=== PATIENT | male | born 1960 | race Caucasian/White ===

== ENCOUNTER 2016-04-20 11:54 | Inpatient (IN) | payer OTHER ==
[~2016-04-20] VITALS: Ht 185.4 cm; Wt 93.4 kg
[~2016-04-20 11:54] MED LIST: ALDACTONE50 MG PO; CARDIZEM60 MG PO; CEFTIN500 MG PO; CHRONULAC30 ML PO; CORDARONE200 MG PO; CYCLOBENZAPRINE10 MG PO; HUMULIN N100 U/ML SC; HYDROCODONE-APA1 TAB PO; LASIX40 MG PO; LEVAQUIN500 MG PO; LISINOPRIL10 MG PO; METOPROLOL TART50 MG PO; MIDODRINE HCL10 MG PO; PREDNISONE10 MG PO; PREDNISONE20 MG PO; PROVENTIL/2.5 MG/3 M INH; ROBITUSSIN AC (10 M1 PO; SINGULAIR10 MG PO; SYMBICORT 16010.2 GM INH; SYNTHROID50 MCG PO; TOPROL XL25 MG PO; XARELTO20 MG PO; XOPENEX 1.1.25 MG/3 UPD
[2016-04-20 12:28] LABS: HEMATOCRIT 45.5 % (42.0-54.0); HEMOGLOBIN 15.2 g/dL (13.5-17.5); MCH 31.3 pg (26.0-34.0); MCHC 33.4 g/dL (31.0-37.0); MCV 93.6 fL (80.0-100.0); MEAN PLATELET VOLUME 11.1 fL (7.4-10.4); PLATELET COUNT 276 10x3/uL (130-400); RBC 4.86 10x6/uL (4.20-6.10); RDW 13.6 % (11.5-14.5); WBC 20.3 10x3/uL (4.8-10.8)
[2016-04-20 12:43] LABS: ALBUMIN 3.4 g/dL (3.4-5.0); ALKALINE PHOSPHATASE 67 U/L (46-116); ALT (SGPT) 76 U/L (10-68); BILIRUBIN - TOTAL 0.43 mg/dL (0.2-1.3); CALC OSMOLALITY 282 mosm/kg (275-300); CALCIUM 9.4 mg/dL (8.5-10.1); CARBON DIOXIDE 30.4 mmol/L (21.0-32.0); CHLORIDE - SERUM 102 mmol/L (98-107); GLUCOSE 88 mg/dL (74-106); POTASSIUM - SERUM 4.6 mmol/L (3.5-5.1); PROTEIN - SERUM 6.8 g/dL (6.4-8.2); SODIUM 139 mmol/L (136-145); UREA NITROGEN 30 mg/dL (7-18); eGFR NON AFRICAN AMERICAN 82 mL/min (90-120)
[2016-04-20 12:52] LABS: CKMB 5.7 U/L (0.0-3.6); TROPONIN-I < 0.017 ng/mL (0.000-0.060)
[2016-04-20 13:13] LABS: EOSINOPHILS 1 % (0-7); LYMPHOCYTES 18 % (15-50); MONOCYTES 11 % (2-11); NEUTROPHILS 67 % (40-80); PLATELET ESTIMATE NORMAL
--- NOTE | 2016-04-20 16:50 | NUR ---
RECEIVED TO ROOM 2238 VIA WC FROM ED. A/O X3. LUNGS HAVE WHEEZES AND CRACKLES THROUGHOUT LUNG DUNCAN. REPORTS PRODUCTIVE COUGH WITH GRAYISH SPUTUM. SKIN IS INTACT WITHOUT REDNESS.
[2016-04-20 16:55] VITALS: BP 154/105; BMI 27.2
--- NOTE | 2016-04-20 18:11 | NUR ---
ATE ALL OF SUPPER PLUS MORE. DR. GONGORA HERE. NEW ORDERS RECEIVED. REQUESTED AND GIVEN ONE HYDROCODONE PO FOR C/O BACK PAIN LEVEL 10. WILL MONITOR.
[2016-04-20 21:18] VITALS: BP 141/87
--- NOTE | 2016-04-20 22:31 | NUR ---
PRN NORCO ADMINISTERED PER ORDER FOR PAIN 7/ IN HIS BACK. PAIN IS CHRONIC. IV REMAINS PATENT. ASSESSMENT PERFORMED PER FLOWSHEET. TELEMETRY ON PER ORDER. PROVIDED PT WITH MILK, TEENA CRACKERS AND PEANUT BUTTER. DENIES FURTHER NEEDS. SRX2 AND BED IN LOWEST POSITION AND LOCKED. CALL LIGHT IN REACH, WILL CONTINUE WITH PLAN OF CARE.
--- NOTE | 2016-04-21 08:04 | NUR ---
AWAKE AND ALERT. ORIENTED X3. NO C/O AT THIS TIME EXCEPT FOR BEING HUNGRY. LUNGS WITH INSPIRATORY AND EXPIRATORY WHEEZES THROUGHOUT LUNG DUNCAN. NON PRODUCTIVE COUGH NOTED. SKIN IS INTACT WITHOUT REDNESS. IV TO RIGHT HAND PATENT WITHOUT REDNESS AT INSERTION SITE. DENIES NEEDS.
[2016-04-21 08:15] VITALS: BP 137/72
--- NOTE | 2016-04-21 09:40 | NUR ---
UP TO SHOWER WITH SET UP ASSISTANCE ONLY. REQUESTED AND GIVEN ONE HYDROCODONE PO FOR C/O BACK PAIN LEVEL 9 AFTER ACTIVITY. WILL MONITOR.
--- NOTE | 2016-04-21 10:30 | NUR ---
RESTING QUIETLY WITH EYES CLOSED. NO NEEDS NOTED.
[2016-04-21 11:46] VITALS: BP 120/66
--- NOTE | 2016-04-21 13:00 | NUR ---
Patient Name: CHRISTIAN MURILLO Admission Status: ER Accout number: [id number] Admission Date: 04-20-2016 : 1960 Admission Diagnosis: Attending: MARIA LUZ Current LOS: 1 Anticipated DC Date: 04-23-2016 Planned Disposition: Home or Self Care Primary Insurance: [facility] Discharge Planning Comments: CM MET WITH PATIENT REGARDING D/C NEEDS AND PLANS. PATIENT STATED HE LIVES WITH ROOMMATES AND THEY EACH HAVE A ROOM. PATIENTS STATED HE WILL DRIVE HIMSELF HOME. PATIENT IS INDEPENDENT WITH HIS CARE AND HAS NO DME AT HOME. PATIENT STATED HE HAS A RAMP TO ENTER HOME AND NO STAIRS INSIDE. PATIENTS PCP IS DR. GONGORA AND USES [facility]. PATIENT HAS NEVER HAD HOME HEALTH BEFORE. CM WILL CONTINUE TO FOLLOW PATIENT WITH D/C NEEDS AND PLANS. PCP DR. GONGORA [facility] [phone] CHAPARRO (FRIEND) [phone] Roving Sizer: Shannan Calixto Is the patient Alert and Oriented? Yes 0 * How many steps to enter\exit or inside your home? RAMP 0 * PCP 0 * Pharmacy [facility] 0 * Preadmission Environment Home with Family 0 * ADLs Independent 0 * Equipment None 0 * List name and contact numbers for known caregivers / representatives who currently or will assist patient after discharge: CHAPARRO WARREN (FRIEND) [phone] 0 * Community resources currently utilized None 0 * Additional services required to return to the preadmission environment? Yes 0 * Can the patient safely return to the preadmission environment? Yes 0 * Has this patient been hospitalized within the prior 30 days at any hospital? No 0 Grand Total: 0
--- NOTE | 2016-04-21 15:15 | NUR ---
REQUESTED AND GIVEN ONE HYDROCODONE PO FOR C/O BACK PAIN LEVEL 8. WILL MONITOR.
[2016-04-21 16:10] VITALS: BP 128/63
--- NOTE | 2016-04-21 18:20 | NUR ---
ATE ALL OF SUPPER. NO C/O AT THIS TIME. DENIES NEEDS. NO CHANGES NOTED.
[2016-04-21 19:00] VITALS: BP 123/75
[2016-04-22] VITALS: BP 114/76
--- NOTE | 2016-04-22 01:12 | NUR ---
UP IN CHAIR AT BEDSIDE. NO DISTRESS NOTED. NO COMPLAINTS VOICED. CL IN REACH
--- NOTE | 2016-04-22 03:58 | NUR ---
PRN NORCO GIVEN FOR C/O BACK PAIN 12/26, MICHAEL WELL, CL IN REACH
[2016-04-22 04:00] VITALS: BP 104/65
--- NOTE | 2016-04-22 06:46 | NUR ---
NO CAHNGE IN ASSESSMENT
[2016-04-22 06:52] LABS: BASOPHILS 0.1 % (0.0-2.0); EOSINOPHILS 0 % (0-7); HEMATOCRIT 42.3 % (42.0-54.0); HEMOGLOBIN 13.8 g/dL (13.5-17.5); IMMATURE GRANULOCYTES 1.3 % (0-5); LYMPHOCYTES 4.7 % (15-50); MCH 31.4 pg (26.0-34.0); MCHC 32.6 g/dL (31.0-37.0); MCV 96.4 fL (80.0-100.0); MEAN PLATELET VOLUME 12.1 fL (7.4-10.4); MONOCYTES 4.6 % (2-11); NEUTROPHILS 89.3 % (40-80); PLATELET COUNT 250 10x3/uL (130-400); RBC 4.39 10x6/uL (4.20-6.10); RDW 14.1 % (11.5-14.5); WBC 24.5 10x3/uL (4.8-10.8)
[2016-04-22 07:06] LABS: CALC OSMOLALITY 286 mosm/kg (275-300); CALCIUM 8.1 mg/dL (8.5-10.1); CARBON DIOXIDE 25.3 mmol/L (21.0-32.0); CHLORIDE - SERUM 108 mmol/L (98-107); CREATININE - SERUM 0.8 mg/dL (0.6-1.3); MAGNESIUM - SERUM 1.9 mg/dL (1.8-2.4); PHOSPHOROUS 2.3 mg/dL (2.5-4.9); POTASSIUM - SERUM 4.5 mmol/L (3.5-5.1); SODIUM 138 mmol/L (136-145); UREA NITROGEN 34 mg/dL (7-18); eGFR NON AFRICAN AMERICAN > 90 mL/min (90-120)
[2016-04-22 07:07] LABS: GLUCOSE 161 mg/dL (74-106)
--- NOTE | 2016-04-22 07:25 | NUR ---
PATIENT RESTING IN HIS BED, HOB UP 30 DEGREES. HE IS RECEIVING AN UPDRAFT TREATMENT. HE HOPES TO GO HOME TODAY. LAUREN NEEDS AT THIS TIME.
[2016-04-22 08:04] VITALS: BP 133/68
--- NOTE | 2016-04-22 08:47 | NUR ---
PATIENT IS SITTING UP ON HIS BEDISDE EATING HIS BREAKFAST. MEDICATIONS GIVEN PER ORDERS. NORCO FOR BACK PAIN. IVF INFUSING TO HIS R HAND PER ORDERS. NO EVIDENCE OF INFILTRATION OR INFECTION. DENIED OTHER NEEDS AT THIS TIME.
--- NOTE | 2016-04-22 10:01 | NUR ---
PATIENT HAS BEED UP IN TO THE SHOWER. HE STATES THAT HE DOES FEEL BETTER. BACK PAIN REMAINS A 6. HE FEELS THIS IS BECAUSE HE IS CONFINED TO HIS BED. ENCOURAGED HIM TO AMBULATE AROUND THE UNIT TO LOOSEN UP. HE DECLINES AT THIS TIME. DENIED OTHER NEEDS WELL. CALL LIGHT IS WITHIN REACH.
[2016-04-22 11:39] VITALS: BP 118/62
--- NOTE | 2016-04-22 14:25 | NUR ---
pt asked to be off oxygen for a while-pulse ox on 2lnc 97%-pulse ox on room air x 20 min off oxygen 96-97%. will continue to monitor
[2016-04-22 14:50] VITALS: Ht 185.4 cm; Wt 93.4 kg
[2016-04-22 15:36] VITALS: BP 126/89
--- NOTE | 2016-04-22 15:38 | NUR ---
PATIENT SITTING UP IN HIS BEDSIDE CHAIR RECEIVING AN UPDRAFT TREATMENT. HE IS ON ROOM AIR. PULSE OX IS 98%
[2016-04-22 19:00] VITALS: BP 134/74
[2016-04-23] VITALS: BP 160/74
--- NOTE | 2016-04-23 00:36 | NUR ---
RESITED IV TO RIGHT HAND ON FIRST STICK WITH 22 GAUGE. PATIENT AMBULATED TO BATHROOM AND BACK TO BED. NOW WATCHING TV WITH NO DISTRESS NOTED. CALL LIGHT WITHIN REACH.
[2016-04-23 04:00] VITALS: BP 139/89
[2016-04-23 06:50] LABS: BASOPHILS 0.2 % (0.0-2.0); EOSINOPHILS 0 % (0-7); HEMATOCRIT 44.7 % (42.0-54.0); HEMOGLOBIN 14.4 g/dL (13.5-17.5); IMMATURE GRANULOCYTES 1.5 % (0-5); LYMPHOCYTES 3.3 % (15-50); MCH 31.8 pg (26.0-34.0); MCHC 32.2 g/dL (31.0-37.0); MCV 98.7 fL (80.0-100.0); MEAN PLATELET VOLUME 12.3 fL (7.4-10.4); MONOCYTES 6.6 % (2-11); NEUTROPHILS 88.4 % (40-80); PLATELET COUNT 209 10x3/uL (130-400); RBC 4.53 10x6/uL (4.20-6.10); RDW 14.9 % (11.5-14.5); WBC 21.6 10x3/uL (4.8-10.8)
--- NOTE | 2016-04-23 06:54 | HP ---
PATIENT: CHRISTIAN MURILLO MEDICAL RECORD: [id number] ACCOUNT: [id number] LOCATION:D.MS [id number] : 60 ADMISSION DATE: 04/20/16 HISTORY AND PHYSICAL EXAMINATION REASON FOR ADMISSION: Shortness of breath. HISTORY OF PRESENT ILLNESS: The patient is a 55-year-old male with history of COPD and asthma. He unfortunately still continues to smoke, but he is trying to quit he states. He had trouble with cough and congestion for about a week and a half. Evelyn Cowan, our nurse practitioner had been treating him with oral prednisone and antibiotics, but he did not improve. He called in, so he just needed to come in because he was more short of breath. He said he had small colored sputum production 3-4 days ago and night sweats, but no documented fever. He also has chronic low back pain and history of AFib flutter. PAST MEDICAL HISTORY: Atrial fib, pneumonia, atrial flutter, hospitalized in April 2015 with DC cardioversion, hepatitis C, chronic low back pain, hypertension, echo 2015 showed EF of 35% with trace MR and tricuspid regurgitation, and hepatitis C. PAST SURGICAL HISTORY: Negative. SOCIAL HISTORY: He says he quit smoking several times last December of 2014, but he is back to smoking again. He works in [employer]. He is . FAMILY HISTORY: Father at 50 with colon cancer, asthma, alcoholism and hypertension. Mother at 50 with chronic obstruction pulmonary disease, hypertension, osteoarthritis, migraine headaches. ALLERGIES: None known. HOME MEDICATIONS: Prednisone 20 mg a day, Xarelto 20 mg p.o. with dinner, lisinopril 10 mg a day, Singulair 10 mg at h.s., Lopressor 50 mg p.o. b.i.d., diltiazem HCL 120 b.i.d., Cordarone 200 mg p.o. b.i.d., Advair 100/50 two puffs b.i.d., guaifenesin 5 cc p.o. q.4 hours p.r.n., DuoNeb q.4 hours, Anson 10/325 one t.i.d. p.r.n. back pain. REVIEW OF SYSTEMS: GENERAL: He has been fatigued with some air hunger. No fever. HEENT: No recent visual change, sinus congestion or sore throat. RESPIRATORY: Increasing cough, wheezing and shortness of breath, small colored sputum 2-3 days ago. No hemoptysis. He continues to smoke. CARDIAC: No exertional chest pain or recent palpitations or edema. GASTROINTESTINAL: No nausea, vomiting, change in stools or blood per rectum. GENITOURINARY: No dysuria. He has nocturia once nightly. ENDOCRINE: Denies polyuria, polydipsia, heat or cold intolerance. NEUROLOGIC: No history of stroke, TIA or vascular headaches. INTEGUMENT: No rash or itching. PSYCHIATRIC: Denies depressed mood or anxiety. PHYSICAL EXAMINATION: GENERAL: Alert 55-year-old male with mild respiratory distress. VITAL SIGNS: Temperature 98.6 orally, pulse 112 and regular, respirations are HISTORY AND PHYSICAL [id number] CHRISTIAN MURILLO 25, blood pressure 157/109 with a sat 94% on 3 liters. HEENT: Normocephalic. Eyes are clear. Oropharynx unremarkable. NECK: No bruits, masses or JVD. CHEST: She has expiratory wheezes in the upper lobes bilaterally. HEART: Tachycardic without murmur. ABDOMEN: Soft, nontender. GENITOURINARY: Deferred. EXTREMITIES: No CCE. MUSCULOSKELETAL: He has chronic lumbago with bending from the waist or side bending. NEUROLOGICAL: Oriented times 3. Cranial nerves intact. SLR is negative bilaterally. SKIN: No icterus appreciated. IMAGING: Chest x-ray shows hyperinflation without acute cardiac disease. LABORATORY DATA: His white count is 20,000, H&H of 15 and 45 respectively, platelet count 276,000. Chemistry normal except for BUN of 30, creatinine of 1.0. ALT and AST are 76 and 49 respectively. CPK-MB is 5.7. Troponin is less than 0.017. ASSESSMENT: 1. Exacerbation of chronic obstructive pulmonary disease. 2. Nicotine addiction. 3. History of atrial fibrillation flutter, currently revealing a sinus tachycardia. 4. History of hepatitis C. 5. Hypertension. PLAN: The patient admitted to medical floor, given updrafts q.4 hours, IV Solu-Medrol. We will start IV Rocephin. Pulmonary consult if indicated. TRANSINT:[id number] Voice Confirmation ID: [id number] DOCUMENT ID: [id number] LUIS GONGORA MD at 0654 CC: [id number] DICTATION DATE: 04/20/161755 HYDROGEN POWER PLANT MANAGER: 04/20/162029 ADM IN [facility] [address] [place] [address]
--- NOTE | 2016-04-23 08:06 | NUR ---
PATIENT AWAKE, ALERT, ORIENTED X3, HE C/O BACK PAIN THAT HE SAYS IS CHRONIC AND HE REQUESTS NORCO WHEN HE CAN GET IT.
[2016-04-23 08:10] VITALS: BP 146/83
--- NOTE | 2016-04-23 09:23 | NUR ---
PATIENT C/O BACK PAIN THAT IS CONSTANT AND CHRONIC, RATES IT 11/25. NORCO PO GIVEN NOW.
--- NOTE | 2016-04-23 09:50 | NUR ---
CHECKED ON PATIENTS PAIN LEVEL, HE SAYS IT IS A LITTLE BETTER, BUT IT'S ABOUT 7/10.
--- NOTE | 2016-04-23 11:00 | NUR ---
PATIENT IS TRYING TO REST, BUT HE IS NOT ABLE WE ALL KEEP GOING IN AND PROVIDING MEDS OR CARE.
[2016-04-23 11:41] VITALS: BP 136/83
--- NOTE | 2016-04-23 13:27 | NUR ---
PATIENT C/O PAIN, RATES PAIN 8-9/10 IN HIS BACK IT IS CHRONIC.
--- NOTE | 2016-04-23 16:00 | NUR ---
PATIENT IS CALM AND DENIES NEEDS.
[2016-04-23 16:03] VITALS: BP 129/75
--- NOTE | 2016-04-23 17:57 | NUR ---
GOLDEN Guevara REQUESTS PAIN MED. RATES PAIN 8-12/26. NORCO PROVIDED, SEE MAR
[2016-04-23 19:00] VITALS: BP 144/82
--- NOTE | 2016-04-24 03:52 | NUR ---
PATIENT IN BED EATING A SNACK. AAOX4. RR EVEN AND UNLABORED. 0 S/S OF DISTRESS. O2 OFF AT THIS TIME. IV TO RIGHT HAND PATENT AND INFUSING NS @ 50. TELEMETRY ON. SRX2. BED LOW. CALL LIGHT WITHIN REACH.
[2016-04-24 04:00] VITALS: BP 134/86
[2016-04-24 07:49] VITALS: BP 152/92
--- NOTE | 2016-04-24 07:53 | NUR ---
AWAKE AND ALERT. UD IN PROGRESS. LUNGS ARE DIMINISHED THROUGHOUT WITH EXPIRATORY WHEEZES NOTED. OCCASSIONAL DRY COUGH NOTED. SKIN IS INTACT WITHOUT REDNESS. IV TO RIGHT HAND PATENT WITHOUT REDNESS AT INSERTION SITE. DENIES NEEDS.
--- NOTE | 2016-04-24 07:58 | NUR ---
REQUESTED AND GIVEN ONE HYDROCODONE FOR C/O BACK PAIN LEVEL 8. WILL MONITOR.
--- NOTE | 2016-04-24 10:30 | NUR ---
IV TO RIGHT HAND CONTINUES TO BEEP. D/C WITH CATHETER INTACT. RESITED TO LEFT HAND AFTER 4 ATTEMPTS WITH 22G. PATIENT TOLERATED WITHOUT C/O.
--- NOTE | 2016-04-24 12:13 | NUR ---
REQUESTED AND GIVEN ONE HYDROCODONE PO FOR C/O BACK PAIN LEVEL 8. WILL MONITOR.
[2016-04-24 12:22] VITALS: BP 126/81
[2016-04-24 16:00] VITALS: BP 133/82
--- NOTE | 2016-04-24 16:10 | NUR ---
REQUESTED AND GIVEN ONE HYDROCODONE PO FOR C/O BACK PAIN LEVEL 9. WILL MONITOR.
--- NOTE | 2016-04-24 18:30 | NUR ---
ATE ALL OF SUPPER. NO CHANGES NOTED. DENIES NEEDS.
--- NOTE | 2016-04-24 19:20 | NUR ---
PATIENT SITTING IN SEMI-FOWLERS POSITION. BROUGHT PATIENT ICE PER HIS REQUEST.
[2016-04-24 20:43] VITALS: BP 153/88
--- NOTE | 2016-04-25 07:59 | NUR ---
AWAKE AND ALERT. ORIENTED X3. C/O BACK PAIN THIS AM. WILL MONITOR. LUNGS ARE CLEAR BILATERALLY BUT DIMINISHED. NON PRODUCTIVE COUGH NOTED. SKIN IS INTACT WITHOUT REDNESS. IV TO LEFT HAND PATENT WITHOUT REDNESS AT INSERTION SITE. REPORTS BM ALREADY THIS AM. DENIES NEEDS.
[2016-04-25 08:04] VITALS: BP 150/90
--- NOTE | 2016-04-25 10:45 | NUR ---
REQUESTED AND GIVEN ONE HYDROCODONE PO FOR C/O BACK PAIN. UP TO SHOWER PER SELF. DENIES NEEDS.
[2016-04-25 11:56] VITALS: BP 139/81
[2016-04-25 15:59] VITALS: BP 140/78
--- NOTE | 2016-04-25 19:12 | NUR ---
ATE ALL OF SUPPER. NO C/O AT THIS TIME. NOT CHANGES NOTED.
--- NOTE | 2016-04-26 02:30 | NUR ---
PT IN BED REQUESTING ICE WATER. IV TO LEFT FOREARM PATENT AND SALINE LOC. LUNS SOUNDS CLEAR TO AUSCULTATION. SIDE RAILS ARE UP X 2. BED IS LOW. CALL LIGHT IS IN REACH.
[2016-04-26 04:00] VITALS: BP 148/90
[2016-04-26 05:04] LABS: BASOPHILS 0.1 % (0.0-2.0); EOSINOPHILS 0 % (0-7); HEMATOCRIT 43.9 % (42.0-54.0); HEMOGLOBIN 14.5 g/dL (13.5-17.5); IMMATURE GRANULOCYTES 1.2 % (0-5); LYMPHOCYTES 5.6 % (15-50); MCH 31.2 pg (26.0-34.0); MCV 94.4 fL (80.0-100.0); MEAN PLATELET VOLUME 12.1 fL (7.4-10.4); MONOCYTES 3.8 % (2-11); NEUTROPHILS 89.3 % (40-80); PLATELET COUNT 223 10x3/uL (130-400); RBC 4.65 10x6/uL (4.20-6.10); RDW 14.3 % (11.5-14.5)
[2016-04-26 05:20] LABS: CALC OSMOLALITY 296 mosm/kg (275-300); CALCIUM 8.4 mg/dL (8.5-10.1); CARBON DIOXIDE 29.6 mmol/L (21.0-32.0); CHLORIDE - SERUM 108 mmol/L (98-107); CREATININE - SERUM 0.9 mg/dL (0.6-1.3); GLUCOSE 184 mg/dL (74-106); MAGNESIUM - SERUM 2.2 mg/dL (1.8-2.4); PHOSPHOROUS 3.1 mg/dL (2.5-4.9); POTASSIUM - SERUM 3.9 mmol/L (3.5-5.1); SODIUM 143 mmol/L (136-145); UREA NITROGEN 33 mg/dL (7-18); eGFR NON AFRICAN AMERICAN > 90 mL/min (90-120)
[2016-04-26 08:07] VITALS: BP 157/97
[2016-04-26 12:09] VITALS: BP 166/95
--- NOTE | 2016-04-26 14:56 | NUR ---
NUTRITION MONITORING & EVAL CHART REVIEWED. PT CONTINUES TO HAVE GOOD PO INTAKE REG DIET. REMAINS AT LOW NUTRITIONAL RISK. RD FOLLOWING
[2016-04-26 16:37] VITALS: BP 155/89
--- NOTE | 2016-04-26 18:44 | NUR ---
REMAINS WITHOUT NEEDS,WITHOUT CHANGE.CONT PLAN OF CARE
[2016-04-26 19:00] VITALS: BP 148/86
[2016-04-27] VITALS: BP 136/81
--- NOTE | 2016-04-27 02:10 | NUR ---
PT IN BED WITH NO NEEDS. LUNG SOUNDS CLEAR. LEFT FOREARM IV PATENT AND SALINE LOC. SIDE RAILS ARE UP X 2. BED IS LOW. CALL LIGHT IS IN REACH.
[2016-04-27 04:00] VITALS: BP 142/88
[2016-04-27 08:28] VITALS: BP 146/89
[2016-04-27 11:49] VITALS: BP 145/79
[2016-04-27] MEDS ORDERED: SINGULAIR10 MG PO (15:38)
[2016-04-27] MEDS ORDERED: IPRAT-ALBUT 0.5-3 ML UPD (15:38)
[2016-04-27] MEDS ORDERED: DALIRESP500 MCG PO (15:38)
[2016-04-27] MEDS ORDERED: PREDNISONE10 MG PO (15:42)
[2016-04-27 15:45] VITALS: BP 139/82
--- NOTE | 2016-04-27 16:30 | NUR ---
DISCHARGE INSTRUCTIONS COMPLETED WITH PATIENT. D/C IV WITH CATH INTACT. TOOK PATIENT OUT VIA WHEELCHAIR.
== END 2016-04-27 16:43 | disposition home or self-care (01) | DRG 191 ==
LOC: OBSVTIME → D.ER 11:54 → D.MS 11:55 → OBSVTIME 15:30 → D.MS 15:30 → D.ER 15:30 → D.MS 04-21 18:30
PROVIDERS: Emergency Medicine; Internal Medicine Pulmonary Disease; ADMIT Family Medicine
DX: J44.1 Chronic obstructive pulmonary disease with (acute) exacerbation (principal); J45.901 Unspecified asthma with (acute) exacerbation; F17.203 Nicotine dependence unspecified, with withdrawal; I50.22 Chronic systolic (congestive) heart failure; I48.92 Unspecified atrial flutter; E87.0 Hyperosmolality and hypernatremia; B18.2 Chronic viral hepatitis C; G89.29 Other chronic pain; M54.5 Low back pain; I11.0 Hypertensive heart disease with heart failure; I48.91 Unspecified atrial fibrillation; Z79.01 Long term (current) use of anticoagulants

== ENCOUNTER 2016-04-30 11:29 | Inpatient (IN) | payer OTHER ==
[~2016-04-30] VITALS: Ht 185.4 cm; Wt 91.1 kg
[~2016-04-30 11:29] MED LIST changes: +DALIRESP500 MCG PO; +IPRAT-ALBUT 0.5-3 ML UPD
[2016-04-30 12:43] LABS: BASOPHILS 0.2 % (0.0-2.0); EOSINOPHILS 1.6 % (0-7); HEMATOCRIT 50.7 % (42.0-54.0); HEMOGLOBIN 17.2 g/dL (13.5-17.5); IMMATURE GRANULOCYTES 3.7 % (0-5); LYMPHOCYTES 9.3 % (15-50); MCH 31.8 pg (26.0-34.0); MCHC 33.9 g/dL (31.0-37.0); MCV 93.7 fL (80.0-100.0); MEAN PLATELET VOLUME 11.4 fL (7.4-10.4); MONOCYTES 11.5 % (2-11); NEUTROPHILS 73.7 % (40-80); PLATELET COUNT 250 10x3/uL (130-400); RBC 5.41 10x6/uL (4.20-6.10); RDW 14.2 % (11.5-14.5)
[2016-04-30 12:48] LABS: APTT 24.4 SECONDS (22.8-39.4); INR 0.94 (0.85-1.17); PROTIME 12.5 SECONDS (11.6-15.0)
[2016-04-30 12:50] LABS: D-DIMER-QUANTITATIVE 0.88 ug/mLFEU (0.20-0.54)
[2016-04-30 13:12] LABS: ALKALINE PHOSPHATASE 73 U/L (46-116); ALT (SGPT) 189 U/L (10-68); BILIRUBIN - TOTAL 0.91 mg/dL (0.2-1.3); CALCIUM 8.9 mg/dL (8.5-10.1); CARBON DIOXIDE 28.4 mmol/L (21.0-32.0); CHLORIDE - SERUM 102 mmol/L (98-107); CREATINE KINASE 102 UL (21-232); CREATININE - SERUM 0.9 mg/dL (0.6-1.3); POTASSIUM - SERUM 4.5 mmol/L (3.5-5.1); PRO BNP 151 pg/mL (0-125); PROTEIN - SERUM 6.4 g/dL (6.4-8.2); SODIUM 140 mmol/L (136-145); UREA NITROGEN 25 mg/dL (7-18); eGFR NON AFRICAN AMERICAN > 90 mL/min (90-120)
[2016-04-30 13:13] LABS: CALC OSMOLALITY 281 mosm/kg (275-300); GLUCOSE 86 mg/dL (74-106); TROPONIN-I < 0.017 ng/mL (0.000-0.060)
[2016-04-30 13:24] LABS: APPEARANCE CLEAR (CLEAR); BILIRUBIN NEGATIVE (NEGATIVE); COLOR YELLOW (YELLOW); GLUCOSE NEGATIVE (NEGATIVE); KETONE NEGATIVE (NEGATIVE); LEUKOCYTE ESTERASE NEGATIVE (NEGATIVE); NITRITE NEGATIVE (NEGATIVE); PROTEIN NEGATIVE (NEGATIVE); SPECIFIC GRAVITY 1.015 (1.005-1.020)
[2016-04-30 13:29] LABS: UDS - AMPHET NEGATIVE QUAL (NEGATIVE); UDS - BARB NEGATIVE QUAL (NEGATIVE); UDS - BENZO NEGATIVE QUAL (NEGATIVE); UDS - COCAINE NEGATIVE QUAL (NEGATIVE); UDS - METH NEGATIVE QUAL (NEGATIVE); UDS - OPIATE POSITIVE QUAL (NEGATIVE); UDS - PCP NEGATIVE QUAL (NEGATIVE); UDS - THC NEGATIVE QUAL (NEGATIVE)
[2016-04-30 18:41] VITALS: BP 147/98; BMI 27.9
--- NOTE | 2016-04-30 18:53 | NUR ---
PT IS ALERT. ASSESSMENT DONE PER FLOWSHEET. NO OTHER NEEDS WILL CONTINUE TO MONTIOR.
--- NOTE | 2016-04-30 19:46 | NUR ---
INITIAL ROUNDS COMPLETEDA T 1930 HRS. PT SOB WITH ACTIVITY. PT REQUESTING PAIN MEDS. DR ORTEGA ON FLOOR AND NOTIFIED. WILL CONTINUE TO MONITOR.
[2016-04-30 20:35] VITALS: BP 161/107
--- NOTE | 2016-04-30 23:07 | NUR ---
PMM EDS GIVEN. OCCLUDED IV TO L HAND D\C'D WITH CATHETER INTACT. PT CURRETNLY RESTING WITH EYES CLOSED. RESP EVEN AND REGULAR. SR UP X2,CALL LIGHT WITHIN REACH.
--- NOTE | 2016-05-01 00:37 | NUR ---
NORCO 10/325 PO GIVEN FOR C/O CHRONIC BACK PAIN. WILL CONTINUE TO MONITOR.
[2016-05-01 00:45] VITALS: BP 183/97
--- NOTE | 2016-05-01 03:01 | NUR ---
PT RESTING WITH EYES CLOSED. RESP EVEN AND REGULAR. SR UP X2, CALL LIGHT WITHIN REACH.
[2016-05-01 04:20] VITALS: BP 145/93
--- NOTE | 2016-05-01 04:35 | NUR ---
VSS. PT DENIES NEED FOR NORCO AT THIS TIME. WILL CONTINUE TO MONITOR.
--- NOTE | 2016-05-01 06:35 | NUR ---
NORCO 10/325 PO GIVEN FOR C/O CHRONIC BACK PAIN. WILL CONTINUE TO MONITOR.
--- NOTE | 2016-05-01 07:45 | NUR ---
0650-AM ROUNDING DONE. DENIES NEEDS AT PRESENT TIME. WAS GIVEN NORCO EARILER FOR CHRONIC BACK PAIN. SALINE LOCK SEEN TO LEFT AC. ON 3L PER NC. BILATERAL IN/EX WHEEZES HEARD THROUGHOUT LUNG DUNCAN. PATIENT STATES THAT HE HAS STOPPED SMOKING X 2 WEEKS AGO. WILL CONTINUE TO MONITOR.
[2016-05-01 07:47] VITALS: BP 150/91
[2016-05-01 08:44] LABS: BASOPHILS 0 % (0.0-2.0); EOSINOPHILS 0 % (0-7); HEMATOCRIT 45.2 % (42.0-54.0); HEMOGLOBIN 15.3 g/dL (13.5-17.5); IMMATURE GRANULOCYTES 1.2 % (0-5); LYMPHOCYTES 2.6 % (15-50); MCH 31.7 pg (26.0-34.0); MCHC 33.8 g/dL (31.0-37.0); MCV 93.6 fL (80.0-100.0); MEAN PLATELET VOLUME 11.6 fL (7.4-10.4); MONOCYTES 2.9 % (2-11); NEUTROPHILS 93.3 % (40-80); PLATELET COUNT 206 10x3/uL (130-400); RBC 4.83 10x6/uL (4.20-6.10); RDW 13.9 % (11.5-14.5); WBC 20.9 10x3/uL (4.8-10.8)
[2016-05-01 10:08] LABS: ALBUMIN 2.6 g/dL (3.4-5.0); ALKALINE PHOSPHATASE 72 U/L (46-116); ALT (SGPT) 147 U/L (10-68); CALCIUM 8.1 mg/dL (8.5-10.1); CARBON DIOXIDE 24.1 mmol/L (21.0-32.0); CHLORIDE - SERUM 99 mmol/L (98-107); CREATININE - SERUM 0.8 mg/dL (0.6-1.3); POTASSIUM - SERUM 4.3 mmol/L (3.5-5.1); PROTEIN - SERUM 5.5 g/dL (6.4-8.2); SODIUM 133 mmol/L (136-145); UREA NITROGEN 23 mg/dL (7-18); eGFR NON AFRICAN AMERICAN > 90 mL/min (90-120)
[2016-05-01 10:16] LABS: CALC OSMOLALITY 275 mosm/kg (275-300); GLUCOSE 213 mg/dL (74-106)
--- NOTE | 2016-05-01 10:23 | NUR ---
ON EP, LAB VALUES ARE NORMAL.
--- NOTE | 2016-05-01 10:51 | HP ---
PATIENT: CHRISTIAN MURILLO MEDICAL RECORD: [id number] ACCOUNT: [id number] LOCATION:D. D.2107 : 60 ADMISSION DATE: 04/30/16 HISTORY AND PHYSICAL EXAMINATION DATE OF ADMISSION: 04/30/2016 CHIEF COMPLAINT: Increasing shortness of breath and audible wheezing. HISTORY OF PRESENT ILLNESS: This 55-year-old white male who has a known history of COPD. He was hospitalized from 04/20/2016 to 04/27/2016, gotten out on Tuesday. He states he had a good day Tuesday and , started off okay, but had acute onset of increased shortness of breath and wheezing afternoon and continued into today. He was brought to the ER, respiratory rate was 36, heart rate was 144, blood pressure a little elevated at 158/89, O2 sat was 99%. He is admitted for COPD exacerbation. He is also complaining of pain in his knees and right foot and ankle as well. PAST MEDICAL HISTORY AND PAST SURGICAL HISTORY: He has COPD. He has atrial fibrillation, lumbar disc disease, hypertension, and history of hepatitis C. PAST SURGICAL HISTORY: No surgeries. CURRENT MEDICATIONS: Includes albuterol via nebulizer every 4-6 hours as needed, amiodarone 200 mg twice a day, hydrocodone 7.5/325 one 3 times a day as needed for pain, lisinopril 10 mg a day, metoprolol 50 mg twice a day, Singulair 10 mg at bedtime, Symbicort 160/4.5 two puffs twice a day. SOCIAL HISTORY: He is . Lives with several people. He works at [employer]. HABITS: He was a long time smoker and he quit and started back, quit and started back. He said he is done now. Denies any alcohol or drugs. FAMILY HISTORY: Father at 50. He had hypertension, asthma, alcoholism, and colon cancer. Mother at age 50. She had hypertension, COPD and asthma as well as osteoarthritis. REVIEW OF SYSTEMS: GENERAL: No major weight changes. HEENT: No sinus or allergy problems. RESPIRATORY: See above history. CARDIAC: History of atrial fibrillation, has seen Dr. Sands in the past. GASTROINTESTINAL: Denies diarrhea or constipation. GENITOURINARY: No significant problems there. MUSCULOSKELETAL: Has chronic back pain and right now, complaining of pain in his knees and right foot and ankle. NEUROLOGIC: No history of migraines or seizures. PSYCHIATRIC: Denies depression or melancholia. PHYSICAL EXAMINATION: VITAL SIGNS: He is afebrile, heart rate is 92, respirations 22, blood pressure 147/98, and O2 sat 95%. He has audible wheezing. Complaining of pain. HEENT: Grossly within normal limits. NECK: Supple. No bruit. HISTORY AND PHYSICAL [id number] CHIDICHRISTIAN VERA HEART: Regular rate and rhythm. LUNGS: Diffuse wheeze. ABDOMEN: Soft. EXTREMITIES: No edema. He has generalized tenderness to both knees and his right foot and ankle. LABORATORY DATA: Urinalysis is okay. Urine drug screen positive for opiates. CBC with a white count of 21,000 (recently hospitalized on steroids) with a hemoglobin of 17.2, hematocrit of 50. INR of 0.94. D-dimer mildly elevated at 0.88. Basic metabolic panel is unremarkable. AST elevated at 65, ALT 189. ProBNP 151. DIAGNOSTIC DATA: Chest x-ray showed no cardiopulmonary disease. CT of the chest due to elevated D-dimer showed no PE. There was a loculated area in the right upper lobe that was probably pneumothorax versus an atypical bleb. ASSESSMENT: 1. Chronic obstructive pulmonary disease exacerbation. 2. Hypertension. 3. Back pain. PLAN: Dr. Escalera has been consulted. He has seen the patient. He has had blood cultures done. He is on IV steroids, IV antibiotics. Start him on Lovenox and Pepcid. We will check a uric acid level in the morning. Other tests and procedures as warranted. TRANSINT:[id number] Voice Confirmation ID: [id number] DOCUMENT ID: [id number] MERLIN ORTEGA MD at 1051 CC: [id number] DICTATION DATE: 04/30/161947 CHIEF RADIOLOGY: 04/30/162105 ADM IN [facility] [address] [place] [address]
[2016-05-01 11:25] VITALS: Ht 185.4 cm; Wt 91.1 kg
[2016-05-01 11:50] VITALS: BP 161/100
--- NOTE | 2016-05-01 13:54 | NUR ---
UP FOR SHOWER, REFUSES LINEN CHANGE WHEN ASKED.
[2016-05-01 15:54] VITALS: BP 130/73
--- NOTE | 2016-05-01 18:27 | NUR ---
LEVAQUIN STILL INFUSING TO LEFT FOREARM. PATIENT IS COUGHING MORE THAN THIS AM, REPORTS THAT "IT'S BREAKING UP". WILL CONTINUE TO MONITOR.
[2016-05-01 20:10] VITALS: BP 152/80
[2016-05-02 00:35] VITALS: BP 157/98
[2016-05-02 04:28] VITALS: BP 158/96
[2016-05-02 06:22] LABS: BASOPHILS 0.2 % (0.0-2.0); EOSINOPHILS 0 % (0-7); HEMATOCRIT 45.3 % (42.0-54.0); HEMOGLOBIN 14.9 g/dL (13.5-17.5); IMMATURE GRANULOCYTES 0.8 % (0-5); LYMPHOCYTES 1.7 % (15-50); MCH 31.8 pg (26.0-34.0); MCHC 32.9 g/dL (31.0-37.0); MCV 96.8 fL (80.0-100.0); MEAN PLATELET VOLUME 12.2 fL (7.4-10.4); MONOCYTES 3.1 % (2-11); NEUTROPHILS 94.2 % (40-80); PLATELET COUNT 215 10x3/uL (130-400); RBC 4.68 10x6/uL (4.20-6.10); RDW 14.5 % (11.5-14.5); WBC 27.1 10x3/uL (4.8-10.8)
[2016-05-02 06:41] LABS: ALBUMIN 2.5 g/dL (3.4-5.0); ALKALINE PHOSPHATASE 92 U/L (46-116); ALT (SGPT) 117 U/L (10-68); BILIRUBIN - TOTAL 0.37 mg/dL (0.2-1.3); CALC OSMOLALITY 283 mosm/kg (275-300); CALCIUM 8.9 mg/dL (8.5-10.1); CARBON DIOXIDE 25.1 mmol/L (21.0-32.0); CHLORIDE - SERUM 103 mmol/L (98-107); CREATININE - SERUM 0.9 mg/dL (0.6-1.3); GLUCOSE 209 mg/dL (74-106); PROTEIN - SERUM 5.4 g/dL (6.4-8.2); SODIUM 137 mmol/L (136-145); UREA NITROGEN 24 mg/dL (7-18); eGFR NON AFRICAN AMERICAN > 90 mL/min (90-120)
[2016-05-02 06:42] LABS: POTASSIUM - SERUM 5.4 mmol/L (3.5-5.1)
--- NOTE | 2016-05-02 07:36 | NUR ---
AM ROUNDING- PT LAYING IN BED ON LEFT SIDE. C/O 01/25 BACK PAIN. STATED HE HAS BEEN ASKING FOR PAIN MEDICINE ALL NIGHT AND HAS NOT RECEIVED IT. APOLOGIZED TO PT AND GAVE PT PRN NORCO ORDERED FOR PAIN. ON EP. K+ WAS 5.4 THIS AM. AWAITING DOCTOR TO MAKE ROUNDS TO NOTIFY HIM. IV SEEN TO LEFT FOREARM SALINE LOCKED AND PATENT. ON 02 AT 3L VIA NC. PT IS ALERT AND ORIENTED, UP AD MAUDE. WILL CONTINUE TO MONITOR.
[2016-05-02 08:00] VITALS: BP 172/106
--- NOTE | 2016-05-02 08:07 | NUR ---
CALLED DR. BENJAMIN ORDERED BY DR. CEBALLOS TO GET A CONSULT FOR PT. AWAITING CALLBACK.
--- NOTE | 2016-05-02 11:43 | NUR ---
UPON WALKING INTO PTS ROOM PT STATED IV (LEFT FOREARM) WAS SWOLLEN. IV SITE APPEARED SWOLLEN WITH NO REDNESS SEEN. WILL ATTEMPT TO RE-SITE PT AND RESTART IV ANTIBIOTICS.
--- NOTE | 2016-05-02 12:21 | NUR ---
RESITED PT X 3 STICKS. GAY TELLO RESITED PT TO RIGHT WRIST WITH 20G CATHETER. TOLERATED WELL. OLD IV TO LEFT FOREARM REMOVED WITH CATH TIP INTACT.
--- NOTE | 2016-05-02 12:40 | NUR ---
DR. BENJAMIN IS ON UNIT. INFORMED HIM THAT PER DR. 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 DR. BENJAMIN STATED " I KNOW I HAVE A CONSULT". WILL CONTINUE TO MONITOR.
[2016-05-02 14:32] VITALS: BP 128/82
--- NOTE | 2016-05-02 17:29 | NUR ---
DR. ORTEGA ON UNIT. INFORMED HIM OF PTS POTASSIUM BEING ELEVATED. STATED HE SAW THAT AND WILL RECHECK TOMORROW.
--- NOTE | 2016-05-02 19:26 | NUR ---
PT LAYING IN BED ON BACK WATCHING TV. DENIES ANY NEED AT CURRENT TIME. WILL CONTINUE TO MONITOR.
--- NOTE | 2016-05-02 19:30 | NUR ---
ASSESSMENT COMPLETE, DENIES NEEDS AT THIS TIME. HOB UP SR UP X2, C/L REACH. NOT WEARING O2 AT THIS TIME. RESP UNLAB RT. RT WRIST SL INTACT WITH NO R/S NOTED AT SITE. LEFT FA BRUISING AND SWELLING NOTED FROM PREVIOUS IV. UP ON PILLOW FOR C & C. UP AD MAUDE W/O DIFF, CONTINUE TO MONITOR.
[2016-05-02 20:00] VITALS: BP 138/72
--- NOTE | 2016-05-02 20:29 | NUR ---
NORCO 10MG PO GIVEN FOR C/O BACK PAIN. C/L IN REACH. PM MEDS GIVEN W/O DIFF. CONTINUE TO MONITOR.
--- NOTE | 2016-05-02 21:30 | NUR ---
VOICES NO C/O PAIN OR DISCOMFORT AT THIS TIME. LYING ON RT SIDE, RESP UNLAB. C/L IN REACH.
--- NOTE | 2016-05-02 23:33 | NUR ---
EYES CLOSED, RESP UNLAB WITH NO S/S OF ACUTE DISTRESS NOTED. C/L IN REACH.
[2016-05-03 00:33] VITALS: BP 145/79
[2016-05-03 05:14] LABS: BASOPHILS 0 % (0.0-2.0); EOSINOPHILS 0 % (0-7); HEMATOCRIT 42.5 % (42.0-54.0); HEMOGLOBIN 14.5 g/dL (13.5-17.5); IMMATURE GRANULOCYTES 0.9 % (0-5); MCHC 34.1 g/dL (31.0-37.0); MCV 93.8 fL (80.0-100.0); MEAN PLATELET VOLUME 11.2 fL (7.4-10.4); MONOCYTES 5.4 % (2-11); NEUTROPHILS 91.7 % (40-80); PLATELET COUNT 216 10x3/uL (130-400); RBC 4.53 10x6/uL (4.20-6.10); RDW 14.2 % (11.5-14.5); WBC 26.1 10x3/uL (4.8-10.8)
[2016-05-03 05:19] VITALS: BP 152/82
[2016-05-03 05:32] LABS: ALBUMIN 2.4 g/dL (3.4-5.0); ALKALINE PHOSPHATASE 78 U/L (46-116); ALT (SGPT) 93 U/L (10-68); BILIRUBIN - TOTAL 0.44 mg/dL (0.2-1.3); CALCIUM 8.6 mg/dL (8.5-10.1); CARBON DIOXIDE 25.2 mmol/L (21.0-32.0); CHLORIDE - SERUM 104 mmol/L (98-107); CREATININE - SERUM 0.8 mg/dL (0.6-1.3); POTASSIUM - SERUM 4.7 mmol/L (3.5-5.1); PROTEIN - SERUM 5.4 g/dL (6.4-8.2); SODIUM 137 mmol/L (136-145); UREA NITROGEN 25 mg/dL (7-18); eGFR NON AFRICAN AMERICAN > 90 mL/min (90-120)
[2016-05-03 05:36] LABS: CALC OSMOLALITY 280 mosm/kg (275-300); GLUCOSE 155 mg/dL (74-106)
--- NOTE | 2016-05-03 14:11 | NUR ---
PATIENT AMB IN ROOM. HAS BEEN MEDICATED WITH NORCO FOR BACKPAIN Q4. TOOK HOT SHOWER THAT HAS RELIEVED PAIN ALSO. WILL CONTINUE TO MONITOR.
--- NOTE | 2016-05-03 17:30 | NUR ---
IN BED LING SUPINE WITH HOB UP SR UP X2, C/L IN REACH. VOICES NO C.O PAIN OR DISCOMFORT AT THIS TIME. CONTINUE TO MONITOR.
--- NOTE | 2016-05-03 20:49 | NUR ---
PM MEDICATION GIVEN PER ORDERS, MICHAEL WELL. C/L IN REACH. CONTINUE TO MONITOR.
[2016-05-03 21:43] VITALS: BP 143/76
--- NOTE | 2016-05-04 00:25 | NUR ---
AWAKE ALERT, BEING MEDICATED PER ORDERS. MICHAEL WELL. C/L IN REACH. CONTINUE TO MONITOR.
[2016-05-04 01:28] VITALS: BP 156/86
[2016-05-04 05:21] LABS: BASOPHILS 0.1 % (0.0-2.0); EOSINOPHILS 0 % (0-7); HEMATOCRIT 44.6 % (42.0-54.0); HEMOGLOBIN 14.9 g/dL (13.5-17.5); IMMATURE GRANULOCYTES 1.1 % (0-5); MCH 31.2 pg (26.0-34.0); MCHC 33.4 g/dL (31.0-37.0); MCV 93.5 fL (80.0-100.0); MEAN PLATELET VOLUME 11.6 fL (7.4-10.4); MONOCYTES 6.5 % (2-11); NEUTROPHILS 89.3 % (40-80); PLATELET COUNT 210 10x3/uL (130-400); RBC 4.77 10x6/uL (4.20-6.10); RDW 14.4 % (11.5-14.5)
[2016-05-04 05:33] LABS: WBC 18.9 10x3/uL (4.8-10.8)
[2016-05-04 05:45] VITALS: BP 105/72
[2016-05-04 05:52] LABS: ALBUMIN 2.4 g/dL (3.4-5.0); ALKALINE PHOSPHATASE 90 U/L (46-116); ALT (SGPT) 106 U/L (10-68); BILIRUBIN - TOTAL 0.47 mg/dL (0.2-1.3); CALC OSMOLALITY 281 mosm/kg (275-300); CALCIUM 8.5 mg/dL (8.5-10.1); CHLORIDE - SERUM 104 mmol/L (98-107); CREATININE - SERUM 0.9 mg/dL (0.6-1.3); GLUCOSE 171 mg/dL (74-106); POTASSIUM - SERUM 4.4 mmol/L (3.5-5.1); PROTEIN - SERUM 5.5 g/dL (6.4-8.2); SODIUM 137 mmol/L (136-145); UREA NITROGEN 24 mg/dL (7-18); eGFR NON AFRICAN AMERICAN > 90 mL/min (90-120)
--- NOTE | 2016-05-04 07:00 | NUR ---
RECEIVED REPORT. ASSUMED CARE OF PATIENT. AMBULATING IN ROOM. NO DISTRESS. CALL LIGHT WITHIN REACH.
[2016-05-04 07:52] VITALS: BP 135/88
--- NOTE | 2016-05-04 08:39 | NUR ---
CALLED VASCULAR ACCESS NURSE TO INFORM HER OF THE CONSULT PLACED BY . PIV ARE ONLY LASTING 24 HOURS AT BEST AND PATIENT IS HARD STICK. FITO THIS NURSE FOR CALLING SHE WAS NOT AWARE OF THE CONSULT.
--- NOTE | 2016-05-04 10:50 | NUR ---
Nutrition follow-up: Diet: Regular PO Intake 75-100% of meals Labs reviewed +BM Wt: 212# PO intake is good at this time. Will continue to provide food choices and honor food preferences. RDN following.
--- NOTE | 2016-05-04 10:51 | NUR ---
AWAITING CXR TO VERIFY PICC PLACEMENT.
--- NOTE | 2016-05-04 11:52 | NUR ---
SITTING IN BED WITH EYES OPEN. NO ACUTE DISTRESS. VANC LATE BEING ADMINISTERED BUT PICC IS AVAILABLE FOR USE AT THIS TIME.
[2016-05-04 12:08] VITALS: BP 158/75
--- NOTE | 2016-05-04 13:56 | NUR ---
MEDICATED FOR PAIN AT THIS TIME. NO DISTRESS.
[2016-05-04 15:51] VITALS: BP 136/86
--- NOTE | 2016-05-04 17:57 | NUR ---
MEDICATED FOR PAIN AT THIS TIME. NO DISTRESS.
[2016-05-04 21:06] VITALS: BP 159/89
[2016-05-05 00:43] VITALS: BP 129/64
--- NOTE | 2016-05-05 01:54 | NUR ---
PT C/O BACK PAIN, RATES @ 6/10 PAIN SCALE. NORCO 1 PO GIVEN. WILL MONITOR.
[2016-05-05 05:26] VITALS: BP 163/87
[2016-05-05 06:54] LABS: BASOPHILS 0.1 % (0.0-2.0); EOSINOPHILS 0 % (0-7); HEMATOCRIT 42.5 % (42.0-54.0); IMMATURE GRANULOCYTES 1.4 % (0-5); LYMPHOCYTES 3.5 % (15-50); MCH 31.1 pg (26.0-34.0); MCHC 32.9 g/dL (31.0-37.0); MCV 94.4 fL (80.0-100.0); MEAN PLATELET VOLUME 11.4 fL (7.4-10.4); PLATELET COUNT 189 10x3/uL (130-400); RDW 14.5 % (11.5-14.5); WBC 18.3 10x3/uL (4.8-10.8)
[2016-05-05 06:55] LABS: APTT 24.5 SECONDS (22.8-39.4)
[2016-05-05 06:56] LABS: INR 1.15 (0.85-1.17); PROTIME 14.6 SECONDS (11.6-15.0)
[2016-05-05 07:18] LABS: ALBUMIN 2.3 g/dL (3.4-5.0); ALKALINE PHOSPHATASE 82 U/L (46-116); ALT (SGPT) 122 U/L (10-68); CALC OSMOLALITY 281 mosm/kg (275-300); CARBON DIOXIDE 29.7 mmol/L (21.0-32.0); CHLORIDE - SERUM 104 mmol/L (98-107); CREATININE - SERUM 0.8 mg/dL (0.6-1.3); GLUCOSE 126 mg/dL (74-106); MAGNESIUM - SERUM 2.2 mg/dL (1.8-2.4); POTASSIUM - SERUM 4.6 mmol/L (3.5-5.1); SODIUM 138 mmol/L (136-145); UREA NITROGEN 25 mg/dL (7-18); eGFR NON AFRICAN AMERICAN > 90 mL/min (90-120)
[2016-05-05 08:00] VITALS: BP 122/78
--- NOTE | 2016-05-05 11:33 | NUR ---
PT IS ALERT. ASSESSMENT DONE PER FLOWSHEET NO OTHER NEEDS AT THIS TIME. WILL CONTINUE TO MONTIOR.
[2016-05-05 12:00] VITALS: BP 135/84
[2016-05-05 15:55] VITALS: BP 131/82
--- NOTE | 2016-05-05 17:07 | NUR ---
Patient Name: CHRISTIAN MURILLO Admission Status: ER Accout number: [id number] Admission Date: 04-30-2016 : 1960 Admission Diagnosis:CHRONIC OBSTRUCTIVE PULMONARY DISEASE W (ACUTE) EXACERB Attending: ULICES Current LOS: 5 Anticipated DC Date: Planned Disposition: Home Primary Insurance: [facility] Discharge Planning Comments: * Is the patient Alert and Oriented? Yes 0 * How many steps to enter\exit or inside your home? RAMP 0 * PCP DR. GONGORA 0 * Pharmacy [facility] 0 * Preadmission Environment Home with Family 0 * ADLs Independent 0 * Equipment Nebulizer 0 * Other Equipment NO MEDICAL EQUIPMENT PROVIDER PREFERENCE 0 * List name and contact numbers for known caregivers / representatives who currently or will assist patient after discharge: MARIA ANTONIA MATA, FRIEND, 0 * Community resources currently utilized None 0 * Please name any agencies selected above. NONE 0 * Additional services required to return to the preadmission environment? No 0 * Can the patient safely return to the preadmission environment? Yes 0 * Has this patient been hospitalized within the prior 30 days at any hospital? YES 0 CM MET WITH PT IN ROOM TO DISCUSS DISCHARGE PLANNING AND NEEDS. PT REPORTS LIVING AT HOME INDEPENDENTLY WITH ADULT FRIENDS. PT HAS NEBULIZER AND NO MEDICAL EQUIPMENT PROVIDER. PT HAS NO OUTSIDE SERVICES ASSISTING IN THE HOME. CM DISCUSSED AVAILABILITY OF HOME HEALTH, REHAB SERVICES AND MEDICAL EQUIPMENT. PT DENIES DISCHARGE NEEDS, REPORTS A FRIEND WILL PICK HIM UP FOR DISCHARGE HOME. Shell Reprint Operator: Leander Garcia
[2016-05-05 20:02] VITALS: BP 136/89
[2016-05-06] VITALS: BP 104/62
--- NOTE | 2016-05-06 01:14 | NUR ---
NORCO 1 TAB GIVEN FOR C/O PAIN, RATES PAIN AT AN 8 ON PAIN SCALE.
[2016-05-06 04:19] VITALS: BP 155/96
--- NOTE | 2016-05-06 04:19 | NUR ---
MOTHER SUPERIOR AT BEDSIDE TO OBTAIN VITALS, CALL LIGHT IN REACH. WILL CONTINUE WITH PLAN OF CARE.
[2016-05-06 05:08] LABS: BASOPHILS 0.1 % (0.0-2.0); EOSINOPHILS 0 % (0-7); HEMATOCRIT 43.1 % (42.0-54.0); HEMOGLOBIN 14.1 g/dL (13.5-17.5); IMMATURE GRANULOCYTES 1.4 % (0-5); LYMPHOCYTES 5.3 % (15-50); MCH 31.1 pg (26.0-34.0); MCHC 32.7 g/dL (31.0-37.0); MCV 94.9 fL (80.0-100.0); MEAN PLATELET VOLUME 11.1 fL (7.4-10.4); MONOCYTES 3.3 % (2-11); NEUTROPHILS 89.9 % (40-80); PLATELET COUNT 178 10x3/uL (130-400); RBC 4.54 10x6/uL (4.20-6.10); RDW 14.6 % (11.5-14.5); WBC 17.9 10x3/uL (4.8-10.8)
[2016-05-06 05:27] LABS: CALC OSMOLALITY 290 mosm/kg (275-300); CALCIUM 8.5 mg/dL (8.5-10.1); CARBON DIOXIDE 31.6 mmol/L (21.0-32.0); CHLORIDE - SERUM 106 mmol/L (98-107); GLUCOSE 152 mg/dL (74-106); POTASSIUM - SERUM 5.1 mmol/L (3.5-5.1); SODIUM 141 mmol/L (136-145); UREA NITROGEN 31 mg/dL (7-18); eGFR NON AFRICAN AMERICAN 82 mL/min (90-120)
--- NOTE | 2016-05-06 07:15 | NUR ---
RECIEVED REPORT ON PATIENT, PATIENT IS ALERT AND ORIENTED AT THIS TIME. SITTING ON SIDE OF BED. PATIENT HAS A L ARM PICC LINE THAT IS SL AT THIS TIME. PATIENT DENIES ANY NEEDS OR COMPLAINTS AT THIS TIME. WILL CONT TO MONITOR PATIENT. BED LOW AND LOCKED. CALL LIGHT IN REACH, CPOC
[2016-05-06 07:59] VITALS: BP 120/78
--- NOTE | 2016-05-06 09:15 | NUR ---
MORNING MEDICATIONS GIVEN PER MAR. NO COMPLICATIONS. ASSESSMENT DONE. DENIES ANY NEEDS AT THIS TIME. WILL CONT TO MONITOR. CPOC
--- NOTE | 2016-05-06 10:00 | NUR ---
PATIENT PICC LINE DRESSING CHANGED PER HOSPITAL POLICY. CPOC
[2016-05-06 12:00] VITALS: BP 134/80
--- NOTE | 2016-05-06 12:00 | NUR ---
patient sitting up on side on bed eating lunch, denies any needs at this time. cpoc
--- NOTE | 2016-05-06 14:15 | NUR ---
NORCO GIVEN FOR PAIN 8/10 IN BACK. PATIENT RESTING IN BED, DENIES ANY OTHER NEEDS. CPOC
[2016-05-06 15:25] LABS: AFB SPECIMEN PROCESSING Concentration (())
[2016-05-06 16:00] VITALS: BP 138/81
--- NOTE | 2016-05-06 17:00 | NUR ---
PATIENT SITTING ON SIDE OF BED EATING DINNER. DENIES ANY NEEDS. CPOC
--- NOTE | 2016-05-06 18:41 | NUR ---
PATIENT GIVEN NORCO FOR PAIN 8/10 IN BACK. DENIES ANY OTHER NEEDS OR CONCERNS. CPOC
[2016-05-06 20:56] VITALS: BP 154/87
[2016-05-07 00:36] VITALS: BP 162/86
[2016-05-07 04:57] VITALS: BP 166/98
--- NOTE | 2016-05-07 07:15 | NUR ---
RECIEVED REPORT ON PATIENT, PATIENT IS ALERT AND ORIENTED AT THIS TIME. PATIENT HAS A L UPPER ARM PICC LINE THAT IS SL AT THIS TIME. PATIENT STATES HE IS FEELING MUCH BETTER TODAY THAN HE HAS IN A FEW DAYS. PATIENT DENIES ANY NEEDS AT THIS TIME. WILL CONT TO MONITOR PATIENT. BED LOW AND LOCKED. CPOC
[2016-05-07 08:00] VITALS: BP 130/85
--- NOTE | 2016-05-07 08:15 | NUR ---
MORNING MEDICATION GIVEN, ASSESSMENT DONE. NORCO GIVEN FOR CHRONIC BACK PAIN 11/25. PATIENT DENIES ANY OTHER NEEDS AT THIS TIME. CPOC
[2016-05-07 11:18] LABS: FUNGUS STAIN Final report (())
[2016-05-07 11:54] VITALS: BP 144/84
--- NOTE | 2016-05-07 12:00 | NUR ---
PATIENT SITTING ON SIDE OF BED EATING LUNCH. DENIES ANY NEEDS AT THIS TIME. CPOC
--- NOTE | 2016-05-07 14:14 | NUR ---
Nutrition Follow Up: Chart reviewed. Diet: Regular Po intake: 94% (8 meal avg) Wt gain of 7# since admit +BM 05/06/16 Labs noted - BUN, Glucose elevated Meds: Solumedrol, Phenergan Pt with excellent po intake. Glucose continues elevated. Rec changing diet to Diabetic to aid in Glucose control. RD following.
[2016-05-07 15:49] VITALS: BP 130/78
--- NOTE | 2016-05-07 17:15 | NUR ---
patient given norco for pain 8/10 in back, patient has chronic back pain. will cont to monitor
--- NOTE | 2016-05-07 18:27 | NUR ---
PATIENT RESTING, DENIES ANY NEEDS AT THIS TIME. JUST WANTS TO SLEEP. BED OW AND LOCKED. CPOC
--- NOTE | 2016-05-07 19:38 | NUR ---
BEDSIDE ROUNDS COMPLETED PT LAYING IN BED NO DISTRESS OBSERVED EYES CLOSED AND PT APPERS TO BE SLEEPING CALL LIGHT IN REACH SRX2 BED LOW AND LOCKED WILL MONITOR
--- NOTE | 2016-05-07 21:24 | NUR ---
PT ASSESSMENT COMPLETED PT AMBULATED FROM RESTROOM TO BED WITH NO ASSISTANCE NEEDED, GAIT STEADY AND RESPERATIONS EVEN AND UNLABORED HS MEDS ADMIN ORDERED AND PT TOLERATED WELL PAIN MEDS ADMIN AT THIS TIME FOR PT BACK PAIN THAT PT STATES " CHRONIC pAIN" NO DISTRESS OBSERVED AT THIS TIME WILL MONITOR
[2016-05-07 22:37] VITALS: BP 135/81
[2016-05-08 01:38] VITALS: BP 147/88
--- NOTE | 2016-05-08 02:33 | NUR ---
PT LAYING IN BED NO DISTRESS OBSERVED PT C/O PAIN TO BACK ANDSTATING " I HAVE CHRONIC BACK PAIN AND I CANT GET COMFERTABLE" PAIN MEDS ADMIN ORDERED AND WILL MONITOR
--- NOTE | 2016-05-08 03:29 | NUR ---
PT LAYING IN BED RECIVED BREATHING TREATMENT AND TOLERATED WELL NO DISTRESS OBSERVED WILL MONITOR
[2016-05-08 05:55] VITALS: BP 112/72
[2016-05-08 07:49] VITALS: BP 136/86
--- NOTE | 2016-05-08 08:03 | NUR ---
PT RESTING IN BED WITH EYES OPEN CALL LIGHT IN REACH WILL MONITER PT HAS COMPLAINTS OF PAIN TO BACK 10/25 WILL ADMINISTER PAIN MEDS AT TIME THEY ARE DUE
--- NOTE | 2016-05-08 09:18 | NUR ---
RESTS IN BED COMPLAINING OF PAIN. NURSE NOTIFIED. WILL CONT. PLAN OF CARE.
[2016-05-08 11:47] VITALS: BP 119/71
--- NOTE | 2016-05-08 12:15 | NUR ---
PT RESTING IN BED WITH EYES OPEN CALL LIGHT IN REACH NO PROBLEMS WILL MONITER
[2016-05-08 15:54] VITALS: BP 150/80
--- NOTE | 2016-05-08 20:25 | NUR ---
RESTING IN BED. ALERT ORIENTED CONVERSANT. DENIES NEEDS. NO ACUTE DISTRESS NOTED.
[2016-05-08 20:37] VITALS: BP 154/87
[2016-05-09 00:17] VITALS: BP 183/108
[2016-05-09 04:29] VITALS: BP 147/94
[2016-05-09 06:01] LABS: BASOPHILS 0.1 % (0.0-2.0); EOSINOPHILS 0.1 % (0-7); HEMATOCRIT 42.7 % (42.0-54.0); HEMOGLOBIN 14.3 g/dL (13.5-17.5); IMMATURE GRANULOCYTES 4.4 % (0-5); LYMPHOCYTES 6.4 % (15-50); MCH 31.5 pg (26.0-34.0); MCHC 33.5 g/dL (31.0-37.0); MCV 94.1 fL (80.0-100.0); MEAN PLATELET VOLUME 10.6 fL (7.4-10.4); MONOCYTES 5.8 % (2-11); NEUTROPHILS 83.2 % (40-80); RBC 4.54 10x6/uL (4.20-6.10); RDW 14.2 % (11.5-14.5); WBC 18.2 10x3/uL (4.8-10.8)
[2016-05-09 06:09] LABS: PLATELET COUNT 103 10x3/uL (130-400)
[2016-05-09 06:54] LABS: CALC OSMOLALITY 276 mosm/kg (275-300); CALCIUM 8.1 mg/dL (8.5-10.1); CARBON DIOXIDE 29.2 mmol/L (21.0-32.0); CHLORIDE - SERUM 101 mmol/L (98-107); CREATININE - SERUM 0.7 mg/dL (0.6-1.3); GLUCOSE 145 mg/dL (74-106); POTASSIUM - SERUM 4.8 mmol/L (3.5-5.1); SODIUM 135 mmol/L (136-145); UREA NITROGEN 24 mg/dL (7-18); VANCOMYCIN - PEAK 19.8 ug/mL (18.0-26.0); eGFR NON AFRICAN AMERICAN > 90 mL/min (90-120)
--- NOTE | 2016-05-09 07:26 | NUR ---
RECEIVED PT REPORT. WILL CONTINUE TO MONITOR. WILL CONTINUE PLAN OF CARE. NO OTHER NEEDS.
[2016-05-09 07:45] VITALS: BP 125/71
[2016-05-09] MEDS ORDERED: BENZONATATE200 MG PO (11:26)
[2016-05-09] MEDS ORDERED: AZELASTINE137 MCG/0. NASAL (11:26)
[2016-05-09] MEDS ORDERED: FLUTICASONE PRO16 GM NASAL (11:28)
[2016-05-09] MEDS ORDERED: STERAPRED DS 1210 MG PO (11:29)
[2016-05-09 11:57] VITALS: BP 128/87
--- NOTE | 2016-05-09 11:58 | NUR ---
PT IS ALERT. ASSESSMENT DONE PER FLOWSHEET. NO CO PAIN AT THIS ITME. WILL CONTINUE TO MONITOR.
--- NOTE | 2016-05-09 14:34 | NUR ---
PT DC TEACHING COMPLETE. NO OTHER NEEDS AT THIS TIME. WILL CONTINUE TO MONITOR.
--- NOTE | 2016-05-12 09:13 | CN ---
PATIENT NAME:CHRISTIAN GIBBONS MEDICAL RECORD: [id number] : 60 LOCATION:D.M2 D.2107 ADMIT DATE: 04/30/16 ACCOUNT: [id number] CONSULTING PHYSICIAN: ISAI CEBALLOS MD REFERRING PHYSICIAN: MERLIN ORTEGA MD DATE OF CONSULTATION: 04/30/2016 Pulmonary Consultation CONSULT REQUESTING PHYSICIAN: Dr. Merlin Ortega. REASON FOR CONSULTATION: Acute exacerbation of chronic obstructive pulmonary disease and asthma. HISTORY OF PRESENT ILLNESS: Mr. Gibbons is a 55-year-old gentleman who was just discharged home 3 days ago. He was doing well, but since afternoon, he felt congested and shortness of breath. He will hear himself wheezing. He came into the ER this morning with severe shortness of breath. He denies any chest pain. He is coughing with very little sputum production. He hears himself wheezing. REVIEW OF SYSTEMS: CONSTITUTIONAL: He is with generalized body aches and pains. No fever. HEENT: Sinus congestion. RESPIRATORY: As in history of present illness. CARDIOVASCULAR: Negative. GASTROINTESTINAL: Negative. GENITOURINARY: Negative. Other review of the systems is negative. PAST MEDICAL HISTORY: 1. COPD. 2. Asthma. 3. Congestive heart failure, systolic dysfunction with EF of 35%. 4. Smoking and nicotine dependence. 5. Hypertension. 6. Chronic backache. 7. He has hepatitis C. PAST SURGICAL HISTORY: Nonsignificant. ALLERGIES: There are no known drug allergies. PRESENT MEDICATIONS: [place] was reviewed. PERSONAL AND SOCIAL HISTORY: The patient is an active current day smoker. He is a nondrinker. FAMILY HISTORY: His parent has cancer. PHYSICAL EXAMINATION: GENERAL: Now, the patient is lying in bed. He is dyspneic. VITAL SIGNS: He is on nasal cannula oxygen. HEENT: Conjunctivae are pink. Sclerae nonicteric. NECK: Supple. No JVD. CONSULT REPORT [id number] CHRISTIAN GIBBONS CHEST: There is prolonged expiration with wheezing. HEART: Rhythm regular, normal sound, no murmur. ABDOMEN: Soft, bowel sounds present. No hepatosplenomegaly. RECTAL: Deferred. EXTREMITIES: No cyanosis, no clubbing, no pedal edema. SKIN: Warm, normal turgor. CENTRAL NERVOUS SYSTEM: The patient is awake and alert. There is no obvious cranial nerve abnormality. The gait was not tested. IMAGING: CTA of the chest: There is no pulmonary embolism. There are bullous emphysematous changes in the right upper lobe. There are no infiltrates. LABORATORY DATA: CBC: The WBC is 21,000, hemoglobin 17.2, hematocrit 50.7, and the platelet count is 250. Chemistry: Sodium 140, potassium 4.7, BUN is 25, creatinine is 0.9, bicarbonate is 28.4, AST is 65, ALT is 189. ProBNP is 151. The troponin is 0.01. Albumin is 3. ABG: The pH is 7.58, pCO2 is 26.3, the pO2 is 122, and bicarbonate is 25. The urine toxicology screen is positive for opiates. The D-dimer is 0.88. IMPRESSION: 1. Acute exacerbation of asthma, chronic obstructive pulmonary disease or left syndrome. 2. Tracheobronchitis. 3. 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 4. Leukocytosis. 5. Elevated liver enzymes secondary to hepatitis C. 6. Respiratory alkalosis. 7. History of congestive heart failure with the EF of 35%. The BNP is 151. 8. Tobacco dependence syndrome. RECOMMENDATION: Albuterol and ipratropium nebulizer every 4 hours, Brovana, and budesonide nebulizer b.i.d., Singulair 10 mg daily, Daliresp 500 mcg daily, methylprednisolone IV. We will consider consultation with Dr. Hill for bullectomy of the right upper lobe when the patient is stable. Dr. Ortega, once again thank you for involving me in the care of Mr. Arnold. The critical care time is 40 minutes. TRANSINT:[id number] Voice Confirmation ID: [id number] DOCUMENT ID: [id number] ISAI CEBALLOS MD at 0913 CC: MERLIN ORTEGA MD [id number] DICTATION DATE: 04/30/161834 POLICE ACADEMY PROGRAM COORDINATOR: 04/30/162131 DIS IN 05/09/16 [facility] [address] [place] [address]
[2016-06-07 08:09] LABS: FUNGUS MYCOLOGY CULTURE Final report (())
[2016-06-23 10:20] LABS: ACID FAST CULTURE Negative (()); ACID FAST SMEAR Negative (())
== END 2016-05-09 14:34 | disposition home or self-care (01) | DRG 191 ==
LOC: D.ER 11:29 → D.M2 15:58
PROVIDERS: Emergency Medicine; Internal Medicine Pulmonary Disease; ADMIT Family Medicine
PROC: 02HV33Z Insertion of Infusion Device into Superior Vena Cava, Percutaneous Approach (ICD-10-PCS; principal; 2016-05-04)
PROC: B548ZZA Ultrasonography of Superior Vena Cava, Guidance (ICD-10-PCS; 2016-05-04)
PROC: 3E1F88Z Irrigation of Respiratory Tract using Irrigating Substance, Via Natural or Artificial Opening Endoscopic (ICD-10-PCS; 2016-05-05)
DX: J44.1 Chronic obstructive pulmonary disease with (acute) exacerbation (principal); I50.22 Chronic systolic (congestive) heart failure; T17.590A Other foreign object in bronchus causing asphyxiation, initial encounter; J20.9 Acute bronchitis, unspecified; J44.0 Chronic obstructive pulmonary disease with (acute) lower respiratory infection; J45.909 Unspecified asthma, uncomplicated; I48.91 Unspecified atrial fibrillation; F17.200 Nicotine dependence, unspecified, uncomplicated; I11.0 Hypertensive heart disease with heart failure; K73.8 Other chronic hepatitis, not elsewhere classified; J43.9 Emphysema, unspecified

== ENCOUNTER 2016-05-11 07:33 | Emergency (ER) | payer OTHER ==
[2016-05-01 11:25] VITALS: BMI 27.7
[~2016-05-11 07:33] MED LIST changes: +AZELASTINE137 MCG/0. NASAL; +BENZONATATE200 MG PO; +FLUTICASONE PRO16 GM NASAL; +STERAPRED DS 1210 MG PO
[2016-05-11 08:16] LABS: BASOPHILS 0.3 % (0.0-2.0); EOSINOPHILS 0.7 % (0-7); HEMATOCRIT 49.5 % (42.0-54.0); HEMOGLOBIN 17.2 g/dL (13.5-17.5); IMMATURE GRANULOCYTES 5.8 % (0-5); LYMPHOCYTES 14.1 % (15-50); MCH 32.1 pg (26.0-34.0); MCHC 34.7 g/dL (31.0-37.0); MCV 92.4 fL (80.0-100.0); MEAN PLATELET VOLUME 10.2 fL (7.4-10.4); MONOCYTES 8.1 % (2-11); RBC 5.36 10x6/uL (4.20-6.10); RDW 14.3 % (11.5-14.5); WBC 19.4 10x3/uL (4.8-10.8)
[2016-05-11 08:19] LABS: PLATELET COUNT 144 10x3/uL (130-400)
[2016-05-11 08:31] LABS: ALBUMIN 2.7 g/dL (3.4-5.0); ANION GAP 15.3 mmol/L (8-16); BILIRUBIN - TOTAL 1.11 mg/dL (0.2-1.3); CALCIUM 8.8 mg/dL (8.5-10.1); CARBON DIOXIDE 25.1 mmol/L (21.0-32.0); CREATININE - SERUM 1.1 mg/dL (0.6-1.3); POTASSIUM - SERUM 4.4 mmol/L (3.5-5.1); PROTEIN - SERUM 6.2 g/dL (6.4-8.2)
== END 2016-05-11 09:51 | disposition home or self-care (01) ==
LOC: D.ER 07:33
PROVIDERS: Emergency Medicine
DX: F19.939 Other psychoactive substance use, unspecified with withdrawal, unspecified (principal); E86.0 Dehydration; J44.9 Chronic obstructive pulmonary disease, unspecified; I10 Essential (primary) hypertension

== ENCOUNTER 2016-07-17 08:33 | Inpatient (IN) | payer OTHER ==
[~2016-07-17] VITALS: Ht 185.4 cm; Wt 112.9 kg
[2016-07-17 09:19] LABS: BASOPHILS 0.3 % (0.0-2.0); EOSINOPHILS 1.9 % (0-7); HEMATOCRIT 48.9 % (42.0-54.0); HEMOGLOBIN 16.2 g/dL (13.5-17.5); MCH 32.5 pg (26.0-34.0); MCHC 33.1 g/dL (31.0-37.0); MEAN PLATELET VOLUME 11.4 fL (7.4-10.4); MONOCYTES 12.2 % (2-11); NEUTROPHILS 69.6 % (40-80); RBC 4.99 10x6/uL (4.20-6.10); RDW 14.8 % (11.5-14.5); WBC 11.4 10x3/uL (4.8-10.8)
[2016-07-17 09:20] LABS: PLATELET COUNT 232 10x3/uL (130-400)
[2016-07-17 09:47] LABS: ALBUMIN 2.3 g/dL (3.4-5.0); ALKALINE PHOSPHATASE 60 U/L (46-116); ALT (SGPT) 156 U/L (10-68); CALC OSMOLALITY 268 mosm/kg (275-300); CALCIUM 8.2 mg/dL (8.5-10.1); CARBON DIOXIDE 23.7 mmol/L (21.0-32.0); CHLORIDE - SERUM 101 mmol/L (98-107); CREATININE - SERUM 0.7 mg/dL (0.6-1.3); GLUCOSE 115 mg/dL (74-106); POTASSIUM - SERUM 4.6 mmol/L (3.5-5.1); PROTEIN - SERUM 5.6 g/dL (6.4-8.2); SODIUM 133 mmol/L (136-145); UREA NITROGEN 18 mg/dL (7-18); eGFR NON AFRICAN AMERICAN > 90 mL/min (90-120)
[2016-07-17 10:07] LABS: AMYLASE - SERUM 64 U/L (25-115); C-REACTIVE PROTEIN 3.1 mg/dL (0.0-0.9); LIPASE 252 U/L (73-393); PRO BNP 45 pg/mL (0-125); THYROID STIMULATING HORMONE 3.29 uIU/mL (0.36-3.74)
[2016-07-17 10:08] LABS: CKMB 25.6 U/L (0.0-3.6); CREATINE KINASE 4791 UL (21-232)
[2016-07-17 10:20] LABS: ERYTHROCYTE SEDIMENTATION RATE 3 mm/hr (0-20)
[2016-07-17 10:22] LABS: APPEARANCE CLEAR (CLEAR); COLOR AMBER (YELLOW)
[2016-07-17 10:23] LABS: BILIRUBIN NEGATIVE (NEGATIVE); GLUCOSE NEGATIVE (NEGATIVE); KETONE NEGATIVE (NEGATIVE); LEUKOCYTE ESTERASE NEGATIVE (NEGATIVE); NITRITE NEGATIVE (NEGATIVE); PH 5.5 (5.0-6.0); PROTEIN NEGATIVE (NEGATIVE); UROBILINOGEN NORMAL (NORMAL)
[2016-07-17 10:47] LABS: UDS - AMPHET NEGATIVE QUAL (NEGATIVE); UDS - BARB NEGATIVE QUAL (NEGATIVE); UDS - BENZO NEGATIVE QUAL (NEGATIVE); UDS - COCAINE NEGATIVE QUAL (NEGATIVE); UDS - METH NEGATIVE QUAL (NEGATIVE); UDS - OPIATE POSITIVE QUAL (NEGATIVE); UDS - PCP NEGATIVE QUAL (NEGATIVE); UDS - THC NEGATIVE QUAL (NEGATIVE)
--- NOTE | 2016-07-17 13:50 | NUR ---
TRANSFER FROM ER BY STRETCHER. OREINTED TO ROOM. CALL LIGHT IN REACH. WILL CONT. PLAN OF CARE.
[2016-07-17 14:07] VITALS: BP 153/90; BMI 33.0
--- NOTE | 2016-07-17 14:35 | NUR ---
Patient Name: CHRISTIAN MURILLO Admission Status: ER Accout number: [id number] Admission Date: 07-17-2016 : 1960 Admission Diagnosis: Rhabdomyalisis Attending: MARIA LUZ Current LOS: 1 Anticipated DC Date: 07-20-2016 Planned Disposition: Home Primary Insurance: [facility] Discharge Planning Comments: Cm met with patient to complete initial discharge planning assessment. Patient gave consent to complete assessment. Patient reports he lives at home with roommates. 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 Patient plans to return home at discharge. He denied needs at this time for discharge. CM will continue to follow and assist with dc plan/needs. Encoding Clerk: Pricilla Pickering RN, [facility] [phone] Is the patient Alert and Oriented? Yes * How many steps to enter\exit or inside your home? none * PCP Dr. Rosas * Pharmacy [place] * Preadmission Environment Home Alone * ADLs Independent * Equipment None * List name and contact numbers for known caregivers / representatives who currently or will assist patient after discharge: Roxanne cedillo [phone] * Community resources currently utilized None * Additional services required to return to the preadmission environment? No * Can the patient safely return to the preadmission environment? Yes * Has this patient been hospitalized within the prior 30 days at any hospital? No
[2016-07-17 16:07] VITALS: BP 161/91
[2016-07-17 21:16] VITALS: BP 169/96
[2016-07-18 00:30] VITALS: BP 152/90
[2016-07-18 04:30] VITALS: BP 166/85
[2016-07-18 06:40] LABS: BASOPHILS 0 % (0.0-2.0); EOSINOPHILS 0 % (0-7); HEMATOCRIT 42.1 % (42.0-54.0); HEMOGLOBIN 13.5 g/dL (13.5-17.5); IMMATURE GRANULOCYTES 0.6 % (0-5); LYMPHOCYTES 4.3 % (15-50); MCH 31.7 pg (26.0-34.0); MCHC 32.1 g/dL (31.0-37.0); MCV 98.8 fL (80.0-100.0); MEAN PLATELET VOLUME 11.7 fL (7.4-10.4); MONOCYTES 4.1 % (2-11); RBC 4.26 10x6/uL (4.20-6.10); RDW 14.5 % (11.5-14.5)
[2016-07-18 06:53] LABS: PLATELET COUNT 177 10x3/uL (130-400); WBC 7.9 10x3/uL (4.8-10.8)
[2016-07-18 07:04] LABS: ALBUMIN 1.9 g/dL (3.4-5.0); ALKALINE PHOSPHATASE 49 U/L (46-116); ALT (SGPT) 112 U/L (10-68); BILIRUBIN - TOTAL 0.33 mg/dL (0.2-1.3); CALC OSMOLALITY 275 mosm/kg (275-300); CALCIUM 7.8 mg/dL (8.5-10.1); CARBON DIOXIDE 22.9 mmol/L (21.0-32.0); CHLORIDE - SERUM 103 mmol/L (98-107); CREATINE KINASE 2722 UL (21-232); CREATININE - SERUM 0.7 mg/dL (0.6-1.3); GLUCOSE 206 mg/dL (74-106); POTASSIUM - SERUM 4.4 mmol/L (3.5-5.1); SODIUM 133 mmol/L (136-145); TROPONIN-I 0.033 ng/mL (0.000-0.060); UREA NITROGEN 23 mg/dL (7-18); eGFR NON AFRICAN AMERICAN > 90 mL/min (90-120)
[2016-07-18 07:54] VITALS: BP 168/84
--- NOTE | 2016-07-18 08:58 | NUR ---
TELEMETRY SR. IV PATENT. CALL LIGHT IN REACH. WILL CONT. PLAN OF CARE.
[2016-07-18 12:22] VITALS: BP 158/73
--- NOTE | 2016-07-18 15:21 | NUR ---
DR. AIKEN AT BS. WILL CONT. PLAN OF CARE.
[2016-07-18 15:45] VITALS: BP 158/92
--- NOTE | 2016-07-18 19:15 | NUR ---
INITIAL ROUNDS MADE. PT SITTING UP IN BED WATCHING TV. DENIES NEEDS OR C/O AT THIS TIME. CALL LIGHT IN REACH. WILL CONT TO MONITOR.
[2016-07-18 20:00] VITALS: BP 135/58
--- NOTE | 2016-07-19 03:52 | NUR ---
FULL TIME AT BEDSIDE FOR VS. NEEDS ADDRESSED. CALL LIGHT IN REACH. WILL CONT TO MONITOR.
[2016-07-19 04:00] VITALS: BP 142/86
[2016-07-19 05:48] LABS: BASOPHILS 0 % (0.0-2.0); EOSINOPHILS 0 % (0-7); HEMATOCRIT 40.3 % (42.0-54.0); HEMOGLOBIN 12.9 g/dL (13.5-17.5); IMMATURE GRANULOCYTES 0.6 % (0-5); MCH 31.9 pg (26.0-34.0); MCV 99.5 fL (80.0-100.0); MEAN PLATELET VOLUME 11.5 fL (7.4-10.4); MONOCYTES 7.2 % (2-11); NEUTROPHILS 89.2 % (40-80); PLATELET COUNT 191 10x3/uL (130-400); RBC 4.05 10x6/uL (4.20-6.10); RDW 14.6 % (11.5-14.5); WBC 14.4 10x3/uL (4.8-10.8)
[2016-07-19 06:18] LABS: ALBUMIN 2.1 g/dL (3.4-5.0); ALKALINE PHOSPHATASE 57 U/L (46-116); ALT (SGPT) 110 U/L (10-68); BILIRUBIN - TOTAL 0.23 mg/dL (0.2-1.3); CALC OSMOLALITY 294 mosm/kg (275-300); CALCIUM 8.1 mg/dL (8.5-10.1); CARBON DIOXIDE 27.8 mmol/L (21.0-32.0); CHLORIDE - SERUM 103 mmol/L (98-107); CREATININE - SERUM 0.6 mg/dL (0.6-1.3); POTASSIUM - SERUM 4.6 mmol/L (3.5-5.1); PROTEIN - SERUM 5.1 g/dL (6.4-8.2); SODIUM 145 mmol/L (136-145); UREA NITROGEN 23 mg/dL (7-18); eGFR NON AFRICAN AMERICAN > 90 mL/min (90-120)
[2016-07-19 06:20] LABS: GLUCOSE 141 mg/dL (74-106)
--- NOTE | 2016-07-19 07:30 | NUR ---
RECEIVED PT AAOX 4 RESP SL SOB O2 ON AT 2LPM NC PT DENIES ANY NEEDS AT THIS TIME
[2016-07-19 08:50] VITALS: BP 153/95
--- NOTE | 2016-07-19 10:09 | NUR ---
TAKING SHOWER AT THIS TIME TOLERASTING WQELL
[2016-07-19 12:33] VITALS: BP 199/98
[2016-07-19 13:19] VITALS: Ht 185.4 cm; Wt 112.9 kg
[2016-07-19 16:15] VITALS: BP 159/90
--- NOTE | 2016-07-19 19:15 | NUR ---
INITIAL ROUNDS MADE. PT SITTING UP IN BED WATCHING TV. NO NEEDS OR C/O VOICED AT THIS TIME. CALL LIGHT IN REACH. WILL CONT TO MONITOR.
[2016-07-19 20:00] VITALS: BP 161/82
--- NOTE | 2016-07-19 23:24 | NUR ---
VP CONSTRUCTION AT BEDSIDE FOR VS. NEEDS ADDRESSED AT THIS TIME. CALL LIGHT IN REACH. WILL CONT TO MONITOR.
[2016-07-20] VITALS: BP 142/85
[2016-07-20 04:00] VITALS: BP 139/78
[2016-07-20 05:38] LABS: BASOPHILS 0 % (0.0-2.0); EOSINOPHILS 0 % (0-7); HEMATOCRIT 38.8 % (42.0-54.0); HEMOGLOBIN 12.3 g/dL (13.5-17.5); IMMATURE GRANULOCYTES 0.7 % (0-5); LYMPHOCYTES 4.8 % (15-50); MCH 31.9 pg (26.0-34.0); MCHC 31.7 g/dL (31.0-37.0); MCV 100.5 fL (80.0-100.0); MEAN PLATELET VOLUME 11.5 fL (7.4-10.4); MONOCYTES 4.7 % (2-11); NEUTROPHILS 89.8 % (40-80); PLATELET COUNT 194 10x3/uL (130-400); RBC 3.86 10x6/uL (4.20-6.10); RDW 14.7 % (11.5-14.5); WBC 14.6 10x3/uL (4.8-10.8)
[2016-07-20 06:32] LABS: CALC OSMOLALITY 285 mosm/kg (275-300); CARBON DIOXIDE 28.3 mmol/L (21.0-32.0); CHLORIDE - SERUM 108 mmol/L (98-107); CREATININE - SERUM 0.7 mg/dL (0.6-1.3); GLUCOSE 137 mg/dL (74-106); SODIUM 141 mmol/L (136-145); UREA NITROGEN 22 mg/dL (7-18); eGFR NON AFRICAN AMERICAN > 90 mL/min (90-120)
[2016-07-20 06:40] LABS: CREATINE KINASE 1140 UL (21-232); POTASSIUM - SERUM 3.8 mmol/L (3.5-5.1)
[2016-07-20 06:41] LABS: CKMB 10.4 U/L (0.0-3.6)
--- NOTE | 2016-07-20 07:35 | NUR ---
RECEIVED REPORT FROM AUTOMATIC BANDSAW TENDER RN. PATIENT LYING QUIETLY IN BED. MONITOR SHOWS SR @ 73. WILL CONTINUE TO MONITOR.
[2016-07-20 07:54] VITALS: BP 148/83
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
--- NOTE | 2016-07-20 10:00 | NUR ---
PATIENT NPO FOR CT SCAN. HE REFUSED HIS LASIX. WILL CONTINUE TO MONITOR.
[2016-07-20 10:19] LABS: ANA REFLEX - DIRECT Negative (Negative)
[2016-07-20 11:46] VITALS: BP 134/89
[2016-07-20 15:43] VITALS: BP 161/94
--- NOTE | 2016-07-20 19:15 | NUR ---
INITIAL ROUNDS MADE. PT SITTING UP IN BED WATCHING TV. NO NEEDS OR C/O VOICED AT THIS TIME. CALL LIGHT IN REACH. WILL CONT TO MONITOR. SEE FLOWSHEET FOR ASSESSMENT.
[2016-07-20 21:58] VITALS: BP 157/92
[2016-07-21] VITALS (7 sets, daily range): BP systolic 136–173; BP diastolic 82–104
--- NOTE | 2016-07-21 04:00 | NUR ---
SUPERVISOR WHIPPED TOPPING AT BEDSIDE FOR VS. NEEDS ADDRESSED AT THIS TIME. CALL LIGHT IN REACH. WILL CONT TO MONITOR.
--- NOTE | 2016-07-21 10:03 | NUR ---
PRE-OPS GIVEN. TO OR BY BED.
[2016-07-21 10:19] LABS: JO-1 ANTIBODY <0.2 AI (0.0-0.9)
--- NOTE | 2016-07-21 10:55 | NUR ---
PATHOLOGY IS NOTIFIED OF FRESH SPECIMAN READY FOR CHOPPER OPERATOR, COPY OF H&P IS SENT WITH THE PT
--- NOTE | 2016-07-21 11:16 | NUR ---
ANESTHESIA ADVISED THE PATIENT COULD BE A SHORT STAY IN [place]
--- NOTE | 2016-07-21 11:16 | NUR ---
PRE OP BP 180/100
--- NOTE | 2016-07-21 11:30 | NUR ---
BACK FROM OR. VS STABLE. DIET RESUMED.
[2016-07-21 13:15] LABS: EHRLICHIA CHAFF IGG Negative (Neg:<1:64); EHRLICHIA CHAFF IGM Negative (Neg:<1:20); HGE IGG TITER Negative (Neg:<1:64); HGE IGM TITER Negative (Neg:<1:20)
--- NOTE | 2016-07-21 13:54 | NUR ---
CVL DRSG CHANGED. SUTURES CAME OUT UPON REMOVING OLD DRSG, CXR ORDERED TO ASSURE PLACEMENT.
--- NOTE | 2016-07-21 14:11 | NUR ---
Nutrition follow-up: Diet: Regular PO intake 100% of meals Labs reviewed Wt: 249# +BM RDN following.
--- NOTE | 2016-07-21 15:35 | OP ---
PATIENT NAME: CHRISTIAN MURILLO MEDICAL RECORD: [id number] :60 LOCATION:D. D.2114 ADMISSION DATE:07/17/16 SURGEON: MARIA ANTONIA LAM MD DATE OF OPERATION: 07/21/2016 SURGEON: Maria Antonia Lam MD. PREOPERATIVE DIAGNOSIS: Dermatomyositis. POSTOPERATIVE DIAGNOSIS: Dermatomyositis. PROCEDURE PERFORMED: Right lower extremity vastus lateralis muscle biopsy. SPECIMENS: Vastus lateralis muscle biopsy, 2 cm in length, 2 cm in width. ANESTHESIA: Total intravenous anesthesia. COMPLICATIONS: None. ESTIMATED BLOOD LOSS: 10 cc. OPERATIVE COURSE: After consent was obtained, the patient was taken to the operating room and placed in supine position on the operating table. Total intravenous anesthesia was given. A timeout was taken to confirm the correct patient and procedure. Right lower extremity was prepped and draped in typical sterile fashion. A 10 cc of local anesthetic was injected. A linear incision was made with a 15-blade scalpel. Dissection was continued with electrocautery until the muscle fascia was identified. Self-retaining retractors were placed. An additional 10 cc of local anesthetic was injected below the muscular fascia and into the muscle. Next, the muscular fascia was opened with electrocautery. A portion of muscle was dissected and exposed. Approximately 4 cm in length of the muscle was dissected bluntly. A 3-0 Vicryl suture was used to tie off the muscle distally. A second Vicryl suture was used to tie off the muscle proximally. The muscle was then transected with Metzenbaum scissors and a 2 cm x 2 cm specimen was then sent for pathology. The wound was then closed, the muscular fascia was closed with 3-0 Vicryl suture, subcutaneous tissue was closed with 3-0 Vicryl suture. The skin was closed with 4-0 Monocryl, Mastisol and Steri-Strips. At the end of the case, all needle and instrument counts were correct. No complications occurred. The patient was extubated and transferred to the PACU in stable condition. TRANSINT:[id number] Voice Confirmation ID: [id number] DOCUMENT ID: [id number] MARIA ANTONIA LAM MD at 1536 CC: [id number] DICTATION DATE: 07/21/16 1107 JOURNEYMAN SHEET METAL WORKER: 07/21/16 1205 ADM IN [facility] [address] [id number]
--- NOTE | 2016-07-21 15:35 | NUR ---
CVL IN PLACE PER RAD.
--- NOTE | 2016-07-21 19:55 | NUR ---
RESUMED CARE OF PT, LYING IN BED WITH EYES CLOSED RESPIRATIONS EVEN AND UNLABORED ON ROOM AIR. 75 SR ON TELEMETRY. RIGHT DOUBLE LUMEN SALINE LOCKED. NO NEEDS NOTED AT THIS TIME. WILL CONTINUE TO MONITOR. CALL LIGHT IN REACH. SEE NURSE ASSESSMENT.
[2016-07-22] VITALS: BP 154/97
--- NOTE | 2016-07-22 00:05 | NUR ---
MERCERIZER AT BEDSIDE TO OBTAIN VITALS, CALL LIGHT IN REACH. WILL CONTINUE WITH PLAN OF CARE.
[2016-07-22 04:00] VITALS: BP 140/80
[2016-07-22 06:07] LABS: BASOPHILS 0.1 % (0.0-2.0); EOSINOPHILS 0 % (0-7); HEMATOCRIT 41.3 % (42.0-54.0); HEMOGLOBIN 13.2 g/dL (13.5-17.5); IMMATURE GRANULOCYTES 0.6 % (0-5); MCH 31.8 pg (26.0-34.0); MCV 99.5 fL (80.0-100.0); MEAN PLATELET VOLUME 12.1 fL (7.4-10.4); MONOCYTES 1.9 % (2-11); NEUTROPHILS 90.4 % (40-80); RBC 4.15 10x6/uL (4.20-6.10); RDW 14.4 % (11.5-14.5)
[2016-07-22 06:36] LABS: PLATELET COUNT 236 10x3/uL (130-400)
[2016-07-22 06:48] LABS: ALBUMIN 2.3 g/dL (3.4-5.0); ALKALINE PHOSPHATASE 69 U/L (46-116); ALT (SGPT) 145 U/L (10-68); BILIRUBIN - TOTAL 0.34 mg/dL (0.2-1.3); CALC OSMOLALITY 285 mosm/kg (275-300); CALCIUM 7.9 mg/dL (8.5-10.1); CARBON DIOXIDE 31.6 mmol/L (21.0-32.0); CHLORIDE - SERUM 104 mmol/L (98-107); CREATINE KINASE 1040 UL (21-232); CREATININE - SERUM 0.7 mg/dL (0.6-1.3); GLUCOSE 161 mg/dL (74-106); POTASSIUM - SERUM 3.9 mmol/L (3.5-5.1); PROTEIN - SERUM 5.3 g/dL (6.4-8.2); SODIUM 139 mmol/L (136-145); UREA NITROGEN 26 mg/dL (7-18); eGFR NON AFRICAN AMERICAN > 90 mL/min (90-120)
[2016-07-22 06:49] LABS: CKMB 11.9 U/L (0.0-3.6)
[2016-07-22] MEDS ORDERED: NYSTATIN ORAL SU5 ML PO (07:32)
[2016-07-22] MEDS ORDERED: HYDROCODONE-APA1 TAB PO (07:33)
[2016-07-22] MEDS ORDERED: PREDNISONE20 MG PO (07:34)
[2016-07-22 08:41] VITALS: BP 158/110
--- NOTE | 2016-07-22 09:14 | NUR ---
CVL AND TELEMETRY DCD FOR DC. WILL CONT. PLAN OF CARE.
--- NOTE | 2016-07-22 13:32 | NUR ---
IV AND TELEMETRY DCD. DC PLANS GIVEN. UNDRSTANDING VOICED. ESCORTED TO CAR BY W/C.
[2016-07-22 16:15] LABS: LYME WB - IGG P18 AB Absent (()); LYME WB - IGG P23 AB Present (()); LYME WB - IGG P28 AB Absent (()); LYME WB - IGG P30 AB Absent (()); LYME WB - IGG P39 AB Absent (()); LYME WB - IGG P41 AB Absent (()); LYME WB - IGG P45 AB Absent (()); LYME WB - IGG P58 AB Absent (()); LYME WB - IGG P66 AB Present (()); LYME WB - IGG P93 AB Absent (()); LYME WB - IGG WB INTERP Negative (()); LYME WB - IGM P23 AB Present (()); LYME WB - IGM P39 AB Absent (()); LYME WB - IGM P41 AB Present (()); LYME WB - IGM WB INTERP Positive (())
[2016-07-22 17:11] LABS: RMSF IGM 0.82 index (0.00-0.89)
[2016-07-27 12:16] LABS: F. TULARENSIS - IGG Negative (()); F. TULARENSIS - IGM Negative (())
== END 2016-07-22 13:32 | disposition home or self-care (01) | DRG 502 ==
LOC: D.ER 08:33 → D.M2 12:55
PROVIDERS: Family Medicine; Internal Medicine Rheumatology; Surgery; ADMIT Family Medicine
PROC: 0KBS0ZX Excision of Right Lower Leg Muscle, Open Approach, Diagnostic (ICD-10-PCS; principal; 2016-07-21 10:00)
DX: M33.90 Dermatopolymyositis, unspecified, organ involvement unspecified (principal); J44.9 Chronic obstructive pulmonary disease, unspecified; B19.20 Unspecified viral hepatitis C without hepatic coma; I48.0 Paroxysmal atrial fibrillation; I11.0 Hypertensive heart disease with heart failure; I50.9 Heart failure, unspecified; K12.1 Other forms of stomatitis; K12.30 Oral mucositis (ulcerative), unspecified; Z72.0 Tobacco use

== ENCOUNTER 2016-07-25 11:57 | Emergency (ER) | payer OTHER ==
[~2016-07-25 11:57] MED LIST changes: +NYSTATIN ORAL SU5 ML PO
[2016-07-25 12:54] LABS: BASOPHILS 0.3 % (0.0-2.0); EOSINOPHILS 0.6 % (0-7); HEMOGLOBIN 13.1 g/dL (13.5-17.5); IMMATURE GRANULOCYTES 4.1 % (0-5); LYMPHOCYTES 11.8 % (15-50); MCH 32.1 pg (26.0-34.0); MCV 100.5 fL (80.0-100.0); MEAN PLATELET VOLUME 11.1 fL (7.4-10.4); MONOCYTES 8.3 % (2-11); NEUTROPHILS 74.9 % (40-80); PLATELET COUNT 276 10x3/uL (130-400); RBC 4.08 10x6/uL (4.20-6.10); WBC 12.7 10x3/uL (4.8-10.8)
[2016-07-25 13:26] LABS: ALBUMIN 2.5 g/dL (3.4-5.0); ALKALINE PHOSPHATASE 71 U/L (46-116); ALT (SGPT) 144 U/L (10-68); BILIRUBIN - TOTAL 0.65 mg/dL (0.2-1.3); CALC OSMOLALITY 281 mosm/kg (275-300); CALCIUM 8.1 mg/dL (8.5-10.1); CARBON DIOXIDE 29.9 mmol/L (21.0-32.0); CHLORIDE - SERUM 106 mmol/L (98-107); CREATININE - SERUM 0.7 mg/dL (0.6-1.3); POTASSIUM - SERUM 4.8 mmol/L (3.5-5.1); PROTEIN - SERUM 5.2 g/dL (6.4-8.2); SODIUM 140 mmol/L (136-145); UREA NITROGEN 20 mg/dL (7-18); eGFR NON AFRICAN AMERICAN > 90 mL/min (90-120)
[2016-07-25 13:29] LABS: GLUCOSE 95 mg/dL (74-106)
== END 2016-07-25 14:40 | disposition home or self-care (01) ==
LOC: D.ER 11:57
PROVIDERS: Emergency Medicine
DX: A69.20 Lyme disease, unspecified (principal); R60.9 Edema, unspecified; M35.3 Polymyalgia rheumatica; J44.9 Chronic obstructive pulmonary disease, unspecified; I10 Essential (primary) hypertension; F17.200 Nicotine dependence, unspecified, uncomplicated

== ENCOUNTER 2016-07-29 12:03 | Inpatient (IN) | payer OTHER ==
[~2016-07-29] VITALS: Ht 185.4 cm; Wt 96.1 kg
--- NOTE | 2016-07-29 12:26 | NUR ---
RECEIVED PT FROM HOSPITAL STAFF MEMBER VIA WHEELCHAIR. PT IS IN 10/10 PAIN FROM ALL OVER PTS BODY. PT HAS SEVERAL RED SPOTS ON GENERALIZED BODY. PT HAS DISCOLORATION SEEN TO BILATERAL LOWER EXTREMITIES THAT ARE DARK AND RED IN COLOR. PT IS ON ROOM AIR. NO IV (DIRECT ADMIT FROM DR. TORRES OFFICE). GUEST AT BEDSIDE. WILL CONTINUE TO MONITOR AND DO ADMISSION PROCESS.
[2016-07-29 12:33] VITALS: BP 153/105; BMI 29.2
--- NOTE | 2016-07-29 13:00 | NUR ---
PTS SKIN ASSESSMENT: GENERALIZED SWELLING SEEN WITH MULTIPLE BRUISES/DISCOLORATION ALL OVER BODY. SCABS SEEN TO BIALTERAL ARMS THAT PER PT WEEP AT TIMES. SCABS SEEN TO BACK OF NECK. LARGE BRUISING/DISCOLORATION SPOTS SEEN TO RIGHT LOWER EXTREMITY. ONLY SPOTS OF NON-DISCOLORATION ARE TO MID BACK AREA AND LEFT LOWER EXTREMITY. FACE IS FLUSHED WITH REDNESS SEEN.
--- NOTE | 2016-07-29 13:06 | NUR ---
CALLED FITO CARRINGTON, VASCULAR ACCESS NURSE TO SEE ABOUT GETTING PT IV ACCESS. PT STATES LAST TIME HE WAS HERE AT [facility] THEY HAD TO PUT "SOME KIND OF PORT" IN HIM BECAUSE THEY COULD NOT GET IV ACCESS. FITO CARRINGTON STATES SHE WILL BE ON UNIT SOON. WILL CONTINUE TO MONITOR.
--- NOTE | 2016-07-29 13:17 | NUR ---
FITO CARRINGTON, VASCULAR ACCESS NURSE SITED PT WITH 20G IV TO RIGHT AC X 1 STICK. TOLERATED WELL. SECURED WITH TEGADERM.
--- NOTE | 2016-07-29 14:04 | NUR ---
IV ACCESS-22 GAUGE INSERTED IN RIGHT FOREARM. FITO CARRINGTON RN
--- NOTE | 2016-07-29 18:11 | NUR ---
PT LAYING IN BED ON BACK WITH EYES OPEN RESTING WATCHING TV. DENIES ANY NEED AT CURRENT TIME. WILL CONTINUE TO MONITOR.
--- NOTE | 2016-07-29 19:30 | NUR ---
ASSESSMENT COMPLETE, AWAKE, ALERT, WANTING SOMETHING FOR PAIN, WILL CHECK CHART FOR MEDICATION. RT AC IV SITE WITH NO R/S NOTED AT SITE, UP AD MAUDE W/O DIFF. O2 @ 2L NC IN PLACE. SKIN IS DISCOLORED WITH FEET AND LEGS SWOLLEN AND RED, BILAT HANDS SWOLLEN , RED COLORED RASH NOTED TO BODY BRUISING NOTED TO LOWER BACK. HOB UP SR UP X2, C/L IN REACH. CONTINUE TO MONITOR.
[2016-07-29 20:00] VITALS: BP 153/87
[2016-07-29 20:25] LABS: CREATINE KINASE 513 UL (21-232)
[2016-07-29 20:31] LABS: CKMB 10.3 U/L (0.0-3.6)
[2016-07-30] VITALS: BP 165/87
--- NOTE | 2016-07-30 01:10 | NUR ---
IN BED WITH EYES OPEN RESP UNLAB WITH NO S/SOF ACUTE DISTRESS NOTED. C/L IN REACH.
[2016-07-30 04:00] VITALS: BP 168/94
[2016-07-30 05:22] LABS: BASOPHILS 0.1 % (0.0-2.0); EOSINOPHILS 0 % (0-7); HEMOGLOBIN 12.4 g/dL (13.5-17.5); IMMATURE GRANULOCYTES 1.3 % (0-5); MCHC 32.6 g/dL (31.0-37.0); MCV 101.1 fL (80.0-100.0); MEAN PLATELET VOLUME 10.5 fL (7.4-10.4); MONOCYTES 2.2 % (2-11); NEUTROPHILS 94.4 % (40-80); PLATELET COUNT 253 10x3/uL (130-400); RBC 3.76 10x6/uL (4.20-6.10); WBC 18.7 10x3/uL (4.8-10.8)
[2016-07-30 05:38] LABS: ERYTHROCYTE SEDIMENTATION RATE 6 mm/hr (0-20)
[2016-07-30 05:55] LABS: ALBUMIN 2.5 g/dL (3.4-5.0); ALKALINE PHOSPHATASE 81 U/L (46-116); ALT (SGPT) 144 U/L (10-68); BILIRUBIN - TOTAL 0.71 mg/dL (0.2-1.3); C-REACTIVE PROTEIN 1.3 mg/dL (0.0-0.9); CALC OSMOLALITY 277 mosm/kg (275-300); CALCIUM 8.5 mg/dL (8.5-10.1); CARBON DIOXIDE 25.8 mmol/L (21.0-32.0); CHLORIDE - SERUM 101 mmol/L (98-107); CKMB 9.2 U/L (0.0-3.6); CREATINE KINASE 393 UL (21-232); CREATININE - SERUM 0.8 mg/dL (0.6-1.3); GLUCOSE 172 mg/dL (74-106); POTASSIUM - SERUM 4.5 mmol/L (3.5-5.1); PRO BNP 279 pg/mL (0-125); PROTEIN - SERUM 5.5 g/dL (6.4-8.2); SODIUM 135 mmol/L (136-145); UREA NITROGEN 25 mg/dL (7-18); eGFR NON AFRICAN AMERICAN > 90 mL/min (90-120)
--- NOTE | 2016-07-30 07:26 | NUR ---
PT CO PAIN EVERYWHERE. NOT TIME FOR PAIN MEDS UNTIL 0800 THIS AM, WILL GIVE WHEN TIME DENIES OTHER NEEDS WILL CONT TO MONITOR
[2016-07-30 08:58] VITALS: BP 164/93
--- NOTE | 2016-07-30 12:16 | NUR ---
PT PIV INFILTRATED DC WITH CATH TIP INTACT. ATTEMPTED TO RESITE PT 22G X1 STICK NO SUCCESS. CALLED FITO VASCULAR ACCESS NURSE TO COME RESITE
[2016-07-30 12:18] VITALS: Ht 185.4 cm; Wt 96.1 kg
[2016-07-30 13:16] VITALS: BP 182/89
--- NOTE | 2016-07-30 13:32 | NUR ---
FITO VASCULAR NURSE TRIED TO SITE PT BUT NO SUCCESS. CALLED DR GOETZ AND ASKED FOR AN ORDER FOR MIDLINE PLACEMENT. HE AGREES. ORDER PLACED
[2016-07-30 17:21] VITALS: BP 164/84
--- NOTE | 2016-07-30 17:30 | NUR ---
PATIENT LYING SEMI FOWLWERS IN BED. NO DISTRESS NOTED. STATED PAIN WAS 10/10. HE KNEW THAT HIS NEXT ROUND OF PAIN MEDS DID NOT COME UNTIL 2200. DENIED FURTHER NEEDS AT THIS TIME. INTRUCTED TO CALL IF NEEDED ANYTHING. VERBALIZED UNDERSTANDING. BED LOW, LOCKED, CALL LIGHT IN REACH.
--- NOTE | 2016-07-30 18:44 | CN ---
PATIENT NAME:CHRISTIAN GIBBONS MEDICAL RECORD: [id number] : 60 LOCATION:D.M2 D.2132 ADMIT DATE: 07/29/16 ACCOUNT: [id number] CONSULTING PHYSICIAN: JOSE ANGEL CARTER MD REFERRING PHYSICIAN: CHIN GOETZ MD DATE OF CONSULTATION: 07/29/2016 Rheumatology Consultation HISTORY OF PRESENT ILLNESS: Christian Gibbons is a 56-year-old gentleman whom I have been asked to reevaluate by Dr. 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 The patient was hospitalized here earlier this month with prominent dusky red thickened rash of 5 weeks duration of the face, upper and lower eyelids, back of the neck, trapezius areas, upper anterior chest with small patches in the abdominal wall with relative sparing of the arms and hands. He had a little bit involvement on the thighs. He had significant proximal weakness particularly of the upper extremities. CPK of 4791. Elevated AST and ALT compatible with muscle source of these test. He underwent muscle biopsy of the right anterior thigh and the result is pending. 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 During his hospitalization rheumatoid factor negative, HALEY negative, other serologies are pending. He was placed on IV Solu-Medrol. He had significant improvement in strength, slight improvement in his rash. He was discharged home approximately a week ago on 60 mg of prednisone. After hospital discharge, he was found to have weekly positive RMSF IgG and equivocal Lyme Western blot IgM. He was placed on doxycycline without any further improvement. On high dose of steroids, despite this continued to have a rash. His weakness may have been somewhat worse and he has developed a 17-pound weight gain with increasing edema in the hands, forearms and lower legs. He has also developed some bruising or ecchymosis of the sacral area, possibly from pressure from lying down and some in the lower legs. He has not had any mucosal bleeding. 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 Past history of atrial fibrillation, he is on chronic anticoagulation. He is also noted to have hepatitis C since , but has not undergone definitive treatment. He has longstanding COPD. He denies fever, chills, sweats, cough, and chest pain. Lab tests today are pending. CURRENT MEDICATIONS: Potassium 10 mEq daily, metoprolol 50 mg b.i.d., Lasix 20 mg IV b.i.d., Advair 2 puffs b.i.d., Xarelto 20 mg daily, doxycycline 100 mg IV every 12 hours, amiodarone 200 mg b.i.d., nystatin 5 mL every 6 hours, Solu-Medrol 125 mg every q.6 hours, Dilaudid p.r.n., DuoNeb p.r.n., hydrocodone CONSULT REPORT [id number] CHRISTIAN GIBBONS 325 every 6 hours p.r.n. PAST MEDICAL HISTORY: He has no known drug allergies. As outlined above, he had hepatitis C since the . He has congestive heart failure, ejection fraction 35%, history of atrial fibrillation. Current medications as outlined above including chronic Xarelto, therapy for hypertension and COPD. SOCIAL HISTORY: He smokes less than 1 pack per day. 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 FAMILY HISTORY: Negative for dermatomyositis lupus, rheumatoid arthritis or other connective tissue disease. REVIEW OF SYSTEMS: He denies headache, diplopia, tinnitus, dysphagia, reflux, cough, wheeze, orthopnea, PND, abdominal pain, nausea, vomiting, melana. PHYSICAL EXAMINATION: VITAL SIGNS: Blood pressure 153/105, pulse 109 and regular, respirations 20, temperature 98. HEENT: Head: Normal male hair pattern. Eyes: Conjunctivae are clear. Mouth is moist. NECK: Free of adenopathy or masses. Thyroid is not enlarged. LUNGS: Clear. CARDIOVASCULAR: S1, S2 are normal. Carotids 2+. ABDOMEN: Soft, nontender, without mass. MUSCULOSKELETAL: There is no inflammation in any joint in upper and lower extremities. NEUROLOGIC: Muscle strength is about 4.5/5 in deltoids, biceps, triceps, so is in quadriceps. SKIN: Still has dusky red rash of his face, upper anterior chest, posterior neck and trapezius areas. However, there has been some decrease in intensity of the rash in the upper and lower eyelids. He has ecchymoses/bruising over the sacrum and lower legs. IMPRESSION: 1. Dermatomyositis. A. Proximal upper and lower extremity weakness. B. Dusky erythematous rash with involvement of the eyelids, face, upper chest, upper back. C. Elevated CPK. D. Elevated aldolase. E. Muscle biopsy pending. 2. Chronic obstructive pulmonary disease. 3. Hepatitis C. 4. Organic heart disease, congestive heart failure, ejection fraction 35%, history of atrial fibrillation, treated with chronic Xarelto, beta-alicia and amiodarone. RECOMMENDATIONS: 1. Due to retention, weight gain and low ejection fraction, advise decreasing steroids to equivalent of prednisone 40 mg daily. 2. Recheck CPK, aldolase. 3. Wait results of muscle biopsy. CONSULT REPORT [id number] CHRISTIAN IGBBONS 4. Diuretics. Continue diuretics for fluid overload. 5. Await results of admission lab. ADDENDUM: During his recent hospitalization, CT of the chest did not show any masses. CT of the abdomen was negative for any suspicious mass with exception of ill-defined fullness in the right inguinal area, but subsequent ultrasound was negative. At some point, it would be davis to proceed with EGD and colonoscopy to exclude occult malignancy. TRANSINT:[id number] Voice Confirmation ID: [id number] DOCUMENT ID: [id number] JOSE ANGEL CARTER MD at 1844 CC: [id number] DICTATION DATE: 07/29/161933 BOW MAKER MACHINE TENDER: 07/29/165 ADM IN [facility] [address] [place] [address]
[2016-07-30 20:00] VITALS: BP 158/81
--- NOTE | 2016-07-30 22:10 | NUR ---
ADMINISTERED MEDS PRESCRIBED. PATIENT STILL AT 10/10. KNOWS THAT HE CAN HAVE HIS NORCO AT MIDNIGHT. DENIED FURTHER NEEDS AT THIS TIME. INRUCTED TO CALL IF NEEDED ANYTHING. BED LOW, LOCKED, CALL LIGHT IN REACH.
--- NOTE | 2016-07-30 23:09 | NUR ---
PT RESTING QUIETLY WITHOUT C/O OR DISTRESS NOTED. FEW NEEDS VOICED. CALL LIGHT WITHIN REACH. WILL CONT TO MONITOR.
[2016-07-31] VITALS: BP 136/72
--- NOTE | 2016-07-31 00:35 | NUR ---
PATIENT IS LYING IN BED RESTING WATCHING TV. NO DISTRESS NOTED. DENIED FURTHER NEEDS AT THIS TIME. INTRUCTED TO CALL IF NEEDED ANYTHING BED LOW, LOCKED, CALL LIGHT IN REACH.
--- NOTE | 2016-07-31 02:17 | NUR ---
PATIENT RESTING IN BED. ADMINISTERED PAIN MED PRESCRIBED. STATED PAIN WAS 9/10, WILL REASSESS IN 30 MIN. DENIES FURTHER NEEDS AT THIS TIME. INTRUCTED TO CALL IF NEEDED ANYTHING. BED LOW, LOCKED, CALL LIGHT IN REACH.
[2016-07-31 04:00] VITALS: BP 140/74
--- NOTE | 2016-07-31 05:20 | NUR ---
PATIENT IS RESTING IN BED IS WANTING HIS PAIN MEDICATION AT 6 THIS MORNING. TOLD HIM I WOULD BRING IT IN THERE TO HIM. DENIED FURTHER NEEDS AT THIS TIME. NO DISTRESS NOTED. INSTUCTED TO CALL IF NEEDED ANYTHING. VERBALIZED UNDERSTANDING. BED LOW, LOCKED, CALL LIGHT IN REACH.
[2016-07-31 06:11] LABS: HEMATOCRIT 38.3 % (42.0-54.0); HEMOGLOBIN 12.3 g/dL (13.5-17.5); MCH 32.5 pg (26.0-34.0); MCHC 32.1 g/dL (31.0-37.0); MCV 101.3 fL (80.0-100.0); MEAN PLATELET VOLUME 11.1 fL (7.4-10.4); PLATELET COUNT 279 10x3/uL (130-400); RBC 3.78 10x6/uL (4.20-6.10); RDW 14.9 % (11.5-14.5); WBC 24.4 10x3/uL (4.8-10.8)
--- NOTE | 2016-07-31 06:45 | NUR ---
RECEIVED PT REPORT. NO CO PAIN AT THIS TIME. WILL CONTINUE PLAN OF CARE. NO OTHER NEEDS.
[2016-07-31 06:51] LABS: ALBUMIN 2.6 g/dL (3.4-5.0); ALKALINE PHOSPHATASE 118 U/L (46-116); ALT (SGPT) 118 U/L (10-68); BILIRUBIN - TOTAL 0.44 mg/dL (0.2-1.3); CALC OSMOLALITY 281 mosm/kg (275-300); CALCIUM 8.3 mg/dL (8.5-10.1); CARBON DIOXIDE 25.9 mmol/L (21.0-32.0); CHLORIDE - SERUM 101 mmol/L (98-107); CREATINE KINASE 302 UL (21-232); CREATININE - SERUM 0.9 mg/dL (0.6-1.3); GLUCOSE 194 mg/dL (74-106); POTASSIUM - SERUM 4.1 mmol/L (3.5-5.1); PRO BNP 747 pg/mL (0-125); PROTEIN - SERUM 5.7 g/dL (6.4-8.2); SODIUM 135 mmol/L (136-145); UREA NITROGEN 32 mg/dL (7-18); eGFR NON AFRICAN AMERICAN > 90 mL/min (90-120)
[2016-07-31 06:52] LABS: CKMB 10.1 U/L (0.0-3.6)
[2016-07-31 06:58] LABS: EOSINOPHILS 1 % (0-7); LYMPHOCYTES 11 % (15-50); MONOCYTES 6 % (2-11); NEUTROPHILS 80 % (40-80); PLATELET ESTIMATE NORMAL; PLATELET MORPHOLOGY GIANT PLTS PRESENT; ROULEAUX 1+
[2016-07-31 08:00] VITALS: BP 137/83
--- NOTE | 2016-07-31 08:00 | NUR ---
PT IS ALERT. ASSESSMENT DONE PER FLOWSHEET. NO OTHER NEEDS AT THIS TIME. WILL CONTINUE TO MONTIOR.
--- NOTE | 2016-07-31 09:21 | NUR ---
PT IS ALERT. NEW MIDLINE DRESSING CHANGE AND NEW DRESSING APPLIED TO PT'S LEFT ARM, TOLERATED WELL
[2016-07-31 12:36] VITALS: BP 162/96
[2016-07-31 15:59] VITALS: BP 157/87
[2016-07-31 20:27] VITALS: BP 154/92
--- NOTE | 2016-07-31 22:08 | NUR ---
INITIAL ROUNDS COMPLETED AT 1920 HRS. RT X IN PROGRESS. ASSESSMETN COMPLETED AT 2000 HRS. VSS. SR PER CM HR 88. MIDLINE IV TO LAC. L ARM WRAPPED IN CLING. LUNGS DIMINISHED INBASES BILAT. 1+ EDEMA TO R FOOT AND TRACE EDEMA NOTED TO L FOOT. SUTURE NOTED TO L POSTERIOR BACK. PURPLE AREAS NOTED TO NECK, BILAT ARMS AND LEGS, AND LOWER BACK. DILAUDID 2MG SIVP GIVEN FOR C/O SEVERE GENERALIZED PAIN AT 2004 HRS. PM MEDS GIVEN. PT CURRENTLY REUESTING DUNCAN. WILL CONTINUE TO MONITOR. SR UP X2,CALL LIGHT WITHIN REACH.
--- NOTE | 2016-08-01 00:02 | NUR ---
DILAUDID 2MG SIVP GIVEN FOR C/O SEERE GENERALIZED PAIN. WILL CONTINUE TO MONITOR.
[2016-08-01 00:04] VITALS: BP 149/86
--- NOTE | 2016-08-01 01:51 | NUR ---
PT AWAKE; REQUESTING PAIN MEDS. DILAUDID 2MG SIVP TO BE GIVEN. WILL CONTINUE TO MONITOR.
[2016-08-01 04:39] VITALS: BP 136/69
--- NOTE | 2016-08-01 04:41 | NUR ---
PT RESTING WITH EYES CLOSED. RESP EVEN AND REGULAR. SR UP X2, CALL LIGHT WITHIN REACH.
--- NOTE | 2016-08-01 06:47 | NUR ---
VSS THROUGHOUT NIGHT. SR PER CM. PT STATES DILAUDID IVP ONLY CONTROLS PAIN FOR A LITTLE BIT. NEEDS MET; WILL CONTINUE TO MONITOR.
--- NOTE | 2016-08-01 07:43 | NUR ---
PATIENT AWAKE LYING IN BED IN C/O OF JOINT PAIN. LEFT AC MIDLINE. SALINE LOCKED. ALERT/ORIENT X4. TELEMETRY RUNNING SR.
[2016-08-01 07:53] LABS: BASOPHILS 0 % (0.0-2.0); EOSINOPHILS 0 % (0-7); HEMATOCRIT 35.3 % (42.0-54.0); HEMOGLOBIN 11.4 g/dL (13.5-17.5); IMMATURE GRANULOCYTES 1.1 % (0-5); LYMPHOCYTES 3.7 % (15-50); MCH 32.9 pg (26.0-34.0); MCHC 32.3 g/dL (31.0-37.0); MEAN PLATELET VOLUME 11.1 fL (7.4-10.4); MONOCYTES 3.5 % (2-11); NEUTROPHILS 91.7 % (40-80); PLATELET COUNT 246 10x3/uL (130-400); RBC 3.46 10x6/uL (4.20-6.10); WBC 21.8 10x3/uL (4.8-10.8)
[2016-08-01 08:00] VITALS: BP 124/85
--- NOTE | 2016-08-01 08:05 | NUR ---
PRN DILAUDID GIVEN FOR GENERAL PAIN/DISC.
[2016-08-01 08:29] LABS: ALBUMIN 2.5 g/dL (3.4-5.0); ALKALINE PHOSPHATASE 88 U/L (46-116); ALT (SGPT) 95 U/L (10-68); BILIRUBIN - TOTAL 0.43 mg/dL (0.2-1.3); CALC OSMOLALITY 283 mosm/kg (275-300); CALCIUM 8.1 mg/dL (8.5-10.1); CARBON DIOXIDE 26.3 mmol/L (21.0-32.0); CHLORIDE - SERUM 104 mmol/L (98-107); CREATINE KINASE 198 UL (21-232); CREATININE - SERUM 0.7 mg/dL (0.6-1.3); GLUCOSE 172 mg/dL (74-106); POTASSIUM - SERUM 4.3 mmol/L (3.5-5.1); PRO BNP 1100 pg/mL (0-125); PROTEIN - SERUM 5.3 g/dL (6.4-8.2); SODIUM 137 mmol/L (136-145); UREA NITROGEN 28 mg/dL (7-18); eGFR NON AFRICAN AMERICAN > 90 mL/min (90-120)
--- NOTE | 2016-08-01 09:11 | NUR ---
PRN DILAUID DID NOT HOLD PATIENT. PRN NORCO GIVEN
--- NOTE | 2016-08-01 10:00 | NUR ---
DR GOETZ INTO SEE PATIENT. NEW ORDERS RECEIVED.
[2016-08-01 11:25] VITALS: BP 146/83
--- NOTE | 2016-08-01 12:32 | NUR ---
UP SOB EATING LUNCH. CALL LIGHT IN REACH. WILL CONT. PLAN OF CARE.
--- NOTE | 2016-08-01 14:54 | NUR ---
PATIENT HELPED WITH SHOWER FROM NURSE ASST. PATIENTS DAUGHTERS IN ROOM VISITING WITH PATIENT.
--- NOTE | 2016-08-01 15:16 | NUR ---
MIDLINE IV SITE FELL OUT. KELTON BASSCONCRETE CRAFTSMAN IN ROOM TO TRAY TO GET A PERIPHERAL LINE STARTED.
--- NOTE | 2016-08-01 15:42 | NUR ---
22 NIDA INSERTED INTO RIGHT HAND/THUMB
[2016-08-01 15:50] VITALS: BP 136/82
--- NOTE | 2016-08-01 17:14 | NUR ---
PATIENT SITTING UP ON THE SIDE OF THE BED TO EAT SUPPER. VOICES NO NEEDS
--- NOTE | 2016-08-01 19:30 | NUR ---
PT SITTING UP ON SIDE OF BED. A/O. C/O GENERALIZED PAIN 10/10. PRN PAIN MED GIVEN. PT DENIES OTHER NEEDS AT THIS TIME. NO DISTRESS NOTED. CALL LIGHT WITH IN REACH. WILL CONT. TO [id number].
[2016-08-01 20:48] VITALS: BP 169/80
--- NOTE | 2016-08-01 22:09 | NUR ---
PT IN STREET CLOTHES AMB BACK FROM VENDING MACHING WITH A BAG OF CHIPS. STOPS AT NURSES DESK AND ASKED THIS NURSE FOR HIS DILAUDID. STATES " I GET IT EVERY 2 HOURS, AND I'M READY TO TURN IN FOR THE NIGHT." PT A/O. AMBULATING WITH STEADY GAIT. WILL CONT. TO MONITOR.
[2016-08-02 00:30] VITALS: BP 162/96
--- NOTE | 2016-08-02 02:48 | NUR ---
PT LAYING IN BED. HOB ELEVATED. PT REQUEST NORCO FOR GENERALIZED PAIN 01/25. PT A/O. RESP EVEN AND UNLABORED. PT STATES HE PAIN IS ALWAYS A 10 AND IT IS A CHRONIC PROBLEM. PT DENIES OTHER NEEDS AT THIS TIME. CALL LIGHT WITH IN REACH. WILL CONT. TO MONITOR.
--- NOTE | 2016-08-02 03:14 | NUR ---
INDUSTRIAL ENGINEERING INTERN AT BEDSIDE FOR VS, NEEDS ADDRESSED. CALL LIGHT IN REACH. WILL CONT TO MONITOR.
[2016-08-02 04:30] VITALS: BP 159/77
--- NOTE | 2016-08-02 05:26 | NUR ---
PT SITTING UP ON SIDE OF BED A/O. WANTS TO KNOW IF IT IS TIME FOR HIS NORCO YET. NURSE ORIENTED PT ON TIME. NO DISTRESS NOTED. CALL LIGHT WITH IN REACH. INSTRUCTED PT TO USE URINAL TO URINATE SO STAFF CAN MEASURE OUTPUT.
--- NOTE | 2016-08-02 05:54 | NUR ---
PT SLEEPING. EYES CLOSED, RESP EVEN AND UNLABORED. HOB ELEVATED. APPEARS COMFORTABLE. CALL LIGHT WITH IN REACH. WILL CONT. TO MONITOR.
[2016-08-02 06:32] LABS: BASOPHILS 0.1 % (0.0-2.0); EOSINOPHILS 0 % (0-7); HEMOGLOBIN 12.2 g/dL (13.5-17.5); IMMATURE GRANULOCYTES 1.6 % (0-5); LYMPHOCYTES 11.3 % (15-50); MCH 32.5 pg (26.0-34.0); MCHC 32.1 g/dL (31.0-37.0); MCV 101.3 fL (80.0-100.0); MEAN PLATELET VOLUME 10.9 fL (7.4-10.4); MONOCYTES 3.1 % (2-11); NEUTROPHILS 83.9 % (40-80); PLATELET COUNT 236 10x3/uL (130-400); RBC 3.75 10x6/uL (4.20-6.10); WBC 18.8 10x3/uL (4.8-10.8)
[2016-08-02 06:54] LABS: ALBUMIN 2.8 g/dL (3.4-5.0); ALKALINE PHOSPHATASE 92 U/L (46-116); ALT (SGPT) 106 U/L (10-68); BILIRUBIN - TOTAL 0.51 mg/dL (0.2-1.3); CALC OSMOLALITY 284 mosm/kg (275-300); CALCIUM 8.3 mg/dL (8.5-10.1); CARBON DIOXIDE 27.3 mmol/L (21.0-32.0); CHLORIDE - SERUM 103 mmol/L (98-107); GLUCOSE 147 mg/dL (74-106); POTASSIUM - SERUM 4.1 mmol/L (3.5-5.1); PRO BNP 1203 pg/mL (0-125); PROTEIN - SERUM 5.8 g/dL (6.4-8.2); SODIUM 138 mmol/L (136-145); UREA NITROGEN 29 mg/dL (7-18)
[2016-08-02 06:55] LABS: CREATININE - SERUM 0.9 mg/dL (0.6-1.3); eGFR NON AFRICAN AMERICAN > 90 mL/min (90-120)
--- NOTE | 2016-08-02 07:37 | NUR ---
AM ROUNDS - PT IN BED C/O PAIN "ALL OVER BODY", 01/25. MONITOR IS SHOWING SR, HR 87. PT IS ON ROOM AIR. 22G TO RIGHT HAND THAT IS SL. PT IS A&O. WILL CONTINUE TO MONITOR.
[2016-08-02 08:00] VITALS: BP 180/106
[2016-08-02 12:00] VITALS: BP 181/100
--- NOTE | 2016-08-02 12:24 | NUR ---
BLOOD PRESSURE IS 181/100. NO PRN'S SEEN. CALL PLACED TO DR GOETZ R/T TO THIS. NEW ORDERS RECEIVED.
--- NOTE | 2016-08-02 12:40 | CN ---
PATIENT NAME:CHRISTIAN MURILLO MEDICAL RECORD: [id number] : 60 LOCATION:D. D.2132 ADMIT DATE: 07/29/16 ACCOUNT: [id number] CONSULTING PHYSICIAN: WICHO NAJERA MD REFERRING PHYSICIAN: CHIN GOETZ MD DATE OF CONSULTATION: 07/31/2016 HISTORY OF PRESENT ILLNESS: Christian Murillo is a 56-year-old gentleman with known history of cardiovascular disease, he had history of atrial arrhythmias, atrial fibrillation status cardioversion, has been on amiodarone. He has a history of hepatitis C, being evaluated for treatment, was admitted with a markedly progressive weakness. He does have a history of dermatomyositis, and CK initially at 5000, AST and ALT ____. Was seen in concern for his medical management, atrial fibrillation given his hepatitis C. PAST MEDICAL HISTORY: Includes: 1. History of hypertension. 2. Atrial fibrillation. 3. Hepatitis C. 4. Dermatomyositis. 5. Cardiomyopathy, ejection fraction 35%. MEDICATIONS: Include: 1. Nystatin swish and swallow q.i.d. 2. Xarelto 20 q. day. 3. Amiodarone 200 b.i.d. 4. Metoprolol 50 b.i.d. 5. Prednisone 60 mg q. day. ALLERGIES: None known. SOCIAL HISTORY: Lives here in [place]. He is able to take care of his ADLs. Nonsmoker. REVIEW OF SYSTEMS: The patient reports easy bruising but reports no swollen glands. The patient reports no fever, no night sweats, no significant weight gain, no significant weight loss. No significant exercise tolerance. The patient reports no dry eyes, no irritation, no vision change. Patient reports no difficulty hearing and no ear pain. Patient reports no frequent nose bleeds or nose and sinus problems. Patient reports on arm pain on exertion. No shortness of breath while lying down. No history of heart murmur. Patient reports no cough, no wheezing or coughing up blood. Patient reports no abdominal pain, no vomiting. Normal appetite. No diarrhea and not vomiting blood. No nausea and no constipation. Patient reports no incontinence. No difficulty urinating. No hematuria. No increased frequency. Patient reports no muscle aches. No weakness, no arthralgias, no back pain. No swelling of the extremities. Patient reports no abnormal mole, no jaundice, no rashes. Reports no loss of consciousness. No weakness and no numbness. No seizures, dizziness, or headaches. The patient reports no depression, no sleep disturbance, feeling safe in a relationship and no alcohol abuse. Patient reports on fatigue. Reports no runny nose or sinus pressure. No itching, no hives, and no frequent sneezing. PHYSICAL EXAMINATION: GENERAL: This is a well-developed man, in no acute distress. CONSULT REPORT [id number] CHRISTIAN MURILLO VITAL SIGNS: 157/87, pulse 84 and regular. HEENT: Normocephalic, atraumatic. NECK: No JVD or bruit. HEART: Currently regular, II/ systolic ejection murmur. LUNGS: Good air excursion. ABDOMEN: Soft, nontender. EXTREMITIES: Pulse 2+with no edema. IMPRESSION: Atrial fibrillation, cardiomyopathy without Aldactone to his underlying diuretic therapy. TRANSINT:[id number] Voice Confirmation ID: [id number] DOCUMENT ID: [id number] WICHO NAJERA MD at 1240 CC: [id number] DICTATION DATE: 07/31/16 162 CIVIL ENGINEERING DRAFTER: 07/31/161948 ADM IN [facility] [address] [place] [address]
--- NOTE | 2016-08-02 19:20 | NUR ---
RECEIVED REPORT, PT SITTING UP ON SIDE OF BED, STATES WANTS HIM TO WALK, I AGREEED BUT ASK HIM TO STAY ON MED 2, CALL LIGHT IN REACH, WILL CONTINUE TO MONITOR
--- NOTE | 2016-08-02 20:34 | NUR ---
GAVE 2MG-DIDAUDID
[2016-08-02 22:46] VITALS: BP 123/84
--- NOTE | 2016-08-02 22:51 | NUR ---
GAVE [id number]
--- NOTE | 2016-08-03 00:27 | NUR ---
CO FOUNDER AND CHAIRMAN AT BEDSIDE FOR VS. NEEDS ADDRESSED AT THIS TIME. CALL LIGHT IN REACH. WILL CONT TO MONITOR.
--- NOTE | 2016-08-03 00:34 | NUR ---
GAVE 2MG-DILAUDID
[2016-08-03 02:33] VITALS: BP 130/75
--- NOTE | 2016-08-03 02:55 | NUR ---
GAVE 2MG-DILAUDID
--- NOTE | 2016-08-03 05:11 | NUR ---
GAVE [id number]
[2016-08-03 06:08] LABS: BASOPHILS 0.2 % (0.0-2.0); EOSINOPHILS 0.4 % (0-7); HEMATOCRIT 37.2 % (42.0-54.0); IMMATURE GRANULOCYTES 5.3 % (0-5); LYMPHOCYTES 7.6 % (15-50); MCH 32.9 pg (26.0-34.0); MCHC 32.3 g/dL (31.0-37.0); MCV 101.9 fL (80.0-100.0); MONOCYTES 10.6 % (2-11); NEUTROPHILS 75.9 % (40-80); PLATELET COUNT 205 10x3/uL (130-400); RBC 3.65 10x6/uL (4.20-6.10); RDW 15.2 % (11.5-14.5)
[2016-08-03 06:37] VITALS: BP 134/87
[2016-08-03 07:02] LABS: ALBUMIN 2.5 g/dL (3.4-5.0); ALKALINE PHOSPHATASE 88 U/L (46-116); CALC OSMOLALITY 278 mosm/kg (275-300); CALCIUM 8.6 mg/dL (8.5-10.1); CARBON DIOXIDE 30.6 mmol/L (21.0-32.0); CHLORIDE - SERUM 102 mmol/L (98-107); CREATININE - SERUM 0.7 mg/dL (0.6-1.3); GLUCOSE 120 mg/dL (74-106); POTASSIUM - SERUM 4.2 mmol/L (3.5-5.1); PRO BNP 686 pg/mL (0-125); PROTEIN - SERUM 5.1 g/dL (6.4-8.2); SODIUM 137 mmol/L (136-145); UREA NITROGEN 23 mg/dL (7-18); eGFR NON AFRICAN AMERICAN > 90 mL/min (90-120)
[2016-08-03 07:03] LABS: ALT (SGPT) 142 U/L (10-68)
[2016-08-03 08:02] VITALS: BP 124/81
[2016-08-03 12:04] VITALS: BP 115/62
--- NOTE | 2016-08-03 14:00 | NUR ---
ALERT AND ORIENTED X4. AMBULATING IN SALES. GAIT STEADY. PAIN MANAGEMENT CONTINUED ORDERED. SINUS RHTHYM 91bpm ON TELEMETRY. DENIES SOB. CONTINUE PLAN OF CARE AND SAFETY PRECAUTIONS.
--- NOTE | 2016-08-03 14:49 | NUR ---
Nutrition follow-up: Diet: Regular PO intake 100% of meals Labs reviewed +BM Wt: 225# RDN following.
[2016-08-03 15:54] VITALS: BP 114/66
--- NOTE | 2016-08-03 19:50 | NUR ---
Patient Name: CHRISTIAN MURILLO Admission Status: Elective Accout number: [id number] Admission Date: 07-29-2016 : 1960 Admission Diagnosis:DERMATOPOLYMYOSITIS, UNSP, ORGAN INVOLVEMENT UNSPECIFIE Attending: STEVE Current LOS: 5 Anticipated DC Date: TO BE DETERMINED Planned Disposition: Home Primary Insurance: [facility] Discharge Planning Comments: * Is the patient Alert and Oriented? Yes 0 * How many steps to enter\exit or inside your home? NONE 0 * PCP DR. GOETZ 0 * Pharmacy [facility] 0 * Preadmission Environment Home with Family 0 * ADLs Independent 0 * Equipment Nebulizer 0 * Other Equipment NEBULIZER ORDERED ON LINE NO LOCAL EQUIPMENT PROVIDER PREFERENCE 0 * List name and contact numbers for known caregivers / representatives who currently or will assist patient after discharge: AGUSTINA KLEIN, 0 * Community resources currently utilized None 0 * Please name any agencies selected above. NONE 0 * Additional services required to return to the preadmission environment? No 0 * Can the patient safely return to the preadmission environment? Yes 0 * Has this patient been hospitalized within the prior 30 days at any hospital? Yes 0 CM MET WITH PT IN ROOM TO DISCUSS DISCHARGE PLANNING AND NEEDS. PT REPORTS LIVING AT HOME INDEPENDENTLY WITH FOUR ADULT FRIENDS. PT HAS NO MEDICAL EQUIPMENT AND NO OUTSIDE SERVICES ASSISTING IN THE HOME. CM DISCUSSED AVAILABILITY OF HOME HEALTH, REHAB SERVICES AND MEDICAL EQUIPMENT. PT DENIES DISCHARGE NEEDS AT THIS TIME, REPORTS HIS FRIEND WILL PICK HIM UP FOR DISCHARGE HOME. PT PLANS TO DISCHARGE HOME WITH ADULT FRIENDS, DENIES DISCHARGE NEEDS AT THIS TIME; CM TO FOLLOW AND ASSIST IF NEEDED. Meat And Seafood Clerk: Leander Garcia
--- NOTE | 2016-08-03 21:09 | NUR ---
PT AWAKE, ALERT, ORIENTED, C/O GREAT PAIN AND REQUESTING HIS PRN DILAUDID AHEAD OF TIME FOR 23:00. PT DEMONSTRATES INCREASED AGITATION, ANXIETY, GREAT DISCOMFORT, AND IRRITABILITY. PT DENIES ANY OTHER ACUTE NEEDS AT THIS TIME. CALL LIGHT IN REACH, SIDE RAILS X 2, HOB 30 DEGREES, BED LOW. CONTINUE TO MONITOR CLOSELY.
[2016-08-03 21:58] VITALS: BP 147/75
[2016-08-04 02:03] VITALS: BP 115/69
--- NOTE | 2016-08-04 02:55 | NUR ---
PT LYING IN BED, EYES CLOSED, RESPIRATIONS EVEN AND UNLABORED. PT EASILY ROUSABLE TO VERBAL STIMULI. PT HAS RECEIVED HIS Q 2 HOUR PRN DILAUDID. DENIES ANY OTHER ACUTE NEEDS. CONTINUE TO MONITOR CLOSELY. BED LOW, CALL LIGHT IN REACH, SIDE RAILS X 2, HOB 10 DEGREES.
[2016-08-04 05:40] LABS: BASOPHILS 0.3 % (0.0-2.0); EOSINOPHILS 1.1 % (0-7); HEMATOCRIT 38.7 % (42.0-54.0); HEMOGLOBIN 12.3 g/dL (13.5-17.5); IMMATURE GRANULOCYTES 7.2 % (0-5); LYMPHOCYTES 10.7 % (15-50); MCH 32.5 pg (26.0-34.0); MCHC 31.8 g/dL (31.0-37.0); MCV 102.4 fL (80.0-100.0); MEAN PLATELET VOLUME 10.8 fL (7.4-10.4); MONOCYTES 10.3 % (2-11); NEUTROPHILS 70.4 % (40-80); PLATELET COUNT 195 10x3/uL (130-400); RBC 3.78 10x6/uL (4.20-6.10); RDW 15.3 % (11.5-14.5); WBC 11.9 10x3/uL (4.8-10.8)
[2016-08-04 05:44] VITALS: BP 119/75
--- NOTE | 2016-08-04 05:55 | NUR ---
PT IS C/O OF HIS IV IN RIGHT WRIST BURNING, HURTING. IV IS STILL PATENT, FLUSHES WELL, NO EVIDENCE OF INFILTRATION AT THIS TIME. I HAVE ENCOURAGED TO REPORT ANY ACUTE CHANGES, HE AGREED TO DO SO. CONTINUE TO MONITOR CLOSELY.
[2016-08-04 06:10] LABS: ALBUMIN 2.5 g/dL (3.4-5.0); ALKALINE PHOSPHATASE 94 U/L (46-116); CALCIUM 8.8 mg/dL (8.5-10.1); CARBON DIOXIDE 33.2 mmol/L (21.0-32.0); CREATINE KINASE 176 UL (21-232); CREATININE - SERUM 0.7 mg/dL (0.6-1.3); GLUCOSE 95 mg/dL (74-106); PRO BNP 196 pg/mL (0-125); PROTEIN - SERUM 5.1 g/dL (6.4-8.2); UREA NITROGEN 26 mg/dL (7-18); eGFR NON AFRICAN AMERICAN > 90 mL/min (90-120)
[2016-08-04 06:11] LABS: ALT (SGPT) 199 U/L (10-68)
[2016-08-04 06:19] LABS: CALC OSMOLALITY 278 mosm/kg (275-300); CHLORIDE - SERUM 101 mmol/L (98-107); POTASSIUM - SERUM 4.6 mmol/L (3.5-5.1); SODIUM 137 mmol/L (136-145)
--- NOTE | 2016-08-04 08:42 | NUR ---
INTRODUCED MYSELF TO PT PRIMARY RN FOR TODAYS SHIFT. PT IS A&O AND UP AMBULATORY BY HIMSELF. PT IS C/O SEVERE PAIN ALL OVER PRIMARILY ABDOMEN. ADMINISTERED PRN DILAUDID VIA R.HAND PIV HOWEVER IV STARTED LEAKING, NO INFILTRATION FOUND BUT REMOVED IV WITH CATHETER TIP FULLY INTACT. STUDENT NURSE AT BEDSIDE AND WILL GET INSTRUCTOR TO RESITE WITH HER UPON MORNING MED PASS. PT HAS BRUISING NOTED ALL OVER AND IS SLIGHTLY SWOLLEN IN BILAT LEGS. PT DENIES ANY FURTHER NEEDS AT THIS TIME. CL IN REACH, BED IN LOWEST, SIDE RAILS X2. WILL CPOC.
[2016-08-04 09:06] VITALS: BP 113/78
--- NOTE | 2016-08-04 11:10 | NUR ---
PT REQUESTED AND WAS PROVIDED WITH PRN DILAUDID VIA R.UPPER ARM PIV. FLUSHED WITHOUT ANY DIFFICULTIES PT RESTING AND DENIES ANY FURTHER NEEDS AT THIS TIME. WILL CPOC.
[2016-08-04 12:35] VITALS: BP 111/70
--- NOTE | 2016-08-04 15:28 | NUR ---
PHARMACY NOW HAS IVPB READY. INITIATED IVPB INFUSING VIA R.UPPER ARM PIV WITH DRSG CDI AND SWAB CAPS IN USE. PT ALSO REQUESTED AND PROVIDED WITH PRN DILAUDID FOR GENERALIZED PAIN. PT DENIES ANY FURTHER NEEDS AT THIS TIME. CL IN REACH, BED IN LOWEST, SIDE RAILS X2. WILL CPOC.
[2016-08-04 18:06] VITALS: BP 118/73
[2016-08-04 20:00] VITALS: BP 104/74
--- NOTE | 2016-08-04 20:12 | NUR ---
REPORT RECEIVED AND CARE ASSUMED. ALERT AND ORIENTED X 4. COMPLAINING OF GENERALIZED PAIN ALL OVER AT LEVEL# 10. ASSESSMENT COMPLETED, SEE FLOW SHEET. CONTINUE PLAN OF CARE.
[2016-08-05] VITALS: BP 120/84
[2016-08-05 04:00] VITALS: BP 129/85
[2016-08-05 05:37] LABS: BASOPHILS 0.2 % (0.0-2.0); EOSINOPHILS 0.7 % (0-7); HEMATOCRIT 40.2 % (42.0-54.0); HEMOGLOBIN 12.8 g/dL (13.5-17.5); IMMATURE GRANULOCYTES 5.3 % (0-5); LYMPHOCYTES 9.5 % (15-50); MCH 32.4 pg (26.0-34.0); MCHC 31.8 g/dL (31.0-37.0); MCV 101.8 fL (80.0-100.0); MEAN PLATELET VOLUME 11.1 fL (7.4-10.4); MONOCYTES 8.9 % (2-11); NEUTROPHILS 75.4 % (40-80); PLATELET COUNT 206 10x3/uL (130-400); RBC 3.95 10x6/uL (4.20-6.10); RDW 15.2 % (11.5-14.5); WBC 13.8 10x3/uL (4.8-10.8)
--- NOTE | 2016-08-05 06:00 | NUR ---
PATIENT HAS RECEIVED DILAUDID 2 MG IVP EVERY 2 HOURS THROUGH OUT THE NIGHT. HAS BEEN HARD TO MANAGE HIS PAIN.
[2016-08-05 06:11] LABS: ALBUMIN 2.8 g/dL (3.4-5.0); ALKALINE PHOSPHATASE 80 U/L (46-116); ALT (SGPT) 215 U/L (10-68); CALCIUM 9.1 mg/dL (8.5-10.1); CARBON DIOXIDE 33.5 mmol/L (21.0-32.0); CHLORIDE - SERUM 100 mmol/L (98-107); CREATININE - SERUM 0.8 mg/dL (0.6-1.3); GLUCOSE 111 mg/dL (74-106); POTASSIUM - SERUM 4.9 mmol/L (3.5-5.1); PRO BNP 84 pg/mL (0-125); PROTEIN - SERUM 5.6 g/dL (6.4-8.2); SODIUM 137 mmol/L (136-145); eGFR NON AFRICAN AMERICAN > 90 mL/min (90-120)
[2016-08-05 06:17] LABS: CALC OSMOLALITY 282 mosm/kg (275-300); UREA NITROGEN 36 mg/dL (7-18)
[2016-08-05 07:25] VITALS: BP 127/73
[2016-08-05] MEDS ORDERED: ALDACTONE25 MG PO (07:34)
[2016-08-05] MEDS ORDERED: LISINOPRIL10 MG PO (07:34)
[2016-08-05] MEDS ORDERED: LASIX40 MG PO (07:35)
[2016-08-05] MEDS ORDERED: HYDROCODONE-APA1 TAB PO (07:35)
[2016-08-05] MEDS ORDERED: K-DUR20 MEQ PO (07:36)
[2016-08-05] MEDS ORDERED: METOLAZONE5 MG PO (07:41)
--- NOTE | 2016-08-05 08:22 | NUR ---
PT C/O SEVERE PAIN ALL OVER. REQUESTED AND PROVIDED WITH PRN DILAUDID VIA R.UPPER ARM PIV. DRSG CDI AND SWAB CAPS IN USE. WILL CPOC.
--- NOTE | 2016-08-05 09:23 | NUR ---
PT CALLED REQUESTING PRN PAIN MEDICATION AND WAS PROVIDED WITH IT VIA R.UUPPER ARM PIV. DRSG CDI AND SWAB CAPS IN USE. PT READY TO GET IN THE SHOWER, STUDENT NURSE KEENAN AT SIDE TO WRAP PIV SITE AND ASSIST WITH SHOWER SUPPLIES. PT WILL BE DISCHARGED LATER TODAY AND STATES HE IS READY AND HAPPY TO LEAVE JUST HOPES HIS PAIN WILL BE MANAGED, WILL MAKE SURE HE IS SENT WITH PAIN MANAGEMENT AND TEACHING PROVIDED ON NON-PHARMALOGIC REMEDIES TO RELIEVE PAIN. PT DENIES ANY FURTHER NEEDS AT THIS TIME. CL IN REACH. WILL CPOC.
[2016-08-05] MEDS ORDERED: SINGULAIR10 MG PO (09:57)
[2016-08-05] MEDS ORDERED: IPRAT-ALBUT 0.5-3 ML UPD (10:00)
--- NOTE | 2016-08-05 11:00 | NUR ---
OFFERED SCDS AND PT REFUSED FOR BEING AMBULATORY PT WALKS DOWNSTAIRS AND OFTEN IS OOB.
[2016-08-05 12:54] VITALS: BP 131/68
--- NOTE | 2016-08-05 13:45 | NUR ---
DISCHARGE PAPERS SIGNED AND OBTAINED IN CHART. TEACHING COMPLETED AND PT DENIES ANY QUESTIONS OR CONCERNS. D/C R.UPPER ARM PIV WITH CATHETER TIP FULLY INTACT.
== END 2016-08-05 13:47 | disposition home or self-care (01) | DRG 546 ==
LOC: D.M2 12:03
PROVIDERS: Internal Medicine Rheumatology; ADMIT Family Medicine
DX: M33.90 Dermatopolymyositis, unspecified, organ involvement unspecified (principal); J44.1 Chronic obstructive pulmonary disease with (acute) exacerbation; I50.22 Chronic systolic (congestive) heart failure; I42.9 Cardiomyopathy, unspecified; B19.20 Unspecified viral hepatitis C without hepatic coma; I48.91 Unspecified atrial fibrillation; Z79.01 Long term (current) use of anticoagulants; Z87.891 Personal history of nicotine dependence

== ENCOUNTER → 2016-09-02 12:09 | Outpatient (CLI) | payer OTHER ==
[2016-07-30 12:18] VITALS: BMI 29.1
[~2016-09-02 12:09] MED LIST changes: +ALDACTONE25 MG PO; +K-DUR20 MEQ PO; +METOLAZONE5 MG PO
== END | disposition home or self-care (01) ==
LOC: D.RAD 09-01 13:00
DX: R13.10 Dysphagia, unspecified (principal); M33.90 Dermatopolymyositis, unspecified, organ involvement unspecified

== ENCOUNTER 2016-10-21 16:26 | Outpatient (CLI) | payer OTHER ==
[~2016-10-21] VITALS: Ht 185.4 cm; Wt 87.5 kg
[2016-10-21 17:20] LABS: BASOPHILS 0.9 % (0-2); EOSINOPHILS 2.8 % (0-7); HEMATOCRIT 50.2 % (42.0-54.0); IMMATURE GRANULOCYTES 0.4 % (0-5); LYMPHOCYTES 26.8 % (15-50); MCH 34.8 pg (26.0-34.0); MCHC 33.9 g/dL (31.0-37.0); MCV 102.9 fL (80.0-100.0); MEAN PLATELET VOLUME 11.9 fL (7.4-10.4); MONOCYTES 11.6 % (2-11); NEUTROPHILS 57.5 % (40-80); RBC 4.88 10x6/uL (4.20-6.10); RDW 13.8 % (11.5-14.5); WBC 7.7 10x3/uL (4.8-10.8)
[2016-10-21 17:53] LABS: PLATELET COUNT 331 10x3/uL (130-400)
[2016-10-21 18:03] LABS: ALBUMIN 3.3 g/dL (3.4-5.0); ALKALINE PHOSPHATASE 89 U/L (46-116); ALT (SGPT) 342 U/L (10-68); BILIRUBIN - TOTAL 0.81 mg/dL (0.2-1.3); CALC OSMOLALITY 279 mosm/kg (275-300); CALCIUM 9.2 mg/dL (8.5-10.1); CARBON DIOXIDE 24.3 mmol/L (21.0-32.0); CHLORIDE - SERUM 102 mmol/L (98-107); CREATININE - SERUM 0.9 mg/dL (0.6-1.3); GLUCOSE 146 mg/dL (74-106); PROTEIN - SERUM 7.4 g/dL (6.4-8.2); SODIUM 140 mmol/L (136-145); UREA NITROGEN 7 mg/dL (7-18); eGFR NON AFRICAN AMERICAN > 90 mL/min (90-120)
[2016-10-21 18:18] LABS: CKMB 3.9 U/L (0.0-3.6); CREATINE KINASE 280 UL (21-232)
[2016-10-21 18:20] LABS: INR 0.93 (0.85-1.17); PROTIME 12.3 SECONDS (11.6-15.0)
[2016-10-21 18:37] LABS: TROPONIN-I 0.087 ng/mL (0.000-0.060)
--- NOTE | 2016-10-21 19:43 | NUR ---
ARRIVED TO FLOOR VIA WHEELCHAIR, ACCOMPANIED BY HOSPITAL STAFF. ORIENTED TO UNIT AND PLACED ON TELEMETRY. RIGHT HAND INFUSING CARDIZEM @ 10 AND NS @ 50. CALL LIGHT IN REACH. WILL CONTINUE TO MONITOR. SEE NURSE ASSESSMENT.
[2016-10-21 20:00] VITALS: BP 124/88
[2016-10-21] MEDS ORDERED: PREDNISONE20 MG PO (20:13)
--- NOTE | 2016-10-21 20:32 | NUR ---
DR. HOBBS PAGED FOR HOME MEDS, AWAITING CALL BACK.
[2016-10-21 23:26] VITALS: Ht 185.4 cm; Wt 87.5 kg
[2016-10-22] VITALS: BP 121/64; BP 141/52
[2016-10-22 04:00] VITALS: BP 113/71
--- NOTE | 2016-10-22 07:09 | NUR ---
AM ROUNDS- PT IN BED, REQUESTED SOME MILK, WILL PROVIDED PT WITH SOME MILK. BED LOW AND WHEELS LOCKED, BEDSIDE RAILSX2, CALL LIGHT IN REACH, PT REFUSES TO WEAR SCD'S, NAD NOTED, WILL CONTINUE TO MONITOR.
[2016-10-22 08:20] VITALS: BP 128/87
--- NOTE | 2016-10-22 09:17 | NUR ---
ADMINISTERED AM MEDS. PT IN BED, STATES THAT IS DISCHARGING HIM TODAY BUT WILL NOT HAVE A RIDE UNTIL ABOUT 1430. PT DENIES ANY NEEDS AT THIS TIME. CALL LIGHT IN REACH, NAD NOTED, WILL CONTINUE TO MONITOR.
[2016-10-22] MEDS ORDERED: BETAPACE 80 MG80 MG PO (09:25)
--- NOTE | 2016-10-22 09:46 | NUR ---
CARDIZEM DRIP AND IVFS STOPPED AT THIS TIME. PT IN BED, DENIES ANY NEEDS AT THIS TIME. CALL LIGHT IN REACH, NAD NOTED, WILL CONTINUE TO MONITOR.
--- NOTE | 2016-10-22 10:06 | NUR ---
ADMINISTERED 4MG OF MORPHINE FOR PAIN LEVEL OF 9/10. PT DENIES ANY OTHER NEEDS, CALL LIGHT IN REACH, NAD NOTED, WILL CONTINUE TO MONITOR.
--- NOTE | 2016-10-22 11:49 | NUR ---
PROVIDED VERBAL AND WRITTEN DISCHARGE INSTUCTIONS TO PT. PT VERBALIZED UNDERSTANDING REGARDING DISCHARGE TEACHING. PT DENIES ANY NEEDS AT THIS TIME. CALL LIGHT IN REACH, NAD NOTED, WILL CONTINUE TO MONITOR.
[2016-10-22 12:35] VITALS: BP 141/85
--- NOTE | 2016-10-22 13:08 | NUR ---
PT UP TO SIDE OF BED, GETTING READY, STATES RIDE WILL BE HERE AFTER 1430. PT DENIES ANY NEEDS AT THIS TIME. CALL LIGHT IN REACH, NAD NOTED, WILL CONTINUE TO MONITOR.
--- NOTE | 2016-10-22 14:05 | NUR ---
4MG OF MORPHINE GIVEN FOR PAIN LEVEL OF 9/10. D/C LEFT HAND IV, TIP INTACT. PT DENIES ANY OTHER NEEDS AT THIS TIME. CALL LIGHT IN REACH, NAD NOTED, WILL CONTINUE TO MONITOR.
--- NOTE | 2016-10-22 14:49 | NUR ---
PT LEFT UNIT VIA WHEELCHAIR, NAD NOTED.
--- NOTE | 2016-10-23 08:33 | DS ---
PATIENT:CHRISTIAN MURILLO :60 MEDICAL RECORD: [id number] DISCHARGE SUMMARY ADMISSION DATE: 10/21/16 DISCHARGE DATE: 10/22/16 PROBLEM LIST: 1. Paroxysmal atrial fibrillation. 2. Chronic obstructive pulmonary disease. IMPRESSION AND PLAN: This is a gentleman with a history of paroxysmal atrial fibrillation who presents with atrial fibrillation with rapid ventricular response. His metoprolol was changed to sotalol. He converted to sinus rhythm. He was discharged on sotalol 80 milligrams twice a day discontinuing the metoprolol. Follow up with [facility] in one month. JERE HOBBS MD at 0833 CC: [id number] DICTATION DATE: 10/22/162122 WET FINISHER: GLORIA 10/22/162121 DEP RALPH 10/22/16 [id number] [place] [address]
--- NOTE | 2016-10-23 13:06 | NUR ---
SOTALOL 80mg PO BID #60 CALLED TO [facility]. PATIENT STATES THAT MED WAS TO BE CALLED TO [facility] YESTERDAY @ DISCHARGE, BUT WHEN HE ARRIVED TO PICK IT UP TODAY AT CLOSING TIME, [facility] HAD NOT RECEIVED IT, REVIEWED CHART FOR ACCURACY AND CALLED.
== END 2016-10-22 14:53 | disposition home or self-care (01) ==
LOC: D.M2 16:26 → D.OPS 16:26 → D.ER 16:26 → EDSTATUS 19:22 → D.M2 19:26 → D.OPS 10-22 14:53
PROVIDERS: Emergency Medicine; Nurse Practitioner Acute Care
DX: I48.0 Paroxysmal atrial fibrillation (principal); I11.0 Hypertensive heart disease with heart failure; I50.9 Heart failure, unspecified; K75.9 Inflammatory liver disease, unspecified; J44.9 Chronic obstructive pulmonary disease, unspecified; Z79.02 Long term (current) use of antithrombotics/antiplatelets; Z79.891 Long term (current) use of opiate analgesic; Z01.812 Encounter for preprocedural laboratory examination

== ENCOUNTER → 2017-02-04 12:47 | Outpatient (CLI) | payer OTHER ==
[2016-10-21 23:26] VITALS: BMI 25.5
[~2017-02-04 12:47] MED LIST changes: +BETAPACE 120 M120 MG PO; +BETAPACE 80 MG80 MG PO; +LOPRESSOR25 MG PO
== END | disposition home or self-care (01) ==
LOC: D.RT 12:47
DX: Z02.71 Encounter for disability determination (principal)

== ENCOUNTER 2017-02-11 10:08 | Inpatient (IN) | payer OTHER ==
[~2017-02-11 10:08] MED LIST changes: -BETAPACE 120 M120 MG PO; -LOPRESSOR25 MG PO
[2017-02-11 10:49] LABS: BASOPHILS 1.4 % (0-2); EOSINOPHILS 3.8 % (0-7); HEMATOCRIT 51.3 % (42.0-54.0); HEMOGLOBIN 17.4 g/dL (13.5-17.5); IMMATURE GRANULOCYTES 0.5 % (0-5); LYMPHOCYTES 19.6 % (15-50); MCH 35.7 pg (26.0-34.0); MCHC 33.9 g/dL (31.0-37.0); MCV 105.1 fL (80.0-100.0); MEAN PLATELET VOLUME 11.8 fL (7.4-10.4); MONOCYTES 13.8 % (2-11); NEUTROPHILS 60.9 % (40-80); PLATELET COUNT 383 10x3/uL (130-400); RBC 4.88 10x6/uL (4.20-6.10); RDW 14.7 % (11.5-14.5); WBC 8.9 10x3/uL (4.8-10.8)
[2017-02-11 11:18] LABS: ALBUMIN 3.5 g/dL (3.4-5.0); ALKALINE PHOSPHATASE 119 U/L (46-116); ALT (SGPT) 315 U/L (10-68); CALC OSMOLALITY 272 mosm/kg (275-300); CALCIUM 9.9 mg/dL (8.5-10.1); CARBON DIOXIDE 26.5 mmol/L (21.0-32.0); CHLORIDE - SERUM 100 mmol/L (98-107); CREATININE - SERUM 0.7 mg/dL (0.6-1.3); GLUCOSE 106 mg/dL (74-106); POTASSIUM - SERUM 4.3 mmol/L (3.5-5.1); PROTEIN - SERUM 8.2 g/dL (6.4-8.2); SODIUM 137 mmol/L (136-145); UREA NITROGEN 11 mg/dL (7-18); eGFR NON AFRICAN AMERICAN > 90 mL/min (90-120)
[2017-02-11 11:25] LABS: CREATINE KINASE 199 UL (21-232); MAGNESIUM - SERUM 1.6 mg/dL (1.8-2.4); PRO BNP 1687 pg/mL (0-125); TROPONIN-I 0.025 ng/mL (0.000-0.060)
--- NOTE | 2017-02-11 11:41 | NUR ---
ASSESSED RESP STATUS BILATERAL EXPIRATORY WHEEZES THROUGHOUT ALL [facility] ANTERIOR AUSCULTATION. HR [id number] NURSE NOTIFIED PRIOR TO ADMINISTRATION. PT TOLERATED WELL HR POST TX 158 SPO2 97 NO IMMEDIATE S/S RESP DISTRESS
[2017-02-11 15:49] LABS: APPEARANCE CLEAR (CLEAR); BILIRUBIN NEGATIVE (NEGATIVE); COLOR YELLOW (YELLOW); GLUCOSE NEGATIVE (NEGATIVE); KETONE NEGATIVE (NEGATIVE); NITRITE NEGATIVE (NEGATIVE); PROTEIN NEGATIVE (NEGATIVE); UROBILINOGEN NORMAL (NORMAL)
[2017-02-11 15:54] LABS: UDS - AMPHET NEGATIVE QUAL (NEGATIVE); UDS - BARB NEGATIVE QUAL (NEGATIVE); UDS - BENZO NEGATIVE QUAL (NEGATIVE); UDS - COCAINE NEGATIVE QUAL (NEGATIVE); UDS - OPIATE POSITIVE QUAL (NEGATIVE); UDS - PCP NEGATIVE QUAL (NEGATIVE); UDS - THC NEGATIVE QUAL (NEGATIVE)
[2017-02-11 15:56] LABS: BACTERIA FEW /hpf (NONE SEEN); WHITE CELLS - URINE OCC /hpf (0-5)
--- NOTE | 2017-02-11 17:38 | NUR ---
CALLED ER AND TOLD THEM PT WAS GOING TO BE IN 2118 BECAUSE HE IS ON A CARDIZEM DRIP. THEY SAID THEY WOULD CALL SOON WITH REPORT.
--- NOTE | 2017-02-11 17:43 | NUR ---
RECEIVED REPORT FROM AZAR IN ER. ROOM IS STILL DIRTY, WILL LET ER KNOW WHEN ROOM IS READY
--- NOTE | 2017-02-11 18:00 | NUR ---
CALLED ER AND LET THEM KNOW THAT PT ROOM IS NOW CLEAN. SPOKE WITH BIA
--- NOTE | 2017-02-11 18:23 | NUR ---
PT TO ROOM ALERT AND ORIENTED WILL ADMIT
[2017-02-11] MEDS ORDERED: LOPRESSOR25 MG PO (18:27)
[2017-02-11 18:31] VITALS: BP 136/84; BMI 26.7
--- NOTE | 2017-02-11 19:20 | NUR ---
PT RESTING IN BED. CARDIZEM INFUSING @ 10 TO RIGHT HAND. PT DENIES ANY NEEDS, ONLY ASKS FOR PAIN MED WITH 2100 MED PASS. PT HAS NO S/S OF DISTRESS. WILL CPOC
--- NOTE | 2017-02-11 19:45 | NUR ---
PT RESTING IN BED. AAO. C/O 12/26 PAIN IN BACK. WANTS THE MORHINE BECAUSE IT HELPS HIM SLEEP. PT ABOUT TO RECIEVE BREATHING TREATMENT. PT UP AD MAUDE. GAIT STEADY. PT DENIES ANY NEEDS. NO S/S OF DISTRESS. WILL CPOC
--- NOTE | 2017-02-11 19:51 | NUR ---
PT RESTING IN BED. NS @ 125, CARDIZEM @ 10 AND A PHP PROGRAMMER INFUSING TO LEFT HAND. PT DENIES ANY NEEDS AT THIS TIME. AT BEDSIDE. BED IS LOW AND CALL LIGHT IN REACH. WILL CPOC
[2017-02-11 20:00] VITALS: BP 120/90
[2017-02-12] VITALS: BP 121/83
--- NOTE | 2017-02-12 00:06 | NUR ---
PT ASLEEP, AROUSES TO VERBAL STIMULI, STATES PAIN IS BETTER 2/10. PT DENIES ANY NEEDS. WILL CPOC
--- NOTE | 2017-02-12 02:56 | NUR ---
PT C/O 12/26 PAIN IN BACK. ASKED FOR MORPHINE. MORPHINE GIVEN. PT HAS NO OTHER NEEDS AT THIS TIME. NO S/S OF DISTRESS. CARDIZEM INFUSING AT 10 TO RIGHT HAND. WILL CPOC
[2017-02-12 04:00] VITALS: BP 111/84
--- NOTE | 2017-02-12 06:08 | NUR ---
PT UP TO SHOWER WITH MINIMAL ASSIST. PT NOW IN BED, CARDIZEM INFUSING TO RIGHT HAND @ 10. PT DENIES ANY NEEDS. NO S/S OF DISTRESS. WILL CPOC
[2017-02-12 06:33] LABS: BASOPHILS 1.5 % (0-2); EOSINOPHILS 8.8 % (0-7); HEMATOCRIT 45.8 % (42.0-54.0); HEMOGLOBIN 15.1 g/dL (13.5-17.5); LYMPHOCYTES 20.2 % (15-50); MCV 106.3 fL (80.0-100.0); MEAN PLATELET VOLUME 12.4 fL (7.4-10.4); MONOCYTES 14.9 % (2-11); NEUTROPHILS 53.6 % (40-80); PLATELET COUNT 353 10x3/uL (130-400); RBC 4.31 10x6/uL (4.20-6.10); RDW 14.5 % (11.5-14.5); WBC 7.9 10x3/uL (4.8-10.8)
[2017-02-12 06:53] LABS: CALC OSMOLALITY 269 mosm/kg (275-300); CALCIUM 9.3 mg/dL (8.5-10.1); CARBON DIOXIDE 24.9 mmol/L (21.0-32.0); CHLORIDE - SERUM 100 mmol/L (98-107); CREATININE - SERUM 0.7 mg/dL (0.6-1.3); GLUCOSE 104 mg/dL (74-106); POTASSIUM - SERUM 4.5 mmol/L (3.5-5.1); SODIUM 134 mmol/L (136-145); UREA NITROGEN 17 mg/dL (7-18); eGFR NON AFRICAN AMERICAN > 90 mL/min (90-120)
[2017-02-12 07:16] VITALS: BP 130/64
[2017-02-12] MEDS ORDERED: XARELTO20 MG PO (10:27)
[2017-02-12] MEDS ORDERED: BETAPACE 120 M120 MG PO (10:27)
--- NOTE | 2017-02-12 10:34 | NUR ---
CONVERTED TO TELEMETRY SR.
--- NOTE | 2017-02-15 16:42 | CN ---
PATIENT NAME:CHRISTIAN MURILLO MEDICAL RECORD: [id number] : 60 LOCATION:D. D.2119 ADMIT DATE: 02/11/17 ACCOUNT: [id number] CONSULTING PHYSICIAN: JERE HOBBS MD REFERRING PHYSICIAN: CHIN GOETZ MD DATE OF CONSULTATION: 02/11/2017 CARDIOLOGY CONSULT DIAGNOSES: 1. Atrial fibrillation with rapid ventricular response. 2. Chest pain. 3. History of atrial fibrillation. HISTORY: This is a gentleman who presents with palpitations and some chest pain since last night. He has history of atrial fibrillation. He is on metoprolol for this. He also has history of COPD, for which he is on albuterol and Symbicort. REVIEW OF SYSTEMS: The patient reports easy bruising but reports no swollen glands. The patient reports no fever, no night sweats, no significant weight gain, no significant weight loss. No significant exercise tolerance. The patient reports no dry eyes, no irritation, no vision change. The patient reports no difficulty hearing and no ear pain. The patient reports no frequent nose bleeds or nose and sinus problems. The patient reports on arm pain on exertion. No shortness of breath while lying down. No history of heart murmur. The patient reports no cough, no wheezing or coughing up blood. The patient reports no abdominal pain, no vomiting. Normal appetite. No diarrhea and not vomiting blood. No nausea and no constipation. The patient reports no incontinence. No difficulty urinating. No hematuria. No increased frequency. The patient reports no muscle aches. No weakness, no arthralgias, no back pain. No swelling of the extremities. The patient reports no abnormal mole, no jaundice, no rashes. Reports no loss of consciousness. No weakness and no numbness. No seizures, dizziness, or headaches. The patient reports no depression, no sleep disturbance, feeling safe in a relationship and no alcohol abuse. The patient reports on fatigue. Reports no runny nose or sinus pressure. No itching, no hives, and no frequent sneezing. PHYSICAL EXAMINATION: GENERAL APPEARANCE: Well-nourished, well-developed, appears stated age. Level of distress, comfortable. PSYCHIATRIC: Mental status, alert, normal affect. Orientation, oriented to time, place and person. EYES: Lids and conjunctiva, noninjected. No discharge, no pallor. ENT: Lips, teeth, gums, normal dentition. Oropharynx, no cyanosis, no pallor. NECK: Carotid arteries, bilateral normal upstroke, no bruits, no thrills. JUGULAR VEINS: No jugular venous pressure or distention. CERVICAL LYMPH NODES: Nontender, nonenlarged. THYROID: Not enlarged. Nontender. No nodules. LUNGS: Respiratory effort, unlabored. CHEST: Normal curvature. No thoracic deformity. No chest wall tenderness. Percussion, resonant. Auscultation, clear. No wheezes, no rales, no rhonchi. CARDIOVASCULAR: Precordial exam, nondisplaced. No heaves or pericardial thrills. Rate and rhythm, regular. Heart sounds, normal S1, normal S2. No S3, no gallop, no rub. Systolic murmur, not heard. Diastolic murmur, not heard. CONSULT REPORT [id number] [facility]ID[facility] EXTREMITIES: No cyanosis, no edema. Peripheral pulses, full and equal in all extremities, except as noted. No bruits appreciated. ABDOMEN: Soft, nondistended. Normal aorta. No bruit. Nontender. No masses. Liver, nontender, no hepatomegaly. Spleen, nontender, no splenomegaly. MUSCULOSKELETAL: No joint tenderness. No joint swelling. No erythema. NEUROLOGICAL: Normal gait, normal strength, normal tone. SKIN: Warm and dry. OVERALL IMPRESSION: Atrial fibrillation with rapid ventricular response. At this time, we will discontinue metoprolol and put him on sotalol 120 mg b.i.d. as well as Cardizem drip. We will give the first dose of sotalol now. TRANSINT:[id number] Voice Confirmation ID: [id number] DOCUMENT ID: [id number] JERE HOBBS MD at 1642 CC: [id number] DICTATION DATE: 02/11/17 1521 CORONARY CARE UNIT NURSE: 02/11/17 1719 DIS IN 02/12/17 [id number] [place] [id number]
== END 2017-02-12 11:14 | disposition home or self-care (01) | DRG 309 ==
LOC: OBSVTIME → D.ER 10:08 → OBSVTIME 17:08 → D.M2 17:08
PROVIDERS: Emergency Medicine; ADMIT Family Medicine
DX: I48.91 Unspecified atrial fibrillation (principal); M33.10 Other dermatomyositis, organ involvement unspecified; I48.92 Unspecified atrial flutter; J44.9 Chronic obstructive pulmonary disease, unspecified

== ENCOUNTER 2017-12-13 22:36 | Inpatient (IN) | payer MEDICAID ==
[~2017-12-13] VITALS: Ht 185.4 cm; Wt 88.0 kg
--- NOTE | ~2017-12-13 | CN ---
PATIENT NAME:CHRISTIAN MURILLO MEDICAL RECORD: [id number] : 60 LOCATION:D. D.2124 ADMIT DATE: 12/14/17 ACCOUNT: [id number] CONSULTING PHYSICIAN: WICHO NAJERA MD REFERRING PHYSICIAN: SANDRA HUNTER MD DATE OF CONSULTATION: 12/14/2017 HISTORY OF PRESENT ILLNESS: A 57-year-old gentleman with a known history of atrial fibrillation, admitted with pancreatitis, atrial fibrillation with RVR after heavy drinking episode. He typically remains in sinus rhythm, is on NOAC for CVA prophylaxis, has fallen off the wagon. We are asked to see him concerning his cardiovascular status. PAST MEDICAL HISTORY: Includes: 1. History of hypertension. 2. Atrial fibrillation. 3. Dyslipidemia. 4. Obstructive pulmonary disease. MEDICATIONS: Include albuterol 2.5 q.2 hours p.r.n., Xarelto 20 every day, lisinopril 10 every day, spironolactone 20 every day, sotalol 120 b.i.d., [place] 10/325 mg two p.o. q.4 hours p.r.n., Lasix 40 p.o. p.r.n., Singulair 10 mg p.o. q.h.s. SOCIAL HISTORY: Does smoke and reports recent alcohol abuse. Does have periods of sobriety. REVIEW OF SYSTEMS: The patient reports easy bruising but reports no swollen glands. The patient reports no fever, no night sweats, no significant weight gain, no significant weight loss. No significant exercise tolerance. The patient reports no dry eyes, no irritation, no vision change. Patient reports no difficulty hearing and no ear pain. Patient reports no frequent nose bleeds or nose and sinus problems. Patient reports on arm pain on exertion. No shortness of breath while lying down. No history of heart murmur. Patient reports no cough, no wheezing or coughing up blood. Patient reports no abdominal pain, no vomiting. Normal appetite. No diarrhea and not vomiting blood. No nausea and no constipation. Patient reports no incontinence. No difficulty urinating. No hematuria. No increased frequency. Patient reports no muscle aches. No weakness, no arthralgias, no back pain. No swelling of the extremities. Patient reports no abnormal mole, no jaundice, no rashes. Reports no loss of consciousness. No weakness and no numbness. No seizures, dizziness, or headaches. The patient reports no depression, no sleep disturbance, feeling safe in a relationship and no alcohol abuse. Patient reports on fatigue. Reports no runny nose or sinus pressure. No itching, no hives, and no frequent sneezing. PHYSICAL EXAMINATION: GENERAL: Pleasant gentleman appears somewhat tremulous, no acute distress. VITAL SIGNS: Blood pressure 134/92, pulse 132 and irregular. HEENT: Normocephalic, atraumatic. NECK: No JVD or bruit. LUNGS: Prominent expiratory phase with few expiratory wheezes. HEART: Irregular, rates are tachycardic. A II/ systolic ejection murmur. ABDOMEN: Soft, nontender. EXTREMITIES: Pulses 2+. There is no edema. CONSULT REPORT [id number] CHRISTIAN MURILLO NEUROLOGIC: Grossly intact. IMPRESSION: Atrial fibrillation with RVR secondary to holiday heart type symptomatology. At this point in time, we will add digoxin. Given the tremulousness and possible impending DTs, may have difficulty achieving rate control without multiple agents. Further recommendations based on above. TRANSINT:[id number] Voice Confirmation ID: [id number] DOCUMENT ID: [id number] WICHO NAJERA MD at 1630 CC: [id number] DICTATION DATE: 12/14/17 08 PINMAKER: 12/14/17 1030 DIS IN 12/15/17 [id number] [place] [id number]
[~2017-12-13 22:36] MED LIST changes: +BETAPACE 120 M120 MG PO; +LOPRESSOR25 MG PO
[2017-12-13 23:06] LABS: BASOPHILS 0.3 % (0-2); EOSINOPHILS 0.3 % (0-7); HEMATOCRIT 48.6 % (42.0-54.0); HEMOGLOBIN 17.5 g/dL (13.5-17.5); IMMATURE GRANULOCYTES 0.1 % (0-5); LYMPHOCYTES 19.4 % (15-50); MCH 35.6 pg (26.0-34.0); MCV 98.8 fL (80.0-100.0); MEAN PLATELET VOLUME 13.9 fL (7.4-10.4); MONOCYTES 15.2 % (2-11); NEUTROPHILS 64.7 % (40-80); RBC 4.92 10x6/uL (4.20-6.10); RDW 15.2 % (11.5-14.5); WBC 9.3 10x3/uL (4.8-10.8)
[2017-12-13 23:13] LABS: PLATELET COUNT 105 10x3/uL (130-400)
[2017-12-13 23:22] LABS: ALBUMIN 3.5 g/dL (3.4-5.0); ALKALINE PHOSPHATASE 108 U/L (46-116); ALT (SGPT) 121 U/L (10-68); APTT 33.7 SECONDS (22.8-39.4); BILIRUBIN - TOTAL 1.96 mg/dL (0.2-1.3); CALC OSMOLALITY 271 mosm/kg (275-300); CALCIUM 8.2 mg/dL (8.5-10.1); CARBON DIOXIDE 31.5 mmol/L (21.0-32.0); CHLORIDE - SERUM 91 mmol/L (98-107); CREATININE - SERUM 1.3 mg/dL (0.6-1.3); GLUCOSE 110 mg/dL (74-106); INR 1.18 (0.85-1.17); POTASSIUM - SERUM 3.1 mmol/L (3.5-5.1); PROTEIN - SERUM 7.9 g/dL (6.4-8.2); PROTIME 14.6 SECONDS (11.6-15.0); SODIUM 133 mmol/L (136-145); UREA NITROGEN 26 mg/dL (7-18); eGFR NON AFRICAN AMERICAN 60 mL/min (90-120)
[2017-12-13 23:33] LABS: AMYLASE - SERUM 167 U/L (25-115); CKMB 5.7 U/L (0.0-3.6); MAGNESIUM - SERUM 1.5 mg/dL (1.8-2.4); TROPONIN-I 0.035 ng/mL (0.000-0.060)
[2017-12-13 23:34] LABS: CREATINE KINASE 1012 UL (21-232); LIPASE 1774 U/L (73-393)
[2017-12-13 23:53] VITALS: BP 129/82
[2017-12-14] VITALS (8 sets, daily range): BP systolic 114–141; BP diastolic 63–92; BMI 25.1
[2017-12-14 06:21] LABS: BASOPHILS 0.3 % (0-2); EOSINOPHILS 0.5 % (0-7); HEMATOCRIT 46.5 % (42.0-54.0); HEMOGLOBIN 16.4 g/dL (13.5-17.5); IMMATURE GRANULOCYTES 0.2 % (0-5); LYMPHOCYTES 16.5 % (15-50); MCH 35.3 pg (26.0-34.0); MCHC 35.3 g/dL (31.0-37.0); MEAN PLATELET VOLUME 13.2 fL (7.4-10.4); MONOCYTES 12.4 % (2-11); NEUTROPHILS 70.1 % (40-80); PLATELET COUNT 92 10x3/uL (130-400); RBC 4.65 10x6/uL (4.20-6.10); RDW 15.3 % (11.5-14.5)
[2017-12-14 06:51] LABS: ALBUMIN 3.4 g/dL (3.4-5.0); ALKALINE PHOSPHATASE 99 U/L (46-116); ALT (SGPT) 120 U/L (10-68); AMYLASE - SERUM 126 U/L (25-115); BILIRUBIN - TOTAL 2.47 mg/dL (0.2-1.3); CALC OSMOLALITY 272 mosm/kg (275-300); CHLORIDE - SERUM 96 mmol/L (98-107); CREATININE - SERUM 1.1 mg/dL (0.6-1.3); GLUCOSE 86 mg/dL (74-106); LIPASE 1075 U/L (73-393); POTASSIUM - SERUM 3.5 mmol/L (3.5-5.1); PROTEIN - SERUM 7.8 g/dL (6.4-8.2); SODIUM 135 mmol/L (136-145); TROPONIN-I 0.042 ng/mL (0.000-0.060); UREA NITROGEN 25 mg/dL (7-18); eGFR NON AFRICAN AMERICAN 73 mL/min (90-120)
[2017-12-14 06:52] LABS: CREATINE KINASE 1104 UL (21-232)
[2017-12-14 07:55] LABS: PLATELET ESTIMATE DECREASED
[2017-12-14 13:30] LABS: UDS - AMPHET NEGATIVE QUAL (NEGATIVE); UDS - BARB NEGATIVE QUAL (NEGATIVE); UDS - BENZO NEGATIVE QUAL (NEGATIVE); UDS - COCAINE NEGATIVE QUAL (NEGATIVE); UDS - OPIATE POSITIVE QUAL (NEGATIVE); UDS - PCP NEGATIVE QUAL (NEGATIVE); UDS - THC POSITIVE QUAL (NEGATIVE)
[2017-12-14 13:39] LABS: APPEARANCE HAZY (CLEAR); BACTERIA MODERATE /hpf (NONE SEEN); BILIRUBIN NEGATIVE (NEGATIVE); COLOR DK YELLOW (YELLOW); EPITHELIAL CELLS 0-5 /hpf (0-5); GLUCOSE NEGATIVE (NEGATIVE); HYALINE CAST 0-5 /lpf (NONE SEEN); KETONE NEGATIVE (NEGATIVE); MUCUS <1+ /lpf (NONE SEEN); NITRITE NEGATIVE (NEGATIVE); PROTEIN NEGATIVE (NEGATIVE); SPECIFIC GRAVITY 1.015 (1.005-1.020); WAXY CAST RARE /lpf (NONE SEEN); WHITE CELLS - URINE RARE /hpf (0-5)
[2017-12-15 05:51] LABS: BASOPHILS 0.6 % (0-2); EOSINOPHILS 3.4 % (0-7); HEMATOCRIT 42.4 % (42.0-54.0); HEMOGLOBIN 14.7 g/dL (13.5-17.5); IMMATURE GRANULOCYTES 0.2 % (0-5); LYMPHOCYTES 11.2 % (15-50); MCH 34.6 pg (26.0-34.0); MCHC 34.7 g/dL (31.0-37.0); MCV 99.8 fL (80.0-100.0); MONOCYTES 10.7 % (2-11); NEUTROPHILS 73.9 % (40-80); RBC 4.25 10x6/uL (4.20-6.10); RDW 14.8 % (11.5-14.5); WBC 9.1 10x3/uL (4.8-10.8)
[2017-12-15 06:02] LABS: ALBUMIN 2.5 g/dL (3.4-5.0); ALKALINE PHOSPHATASE 92 U/L (46-116); ALT (SGPT) 81 U/L (10-68); BILIRUBIN - TOTAL 4.45 mg/dL (0.2-1.3); CALC OSMOLALITY 261 mosm/kg (275-300); CALCIUM 7.7 mg/dL (8.5-10.1); CARBON DIOXIDE 28.5 mmol/L (21.0-32.0); CHLORIDE - SERUM 96 mmol/L (98-107); CREATININE - SERUM 0.7 mg/dL (0.6-1.3); GLUCOSE 75 mg/dL (74-106); LIPASE 823 U/L (73-393); POTASSIUM - SERUM 3.7 mmol/L (3.5-5.1); PROTEIN - SERUM 6.3 g/dL (6.4-8.2); SODIUM 129 mmol/L (136-145); UREA NITROGEN 23 mg/dL (7-18); eGFR NON AFRICAN AMERICAN > 90 mL/min (90-120)
[2017-12-15 06:11] LABS: PLATELET COUNT 65 10x3/uL (130-400)
[2017-12-15 06:35] VITALS: BP 119/86
[2017-12-15 07:49] VITALS: BP 122/85
[2017-12-15 11:11] VITALS: Ht 185.4 cm; Wt 88.0 kg
[2017-12-15 11:28] VITALS: BP 126/83
== END 2017-12-15 13:00 | disposition left against medical advice (07) | DRG 438 ==
LOC: D.ER 22:36 → D.M2 12-14 01:56
PROVIDERS: Family Medicine
DX: K85.20 Alcohol induced acute pancreatitis without necrosis or infection (principal); K83.1 Obstruction of bile duct; M62.82 Rhabdomyolysis; I48.91 Unspecified atrial fibrillation; K75.9 Inflammatory liver disease, unspecified; I11.0 Hypertensive heart disease with heart failure; I50.9 Heart failure, unspecified; E78.5 Hyperlipidemia, unspecified; J44.9 Chronic obstructive pulmonary disease, unspecified; F10.129 Alcohol abuse with intoxication, unspecified; Y90.8 Blood alcohol level of 240 mg/100 ml or more; Z72.0 Tobacco use

== ENCOUNTER 2017-12-20 09:50 | Inpatient (IN) | payer MEDICAID ==
[2017-12-20] VITALS (8 sets, daily range): BP systolic 110–155; BP diastolic 70–94; BMI 26.4
[~2017-12-20] VITALS: Ht 185.4 cm; Wt 90.7 kg
--- NOTE | ~2017-12-20 | EC ---
PATIENT:CHRISTIAN MURILLO DATE OF SERVICE: 12/20/17 SEX: M MEDICAL RECORD: [id number] DATE OF : 60 LOCATION:D.M2 D.210 AGE OF PATIENT: 57 ADMISSION DATE: 12/20/17 REFERRING PHYSICIAN: INTERPRETING PHYSICIAN: JERE ZALDIVAR MD ECHOCARDIOGRAM REPORT ECHO CHARGES 4 ECHO COMPLETE Date: 12/20/17 CLINICAL DIAGNOSIS: AFIB ECHOCARDIOGRAPHIC MEASUREMENTS (adult normal given) AC root (d.<3.7cm) 3.3 cm LV Septum d (<1.2 cm> 1.3 cm Valve Excursion 1.7 cm LV Septum (systole) 1.5 cm Left Atria (s.<4.0cm> 4.4 cm LVPW d(<1.2cm) 1.5 cm RV (d.<2.3cm) 4.1 cm LVPW (sytole) 1.8 cm LV diastole(<5.6CM) 4.6 cm MV E-F(>70mm/sec) cm LV systole 3.8 cm LVOT Diameter 2.3 cm MV exc.(>10mm) 1.8 cm Est.ejection fraction (50-75%) % DOPPLER: LVIT cm/sec A 40.0 cm/sec E 125 cm/sec LA cm/sec RVSP 17 mmHg LVOT 96 cm/sec AOP1/2T m/s Asc. Ao 114 cm/sec RVOT cm/sec RA cm/sec PA cm/sec AV Gradient Peak 5.17 mmHg AV Mean 2.73 mmHg AV Area 3.4 cm MV Gradient Peak 8.42 mmHg MV Mean 2.99 mmHg MV Area cm COMMENTS: Cosmetology Educator: Noel ABDI Button Grader: 1 Dr. Zaldivar TAPE# PACS Pericardial Effusion N DATE OF SERVICE: 12/20/2017 ECHOCARDIOGRAM FINDINGS: 1. Left ventricular chamber size is within normal limits. Left ventricular systolic function is normal. Overall ejection fraction estimated at 55%. 2. Left atrium is enlarged at 4.4 cm. Right atrium and right ventricle chamber sizes are mildly dilated. 3. Valvular structures have normal structure and motion. ECHOCARDIOGRAM REPORT [id number] CHRISTIAN MURILLO 4. Doppler interrogation only reveals mild mitral regurgitation, trace tricuspid regurgitation, no other valvular insufficiency or stenosis. Pulmonary systolic pressure is estimated at 17 mmHg. 5. No evidence of pericardial effusion or left ventricular thrombus. TRANSINT:[id number] Voice Confirmation ID: [id number] DOCUMENT ID: [id number] JERE ZALDIVAR MD at 1950 CC: [id number] DICTATION DATE: 12/20/17 1637 LICENSED AND CERTIFIED MIDWIFE: 12/20/17 1645 DIS IN 12/23/17 [facility] [address] [id number]
--- NOTE | ~2017-12-20 | CN ---
PATIENT NAME:CHRISTIAN MURILLO MEDICAL RECORD: [id number] : 60 LOCATION:D.M2 D.2106 ADMIT DATE: 12/20/17 ACCOUNT: [id number] CONSULTING PHYSICIAN: JERE HOBBS MD REFERRING PHYSICIAN: SANDRA HUNTER MD DATE OF CONSULTATION: 12/20/2017 DIAGNOSES: 1. New-onset atrial fibrillation. 2. Pancreatitis. HISTORY: This is a gentleman who has had atrial fibrillation in the past, is not taking any meds for atrial fibrillation, who presents with active pancreatitis from ETOH. He is noted to have palpitations only for the past 1-2 days. He is in atrial fibrillation with rapid ventricular response. PHYSICAL EXAMINATION: GENERAL APPEARANCE: Well-nourished, well-developed, appears stated age. Level of distress, comfortable. PSYCHIATRIC: Mental status, alert, normal affect. Orientation, oriented to time, place and person. EYES: Lids and conjunctiva, noninjected. No discharge, no pallor. ENT: Lips, teeth, gums, normal dentition. Oropharynx, no cyanosis, no pallor. NECK: Carotid arteries, bilateral normal upstroke, no bruits, no thrills. JUGULAR VEINS: No jugular venous pressure or distention. CERVICAL LYMPH NODES: Nontender, nonenlarged. THYROID: Not enlarged. Nontender. No nodules. LUNGS: Respiratory effort, unlabored. CHEST: Normal curvature. No thoracic deformity. No chest wall tenderness. Percussion, resonant. Auscultation, clear. No wheezes, no rales, no rhonchi. CARDIOVASCULAR: Precordial exam, nondisplaced. No heaves or pericardial thrills. Rate and rhythm, regular. Heart sounds, normal S1, normal S2. No S3, no gallop, no rub. Systolic murmur, not heard. Diastolic murmur, not heard. EXTREMITIES: No cyanosis, no edema. Peripheral pulses, full and equal in all extremities, except as noted. No bruits appreciated. ABDOMEN: Soft, nondistended. Normal aorta. No bruit. Nontender. No masses. Liver, nontender, no hepatomegaly. Spleen, nontender, no splenomegaly. MUSCULOSKELETAL: No joint tenderness. No joint swelling. No erythema. NEUROLOGICAL: Normal gait, normal strength, normal tone. SKIN: Warm and dry. OVERALL IMPRESSION: Atrial fibrillation. At this time, we will start him on sotalol 120 mg b.i.d. as well as Lovenox. Plan for DC cardioversion in the near future if the sotalol does not pharmacologically convert him. TRANSINT:[id number] Voice Confirmation ID: [id number] DOCUMENT ID: [id number] CONSULT REPORT [id number] CHRISTIAN MURILLO, JERE WOO at 1950 CC: [id number] DICTATION DATE: 12/20/17 1323 ECONOMIC DEVELOPMENT COORDINATOR: 12/20/17 1336 DIS IN 12/23/17 [facility] [address] [id number]
[2017-12-20 10:16] LABS: HEMATOCRIT 42.2 % (42.0-54.0); HEMOGLOBIN 14.6 g/dL (13.5-17.5); MCH 35.2 pg (26.0-34.0); MCHC 34.6 g/dL (31.0-37.0); MCV 101.7 fL (80.0-100.0); MEAN PLATELET VOLUME 12.3 fL (7.4-10.4); RBC 4.15 10x6/uL (4.20-6.10); RDW 15.3 % (11.5-14.5); WBC 7.1 10x3/uL (4.8-10.8)
[2017-12-20 10:21] LABS: PLATELET COUNT 270 10x3/uL (130-400)
[2017-12-20 11:01] LABS: ALBUMIN 2.7 g/dL (3.4-5.0); ALKALINE PHOSPHATASE 127 U/L (46-116); ALT (SGPT) 63 U/L (10-68); CALC OSMOLALITY 267 mosm/kg (275-300); CALCIUM 8.3 mg/dL (8.5-10.1); CARBON DIOXIDE 27.4 mmol/L (21.0-32.0); CHLORIDE - SERUM 100 mmol/L (98-107); CREATININE - SERUM 0.8 mg/dL (0.6-1.3); GLUCOSE 91 mg/dL (74-106); POTASSIUM - SERUM 3.3 mmol/L (3.5-5.1); PROTEIN - SERUM 6.2 g/dL (6.4-8.2); SODIUM 135 mmol/L (136-145); UREA NITROGEN 6 mg/dL (7-18); eGFR NON AFRICAN AMERICAN > 90 mL/min (90-120)
[2017-12-20 11:11] LABS: AMYLASE - SERUM 195 U/L (25-115); CKMB 1.3 U/L (0.0-3.6); CREATINE KINASE 153 UL (21-232); LIPASE 1355 U/L (73-393); MAGNESIUM - SERUM 1.1 mg/dL (1.8-2.4); THYROID STIMULATING HORMONE 3.32 uIU/mL (0.36-3.74); TROPONIN-I 0.023 ng/mL (0.000-0.060)
[2017-12-20 12:00] LABS: ANISOCYTOSIS OCC; EOSINOPHILS 3 % (0-7); LYMPHOCYTES 34 % (15-50); MONOCYTES 24 % (2-11); NEUTROPHILS 38 % (40-80); PLATELET ESTIMATE NORMAL
[2017-12-21 04:00] VITALS: BP 133/93
[2017-12-21 05:56] LABS: BASOPHILS 0.8 % (0-2); EOSINOPHILS 6.9 % (0-7); HEMATOCRIT 39.4 % (42.0-54.0); HEMOGLOBIN 13.3 g/dL (13.5-17.5); LYMPHOCYTES 27.3 % (15-50); MCH 35.4 pg (26.0-34.0); MCHC 33.8 g/dL (31.0-37.0); MEAN PLATELET VOLUME 12.2 fL (7.4-10.4); MONOCYTES 20.6 % (2-11); NEUTROPHILS 43.4 % (40-80); RBC 3.76 10x6/uL (4.20-6.10); RDW 15.6 % (11.5-14.5)
[2017-12-21 06:18] LABS: ALBUMIN 2.4 g/dL (3.4-5.0); ALKALINE PHOSPHATASE 106 U/L (46-116); ALT (SGPT) 52 U/L (10-68); BILIRUBIN - TOTAL 2.15 mg/dL (0.2-1.3); CARBON DIOXIDE 26.3 mmol/L (21.0-32.0); CHLORIDE - SERUM 104 mmol/L (98-107); CREATININE - SERUM 0.7 mg/dL (0.6-1.3); GLUCOSE 77 mg/dL (74-106); LIPASE 808 U/L (73-393); PROTEIN - SERUM 6.1 g/dL (6.4-8.2); SODIUM 134 mmol/L (136-145); eGFR NON AFRICAN AMERICAN > 90 mL/min (90-120)
[2017-12-21 06:27] LABS: AMYLASE - SERUM 133 U/L (25-115); CALC OSMOLALITY 265 mosm/kg (275-300); MAGNESIUM - SERUM 1.4 mg/dL (1.8-2.4); POTASSIUM - SERUM 4.7 mmol/L (3.5-5.1); UREA NITROGEN 9 mg/dL (7-18)
[2017-12-21 06:30] LABS: MCV 104.8 fL (80.0-100.0); PLATELET COUNT 203 10x3/uL (130-400); WBC 5.1 10x3/uL (4.8-10.8)
[2017-12-21 08:11] VITALS: BP 117/84
[2017-12-21 10:17] VITALS: Ht 185.4 cm; Wt 90.7 kg
[2017-12-21 15:05] VITALS: BP 111/81
[2017-12-21 20:00] VITALS: BP 121/86
[2017-12-22 04:00] VITALS: BP 118/85
[2017-12-22 08:19] VITALS: BP 127/84
[2017-12-22 12:18] VITALS: BP 126/72
[2017-12-22 15:22] VITALS: BP 130/80
[2017-12-22 20:00] VITALS: BP 141/84
[2017-12-23 05:48] LABS: HEMATOCRIT 35.7 % (42.0-54.0); HEMOGLOBIN 12.3 g/dL (13.5-17.5); LYMPHOCYTES 18.6 % (15-50); MCH 35.9 pg (26.0-34.0); MCHC 34.5 g/dL (31.0-37.0); MCV 104.1 fL (80.0-100.0); MEAN PLATELET VOLUME 12.2 fL (7.4-10.4); NEUTROPHILS 61.2 % (40-80); PLATELET COUNT 210 10x3/uL (130-400); RBC 3.43 10x6/uL (4.20-6.10); RDW 15.1 % (11.5-14.5); WBC 5.7 10x3/uL (4.8-10.8)
[2017-12-23 05:55] LABS: ALBUMIN 2.5 g/dL (3.4-5.0); ALKALINE PHOSPHATASE 134 U/L (46-116); ALT (SGPT) 46 U/L (10-68); BILIRUBIN - TOTAL 1.08 mg/dL (0.2-1.3); CALC OSMOLALITY 261 mosm/kg (275-300); CALCIUM 8.7 mg/dL (8.5-10.1); CARBON DIOXIDE 27.6 mmol/L (21.0-32.0); CHLORIDE - SERUM 101 mmol/L (98-107); CREATININE - SERUM 0.7 mg/dL (0.6-1.3); LIPASE 717 U/L (73-393); POTASSIUM - SERUM 4.8 mmol/L (3.5-5.1); PROTEIN - SERUM 6.4 g/dL (6.4-8.2); SODIUM 131 mmol/L (136-145); UREA NITROGEN 8 mg/dL (7-18); eGFR NON AFRICAN AMERICAN > 90 mL/min (90-120)
[2017-12-23 05:56] LABS: GLUCOSE 120 mg/dL (74-106)
[2017-12-23] MEDS ORDERED: CHRONULAC30 ML PO (07:48)
[2017-12-23] MEDS ORDERED: CARDIZEM60 MG PO (07:48)
[2017-12-23] MEDS ORDERED: LIBRIUM 10 MG C10 MG PO (07:51)
[2017-12-23] MEDS ORDERED: CARBATROL100 MG PO (07:52)
[2017-12-23 09:30] VITALS: BP 140/94
== END 2017-12-23 11:22 | disposition home or self-care (01) | DRG 309 ==
LOC: D.ER 09:50 → D.EDHOLD 14:13 → D.M2 14:13
PROVIDERS: Family Medicine
DX: I48.91 Unspecified atrial fibrillation (principal); K86.0 Alcohol-induced chronic pancreatitis; K70.30 Alcoholic cirrhosis of liver without ascites; B19.20 Unspecified viral hepatitis C without hepatic coma; R16.0 Hepatomegaly, not elsewhere classified; F10.10 Alcohol abuse, uncomplicated; K40.90 Unilateral inguinal hernia, without obstruction or gangrene, not specified as recurrent; J44.9 Chronic obstructive pulmonary disease, unspecified

== ENCOUNTER 2018-02-03 06:20 | Inpatient (IN) | payer MEDICAID ==
[~2018-02-03] VITALS: Ht 185.4 cm; Wt 90.9 kg
[2018-02-03] VITALS (15 sets, daily range): BP systolic 111–262; BP diastolic 62–135; Ht 185.4 cm; Wt 90.9 kg
--- NOTE | ~2018-02-03 | HEMODYNAMI ---
PATIENT:CHRISTIAN MURILLO MEDICAL RECORD: [id number] : 60 LOCATION:D. D.2120 ADMISSION DATE: 02/03/18 Generatedon:02/03/20189:24 Patient name: CHRISTIAN MURILLO Patient #: [id number] SSN: : 1960 Date of study: 02/03/2018 Page: Of Hemodynamic Procedure Report Patient Data Patient Demographics Procedure consent was obtained First Name: CHRISTIAN Gender: Male Last Name: CHIDI : 1960 [facility] Initial: CHUY Age: 57 year(s) Patient #: [id number] Race: Additional ID: [id number] Contact details Address: [address] [place] [address] State: [place] City: [facility] Zip code: [address] Past Medical History Allergies: No known allergies Admission Admission Data Admission Date: 02/03/2018 Admission Time: 6:20 Lab Results Lab Result Date: 02/03/2018 Lab Result Time: 0:00 Biochemistry Name Units Result Min Max BUN mg/dl 14 --(--*-)-- 7 18 Creatinine mg/dl 1.3 --(---*)-- 0.6 1.3 CBC Name Units Result Min Max Hemoglobin g/dl 19.9 --(----)-* 13.5 17.5 Procedure Procedure Types Cath Procedure Diagnostic Procedure LHC LHC w/Coronaries Cardioversion External Procedure Description Procedure Date Procedure Date: 02/03/2018 Procedure Start Time: 8:53 Procedure Staff Name Function Chetan Zaldivar MD Performing Physician Prisca Burris RT Monitor Lizette Wheeler RT Scrub Harshad Varela RN Nurse Procedure Data Cath Procedure Fluoroscopy Diagnostic fluoroscopy Total fluoroscopy Time: 0.6 time: 0.6 min min Diagnostic fluoroscopy Total fluoroscopy dose: 294 dose: 294 mGy mGy Contrast Material Contrast Material Type Amount (ml) Isovue 300 43 Entry Location Entry Primary Successful Side Size Upsize Upsize Entry Closure Succes sful Closure Location (Fr) 1 (Fr) 2 (Fr) Remarks Device Remarks Femoral Right 6 Fr Exoseal artery Short Estimated blood loss: 5 ml Diagnostic catheters Device Type Used For End Catheter Placement MULTIPACK Pigtail 5 Fr LV Angiography catheter MULTIPACK JL 4.0 5Fr Left Coronary catheter Angiography MULTIPACK 3DRC 5Fr Right Coronary catheter Angiography Procedure Complications No complications Procedure Medications Medication Administration Route Dosage 0.9% NaCl I.V. 100 ml/hr Oxygen NRB 15 l/min Versed I.V. 2 mg Fentanyl I.V. 100 mcg Versed I.V. 1 mg Amiodarone Loading I.V. drip 150 mg Dose (150mg/100ml D5W) Lidocaine 2% added to field 20 Cardizem 15 mg/hr (125mg/125ml NS) Cardizem 15 mg/hr (125mg/125ml NS) Hemodynamics Rest Heart Rate: 113 (bpm) Pressure Samples Time Site Value (mmHg) Purpose Heart Use Rate(bpm) 8:54 LV 111/18,21 Snapshot 91 Snapshots Pre Cath Intra NCS Post Cath Vital Signs Time Heart Resp SPO2 etCO2 NIBP (mmHg) Rhythm Pain Sedation Rate (ipm) (%) (mmHg) Status Level (bpm) 8:37:11 141 17 86 25.7 109/72(102) A-Flutter 0 (11) 10(A) , No pain 8:41:15 145 15 93 0 102/53(94) A-Flutter 0 (11) 10(A) , No pain 8:45:21 143 14 96 0 107/68(97) A-Flutter 0 (11) 10(A) , No pain 8:49:14 137 11 99 0 120/93(109) NSR 0 (11) 9(A) , No pain 8:53:14 88 9 99 0 124/88(102) NSR 0 (11) 8(A) , No pain 8:57:18 85 11 99 0 112/81(91) NSR 0 (11) 9(A) , No pain Medications Time Medication Route Dose Verified Delivered Reason Notes Effecti veness by by 8:48:43 Cardizem I.V. 15 Harshad Harshad for (125mg/125ml drip mg/hr Avery Varela arrhythmia NS) infusing RN RN from E.R. 8:48:45 0.9% NaCl I.V. 100 Harshad Harshad Per ml/hr Avery Varela physician RN RN 8:49:06 Oxygen NRB 15 Harshad Harshad Per l/min Avery Varela physician RN RN 8:49:18 Versed I.V. 2 mg Harshad Harshad for Lorigan Lorigan sedation RN RN 8:49:44 Fentanyl I.V. 100 Harshad Harshad for mcg Lorigan Lorigan sedation RN RN 8:50:51 Versed I.V. 1 mg Harshad Harshad for Lorigan Lorigan sedation RN RN 8:56:30 Amiodarone I.V. 150 Harshad Harshad for Loading Dose drip mg Lorigan Lorigan arrhythmia (150mg/100ml RN RN D5W) 8:56:42 Lidocaine 2% added to 20ml Harshad Harshad for local field vial Lorigan Lorigan anesthetic RN RN 9:05:30 Cardizem wasted. 15 Harshad Harshad to sharp's (125mg/125ml mg/hr Lorigan Lorigan NS) RN wharf tender helper Log Time Note 8:00:32 Harshad Varela RN sent for patient. Start room use. 8:18:41 Time tracking: Regular hours (M-F 7:00 - 5:00) 8:18:45 Plan of Care:Hemodynamics will remain stable., Cardiac rhythm will remain stable., Comfort level will be maintained., Respiratory function will remain adequate., Patient/ family verbilizes understanding of procedure., Procedure tolerated without complication., Recovers from procedure without complications.. 8:28:11 Patient received from ED to CCL 2 Alert and oriented. Tansferred to table in Supine position. 8:28:12 Warm blankets applied, and lynne hugger turned on for patient comfort. 8:28:13 Correct patient and procedure confirmed by team. 8:28:14 Signed procedure consent form obtained from patient. 8:28:15 ECG and BP/O2 sat monitors applied to patient. 8:36:14 Vital chart was started 8:36:16 Baseline sample Acquired. 8:36:17 Full Disclosure recording started 8:36:21 H&P Date Dictated: 02/03/2018 ER History on chart.. 8:36:23 Pre-procedure instructions explained to patient. 8:36:23 Pre-op teaching completed and patient verbalized understanding. 8:36:24 Family in waiting room. 8:36:26 Patient NPO since Midnight. 8:36:28 Is the patient allergic to Iodine/contrast media? No. 8:36:29 Was the patient premedicated? No 8:36:30 Is patient on blood thinner?Yes 8:36:36 ACC The patient was administered the following blood thiners within the last 24 hours: ACCPlavix, ACCHeparin, Xarelto 8:36:38 Patient diabetic? No. 8:36:41 Previous problem with sedation/anesthesia? No ? 8:36:43 Snore? Yes 8:36:44 Sleep apnea? No 8:36:44 Deviated septum? No 8:36:45 Opens mouth fully? Yes 8:36:46 Sticks out tongue? Yes 8:36:48 Airway obstruction? Yes copd 8:36:51 Dentures? No ? 8:36:58 Patient pain scale 0/10 ?. 8:37:02 IV patent on arrival in right forearm with 0.9% NaCl at [facility]. 8:37:05 Lab results completed and on chart. 8:37:08 Right groin area was prepped with chlora-prep and draped in sterile fashion 8:37:09 Alarms reviewed by R. N. 8:37:10 Sharps counted by scrub and verified by R.N. 8:37:13 Physician arrived 8:37:13 --------ALL STOP TIME OUT------ 8:37:13 Final Timeout: patient, procedure, and site verified with staff and physician. All members of the team are in agreement. 8:37:15 Right groin site verified by team. 8:37:18 Physical assessment completed. ASA score P 2 - A patient with mild systemic disease as per Chetan Zaldivar MD. 8:37:21 Sedation plan: IV Moderate Sedation Medication:Versed, Fentanyl 8:37:24 Use device set Femoral Dx 8:37:25 ACIST Syringe (23328) opened to sterile field. 8:37:25 Bag Decanter (2002) opened to sterile field. 8:37:26 Medline Cath Pack ([id number]) opened to sterile field. 8:37:26 DIAGNOSTIC WIRE .035 260cm J wire (084043) opened to sterile field. 8:37:27 ACIST Hand Control (22749) opened to sterile field. 8:37:28 ACIST Manifold (20060) opened to sterile field. 8:37:28 DIAGNOSTIC Multipack 5Fr catheter set ([id number]) opened to sterile field. 8:37:29 Tegaderm 4 x 4 (1626W) opened to sterile field. 8:47:26 SHEATH Prelude 6Fr 0.035 (ZGX-5L-05-035) opened to sterile field. 8:47:27 INFLATOR Merit BasixCompak (LM1303) opened to sterile field. 8:47:27 CHOICE PT Extra Support 182cm wire ([id number]) opened to sterile field. 8:47:47 Procedure started. 8:48:26 Lab Result : Creatinine 1.3 mg/dl 8:48:26 Lab Result : BUN 14 mg/dl 8:48:26 Lab Result : Hemoglobin 19.9 g/dl 8:48:43 Cardizem (125mg/125ml NS) 15 mg/hr I.V. drip infusing from E.R. was administered by Harshad Varela RN; for arrhythmia; 8:48:45 0.9% NaCl 100 ml/hr I.V. was administered by Harshad Varela RN; Per physician; 8:49:06 Oxygen 15 l/min NRB was administered by Harshad Varela RN; Per physician; 8:49:18 Versed 2 mg I.V. was administered by Harshad Varela RN; for sedation; 8:49:21 patient arrived from ER with quic combo pads already in place 8:49:44 Fentanyl 100 mcg I.V. was administered by Harshad Varela RN; for sedation; 8:50:42 Defibrillator synced and charged to 275 Joules. 8:50:51 Versed 1 mg I.V. was administered by Harshad Varela RN; for sedation; 8:51:01 Shock delivered. 8:53:06 Unsuccessful cardioversion. 8:53:20 Local anesthetic to right femoral artery with Lidocaine 2% by Chetan Zaldivar MD.INITIAL ACCESS ONLY 8:53:29 A 6 Fr Short sheath was inserted into the Right Femoral artery 8:53:56 Zero performed for pressure channel P1 8:54:13 Zero performed for pressure channel P1 8:54:34 A MULTIPACK Pigtail 5 Fr catheter was advanced over the wire and used for LV Angiography. 8:54:40 LV hemodynamics recorded. 8:54:41 LV gram done using OLVERA 8:54:44 Injector settings: Ml/sec: 5, Volume: 15, 8:54:49 EF : 30 % 8:55:07 Zero performed for pressure channel P1 8:55:14 Zero performed for pressure channel P1 8:55:41 Zero performed for pressure channel P1 8:55:54 Catheter removed. 8:56:01 A MULTIPACK JL 4.0 5Fr catheter was advanced over the wire and used for Left Coronary Angiography. 8:56:30 Amiodarone Loading Dose (150mg/100ml D5W) 150 mg I.V. drip was administered by Harshad Varela RN; for arrhythmia; 8:56:38 LCA angiography performed. 8:56:41 Injector settings: Ml/sec: 3, Volume: 6, 8:56:42 Lidocaine 2% 20ml vial added to field was administered by Harshad Varela RN; for local anesthetic; 8:56:44 Catheter removed. 8:56:49 A MULTIPACK 3DRC 5Fr catheter was advanced over the wire and used for Right Coronary Angiography. 8:57:05 RCA angiography performed. 8:57:08 Injector settings: Ml/sec: 3, Volume: 6, 8:57:23 Catheter removed. 8:57:51 EXOSEAL 6Fr (EX600) opened to sterile field. 8:58:02 Sheath removed intact; hemostasis achieved with Exoseal to the Right Femoral artery. 8:58:04 Procedure ended.(Physican Out) 8:58:17 Fluoroscopy time 00.60 minutes. 8:58:21 Fluoroscopy dose: 294 mGy 8:58:21 Flurop Dose total: 294 8:58:26 Contrast amount:Isovue 300 43ml. 8:58:33 Sharps counted by scrub and verified by R.N. 8:58:37 Post right femoral artery:stable 8:58:48 Post procedure rhythm: unchanged. 8:58:57 Estimated blood loss: 5 ml 8:58:58 Post procedure instruction explained to patient.Patient verbalizes understanding. 8:58:58 Patient needs reinforcement of post procedure teaching. 8:59:23 Procedure type changed to Cath procedure, Diagnostic procedure, LHC, LHC w/Coronaries, Cardioversion External 8:59:24 Procedure and supply charges have been captured, reviewed, submitted and are correct. 8:59:28 Procedure Complication : No complications 8:59:30 Vital chart was stopped 8:59:31 See physician's report for complete and final results. 9:05:30 Cardizem (125mg/125ml NS) 15 mg/hr wasted. was administered by Harshad Varela RN; to cassia's; Device Usage Item Name Manufacture Quantity Catalog Number Hospital Part Current Minimal Lot# / Charge Number Stock Stock Serial# Code ACIST Syringe Acist 1 22187 239867 [id number] [id number] 20 (70889) Medical Systems BookMyShow Bag Decanter Microtek 1 2001S 302156 20565 816366 5 () Medical Inc. Medline Cath Medline 1 [id number] 278993 42641 930271 5 Pack ([id number]) DIAGNOSTIC WIRE St Tavo 1 592535 476423 010717 432360 30 .035 260cm J wire (092987) ACIST Hand Acist 1 91671 121220 601749 425393 5 Control (27822) Medical Systems Inc ACIST Manifold Acist 1 44439 991778 659380 781013 5 (14088) Medical Systems Inc DIAGNOSTIC Cardinal 1 [id number] 370086 60391 195075 30 Multipack 5Fr Health catheter set (CV8781) Tegaderm 4 x 4 3M 1 1626W 210184 356406 789605 5 (1626W) SHEATH Prelude Merit 1 NNJ-5H-64-35 590154 5226706 754499 5 6Fr 0.035 Medical (FTH-7U-62-035) INFLATOR Merit Merit 1 [id number] 990120 282203 636459 15 BasixComnck Medical (RF7984) CHOICE PT Extra [place] 1 [id number] 856232 545098 653942 5 Support 182cm Scientific wire ([id number]) MULTIPACK Cardinal 1 521424 5 Pigtail 5 Fr Health catheter MULTIPACK JL Cardinal 1 [id number] 5 4.0 5Fr Health catheter MULTIPACK 3DRC Cardinal 1 768268 5 5Fr catheter Health EXOSEAL 6Fr Cardinal 1 EX600 726549 222322 533431 10 (EX600) Health Signature Audit [place] Stage Time Signature Unsigned Intra-Procedure 02/03/2018 Prisca Burris 9:24:44 AM RT(R) Signatures Monitor : Prisca Burris RT Signature : Date : Time : [place] [id number] [facility] [place] [address]
--- NOTE | ~2018-02-03 | OP ---
PATIENT NAME: CHRISTIAN MURILLO MEDICAL RECORD: [id number] :60 LOCATION:D.M2 D.0 ADMISSION DATE:02/04/18 SURGEON: JERE HOBBS MD DATE OF OPERATION: 02/06/2018 PROCEDURE: DC cardioversion. INDICATION: Atrial fibrillation. Continuous heart rate, O2 saturation, blood pressure monitoring all undertaken, all of which remains stable. He received 1 shock at 275 joules restoring sinus rhythm. OVERALL IMPRESSION: Successful DC cardioversion from atrial fibrillation to sinus rhythm. TRANSINT:[id number] Voice Confirmation ID: [id number] DOCUMENT ID: [id number] JERE HOBBS MD at 1914 CC: [id number] DICTATION DATE: 02/06/18 1238 BALANCE CLERK: 02/06/18 1307 DIS IN 02/08/18 [facility] [address] [place] [address]
--- NOTE | ~2018-02-03 | HP ---
PATIENT: CHRISTIAN GIBBONS MEDICAL RECORD: [id number] ACCOUNT: [id number] LOCATION:[address] : 60 ADMISSION DATE: 02/03/18 PCP: SANDRA HUNTER HISTORY AND PHYSICAL EXAMINATION REASON FOR ADMISSION: Shortness of breath and palpitations. HISTORY OF PRESENT ILLNESS: Mr. Gibbons is a 57-year-old male with history of severe asthma, dermatomyositis, and alcoholism. He has past history of atrial fib/flutter, states that he started drinking again 4 days ago. He think, he missed most of his meds including his sotalol. He became worse this morning, felt like his heart was racing, he had some chest pain and came to the ED. Upon arrival, his rate was over 200. He had intervention in the ED did not lower his rate. Dr. Zaldivar took the patient to geoscience laboratory technician, converted the patient with 200 joules into sinus rhythm from atrial flutter. From cardiac cath that showed evidence of cardiomyopathy, otherwise unremarkable. The patient now is in sinus rhythm, is complaining of cough. PAST MEDICAL HISTORY: Asthma, COPD, atrial fib/flutter, lumbar disc disease, hypertension, history of hepatitis C, dermatopolymyositis. SURGICAL HISTORY: Negative. CURRENT MEDICATIONS: Diltiazem 60 mg p.o. b.i.d., potassium chloride 20 mEq p.o. daily, Xarelto 20 mg daily, sotalol 120 mg b.i.d., Symbicort 160/4.5 1-2 puffs b.i.d., clonidine 0.1 mg p.o. systolic blood pressure over 180, Flonase nasal spray daily, azelastine 137 mcg nasal spray twice daily, hydrocodone 10/325 one half to 1 q.6 hours p.r.n. severe low back pain, carbamazepine 100 mg p.o. daily, DuoNeb updrafts q.4-6 hours, carbamazepine ER 100 mg p.o. b.i.d. SOCIAL HISTORY: He is , lives with several other people, he has worked [employer] in the past. Socially, long-term smoker, has quit off and on, started back. He is a heavy alcohol drinker and said he got off the wagon 4 days ago. FAMILY HISTORY: Father had hypertension, asthma, alcoholism, colon cancer, at 50. Mother at 50, had hypertension, COPD, asthma as well. REVIEW OF SYSTEMS: GENERAL: He has felt fatigued. No fever. HEENT: No recent visual change, sinus congestion. RESPIRATORY: Chronic cough no worse than previous. History of chronic sputum production that is off-white. Denies hemoptysis. He is intermittently short of breath. CARDIAC: Palpitations noted in the last 4 days, worse in the last 24 hours, has tightness in his chest. GASTROINTESTINAL: No nausea or vomiting. GENITOURINARY: Has nocturia. MUSCULOSKELETAL: No arthralgias except for chronic lumbago without sciatica. ENDOCRINE: Denies polyuria, polydipsia, heat or cold intolerance. NEUROLOGIC: No history of stroke. PHYSICAL EXAMINATION: VITAL SIGNS: Heart rate initially 220, now is 100 and regular; temperature is 98; respirations are 18. HISTORY AND PHYSICAL [id number] CHRISTIAN GIBBONS GENERAL: The patient appears anxious and disheveled. HEENT: Eyes are clear. Oropharynx unremarkable. NECK: No bruits or masses. CHEST: He has wheezes bilaterally on forced expiration in the upper lobes. HEART: Tachycardic without murmur. ABDOMEN: Soft, nontender. GENITOURINARY: Deferred. EXTREMITIES: No CC&E. Gait not tested. NEUROLOGICAL: Oriented to person, place, and time. Cranial nerves grossly intact. Gait not tested, but no obvious motor deficits are appreciated. LABORATORY DATA: His H&H is 19 and 56.2, MCV is 101.8. Chemistry: Potassium is 5, BUN and creatinine is 14 and 1.3, glucose 142. Bilirubin is 1.6. Mild elevation of liver function, AST of 289, ALT of 169, alkaline phosphatase of 124, CK-MB of 5.9, troponin of 0.293. IMAGING STUDIES: Chest x-ray essentially unremarkable. EKG showed ST elevation inferiorly. ASSESSMENT: 1. Paroxysmal atrial fib/flutter with uncontrolled ventricular response, now electrically cardioverted to sinus rhythm. 2. COPD asthma. 3. Dermatopolymyositis. 4. Alcoholism with noncompliance of medications. 5. Lumbar disc disease. PLAN: Resume the patient's home meds currently. Monitor next 24 hours concerning his rhythm as per Dr. Zaldivar's recommendations. TRANSINT:[id number] Voice Confirmation ID: [id number] DOCUMENT ID: [id number] LUIS GONGORA MD at 0906 CC: [id number] DICTATION DATE: 02/03/18 1343 CROP RANCH HAND: 02/03/18 1540 REG [facility] [address] [place] [id number]
--- NOTE | ~2018-02-03 | OP ---
PATIENT NAME: CHRISTIAN MURILLO MEDICAL RECORD: [id number] :60 LOCATION:D.M2 D.2120 ADMISSION DATE:02/04/18 SURGEON: JERE HOBBS MD DATE OF OPERATION: 02/03/2018 PROCEDURES: 1. DC cardioversion. 2. Left heart catheterization. 3. Selective coronary angiography. 4. Left ventriculogram. INDICATION: Acute myocardial infarction, atrial fibrillation, tachycardia. PROCEDURE IN DETAIL: After informed consent was obtained and after a detailed description of risks, benefits as well as alternative therapies, the patient elected to proceed with angiogram and heart catheterization. The right femoral area was prepped and draped in normal sterile fashion. The right femoral artery was cannulated via modified Seldinger technique with placement of 6-Albanian sheath. FINDINGS: The patient received 1 shock at 200 joules from atrial flutter to normal sinus rhythm. Left ventriculogram was performed in standard 30-degree OLVERA view, reveals global hypokinesis throughout all segments. Overall ejection fraction is 30% to 35%. SELECTIVE CORONARY ANGIOGRAPHY: Left main, left anterior descending, left circumflex, and right coronary artery are smooth-walled vessels with no angiographic evidence of coronary artery disease. OVERALL IMPRESSION: 1. No angiographic evidence of coronary artery disease. 2. Alcoholic cardiomyopathy. 3. Successful DC cardioversion from atrial flutter to sinus rhythm. TRANSINT:[id number] Voice Confirmation ID: [id number] DOCUMENT ID: [id number] JREE HOBBS MD at 1913 CC: SANDRA HUNTER MD [id number] DICTATION DATE: 02/03/18903 PLANNER SCHEDULER: 02/03/1826 DIS IN 02/08/18 [facility] [address] [place] [address]
--- NOTE | ~2018-02-03 | MORECARE ---
CASE MANAGEMENT DISCHARGE SUMMARY PATIENT: CHRISTIAN MURILLO UNIT: [id number] ADM DATE: 02/04/18 AGE: 57 : 60 SEX: M ROOM/BED: D.2120 AUTHOR: ALLISON FERGUSON PHYSICIAN: REFERRING PHYSICIAN: LUIS GONGORA MD DATE OF SERVICE: 02/08/18 Discharge Plan Patient Name: CHRISTIAN MURILLO Facility[facility]:[place] : 1960 Planned Disposition: Home Anticipated Discharge Date: 02/08/18 Discharge Date: Expected LOS: 4 Initial Reviewer: [email or web address] Initial Review Date: 02/08/2018 Generated: 02/08/18 11:02 am Comments DCP- Discharge Planning Updated by [email or web address]: Leander Garcia on 02/08/18 9:[address] Patient Name: CHRISTIAN MURILLO Admission Status: ER Accout number: [id number] Admission Date: 02-04-2018 : 1960 Admission Diagnosis: Attending: LUIS GONGORA Current LOS: 4 Anticipated DC Date: 02-08-2018 Planned Disposition: Home Primary Insurance: [place] Discharge Planning Comments: CM MET WITH PT IN ROOM TO DISCUSS DISCHARGE PLANNING AND NEEDS. PT REPORTS LIVING AT HOME INDEPENDENTLY AND ALONE. PT IS CURRENTLY LIVING IN [facility] IN [place]. PT HAS NEBULIZER WITH NO MEDICAL EQUIPMENT PROVIDER PREFFERENCE. PT HAS NO OUTSIDE SERVICES ASSISTING IN THE HOME. CM DISCUSSED AVAILABILITY OF HOME HEALTH, REHAB SERVICES AND MEDICAL EQUIPMENT. PT DENIES DISCHARGE NEEDS, REPORTS HIS FRIEND IS BRING PT'S CAR AND PT WILL DRIVE HOME AT DISCHARGE TODAY. PT ASKED THAT THE NURSE GO OVER HIS NEW HOME MEDICATION LIST AND DENIES FURHTER NEEDS. PENSION AGENT NURSE NOTIFIED. Food Truck Caterer: Leander Garcia DCPIA - Discharge Planning Initial Assessment Updated by [email or web address]: Leander Garcia on 02/08/18 9:57 am * Is the patient Alert and Oriented? Yes * How many steps to enter\exit or inside your home? NONE * PCP DR HUNTER * Pharmacy [facility] * Preadmission Environment Long-Term * Facility Name [facility] * ADLs Independent * Equipment Nebulizer * Other Equipment NO MEDICAL EQUIPMENT PROVIDER PREFERENCE * List name and contact numbers for known caregivers / representatives who currently or will assist patient after discharge: LENORA CASTILLO, FRIEND, * Verbal permission to speak to the caregivers and representatives has been obtained from the patient. Yes * Community resources currently utilized None * Please name any agencies selected above. NONE * Additional services required to return to the preadmission environment? No * Can the patient safely return to the preadmission environment? Yes * Has this patient been hospitalized within the prior 30 days at any hospital? No Patient Name: CHRISTIAN MURILLO Page [id number] at 1003 All edits/amendments must be made on the electronic document DICTATION DATE: 02/08/18 1002 BATTERY LOADER: PILO 02/08/18 1002 RPT#: [id number] DC DATE: STATUS: ADM IN [facility] [address] [place] [address] END OF REPORT
--- NOTE | ~2018-02-03 | CN ---
PATIENT NAME:CHRISTIAN MURILLO MEDICAL RECORD: [id number] : 60 LOCATION:D. D.2120 ADMIT DATE: 02/04/18 ACCOUNT: [id number] CONSULTING PHYSICIAN: JERE HOBBS MD REFERRING PHYSICIAN: LUIS GONGORA MD DATE OF CONSULTATION: 02/03/2018 DIAGNOSES: 1. Acute myocardial infarction. 2. Atrial fibrillation with rapid ventricular response. 3. Shortness of breath, dyspnea on exertion. 4. ETOH use. HISTORY OF PRESENT ILLNESS: Mr. Murillo presents with a sudden onset of shortness of breath and chest pain, was found to be in atrial fibrillation. Heart rate over 200 initially, received IV Cardizem and is now in a 2:1 atrial flutter at 150. It appears he has anterior ST elevation. His troponin is elevated. PHYSICAL EXAMINATION: GENERAL APPEARANCE: Well-nourished, well-developed, appears stated age. Level of distress, comfortable. PSYCHIATRIC: Mental status, alert, normal affect. Orientation, oriented to time, place and person. EYES: Lids and conjunctiva, noninjected. No discharge, no pallor. ENT: Lips, teeth, gums, normal dentition. Oropharynx, no cyanosis, no pallor. NECK: Carotid arteries, bilateral normal upstroke, no bruits, no thrills. JUGULAR VEINS: No jugular venous pressure or distention. CERVICAL LYMPH NODES: Nontender, nonenlarged. THYROID: Not enlarged. Nontender. No nodules. LUNGS: Respiratory effort, unlabored. CHEST: Normal curvature. No thoracic deformity. No chest wall tenderness. Percussion, resonant. Auscultation, clear. No wheezes, no rales, no rhonchi. CARDIOVASCULAR: Precordial exam, nondisplaced. No heaves or pericardial thrills. Rate and rhythm, regular. Heart sounds, normal S1, normal S2. No S3, no gallop, no rub. Systolic murmur, not heard. Diastolic murmur, not heard. EXTREMITIES: No cyanosis, no edema. Peripheral pulses, full and equal in all extremities, except as noted. No bruits appreciated. ABDOMEN: Soft, nondistended. Normal aorta. No bruit. Nontender. No masses. Liver, nontender, no hepatomegaly. Spleen, nontender, no splenomegaly. MUSCULOSKELETAL: No joint tenderness. No joint swelling. No erythema. NEUROLOGICAL: Normal gait, normal strength, normal tone. SKIN: Warm and dry. OVERALL IMPRESSION: Myocardial infarction with tachycardia. We will proceed with DC cardioversion and an emergent cardiac catheterization. Further care depends upon findings of the catheterization and results with the cardioversion. TRANSINT:[id number] Voice Confirmation ID: [id number] DOCUMENT ID: [id number] CONSULT REPORT [id number] CHRISTIAN MURILLO JEFFREY MD at 1913 CC: [id number] DICTATION DATE: 02/03/18904 DIRECTOR SOFTWARE: 02/03/18927 DIS IN 02/08/18 [facility] [address] [place] [address]
--- NOTE | ~2018-02-03 | HEMODYNAMI ---
PATIENT:CHRISTIAN MURILLO MEDICAL RECORD: [id number] : 60 LOCATION:[facility] D.2120 ADMISSION DATE: 02/03/18 Generatedon:02/06/201812:43 Patient name: CHRISTIAN MURILLO Patient #: [id number] SSN: : 1960 Date of study: 02/06/2018 Page: Of Hemodynamic Procedure Report Patient Data Patient Demographics Procedure consent was obtained First Name: CHRISTIAN Gender: Male Last Name: CHIDI : 1960 [facility] Initial: CHUY Age: 57 year(s) Patient #: [id number] Race: Additional ID: [id number] Contact details Address: [address] [place] [address] State: [place] City: [facility] Zip code: [address] Past Medical History Allergies: No known allergies Admission Admission Data Admission Date: 02/03/2018 Admission Time: 6:20 Admit Source: Other Room #: D.2120 Lab Results Lab Result Date: 02/06/2018 Lab Result Time: 5:15 Biochemistry Name Units Result Min Max BUN mg/dl 17 --(---*)-- 7 18 Creatinine mg/dl 0.7 --(*---)-- 0.6 1.3 CBC Name Units Result Min Max Hematocrit % 45.6 --(-*--)-- 42 54 Hemoglobin g/dl 15.9 --(--*-)-- 13.5 17.5 Procedure Procedure Types Cath Procedure Diagnostic Procedure Cardioversion External Procedure Description Procedure Date Procedure Date: 02/06/2018 Procedure Start Time: 12:38 Procedure End Time: 12:43 Procedure Staff Name Function Chetan Zaldivar MD Performing Physician Juan Jose Shah RT Monitor Lupillo Garcia RN Nurse Procedure Data Cath Procedure Fluoroscopy Diagnostic fluoroscopy Total fluoroscopy Time: 0 time: 0 min min Diagnostic fluoroscopy Total fluoroscopy dose: 0 dose: 0 mGy mGy Contrast Material Contrast Material Type Amount (ml) Isovue 300 0 Estimated blood loss: 0 ml Procedure Complications No complications Procedure Medications Medication Administration Route Dosage Oxygen etCO2 Nasal cannula 2 l/min Versed I.V. 2 mg Fentanyl I.V. 100 mcg Versed I.V. 2 mg Fentanyl I.V. 100 mcg Hemodynamics Rest HGB: 15.9 (g/dl) Heart Rate: 65 (bpm) Snapshots Pre Cath Intra NCS Post Cath Vital Signs Time Heart Resp SPO2 etCO2 NIBP (mmHg) Rhythm Pain Sedation Rate (ipm) (%) (mmHg) Status Level (bpm) 12:26:23 64 14 93 0 117/83(96) A-Flutter 0 (11) 10(A) , No pain 12:30:31 69 16 92 0 108/83(92) A-Flutter 0 (11) 10(A) , No pain 12:34:35 65 13 94 25.6 106/83(92) A-Flutter 0 (11) 9(A) , No pain 12:38:41 63 14 96 37 106/76(87) NSR 0 (11) 9(A) , No pain 12:42:38 68 17 95 34.7 121/88(100) NSR 0 (11) 10(A) , No pain Medications Time Medication Route Dose Verified Delivered Reason Notes Effective ness by by 12:24:56 Oxygen etCO2 2 Chetan Wesley used for Nasal l/min Kayley Garcia RN procedure cannula 12:31:44 Versed I.V. 2 mg Chetan Wesley for Kayley Garcia RN sedation 12:31:48 Fentanyl I.V. 100 Chetan Wesley for mcg Kayley Garcia RN sedation 12:35:52 Versed I.V. 2 mg Chetan Wesley for Kayley Garcia RN sedation 12:35:55 Fentanyl I.V. 100 Chetan Wesley for mcg Kayley Garcia RN sedation Procedure Log Time Note 12:00:02 Lupillo Garcia RN sent for patient. Start room use. 12:19:58 Informed consent obtained and on chart 12:20:06 Admit Source: Other 12:21:16 Time tracking: Regular hours (M-F 7:00 - 5:00) 12:21:20 Plan of Care:Hemodynamics will remain stable., Cardiac rhythm will remain stable., Comfort level will be maintained., Respiratory function will remain adequate., Patient/ family verbilizes understanding of procedure., Procedure tolerated without complication., Recovers from procedure without complications.. 12:21:24 Patient received from Med II to CCL 3 Alert and oriented. Tansferred to table in Supine position. 12:21:25 Warm blankets applied, and lynne hugger turned on for patient comfort. 12::25 Correct patient and procedure confirmed by team. 12::26 ECG and BP/O2 sat monitors applied to patient. 12::49 H&P Date Dictated: 02/05/2018 Within 30 days and on chart.. 12:24:56 Oxygen 2 l/min etCO2 Nasal cannula was administered by Lupillo Garcia RN; used for procedure; 12:25:24 Vital chart was started 12:25:37 Rhythm: atrial flutter 12:26:16 Baseline sample Acquired. 12::44 Full Disclosure recording started 12::45 Pre-procedure instructions explained to patient. 12::45 Pre-op teaching completed and patient verbalized understanding. 12:26:47 Family in patients room. 12:26:48 Patient NPO since Midnight. 12:26:52 Patient allergic to No known allergies 12:26:54 Is the patient allergic to Iodine/contrast media? No. 12:27:02 Is patient on blood thinner?Yes 12:27:04 ACC The patient was administered the following blood thiners within the last 24 hours: Xarelto 12:27:05 Patient diabetic? No. 12:27:08 Previous problem with sedation/anesthesia? No ? 12:27:09 Snore? No 12:27:10 Sleep apnea? No 12:27:10 Deviated septum? No 12:27:11 Opens mouth fully? Yes 12:27:11 Sticks out tongue? Yes 12:27:16 Airway obstruction? Yes COPD 12:27:19 Dentures? No ? 12:27:24 Patient pain scale 0/10 ?. 12:27:29 IV patent on arrival in right forearm with 0.9% NaCl at [facility]. 12:28:22 Lab Result : BUN 17 mg/dl 12::22 Lab Result : Hemoglobin 15.9 g/dl 12::22 Lab Result : Creatinine 0.7 mg/dl 12::22 Lab Result : Hematocrit 45.6 % 12::24 Lab results completed and on chart. 12::32 Quick Combo opened to sterile field. 12::39 Alarms reviewed by Lety Virgen 12::45 Quick combo pads placed on patients chest and back. 12:: Physician arrived 12:: --------ALL STOP TIME OUT------ 12::18 Final Timeout: patient, procedure, and site verified with staff and physician. All members of the team are in agreement. 12::21 Physical assessment completed. ASA score P 2 - A patient with mild systemic disease as per Chetan Zaldivar MD. 12:30:24 Sedation plan: IV Moderate Sedation Medication:Versed, Fentanyl 12:31:44 Versed 2 mg I.V. was administered by Lupillo Garcia RN; for sedation; 12:31:48 Fentanyl 100 mcg I.V. was administered by Lupillo Garcia RN; for sedation; 12:34:00 Procedure started. 12:35:49 Defibrillator synced and charged to 275 Joules. 12:35:52 Versed 2 mg I.V. was administered by Lupillo Garcia RN; for sedation; 12:35:55 Fentanyl 100 mcg I.V. was administered by Lupillo Garcia RN; for sedation; 12:36:48 Shock delivered. 12:36:56 Patient cardioverted to sinus rhythm . 12:37:47 Procedure ended.(Physican Out) 12:38:36 Fluoroscopy time 00.00 minutes. 12:38:38 Fluoroscopy dose: 0 mGy 12:38:38 Flurop Dose total: 0 12:38:40 Contrast amount:Isovue 300 0ml. 12:38:48 Post Procedure Pulses reassessed and unchanged 12:38:50 Post-procedure physical assessment completed. ASA score P 2 - A patient with mild systemic disease as per Chetan Zaldivar MD. 12:38:53 Post procedure rhythm: sinus rhythm 12:38:58 Estimated blood loss: 0 ml 12:39:00 Post procedure instruction explained to patient.Patient verbalizes understanding. 12:39:00 Patient needs reinforcement of post procedure teaching. 12:39:24 Procedure and supply charges have been captured, reviewed, submitted and are correct. 12:39:26 Procedure Complication : No complications 12:39:29 See physician's report for complete and final results. 12:39:30 Report given to PCU. 12:39:32 Patient transfered to U with Stretcher. 12:43:01 Procedure ended. 12:43:01 Full Disclosure recording stopped 12:43:05 End room use (Document Last) 12:43:50 Vital chart was stopped Device Usage Item Manufacture Quantity Catalog Hospital Part Current Minimal Lot# / Name Number Charge Number Stock Stock Anika govea# Code Cortexica 1 [id number] Combo Signature Audit [place] Stage Time Signature Unsigned Intra-Procedure 02/06/2018 Juan Jose Shah 12:43:47 PM RT(R) Signatures Monitor : Juan Jose Shah RT Signature : Date : Time : [address] [address]
[~2018-02-03 06:20] MED LIST changes: +CARBATROL100 MG PO; +LIBRIUM 10 MG C10 MG PO
[2018-02-03 06:52] LABS: BASOPHILS 0.4 % (0-2); EOSINOPHILS 0.4 % (0-7); HEMATOCRIT 56.2 % (42.0-54.0); HEMOGLOBIN 19.9 g/dL (13.5-17.5); IMMATURE GRANULOCYTES 0.3 % (0-5); LYMPHOCYTES 17.9 % (15-50); MCH 36.1 pg (26.0-34.0); MCHC 35.4 g/dL (31.0-37.0); MCV 101.8 fL (80.0-100.0); MEAN PLATELET VOLUME 12.1 fL (7.4-10.4); PLATELET COUNT 232 10x3/uL (130-400); RBC 5.52 10x6/uL (4.20-6.10); RDW 14.5 % (11.5-14.5); WBC 9.3 10x3/uL (4.8-10.8)
[2018-02-03 07:19] LABS: ALBUMIN 3.7 g/dL (3.4-5.0); ALKALINE PHOSPHATASE 124 U/L (46-116); ALT (SGPT) 169 U/L (10-68); CALC OSMOLALITY 280 mosm/kg (275-300); CALCIUM 8.6 mg/dL (8.5-10.1); CARBON DIOXIDE 21.7 mmol/L (21.0-32.0); CHLORIDE - SERUM 102 mmol/L (98-107); CKMB 5.9 U/L (0.0-3.6); CREATINE KINASE 201 UL (21-232); CREATININE - SERUM 1.3 mg/dL (0.6-1.3); GLUCOSE 142 mg/dL (74-106); LIPASE 347 U/L (73-393); MAGNESIUM - SERUM 2.1 mg/dL (1.8-2.4); PROTEIN - SERUM 8.8 g/dL (6.4-8.2); SODIUM 139 mmol/L (136-145); UREA NITROGEN 14 mg/dL (7-18); eGFR NON AFRICAN AMERICAN 60 mL/min (90-120)
[2018-02-03 07:34] LABS: TROPONIN-I 0.293 ng/mL (0.000-0.060)
[2018-02-03 08:00] LABS: APTT 29.6 SECONDS (22.8-39.4); INR 1.21 (0.85-1.17); PROTIME 14.9 SECONDS (11.6-15.0)
[2018-02-04 01:11] VITALS: BP 115/73
[2018-02-04 05:15] LABS: BASOPHILS 0.4 % (0-2); EOSINOPHILS 0.5 % (0-7); IMMATURE GRANULOCYTES 0.2 % (0-5); LYMPHOCYTES 14.5 % (15-50); MCH 35.6 pg (26.0-34.0); MCHC 34.6 g/dL (31.0-37.0); MCV 102.9 fL (80.0-100.0); MEAN PLATELET VOLUME 11.9 fL (7.4-10.4); MONOCYTES 7.5 % (2-11); NEUTROPHILS 76.9 % (40-80); RDW 14.6 % (11.5-14.5); WBC 11.2 10x3/uL (4.8-10.8)
[2018-02-04 05:20] LABS: HEMATOCRIT 43.1 % (42.0-54.0); HEMOGLOBIN 14.9 g/dL (13.5-17.5); PLATELET COUNT 136 10x3/uL (130-400); RBC 4.19 10x6/uL (4.20-6.10)
[2018-02-04 05:45] VITALS: BP 138/94
[2018-02-04 05:46] LABS: CALCIUM 8.2 mg/dL (8.5-10.1); CARBON DIOXIDE 26.2 mmol/L (21.0-32.0); CHLORIDE - SERUM 100 mmol/L (98-107); POTASSIUM - SERUM 4.8 mmol/L (3.5-5.1); SODIUM 133 mmol/L (136-145); T4 THYROXIN - FREE 1.06 ng/dL (0.76-1.46); THYROID STIMULATING HORMONE 1.83 uIU/mL (0.36-3.74)
[2018-02-04 05:48] LABS: CALC OSMOLALITY 272 mosm/kg (275-300); CREATININE - SERUM 0.9 mg/dL (0.6-1.3); GLUCOSE 94 mg/dL (74-106); UREA NITROGEN 31 mg/dL (7-18); eGFR NON AFRICAN AMERICAN > 90 mL/min (90-120)
[2018-02-04 08:17] VITALS: BP 119/78
[2018-02-04 12:50] VITALS: BP 132/87
[2018-02-04 15:31] VITALS: BP 134/87
[2018-02-04 20:48] VITALS: BP 147/93
[2018-02-05 01:31] VITALS: BP 121/79
[2018-02-05 05:37] LABS: BASOPHILS 0.3 % (0-2); EOSINOPHILS 2.8 % (0-7); HEMATOCRIT 45.6 % (42.0-54.0); HEMOGLOBIN 15.9 g/dL (13.5-17.5); IMMATURE GRANULOCYTES 0.2 % (0-5); LYMPHOCYTES 12.9 % (15-50); MCH 35.7 pg (26.0-34.0); MCHC 34.9 g/dL (31.0-37.0); MCV 102.2 fL (80.0-100.0); MEAN PLATELET VOLUME 12.9 fL (7.4-10.4); MONOCYTES 6.9 % (2-11); NEUTROPHILS 76.9 % (40-80); PLATELET COUNT 118 10x3/uL (130-400); RBC 4.46 10x6/uL (4.20-6.10); RDW 14.3 % (11.5-14.5); WBC 8.9 10x3/uL (4.8-10.8)
[2018-02-05 05:54] LABS: CALC OSMOLALITY 269 mosm/kg (275-300); CALCIUM 8.7 mg/dL (8.5-10.1); CARBON DIOXIDE 28.3 mmol/L (21.0-32.0); CHLORIDE - SERUM 97 mmol/L (98-107); CREATININE - SERUM 0.7 mg/dL (0.6-1.3); GLUCOSE 131 mg/dL (74-106); POTASSIUM - SERUM 4.1 mmol/L (3.5-5.1); SODIUM 133 mmol/L (136-145); eGFR NON AFRICAN AMERICAN > 90 mL/min (90-120)
[2018-02-05 05:55] LABS: UREA NITROGEN 19 mg/dL (7-18)
[2018-02-05 06:05] VITALS: BP 128/88
[2018-02-05 08:42] VITALS: BP 130/76
[2018-02-05 11:48] VITALS: BP 124/81
[2018-02-05 16:38] VITALS: BP 127/74
[2018-02-05 20:00] VITALS: BP 112/75
[2018-02-06] VITALS: BP 103/74
[2018-02-06 04:00] VITALS: BP 126/82
[2018-02-06 05:47] LABS: CALC OSMOLALITY 275 mosm/kg (275-300); CALCIUM 8.9 mg/dL (8.5-10.1); CARBON DIOXIDE 27.8 mmol/L (21.0-32.0); CHLORIDE - SERUM 100 mmol/L (98-107); CREATININE - SERUM 0.7 mg/dL (0.6-1.3); GLUCOSE 99 mg/dL (74-106); POTASSIUM - SERUM 4.5 mmol/L (3.5-5.1); SODIUM 137 mmol/L (136-145); UREA NITROGEN 17 mg/dL (7-18); eGFR NON AFRICAN AMERICAN > 90 mL/min (90-120)
[2018-02-06 08:40] VITALS: BP 131/94
[2018-02-06 11:42] VITALS: BP 120/86
[2018-02-06 15:28] VITALS: BP 132/72
[2018-02-06 20:00] VITALS: BP 117/71
[2018-02-07] VITALS: BP 133/83
[2018-02-07 04:00] VITALS: BP 117/72
[2018-02-07 07:44] VITALS: BP 114/75
[2018-02-07 11:24] VITALS: BP 124/79
[2018-02-07 15:33] VITALS: BP 110/73
[2018-02-07 20:00] VITALS: BP 127/79
[2018-02-08] VITALS: BP 110/79
[2018-02-08 04:00] VITALS: BP 121/82
[2018-02-08 08:14] VITALS: BP 118/76
== END 2018-02-08 10:03 | disposition home or self-care (01) | DRG 281 ==
LOC: D.CATH 06:20 → D.ER 06:20 → D.M2 06:20 → EDSTATUS 08:17 → D.M2 09:20 → D.CATH 02-04 09:02 → D.M2 02-04 09:03 → D.CLR 02-06 13:32 → D.M2 02-06 13:32 → D.CLR 02-06 13:34 → D.M2 02-06 13:34 → D.CATH 02-07 10:30 → D.M2 02-07 11:03
PROVIDERS: Family Medicine; Internal Medicine Interventional Cardiology
PROC: 4A023N7 Measurement of Cardiac Sampling and Pressure, Left Heart, Percutaneous Approach (ICD-10-PCS; 2018-02-03)
PROC: B2111ZZ Fluoroscopy of Multiple Coronary Arteries using Low Osmolar Contrast (ICD-10-PCS; principal; 2018-02-03 08:00)
PROC: B2151ZZ Fluoroscopy of Left Heart using Low Osmolar Contrast (ICD-10-PCS; 2018-02-03 08:00)
DX: I21.9 Acute myocardial infarction, unspecified (principal); I48.92 Unspecified atrial flutter; M33.10 Other dermatomyositis, organ involvement unspecified; I42.6 Alcoholic cardiomyopathy; I48.91 Unspecified atrial fibrillation; Z79.01 Long term (current) use of anticoagulants; R00.0 Tachycardia, unspecified; R16.0 Hepatomegaly, not elsewhere classified; J43.9 Emphysema, unspecified; K72.90 Hepatic failure, unspecified without coma; I10 Essential (primary) hypertension; B19.20 Unspecified viral hepatitis C without hepatic coma; M51.36 Other intervertebral disc degeneration, lumbar region

== ENCOUNTER 2018-05-03 09:57 | Inpatient (IN) | payer MEDICAID ==
[~2018-05-03] VITALS: Ht 185.4 cm; Wt 72.6 kg
[2018-05-03] VITALS (7 sets, daily range): BP systolic 113–160; BP diastolic 84–106; BMI 21.1
--- NOTE | ~2018-05-03 | HEMODYNAMI ---
PATIENT:CHRISTIAN MURILLO MEDICAL RECORD: [id number] : 60 [facility]ATION[facility] [id number] ADMISSION DATE: 05/03/18 Generatedon:05/05/201812:43 Patient name: CHRISTIAN MURILLO Patient #: [id number] SSN: : 1960 Date of study: 05/05/2018 Page: Of Hemodynamic Procedure Report Patient Data Patient Demographics Procedure consent was obtained First Name: CHRISTIAN Gender: Male Last Name: CHIDI : 1960 [facility] Initial: CHUY Age: 57 year(s) Patient #: [id number] Race: Additional ID: [id number] Contact details Address: [address] [place] [address] State: [place] City: [place] Zip code: [address] Past Medical History Allergies: No known allergies Admission Admission Data Admission Date: 05/03/2018 Admission Time: 12:53 Room #: D.2120 Lab Results Lab Result Date: 05/05/2018 Lab Result Time: 0:00 Biochemistry Name Units Result Min Max BUN mg/dl 12 --(-*--)-- 7 18 Creatinine mg/dl 0.9 --(-*--)-- 0.6 1.3 CBC Name Units Result Min Max Hemoglobin g/dl 14.4 --(*---)-- 13.5 17.5 Procedure Procedure Types Cath Procedure Diagnostic Procedure Cardioversion External Procedure Description Procedure Date Procedure Date: 05/05/2018 Procedure Start Time: 12:35 Procedure End Time: 12:42 Procedure Staff Name Function Chetan Zaldivar MD Performing Physician Dianna Corea RT Monitor Alma Rosa Villarreal RN Nurse Pati Cuevas RT Is Analyst Patel Akers RN Is Analyst Procedure Data Cath Procedure Estimated blood loss: 0 ml Procedure Complications No complications Procedure Medications Medication Administration Route Dosage 0.9% NaCl I.V. 100 ml/hr Oxygen etCO2 Nasal cannula 2 l/min Versed I.V. 2 mg Fentanyl I.V. 100 mcg Versed I.V. 2 mg Fentanyl I.V. 50 mcg Versed I.V. 2 mg Fentanyl I.V. 50 mcg Versed I.V. 2 mg Hemodynamics Rest HGB: 14.4 (g/dl) Heart Rate: 129 (bpm) Snapshots Pre Cath Intra NCS Post Cath Vital Signs Time Heart Resp SPO2 etCO2 NIBP (mmHg) Rhythm Pain Sedation Rate (ipm) (%) (mmHg) Status Level (bpm) 12:28:28 129 14 95 27.6 108/83(104) NSR 0 (11) 10(A) , No pain 12:32:36 129 10 97 22.4 123/96(108) NSR 0 (11) 10(A) , No pain 12:38:42 71 10 97 14.2 119/80(99) NSR 0 (11) 9(A) , No pain Medications Time Medication Route Dose Verified Delivered Reason Notes Effective ness by by 12:28:27 0.9% NaCl I.V. 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 2 mg Chetan Alma Rosa for Kayley Villarreal sedation RN 12:30:56 Fentanyl I.V. 100 Chetan Alma Rosa for mcg Kayley Villarreal sedation RN 12:32:27 Versed I.V. 2 mg Chetan Alma Rosa for Kayley Villarreal sedation RN 12:32:46 Fentanyl I.V. 50 Chetan Alma Rosa for mcg Kayley Villarreal sedation RN 12:35:02 Fentanyl I.V. 50 Chetan Alma Rosa for mcg Kayley Villarreal sedation RN 12:35:54 Versed I.V. 2 mg Chetan Alma Rosa for Kayley Villarreal sedation RN 12:38:08 Versed I.V. 2 mg Chetan Alma Rosa for Kayley Villarreal sedation milk of lime slaker Log Time Note 11:50:09 Time tracking: Regular hours (M-F 7:00 - 5:00) 11:50:20 Plan of Care:Hemodynamics will remain stable., Cardiac rhythm will remain stable., Comfort level will be maintained., Respiratory function will remain adequate., Patient/ family verbilizes understanding of procedure., Procedure tolerated without complication., Recovers from procedure without complications.. 12:12:16 Patel Akers RN sent for patient. Start room use. 12:21:51 Patient received from PCU to CCL 1 Alert and oriented. Tansferred to table in Supine position. 12:21:52 Warm blankets applied, and lynne hugger turned on for patient comfort. 12:21:52 Correct patient and procedure confirmed by team. 12:21:54 Signed procedure consent form obtained from patient. 12:21:54 ECG and BP/O2 sat monitors applied to patient. 12:21:55 Full Disclosure recording started 12:24:42 H&P Date Dictated: 05/03/2018 Within 30 days and on chart.. 12:24:43 Pre-procedure instructions explained to patient. 12:24:43 Pre-op teaching completed and patient verbalized understanding. 12:24:44 Family unavailable. 12:24:48 Patient NPO since Breakfast. 12:24:54 Patient allergic to No known allergies 12:25:19 PATIENT STATES LAST DOSE OF XARELTO 5 DAYS AGO 12:25:25 Patient diabetic? No. 12:25:32 Previous problem with sedation/anesthesia? No ? 12:25:33 Snore? Yes 12:25:34 Sleep apnea? No 12:25:35 Deviated septum? No 12:25:36 Opens mouth fully? Yes 12:25:37 Sticks out tongue? Yes 12:25:41 Airway obstruction? Yes COPD 12:25:43 Dentures? No ? 12:25:58 IV patent on arrival in right hand with 0.9% NaCl at [facility]. 12:26:17 Lab Result : Creatinine 0.9 mg/dl 12:26:17 Lab Result : BUN 12 mg/dl 12:26:17 Lab Result : Hemoglobin 14.4 g/dl 12:26:19 Lab results completed and on chart. 12:26:23 Alarms reviewed by R. N. 12:26:24 Sharps counted by scrub and verified by R.N. 12:26:42 Quick Combo opened to sterile field. 12:27:19 Vital chart was started 12:27:27 Baseline sample Acquired. 12:27:48 Baseline sample Acquired. 12:28:10 Rhythm: atrial flutter 12:28:27 0.9% NaCl 100 ml/hr I.V. was administered by Alma Rosa Villarreal RN; used for procedure; 12::40 Oxygen 2 l/min etCO2 Nasal cannula was administered by Alma Rosa Villarreal RN; used for procedure; 12:30:33 --------ALL STOP TIME OUT------ 12:30:34 Final Timeout: patient, procedure, and site verified with staff and physician. All members of the team are in agreement. 12:30:40 Versed 2 mg I.V. was administered by Alma Rosa Villarreal RN; for sedation; 12::45 Physical assessment completed. ASA score P 2 - A patient with mild systemic disease as per Chetan Zaldivar MD. 12:30:48 Sedation plan: IV Moderate Sedation Medication:Versed, Fentanyl 12:30:56 Fentanyl 100 mcg I.V. was administered by Alma Rosa Villarreal RN; for sedation; 12:32:27 Versed 2 mg I.V. was administered by Alma Rosa Villarreal RN; for sedation; 12:32:46 Fentanyl 50 mcg I.V. was administered by Alma Rosa Villarreal RN; for sedation; 12:35:02 Fentanyl 50 mcg I.V. was administered by Alma Rosa Villarreal RN; for sedation; 12:35:24 Procedure started. 12:35:27 Quick combo pads placed on patients chest and back. 12:35:35 Defibrillator synced and charged to 275 Joules. 12:35:54 Versed 2 mg I.V. was administered by Alma Rosa Villarreal RN; for sedation; 12:36:29 Shock delivered. 12:37:02 Patient cardioverted to sinus rhythm . 12:37:07 Procedure ended.(Physican Out) 12:38:08 Versed 2 mg I.V. was administered by Alma Rosa Villarreal RN; for sedation; 12:38:19 Post-procedure physical assessment completed. ASA score P 2 - A patient with mild systemic disease as per Chetan Zaldivar MD. 12:38:24 Post procedure rhythm: sinus rhythm 12:38:26 Estimated blood loss: 0 ml 12:38:28 Post procedure instruction explained to patient.Patient verbalizes understanding. 12:38:28 Patient needs reinforcement of post procedure teaching. 12:41:52 Procedure and supply charges have been captured, reviewed, submitted and are correct. 12:41:55 Procedure Complication : No complications 12:41:57 Vital chart was stopped 12:41:58 See physician's report for complete and final results. 12:42:24 Report given to Med II. 12:42:31 Patient transfered to Med II with Bed. 12:42:32 Procedure ended. 12:42:32 Full Disclosure recording stopped 12:42:35 End room use (Document Last) Device Usage Item Manufacture Quantity Catalog Hospital Part Current Minimal Lot# / Name Number Charge Number Stock Stock Anika de# Code ContractRoom [id number] Combo Signature Audit [place] Stage Time Signature Unsigned Intra-Procedure 05/05/2018 Pati Cuevas 12:43:05 PM RT(R) Signatures Monitor : Dianna Signature : Counts RT Date : Time : [place] [address] [place] [address]
--- NOTE | 2018-05-03 10:48 | NUR ---
PT REPORTS "NOT REALLY" ANY CHANGE FOLLOWING FIRST ADMINISTERED PRN NITRO SL TABLET, PER PROVIDER Lety PRYOR, THIS NURSE INSTRUCTED TO NOT ADMINISTER SECOND PRN DOSE.
[2018-05-03 11:23] LABS: BASOPHILS 0.5 % (0-2); EOSINOPHILS 4.4 % (0-7); HEMOGLOBIN 16.1 g/dL (13.5-17.5); IMMATURE GRANULOCYTES 0.3 % (0-5); MCH 35.6 pg (26.0-34.0); MCHC 35.8 g/dL (31.0-37.0); MCV 99.6 fL (80.0-100.0); MEAN PLATELET VOLUME 13.7 fL (7.4-10.4); MONOCYTES 8.1 % (2-11); NEUTROPHILS 53.7 % (40-80); RBC 4.52 10x6/uL (4.20-6.10); RDW 13.7 % (11.5-14.5); WBC 7.3 10x3/uL (4.8-10.8)
[2018-05-03 11:26] LABS: PLATELET COUNT 82 10x3/uL (130-400)
[2018-05-03 11:40] LABS: ALBUMIN 2.8 g/dL (3.4-5.0); ALKALINE PHOSPHATASE 118 U/L (46-116); ALT (SGPT) 161 U/L (10-68); APTT 32.8 SECONDS (22.8-39.4); BILIRUBIN - TOTAL 1.47 mg/dL (0.2-1.3); CALC OSMOLALITY 276 mosm/kg (275-300); CARBON DIOXIDE 23.8 mmol/L (21.0-32.0); CHLORIDE - SERUM 102 mmol/L (98-107); CREATININE - SERUM 0.8 mg/dL (0.6-1.3); GLUCOSE 98 mg/dL (74-106); INR 1.22 (0.85-1.17); POTASSIUM - SERUM 3.5 mmol/L (3.5-5.1); PROTEIN - SERUM 6.7 g/dL (6.4-8.2); PROTIME 14.9 SECONDS (11.6-15.0); SODIUM 139 mmol/L (136-145); UREA NITROGEN 10 mg/dL (7-18); eGFR NON AFRICAN AMERICAN > 90 mL/min (90-120)
[2018-05-03 12:05] LABS: CKMB 1.7 U/L (0.0-3.6); CREATINE KINASE 123 UL (21-232); TROPONIN-I 0.039 ng/mL (0.000-0.060)
[2018-05-03 12:20] LABS: LIPASE 247 U/L (73-393)
[2018-05-03 12:21] LABS: MAGNESIUM - SERUM 1.3 mg/dL (1.8-2.4)
[2018-05-03 12:23] LABS: PLATELET ESTIMATE DECREASED
--- NOTE | 2018-05-03 13:04 | NUR ---
PT SITTING UPRIGHT IN BED, RESPIRATIONS EVEN AND UNLABORED. PT C/O PAIN AND REQUESTING ADDITIONAL PAIN MEDICATION AT THIS TIME. TREATING PROVIDER NOTIFIED.
--- NOTE | 2018-05-03 15:10 | NUR ---
PT SITTING IN SEMI-ANTHONY'S WITH NO SIGNS OF DISTRESS. PT ALERT AND ORIENTED X4. RESPIRATIONS EVEN AND UNLABORED. CALL LIGHT IN REACH.
--- NOTE | 2018-05-03 16:19 | NUR ---
PT INFORMED OF NPO STATUS PER MD ORDERS.
--- NOTE | 2018-05-03 16:39 | CN ---
PATIENT NAME:CHRISTIAN MURILLO MEDICAL RECORD: [id number] : 60 LOCATION:D.M2 D.2120 ADMIT DATE: 05/03/18 ACCOUNT: [id number] CONSULTING PHYSICIAN: JERE HOBBS MD REFERRING PHYSICIAN: SANDRA HUNTER MD DATE OF CONSULTATION: 05/03/2018 CARDIOLOGY CONSULT DIAGNOSES: 1. GI bleed, melanotic stools. 2. Xarelto anticoagulation. 3. Paroxysmal atrial fibrillation. 4. Previous DC cardioversion. 5. Angina. 6. Abnormal ECG. 7. COPD. 8. Smoking history. HISTORY: This is a gentleman who has history of atrial fibrillation and cardioversion over a year ago. No history of ischemic heart disease. He presents with chest pain. He is in atrial fibrillation with initial response of approximately 140 and T wave inversions inferiorly on his EKG. His complicating factor is that he states that he had melanotic stools yesterday. He has a lot of GI discomfort as well as chest discomfort. He has not had history of GI bleeding, has not seen a GI doctor in the past. PHYSICAL EXAMINATION: GENERAL APPEARANCE: Well-nourished, well-developed, appears stated age. Level of distress, comfortable. PSYCHIATRIC: Mental status, alert, normal affect. Orientation, oriented to time, place and person. EYES: Lids and conjunctiva, noninjected. No discharge, no pallor. ENT: Lips, teeth, gums, normal dentition. Oropharynx, no cyanosis, no pallor. NECK: Carotid arteries, bilateral normal upstroke, no bruits, no thrills. JUGULAR VEINS: No jugular venous pressure or distention. CERVICAL LYMPH NODES: Nontender, nonenlarged. THYROID: Not enlarged. Nontender. No nodules. LUNGS: Respiratory effort, unlabored. CHEST: Normal curvature. No thoracic deformity. No chest wall tenderness. Percussion, resonant. Auscultation, clear. No wheezes, no rales, no rhonchi. CARDIOVASCULAR: Irregularly irregular with atrial fibrillation, is now at 114 beats a minute. EXTREMITIES: No cyanosis, no edema. Peripheral pulses, full and equal in all extremities, except as noted. No bruits appreciated. ABDOMEN: Soft, nondistended. Normal aorta. No bruit. Nontender. No masses. Liver, nontender, no hepatomegaly. Spleen, nontender, no splenomegaly. MUSCULOSKELETAL: No joint tenderness. No joint swelling. No erythema. NEUROLOGICAL: Normal gait, normal strength, normal tone. SKIN: Warm and dry. OVERALL IMPRESSION: 1. Atrial fibrillation. We will have to hold the Xarelto at this time. We will plan DC cardioversion when stable from a GI standpoint. 2. Ischemic heart disease and coronary artery disease, most likely has CONSULT REPORT [id number] CHRISTIAN MURILLO hemodynamically significant coronary artery disease that explains the chest discomfort as well as the EKG changes; however, we will hold off on cardiac catheterization until stable from a GI standpoint as he will need at least Plavix anticoagulation after stenting. We will consult GI. Further care depends in the immediate hospitalization on GI recommendations. TRANSINT:[id number] Voice Confirmation ID: [id number] DOCUMENT ID: [id number] JERE HOBBS MD at 1639 CC: [id number] DICTATION DATE: 05/03/18 1247 [employer] DIRECTOR: 05/03/18 1405 ADM IN [place] [id number] [place] [id number]
--- NOTE | 2018-05-03 16:45 | NUR ---
VIVIAN, RECEIVING NURSE AWARE THAT THIS NURSE DID NOT NOTIFY TWO ORDERED CONSULTS. ALSO, THIS NURSE INFORMED PT OF NPO STATUS PRIOR TO HIM LEAVING THE ED.
--- NOTE | 2018-05-03 18:23 | NUR ---
RECEIVED PT FROM ER VIA WHEELCHAIR WITH HOSPITAL STAFF. PT IS AAO AND UP AD MAUDE. D5LR INFUSING @100 AND PROTONIX INFUSING @10ML/HR VIA R.WRIST PIV. VSS AND WNL ON 02. QUICKSTART, HISTORY, AND MED REQ COMPLETED. PT DENIES ANY NEEDS. WILL CTM.
--- NOTE | 2018-05-03 19:26 | NUR ---
RESUMED CARE OF PT, UP AMBULATING IN ROOM. RIGHT WRIST INFUSING PROTONIX @ 10 AND D5LR @ 100. 140 ATRIAL FLUTTER ON TELEMETRY. NO NEEDS AT THIS TIME, CALL LIGHT IN REACH. SEE NURSE ASSESSMENT.
--- NOTE | 2018-05-03 23:37 | NUR ---
LYING IN BED WITH CALL LIGHT IN REACH. WILL CONTINUE TO MONITOR.
[2018-05-04 04:00] VITALS: BP 135/93
[2018-05-04 06:31] LABS: CALC OSMOLALITY 270 mosm/kg (275-300); CALCIUM 8.1 mg/dL (8.5-10.1); CHLORIDE - SERUM 98 mmol/L (98-107); CREATININE - SERUM 0.8 mg/dL (0.6-1.3); GLUCOSE 108 mg/dL (74-106); POTASSIUM - SERUM 3.5 mmol/L (3.5-5.1); SODIUM 136 mmol/L (136-145); UREA NITROGEN 8 mg/dL (7-18); eGFR NON AFRICAN AMERICAN > 90 mL/min (90-120)
[2018-05-04 06:37] LABS: CARBON DIOXIDE 30.2 mmol/L (21.0-32.0)
[2018-05-04 06:49] LABS: BASOPHILS 0.8 % (0-2); EOSINOPHILS 8.3 % (0-7); HEMATOCRIT 46.6 % (42.0-54.0); IMMATURE GRANULOCYTES 0.2 % (0-5); LYMPHOCYTES 24.9 % (15-50); MCH 35.2 pg (26.0-34.0); MCHC 34.3 g/dL (31.0-37.0); MEAN PLATELET VOLUME 14.2 fL (7.4-10.4); MONOCYTES 8.7 % (2-11); NEUTROPHILS 57.1 % (40-80); RBC 4.55 10x6/uL (4.20-6.10); RDW 13.8 % (11.5-14.5)
[2018-05-04 06:50] LABS: MCV 102.4 fL (80.0-100.0); PLATELET COUNT 59 10x3/uL (130-400); WBC 5.3 10x3/uL (4.8-10.8)
--- NOTE | 2018-05-04 07:50 | NUR ---
ROUNDING DONE WITH PATIENT LAYING ON BACK WATCHING TV, DENIES NEEDS AT THIS TIME. ON HEART MONITOR SHOWING AF, HR 117. ON 2L PER NS. PROTONIX DRIP INFUSING AT 10 CC/HR ALONG WITH LR INFUSING AT 100 CC/HR BOTH TO RIGHT FA. HX OF HEP C+. WILL MONITOR.
[2018-05-04 07:54] LABS: PLATELET ESTIMATE DECREASED
[2018-05-04 07:55] LABS: ROULEAUX OCC
[2018-05-04 08:25] VITALS: BP 140/95
--- NOTE | 2018-05-04 08:40 | NUR ---
PERMITS HAVE BEEN SIGNED FOR EGD WITH [facility] TODAY. PATIENT IS NPO.
--- NOTE | 2018-05-04 09:06 | HP ---
PATIENT: CHRISTIAN MURILLO MEDICAL RECORD: [id number] ACCOUNT: [id number] LOCATION:[address] : 60 ADMISSION DATE: 05/03/18 PCP: SANDRA HUNTER HISTORY AND PHYSICAL EXAMINATION DATE OF ADMISSION: 05/03/2018 CHIEF COMPLAINT: Chest pain, shortness of breath. HISTORY OF PRESENT ILLNESS: This is a 57-year-old white male followed by Evelyn Cowan, nurse practitioner, at [facility]. He presented today complaining of chest pain, shortness of breath for the last couple of days and he also reports black tarry stools started last night. The patient states he started drinking again recently. He has been sober for over a year. He is complaining of some lower abdominal pain. In the ER, his heart rate was 140, found to be atrial fibrillation. His hemoglobin was 16.1, hematocrit 45. Basic metabolic panel was fairly normal. Ammonia level is elevated at 47. His liver enzymes were elevated. He has a history of hepatitis C, he states he got in his 20s. He is never seen and evaluated for that. He was referred to [facility] a few months ago from our office. His troponin was normal. PAST MEDICAL AND SURGICAL HISTORY: Hypertension, atrial fibrillation, COPD/asthma, dermatomyositis, history of alcoholism, hepatitis C, and chronic pain from lumbar disc disease. PAST SURGICAL HISTORY: None. DRUG ALLERGIES: None. HOME MEDICATIONS: DuoNeb q.6 hours p.r.n., Symbicort 160/4.5 twice a day, Xarelto 20 mg once a day, diltiazem 60 mg twice a day, sotalol 120 mg twice a day, [place] 10/325 two p.o. q.6 hours, and K-Dur 20 mEq once. FAMILY HISTORY: His father had hypertension, asthma, alcoholism, colon cancer and at age 50. His other had hypertension, asthma, COPD and at age 50. Sibling with hypertension. SOCIAL HISTORY: He is . HABITS: He smokes daily. He is drinking now. Denies any illicit drug use. REVIEW OF SYSTEMS: GENERAL: No major weight changes. HEENT: No particular sinus or allergy problems. RESPIRATORY: He has COPD/asthma and continues to smoke. GASTROINTESTINAL: History of hepatitis C. He has not seen a blanking machine operator before. GENITOURINARY: No significant problems there. MUSCULOSKELETAL: Has chronic back pain. NEUROLOGIC: No migraines or seizures. PSYCHIATRIC: Denies depression or melancholia. PHYSICAL EXAMINATION: VITAL SIGNS: Temperature 98.3, pulse 112, respirations 18, blood pressure 135/91, O2 sat 97%. HISTORY AND PHYSICAL [id number] CHRISTIAN MURILLO GENERAL: He is awake and alert, does not appear in acute distress. HEENT: Grossly within normal limits. NECK: Supple. HEART: Regular rate and rhythm at this time. LUNGS: Fairly clear. ABDOMEN: With some lower abdominal tenderness. No guarding, no rebound, no mass. EXTREMITIES: No edema. NEUROLOGIC: Intact. LABORATORY DATA: CBC with a white count 7300, hemoglobin 16.1, hematocrit 45. Basic metabolic panel: Sodium 139, potassium 3.5, chloride 102, CO2 of 23.8, BUN 10, creatinine 0.8, glucose 98, calcium 8.0, magnesium 1.3. Ammonia level 47, AST 318, ALT 161. Troponin is okay at 0.039. Lipase normal at 247. INR 1.22. ASSESSMENT: 1. Paroxysmal atrial fibrillation with rapid ventricular response. 2. Melena. 3. Lower abdominal pain. 4. History of hepatitis C. 5. On Xarelto for atrial fibrillation. PLAN: Cardiology has been consulted. We will hold Xarelto, monitor his heart rate, may need cardioversion or heart catheterization. GI is consulted. His Xarelto was held due to possible bleed. Check CT scan of his abdomen and Protonix drip, Carafate. Monitor CBC. Other tests or procedures as warranted. TRANSINT:[id number] Voice Confirmation ID: [id number] DOCUMENT ID: [id number] MERLIN ORTEGA MD at 0906 CC: [id number] DICTATION DATE: 05/03/18 2329 SUPPLEMENTAL MANAGER: 05/04/18 0112 ADM IN [facility] [address] [place] [address]
[2018-05-04 11:33] VITALS: BP 103/77
[2018-05-04 12:49] VITALS: Ht 185.4 cm; Wt 72.6 kg
--- NOTE | 2018-05-04 13:54 | NUR ---
STILL NPO AT THIS TIME FOR PROCEDURE. WANTING FOOD OR DRINK.
--- NOTE | 2018-05-04 15:24 | NUR ---
IV INFILTRATED TO RIGHT WIRST AREA. I ATTEMPTED TO RE-SITE TO LEFT HAND, UNSUCCESSFUL. JANETTE IN OUTPATIENT TO RE-SITE TO LEFT FA X 1 STICK PER X 1 WITH 22 G. TO GI LAB VIA BED.
--- NOTE | 2018-05-04 16:04 | NUR ---
RETURNS FROM GI LAB WITH NEEDING A DRINK OF WATER. GIVEN SMALL SIP. IV RE-CONNECTED TO LEFT UPPER ARM FROM PREVIOUS RE-SITE. INSTRCUTED TO USE CALL LIGHT FOR ALL NEEDS. STATES TO UNDERSTANDING.
[2018-05-04 16:23] VITALS: BP 121/79
--- NOTE | 2018-05-04 18:40 | NUR ---
STATES TO PAIN BEING BETTER /10.
--- NOTE | 2018-05-04 19:24 | NUR ---
NO STOOL FOR THIS SHIFT TO BE COLLECTED. I PASSED THIS TO THE NEXT NURSE.
[2018-05-04 20:00] VITALS: BP 119/78
[2018-05-05] VITALS: BP 106/77
[2018-05-05 04:00] VITALS: BP 129/88; BP 138/83
--- NOTE | 2018-05-05 04:33 | NUR ---
WOOD BOAT BUILDER SUPERVISOR AT BEDSIDE TO OBTAIN VITALS, CALL LIGHT IN REACH. WILL CONTINUE WITH PLAN OF CARE.
[2018-05-05 06:10] LABS: BASOPHILS 0.5 % (0-2); EOSINOPHILS 7.7 % (0-7); HEMATOCRIT 42.6 % (42.0-54.0); HEMOGLOBIN 14.4 g/dL (13.5-17.5); IMMATURE GRANULOCYTES 0.3 % (0-5); LYMPHOCYTES 29.2 % (15-50); MCH 34.9 pg (26.0-34.0); MCHC 33.8 g/dL (31.0-37.0); MCV 103.1 fL (80.0-100.0); MEAN PLATELET VOLUME 15.1 fL (7.4-10.4); NEUTROPHILS 51.3 % (40-80); PLATELET COUNT 56 10x3/uL (130-400); RBC 4.13 10x6/uL (4.20-6.10); RDW 13.7 % (11.5-14.5); WBC 6.1 10x3/uL (4.8-10.8)
[2018-05-05 06:31] LABS: CALC OSMOLALITY 273 mosm/kg (275-300); CALCIUM 8.5 mg/dL (8.5-10.1); CARBON DIOXIDE 27.5 mmol/L (21.0-32.0); CHLORIDE - SERUM 99 mmol/L (98-107); CREATININE - SERUM 0.9 mg/dL (0.6-1.3); GLUCOSE 126 mg/dL (74-106); POTASSIUM - SERUM 3.9 mmol/L (3.5-5.1); SODIUM 136 mmol/L (136-145); eGFR NON AFRICAN AMERICAN > 90 mL/min (90-120)
[2018-05-05 06:34] LABS: UREA NITROGEN 12 mg/dL (7-18)
--- NOTE | 2018-05-05 06:38 | NUR ---
LEFT UPPER ARM INFILTRATED. NO IV PLACED IN RIGHT HAND.
--- NOTE | 2018-05-05 07:50 | NUR ---
AWAKE AND ALERT.O2 AT 2L/PRN. TELEMERTY SHOWS A FLUTTER. NO NEEDS VOICED. CALL LIGHT IN REACH
[2018-05-05 09:21] VITALS: BP 119/85
--- NOTE | 2018-05-05 09:59 | NUR ---
DR. HOBBS HERE. ORDERS RECIEVED FOR CATH. PERMITS SIGNED
--- NOTE | 2018-05-05 10:07 | NUR ---
RESTS IN BED WITH CALL LIGHT IN REACH. IV PATENT. ROBB NEEDS AT THIS TIME. WILL MONITOR.
--- NOTE | 2018-05-05 12:09 | NUR ---
PRE OP GIVEN . PT REFUSED TO PUT ON GOWN. NO NEEDS VOICED.
[2018-05-05 12:52] VITALS: BP 108/72
--- NOTE | 2018-05-05 13:02 | NUR ---
BACK FROM EXCELSIOR MACHINE FEEDER FOR CARDIOVERSION. PT SEDATED BUT AWAKENS TO STEMULI. VITAL SIGNS STABLE WITH TELEMERTY SHOWING SR 62. SR UP WITH CALL LIGHT IN REACH
[2018-05-05] MEDS ORDERED: CARAFATE1 G PO (13:26)
[2018-05-05] MEDS ORDERED: PROTONIX40 MG PO (13:27)
--- NOTE | 2018-05-05 14:50 | MORECARE ---
CASE MANAGEMENT DISCHARGE SUMMARY PATIENT: CHRISTIAN MURILLO UNIT: [id number] ADM DATE: 05/03/18 AGE: 57 : 60 SEX: M ROOM/BED: D.2120 AUTHOR: ALLISON FERGUSON PHYSICIAN: REFERRING PHYSICIAN: SANDRA HUNTER MD DATE OF SERVICE: 05/05/18 Discharge Plan Patient Name: CHRISTIAN MURILLO [facility] [facility] 1960 Planned Disposition: Home Anticipated Discharge Date: 05/05/18 Discharge Date: Expected LOS: 2 Initial Reviewer: [email or web address] Initial Review Date: 05/05/2018 Generated: 05/05/18 3:49 pm Patient Name: CHRISTIAN MURILLO Page [phone] at 1450 All edits/amendments must be made on the electronic document DICTATION DATE: 05/05/181448 BARREL INSPECTOR TIGHT: PILO 05/05/18 1449 RPT#: [id number] DC DATE: STATUS: ADM IN [facility] [address] [place] [address] END OF REPORT
--- NOTE | 2018-05-05 14:59 | NUR ---
CONTINUES TO SLEEP. WILL AWAKEN TO STEMULI. V/S STABLE. SR UP WITH CALL LIGHT IN REACH. WILL MONITOR
--- NOTE | 2018-05-05 14:59 | MORECARE ---
CASE MANAGEMENT DISCHARGE SUMMARY PATIENT: CHRISTIAN MURILLO UNIT: [id number] ADM DATE: 05/03/18 AGE: 57 : 60 SEX: M ROOM/BED: D.2120 AUTHOR: PHYLLIS,DOC PHYSICIAN: REFERRING PHYSICIAN: SANDRA HUNTER MD DATE OF SERVICE: 05/05/18 Discharge Plan Patient Name: CHRISTIAN MURILLO Facility: [facility]:[place] : 1960 Planned Disposition: Home Anticipated Discharge Date: 05/05/18 Discharge Date: Expected LOS: 2 Initial Reviewer: [email or web address] Initial Review Date: 05/05/2018 Generated: 05/05/18 3:59 pm Comments DCP- Discharge Planning Updated by [email or web address]: Leander Garcia on 05/05/18 1:[address] Patient Name: CHRISTIAN MURILLO Admission Status: ER Accout number: [id number] Admission Date: 05-03-2018 : 1960 Admission Diagnosis: Attending: SANDRA HUNTER Current LOS: 2 Anticipated DC Date: 05-05-2018 Planned Disposition: Home Primary Insurance: MEDICAID [place] Discharge Planning Comments: CM MET WITH PT IN ROOM TO DISCUSS DISCHARGE PLANNING AND NEEDS. PT REPORTS LIVING AT HOME INDEPENDENTLY AND ALONE. PT HAS NEBULIZER WITH NO MEDICAL EQUIPMENT PROVIDER PREFERENCE. PT HAS NO OUTSIDE SERVICES ASSISTING IN THE HOME. CM DISCUSSED AVAILABILITY OF HOME HEALTH, REHAB SERVICES AND MEDICAL EQUIPMENT. PT DENIES DISCHARGE NEEDS, REPORTS HE WILL CALL HIS FRIEND, LENORA, WHO WILL PICK HIM UP FOR DISCHARGE HOME. MELT SUPERVISOR NURSE NOTIFIED. Geriatric Nurse Practitioner: Leander Garcia DCPIA - Discharge Planning Initial Assessment Updated by [email or web address]: Leander Garcia on 05/05/18 2:50 pm * Is the patient Alert and Oriented? Yes * How many steps to enter\exit or inside your home? NONE * PCP DR. HUNTER * Pharmacy [facility] * Preadmission Environment Home Alone * ADLs Independent * Equipment Nebulizer * Other Equipment NO MEDICAL EQUIPMENT PROVIDER PREFERENCE * List name and contact numbers for known caregivers / representatives who currently or will assist patient after discharge: LENORA CASTILLO, FRIEND, * Verbal permission to speak to the caregivers and representatives has been obtained from the patient. N/A * Community resources currently utilized None * Please name any agencies selected above. NONE * Additional services required to return to the preadmission environment? No * Can the patient safely return to the preadmission environment? Yes * Has this patient been hospitalized within the prior 30 days at any hospital? No Last DP export: 05/05/18 1:49 p Patient Name: CHRISTIAN MURILLO Page 11476 at 1459 All edits/amendments must be made on the electronic document DICTATION DATE: 05/05/181457 MARINE PROPULSION TECHNICIAN: DM 05/05/181457 RPT#: [id number] DC DATE: STATUS: ADM IN [facility] [address] [place] [address] END OF REPORT
--- NOTE | 2018-05-05 18:29 | NUR ---
DISCHARGE INSTRUCTIONS GIVEN. WAITING ON TRANSPORTATION
--- NOTE | 2018-05-09 10:22 | OP ---
PATIENT NAME: CHRISTIAN MURILLO MEDICAL RECORD: [id number] :60 LOCATION:D.M2 D.2120 ADMISSION DATE:05/03/18 SURGEON: JERE HOBBS MD DATE OF OPERATION: 05/05/2018 PROCEDURE: DC cardioversion. INDICATION: Atrial fibrillation. PROCEDURE IN DETAIL: After informed consent was obtained and after a detailed explanation of the risks, benefits as well as alternative therapies, the patient elected to proceed with DC cardioversion. IV conscious sedation was performed with Versed and fentanyl. Continuous O2 saturation and blood pressure monitoring all undertaken, all of which remained stable. He received 1 shock at 275 joules restoring sinus rhythm. OVERALL IMPRESSION: Successful DC cardioversion from atrial fibrillation to sinus rhythm. TRANSINT:[id number] Voice Confirmation ID: [id number] DOCUMENT ID: [id number] JERE HOBBS MD at 1022 CC: [id number] DICTATION DATE: 05/05/18 1238 TAX INVESTIGATOR: 05/05/18 1347 DIS IN 05/05/18 [address] [place] [address]
== END 2018-05-05 19:15 | disposition home or self-care (01) | DRG 378 ==
LOC: D.ER 09:57 → D.EDHOLD 12:53 → D.M2 12:53
PROVIDERS: Emergency Medicine; Family Medicine; Internal Medicine Gastroenterology; ADMIT Family Medicine
PROC: 0DJ08ZZ Inspection of Upper Intestinal Tract, Via Natural or Artificial Opening Endoscopic (ICD-10-PCS; principal; 2018-05-04 15:28)
DX: K92.1 Melena (principal); I48.92 Unspecified atrial flutter; K76.6 Portal hypertension; M33.10 Other dermatomyositis, organ involvement unspecified; I85.00 Esophageal varices without bleeding; Z79.01 Long term (current) use of anticoagulants; I48.0 Paroxysmal atrial fibrillation; K21.0 Gastro-esophageal reflux disease with esophagitis; K29.80 Duodenitis without bleeding; J44.9 Chronic obstructive pulmonary disease, unspecified; I10 Essential (primary) hypertension; I25.10 Atherosclerotic heart disease of native coronary artery without angina pectoris; K31.89 Other diseases of stomach and duodenum; B19.20 Unspecified viral hepatitis C without hepatic coma; D69.6 Thrombocytopenia, unspecified; R94.31 Abnormal electrocardiogram [ECG] [EKG]

== ENCOUNTER 2018-05-16 09:54 | Inpatient (IN) | payer MEDICAID ==
[~2018-05-16] VITALS: Ht 185.4 cm; Wt 92.5 kg
[2018-05-16] VITALS (32 sets, daily range): BP systolic 103–206; BP diastolic 60–174; BMI 23.8
[~2018-05-16 09:54] MED LIST changes: +CARAFATE1 G PO; +PROTONIX40 MG PO
[2018-05-16 10:57] LABS: BASOPHILS 0.6 % (0-2); EOSINOPHILS 0 % (0-7); HEMATOCRIT 43.8 % (42.0-54.0); IMMATURE GRANULOCYTES 0.9 % (0-5); LYMPHOCYTES 10.6 % (15-50); MCH 35.5 pg (26.0-34.0); MCHC 34.2 g/dL (31.0-37.0); MCV 103.8 fL (80.0-100.0); MEAN PLATELET VOLUME 12.1 fL (7.4-10.4); MONOCYTES 9.3 % (2-11); NEUTROPHILS 78.6 % (40-80); RBC 4.22 10x6/uL (4.20-6.10); RDW 14.1 % (11.5-14.5); WBC 10.8 10x3/uL (4.8-10.8)
[2018-05-16 10:58] LABS: PLATELET COUNT 457 10x3/uL (130-400)
[2018-05-16 11:12] LABS: ALBUMIN 2.5 g/dL (3.4-5.0); ALKALINE PHOSPHATASE 114 U/L (46-116); ALT (SGPT) 416 U/L (10-68); BILIRUBIN - TOTAL 2.97 mg/dL (0.2-1.3); CALC OSMOLALITY 273 mosm/kg (275-300); CALCIUM 7.8 mg/dL (8.5-10.1); CHLORIDE - SERUM 98 mmol/L (98-107); CREATININE - SERUM 1.3 mg/dL (0.6-1.3); GLUCOSE 142 mg/dL (74-106); POTASSIUM - SERUM 3.4 mmol/L (3.5-5.1); PROTEIN - SERUM 7.6 g/dL (6.4-8.2); SODIUM 135 mmol/L (136-145); UREA NITROGEN 19 mg/dL (7-18); eGFR NON AFRICAN AMERICAN 60 mL/min (90-120)
[2018-05-16 11:18] LABS: APTT 37.7 SECONDS (22.8-39.4); INR 1.37 (0.85-1.17); PROTIME 16.3 SECONDS (11.6-15.0)
[2018-05-16 11:33] LABS: CKMB 6.2 U/L (0.0-3.6); CREATINE KINASE 398 UL (21-232); MAGNESIUM - SERUM 1.9 mg/dL (1.8-2.4)
[2018-05-16 11:36] LABS: TROPONIN-I 0.113 ng/mL (0.000-0.060)
[2018-05-16 11:37] LABS: D-DIMER-QUANTITATIVE 1.2 mg/L (<0.20)
--- NOTE | 2018-05-16 12:10 | NUR ---
URINE COLLECTED BY NURSE AND SENT TO LAB.
[2018-05-16 12:33] LABS: UDS - AMPHET POSITIVE QUAL (NEGATIVE); UDS - BARB NEGATIVE QUAL (NEGATIVE); UDS - BENZO POSITIVE QUAL (NEGATIVE); UDS - COCAINE NEGATIVE QUAL (NEGATIVE); UDS - OPIATE NEGATIVE QUAL (NEGATIVE); UDS - PCP NEGATIVE QUAL (NEGATIVE); UDS - THC POSITIVE QUAL (NEGATIVE)
--- NOTE | 2018-05-16 12:50 | NUR ---
PT TRANSPORTED VIA STRETCHER TO CT.
--- NOTE | 2018-05-16 13:00 | NUR ---
PT RETURNED FROM CT. RESPIRATIONS EVEN AND NON-LABORED.
[2018-05-16 13:03] LABS: APPEARANCE HAZY (CLEAR); BILIRUBIN NEGATIVE (NEGATIVE); COLOR DK YELLOW (YELLOW); GLUCOSE NEGATIVE (NEGATIVE); KETONE NEGATIVE (NEGATIVE); NITRITE NEGATIVE (NEGATIVE); PROTEIN 1+ mg/dL (NEGATIVE); SPECIFIC GRAVITY 1.015 (1.005-1.020)
[2018-05-16 13:04] LABS: BACTERIA FEW /hpf (NONE SEEN); EPITHELIAL CELLS 0-5 /hpf (0-5); GRANULAR CAST OCC /lpf (NONE SEEN); HYALINE CAST 0-5 /lpf (NONE SEEN); MUCUS <1+ /lpf (NONE SEEN); RED CELLS - URINE 0-5 /hpf (0-5); WHITE CELLS - URINE RARE /hpf (0-5)
--- NOTE | 2018-05-16 13:59 | NUR ---
REC'D TO CVICU. ALL MONITORINE EQUIPMENT ATTACHED AND ALARMS SET. PT RESPONDING AND IS FOLLOWING COMMAND. VSS, AFEBRILE AT PRESENT TIME.
--- NOTE | 2018-05-16 17:08 | NUR ---
PT ASSISTED TO BSC FOR BM, HAD LOOSE BROWN STOOL.
--- NOTE | 2018-05-16 17:38 | NUR ---
NOTIFIED PT NURSE MANAV OF TROPONIN
--- NOTE | 2018-05-16 17:49 | NUR ---
PAGED DR HOBBS WITH RESULTS OF TROPONIN. NO NEW ORDERS. PT C/O BACK PAIN. GAVE NORCO REQUESTED.
[2018-05-17] VITALS (22 sets, daily range): BP systolic 129–167; BP diastolic 66–94; BMI 23.7
[2018-05-17 05:43] LABS: BASOPHILS 0.6 % (0-2); EOSINOPHILS 0.7 % (0-7); HEMATOCRIT 36.7 % (42.0-54.0); HEMOGLOBIN 12.3 g/dL (13.5-17.5); IMMATURE GRANULOCYTES 0.7 % (0-5); LYMPHOCYTES 11.5 % (15-50); MCHC 33.5 g/dL (31.0-37.0); MCV 104.6 fL (80.0-100.0); MEAN PLATELET VOLUME 12.2 fL (7.4-10.4); MONOCYTES 8.2 % (2-11); NEUTROPHILS 78.3 % (40-80); PLATELET COUNT 410 10x3/uL (130-400); RBC 3.51 10x6/uL (4.20-6.10); RDW 14.5 % (11.5-14.5); WBC 12.2 10x3/uL (4.8-10.8)
[2018-05-17 05:53] LABS: INR 1.44 (0.85-1.17)
--- NOTE | 2018-05-17 06:00 | NUR ---
PT UP TO BATHROOM WITH ASSIST. UNABLE TO HAVE BM. ASSISTED BACK TO BED. EXTREMELY SOB WITH EXERTION. PT STATES THAT THIS HAS BEEN NORMAL DUE TO HIS COPD.
[2018-05-17 06:18] LABS: ALBUMIN 2.1 g/dL (3.4-5.0); ALKALINE PHOSPHATASE 99 U/L (46-116); BILIRUBIN - TOTAL 1.99 mg/dL (0.2-1.3); CARBON DIOXIDE 21.2 mmol/L (21.0-32.0); CHLORIDE - SERUM 101 mmol/L (98-107); PROTEIN - SERUM 6.3 g/dL (6.4-8.2); SODIUM 134 mmol/L (136-145); UREA NITROGEN 23 mg/dL (7-18)
[2018-05-17 06:45] LABS: CALC OSMOLALITY 270 mosm/kg (275-300); CREATININE - SERUM 0.8 mg/dL (0.6-1.3); GLUCOSE 86 mg/dL (74-106); POTASSIUM - SERUM 4.5 mmol/L (3.5-5.1); eGFR NON AFRICAN AMERICAN > 90 mL/min (90-120)
[2018-05-17 06:46] LABS: ALT (SGPT) 1248 U/L (10-68)
--- NOTE | 2018-05-17 07:10 | NUR ---
AWAKES EASILY TO VERBAL STIMULI, ALERT NO DISTRESS NOTED. STATES HE IS HURTING IN BACK, ARMS AND LEGS. TAKING ICE CHIPS. MONITOR UNCONTROLLED ATRIAL FIB. SKIN WARM AND DRY. IV RIGHT WRIST WITHOUT REDNESS OR SWELLING INFUSING WITH NS AT 100ML HOUR AND PROTONIX AT 8 MG HOUR. ANXIOUS ANTSY ACTING. WASHBURN CATH PATENT DRAINING DARK EARL URINE.
--- NOTE | 2018-05-17 08:00 | NUR ---
PO MEDS TAKEN WITHOUT DIFFICULTY.UP TO BSC PASSING ALOT OF GAS. NO BM. REMINDED HE HAD A PAIN PILL 2 HOURS AGO, IT WILL BE 4 HOURS BEFORE HE CAN HAVE MORE PAIN MEDS. VERBALIZED UNDERSTANDING. STATES HE IS GOING TO TAKE A NAP
--- NOTE | 2018-05-17 10:00 | NUR ---
ADMITS TO DRINKING 3 DAYS OUT OF THE WEEK. WHEN HE DRINKS HE DRINKS TOO MUCH. STATES HE WAS OFF THE WAGON, BEEN BACK ON IT FOR 3 MONTHS. DRY COUGH.
--- NOTE | 2018-05-17 11:00 | NUR ---
PATIENT STATES HE IS A PATEINT OF DR. HUNTER. NOTIFIED STATES TO CALL DR. HUNTER AND LET HIM KNOW PATIENT HAS BEEN SEEN TODAY. DR. HUNTER OFFICE CALLED STATES THAT HE IS A PATEINT OF DR. BISHNU RAMOS APN COMMERCIAL UNDERWRITER PHYSICIAN NOITIFIED OF PATIENT ADMIT, REPORT GIVEN TO DR. GOETZ HE WILL SEE PATIENT TOMORROW.
--- NOTE | 2018-05-17 13:00 | NUR ---
SHAKEY, VERY TALKATIVE. ASKED IF WAS MORE SHAKEY AND NERVOUS THAN USUALLY HE ADMITS HE IS. ATIVAN 1 MG IV GIVEN.
--- NOTE | 2018-05-17 14:00 | NUR ---
eyes closes resp deep and regular. allowing patient to rest
--- NOTE | 2018-05-17 15:00 | NUR ---
patient resting with eyes closed resp deep and regular no distress.
--- NOTE | 2018-05-17 15:43 | MORECARE ---
CASE MANAGEMENT DISCHARGE SUMMARY PATIENT: CHRISTIAN MURILLO UNIT: [id number] ADM DATE: 05/16/18 AGE: 57 : 60 SEX: M [facility] AUTHOR: ALLISON FERGUSON PHYSICIAN: REFERRING PHYSICIAN: CHIN GOETZ MD DATE OF SERVICE: 05/17/18 Discharge Plan Patient Name: CHRISTIAN MURILLO [facility] [facility] 1960 Planned Disposition: Anticipated Discharge Date: Discharge Date: Expected LOS: Initial Reviewer: [email or web address] Initial Review Date: 05/16/2018 Generated: 05/17/18 4:43 pm Patient Name: CHRISTIAN MURILLO Page 58069 at 1543 All edits/amendments must be made on the electronic document DICTATION DATE: 05/17/18 1543 CORPORATE COMMUNICATIONS MANAGER: PILO 05/17/18 1543 RPT#: [id number] DC DATE: STATUS: ADM IN [facility] [address] [place] [address] END OF REPORT
--- NOTE | 2018-05-17 16:01 | MORECARE ---
CASE MANAGEMENT DISCHARGE SUMMARY PATIENT: CHRISTIAN MURILLO UNIT: [id number] ADM DATE: 05/16/18 AGE: 57 : 60 SEX: M ROOM/BED: D[facility] AUTHOR: ALLISON FERGUSON PHYSICIAN: REFERRING PHYSICIAN: CHIN GOETZ MD DATE OF SERVICE: 05/17/18 Discharge Plan Patient Name: CHRISTIAN MURILLO [facility] : 1960 Planned Disposition: Anticipated Discharge Date: Discharge Date: Expected LOS: Initial Reviewer: [email or web address] Initial Review Date: 05/16/2018 Generated: 05/17/18 5:01 pm DCPIA - Discharge Planning Initial Assessment Updated by [email or web address]: Mira Adams on 05/17/18 3:56 pm * Is the patient Alert and Oriented? Yes * How many steps to enter\exit or inside your home? * PCP ELSA * Pharmacy [facility] * Preadmission Environment Home with Family * ADLs Independent * Equipment Nebulizer * List name and contact numbers for known caregivers / representatives who currently or will assist patient after discharge: LENORA CASTILLO [facility]- [phone] * Verbal permission to speak to the caregivers and representatives has been obtained from the patient. N/A * Community resources currently utilized None * Additional services required to return to the preadmission environment? No * Can the patient safely return to the preadmission environment? Yes * Has this patient been hospitalized within the prior 30 days at any hospital? Yes Last DP export: 05/17/18 2:43 p Patient Name: CHRISTIAN MURILLO Page [id number] at 1601 All edits/amendments must be made on the electronic document DICTATION DATE: 05/17/18 1601 LOCKER ATTENDANT: PILO 05/17/18 1601 RPT#: [id number] IN DATE: STATUS: ADM IN [facility] [address] [place] [address] END OF REPORT
--- NOTE | 2018-05-17 16:11 | MORECARE ---
CASE MANAGEMENT DISCHARGE SUMMARY PATIENT: CHRISTIAN MURILLO UNIT: [id number] ADM DATE: 05/16/18 AGE: 57 : 60 SEX: M ROOM/BED: D[facility] AUTHOR: PHYLLIS,DOC PHYSICIAN: REFERRING PHYSICIAN: CHIN GOETZ MD DATE OF SERVICE: 05/17/18 Discharge Plan Patient Name: CHRISTIAN MURILLO Facility: [facility]:[place] : 1960 Planned Disposition: Anticipated Discharge Date: Discharge Date: Expected LOS: Initial Reviewer: [email or web address] Initial Review Date: 05/16/2018 Generated: 05/17/18 5:10 pm Comments DCP- Discharge Planning Updated by [email or web address]: Mira Adams on 05/17/18 3:[address] Patient Name: CHRISTIAN MURILLO Admission Status: ER Accout number: [id number] Admission Date: 05-16-2018 : 1960 Admission Diagnosis: Attending: CHIN GOETZ Current LOS: 1 Anticipated DC Date: Planned Disposition: Primary Insurance: MEDICAID [place] Discharge Planning Comments: CM met with patient at bedside. Patient states that he has a roommate John Stewart [phone]. Patient states he plans on return to their home upon discharge. Patient states he has a nebulizer that he uses 4 times daily. Patient denies any discharge needs at this time. CM will continue to follow and assist with discharge planning / needs. Awake Overnight Counselor: Mira Adams DCPIA - Discharge Planning Initial Assessment Updated by [email or web address]: Mria Adams on 05/17/18 3:56 pm * Is the patient Alert and Oriented? Yes * How many steps to enter\exit or inside your home? * PCP ELSA * Pharmacy [facility] * Preadmission Environment Home with Family * ADLs Independent * Equipment Nebulizer * List name and contact numbers for known caregivers / representatives who currently or will assist patient after discharge: JOHN CASTILLO - ROOMMATE- [phone] * Verbal permission to speak to the caregivers and representatives has been obtained from the patient. N/A * Community resources currently utilized None * Additional services required to return to the preadmission environment? No * Can the patient safely return to the preadmission environment? Yes * Has this patient been hospitalized within the prior 30 days at any hospital? Yes Last DP export: 05/17/18 3:01 p Patient Name: CHRISTIAN MURILLO Page [phone] at 1611 All edits/amendments must be made on the electronic document DICTATION DATE: 05/17/181609 SENIOR ACCOUNTS PAYABLE CLERK: PILO 05/17/181609 RPT#: [id number] DC DATE: STATUS: ADM IN [facility] [address] [place] [address] END OF REPORT
--- NOTE | 2018-05-17 17:00 | NUR ---
patient up to bsc still passing alot of gas. on liquid bm today.brown in color supper tray served. less restless shaky. monitor still uncontrolled atrial fib when up ambulating to bsc. rate 130-140
--- NOTE | 2018-05-17 19:21 | NUR ---
REPORT RECEIVED, SHIFT ASSESSMENT COMPLETED PER FLOW SHEET. AAOX4. PPP. RT WRIST PIV, PATENT, DRESSING C/D/I, NO SIGNS OF INFECTION OR INFILTRATION. TELEMETRY MONITORING HR 104, UNCONTROLLED A-FIB. 2 L O2 VIA NC. 02 SAT 93%. COUGH/DEEP BREATHING ENCOURAGED. STATES HE A "RARE MUSCLE DISEASE" AND STAYS IN CHRONIC PAIN, PAIN GOAL IS A 5. WATER WITH ICE PROVIDED PER HIS REQUEST. DENIES OTHER NEEDS. CALL LIGHT WITHIN REACH. WILL CONTINUE TO MONITOR. CALL LIGHT WITHIN REACH.
--- NOTE | 2018-05-17 20:33 | NUR ---
SCHEDULED MEDS GIVEN, WATER WITH ICE PROVIDED, ASSISSTED TO BATHROOM PER HIS REQUEST, LARGE LIQUID BROWN BM. ASSISSTED BACK IN BED. WATER WITH ICE PROVIDED PER HIS REQUEST. DENIES OTHER NEEDS. CALL LIGHT WITHIN REACH. WILL CONTINUE TO MONITOR.
--- NOTE | 2018-05-17 21:00 | NUR ---
NO VISITORS, DENIES NEEDS, WILL CONTINUE TO MONITOR.
--- NOTE | 2018-05-17 22:00 | NUR ---
RESTING, NO ACUTE DISTRESS NOTED, WILL CONTINUE TO MONITOR.
--- NOTE | 2018-05-17 23:17 | NUR ---
REASSESSMENT COMPLETED PER FLOW SHEET, SEE FOR DETAILS. ICE CHIPS PROVIDED PER HIS REQUEST. DENIES OTHER NEEDS. WILL CONTINUE TO MONITOR.
[2018-05-18] VITALS (26 sets, daily range): BP systolic 99–135; BP diastolic 69–97
--- NOTE | 2018-05-18 01:09 | NUR ---
PATIENT C/O PAIN, PRN NORCO GIVEN, SEE EMAR FOR DETAILS. DENIES OTHER NEEDS. CALL LIGHT WITHIN REACH.
--- NOTE | 2018-05-18 03:12 | NUR ---
REASSESSMENT COMPLETED PER FLOW SHEET, SEE FOR DETAILS. DENIES NEEDS. CALL LIGHT WITHIN REACH. WILL CONTINUE TO MONITOR.
[2018-05-18 04:49] LABS: BASOPHILS 0.7 % (0-2); EOSINOPHILS 3.4 % (0-7); HEMATOCRIT 37.1 % (42.0-54.0); HEMOGLOBIN 12.3 g/dL (13.5-17.5); IMMATURE GRANULOCYTES 0.9 % (0-5); LYMPHOCYTES 13.9 % (15-50); MCHC 33.2 g/dL (31.0-37.0); MCV 105.7 fL (80.0-100.0); MEAN PLATELET VOLUME 12.5 fL (7.4-10.4); MONOCYTES 11.1 % (2-11); PLATELET COUNT 346 10x3/uL (130-400); RBC 3.51 10x6/uL (4.20-6.10); RDW 14.2 % (11.5-14.5)
[2018-05-18 04:53] LABS: WBC 8.9 10x3/uL (4.8-10.8)
[2018-05-18 04:56] LABS: INR 1.4 (0.85-1.17); PROTIME 16.6 SECONDS (11.6-15.0)
--- NOTE | 2018-05-18 05:00 | NUR ---
DENIES NEEDS, CALL LIGHT WITHIN REACH, WILL CONTINUE TO MONITOR.
[2018-05-18 05:12] LABS: ALBUMIN 1.8 g/dL (3.4-5.0); ALKALINE PHOSPHATASE 104 U/L (46-116); BILIRUBIN - TOTAL 2.16 mg/dL (0.2-1.3); CALCIUM 7.5 mg/dL (8.5-10.1); CARBON DIOXIDE 25.8 mmol/L (21.0-32.0); CHLORIDE - SERUM 102 mmol/L (98-107); CREATININE - SERUM 0.7 mg/dL (0.6-1.3); GLUCOSE 90 mg/dL (74-106); POTASSIUM - SERUM 4.1 mmol/L (3.5-5.1); PROTEIN - SERUM 5.7 g/dL (6.4-8.2); SODIUM 134 mmol/L (136-145); eGFR NON AFRICAN AMERICAN > 90 mL/min (90-120)
[2018-05-18 05:13] LABS: ALT (SGPT) 717 U/L (10-68); CALC OSMOLALITY 269 mosm/kg (275-300); UREA NITROGEN 17 mg/dL (7-18)
[2018-05-19] VITALS (28 sets, daily range): BP systolic 104–145; BP diastolic 60–99
[2018-05-19 06:46] LABS: BASOPHILS 0.5 % (0-2); EOSINOPHILS 3.2 % (0-7); HEMATOCRIT 31.4 % (42.0-54.0); HEMOGLOBIN 10.5 g/dL (13.5-17.5); IMMATURE GRANULOCYTES 0.6 % (0-5); LYMPHOCYTES 13.2 % (15-50); MCH 35.4 pg (26.0-34.0); MCHC 33.4 g/dL (31.0-37.0); MCV 105.7 fL (80.0-100.0); MEAN PLATELET VOLUME 12.6 fL (7.4-10.4); MONOCYTES 12.9 % (2-11); NEUTROPHILS 69.6 % (40-80); RBC 2.97 10x6/uL (4.20-6.10); RDW 14.4 % (11.5-14.5); WBC 10.3 10x3/uL (4.8-10.8)
[2018-05-19 07:02] LABS: PLATELET COUNT 212 10x3/uL (130-400)
--- NOTE | 2018-05-19 08:29 | NUR ---
assisted pt to bsc for stool. breakfast tray served and pt feeds self with out problems.
--- NOTE | 2018-05-19 11:02 | NUR ---
Nutrition Follow Up: Chart reviewed. Pt's nausea has improved. Diet: Regular PO Intake: 40% meal avg I>O BM: 05/17/18 Labs reviewed Meds noted including Lactulose Rec continue regular diet as tolerated. Will continue to honor food preferences and offer supplements prn. RD following.
[2018-05-19 11:46] LABS: ALBUMIN 1.9 g/dL (3.4-5.0); ALKALINE PHOSPHATASE 136 U/L (46-116); BILIRUBIN - TOTAL 2.21 mg/dL (0.2-1.3); CALC OSMOLALITY 276 mosm/kg (275-300); CALCIUM 7.8 mg/dL (8.5-10.1); CARBON DIOXIDE 28.5 mmol/L (21.0-32.0); CHLORIDE - SERUM 104 mmol/L (98-107); CREATININE - SERUM 0.8 mg/dL (0.6-1.3); GLUCOSE 102 mg/dL (74-106); POTASSIUM - SERUM 3.5 mmol/L (3.5-5.1); PROTEIN - SERUM 6.2 g/dL (6.4-8.2); SODIUM 138 mmol/L (136-145); UREA NITROGEN 16 mg/dL (7-18); eGFR NON AFRICAN AMERICAN > 90 mL/min (90-120)
[2018-05-19 11:47] LABS: ALT (SGPT) 421 U/L (10-68)
--- NOTE | 2018-05-19 12:11 | EC ---
PATIENT:CHRISTIAN MURILLO DATE OF SERVICE: 05/16/18 SEX: M MEDICAL RECORD: [id number] DATE OF : [birth year] LOCATION:[place] [address] AGE OF PATIENT: 57 ADMISSION DATE: 05/16/18 REFERRING PHYSICIAN: INTERPRETING PHYSICIAN: JERE ZALDIVAR MD ECHOCARDIOGRAM REPORT ECHO CHARGES 4 ECHO COMPLETE Date: 05/16/18 CLINICAL DIAGNOSIS: SVT ECHOCARDIOGRAPHIC MEASUREMENTS (adult normal given) AC root (d.<3.7cm) 3.7 cm LV Septum d (<1.2 cm> 0.8 cm Valve Excursion 1.1 cm LV Septum (systole) 1.1 cm Left Atria (s.<4.0cm> 3.8 cm LVPW d(<1.2cm) 1.1 cm RV (d.<2.3cm) 3.2 cm LVPW (sytole) 1.3 cm LV diastole(<5.6CM) 6.0 cm MV E-F(>70mm/sec) cm LV systole 5.3 cm LVOT Diameter 1.8 cm MV exc.(>10mm) cm Est.ejection fraction (50-75%) % DOPPLER: LVIT cm/sec A cm/sec E 101 cm/sec LA cm/sec RVSP 21.4 mmHg LVOT 83 cm/sec AOP1/2T m/s Asc. Ao 147 cm/sec RVOT cm/sec RA cm/sec PA cm/sec AV Gradient Peak 8.7 mmHg AV Mean 6.6 mmHg AV Area 1.7 cm MV Gradient Peak 5.4 mmHg MV Mean 2.6 mmHg MV Area cm COMMENTS: Vehicle Calibration Engineer: [facility] R[facility] Med [facility]urg: 1 Dr. Zaldivar TAPE# PACS Pericardial Effusion N DATE OF SERVICE: 05/16/2018 DATE OF SERVICE: 05/16/2018 ECHOCARDIOGRAM FINDINGS: 1. Left ventricular chamber size is within normal limits. Left ventricular systolic function is normal. Overall ejection fraction estimated at 60%. 2. Left atrium is within normal limits at 4.0 cm. Right atrium and right ECHOCARDIOGRAM REPORT [id number] CHRISTIAN MURILLO ventricle chamber sizes are mildly dilated. 3. Valvular structures have normal structure and motion. 4. Doppler interrogation reveals mild mitral regurgitation, mild tricuspid regurgitation, no other valvular insufficiency or stenosis. Pulmonary systolic pressure is normal estimated at 21 mmHg. 5. No evidence of pericardial effusion or left ventricular thrombus. TRANSINT:[id number] Voice Confirmation ID: [id number] DOCUMENT ID: [id number] JERE ZALDIVAR MD at 1211 CC: [id number] DICTATION DATE: 05/17/18 1009 KNIT GOODS CUTTER HAND: 05/17/[address] [facility] [address] [place] [id number]
[2018-05-19 12:17] LABS: INR 4.27 (0.85-1.17); PROTIME 40.2 SECONDS (11.6-15.0)
--- NOTE | 2018-05-19 15:38 | NUR ---
1100-WITNESSED FALL. ASSISTED BACK TO BED. INSICENT REPORT FILED. PHYSICIAN NOTIFIED. ASSESSMENT OF PT REVEALS NO OBVIOUS INJURY. PT DENIES PAIN.
--- NOTE | 2018-05-19 16:43 | NUR ---
PT WHEEZING . SPO2 93%. SL SOB. CALLED AND REPORTED TO DR GONGORA. REC'D NEW ORDERS.
--- NOTE | 2018-05-19 18:38 | NUR ---
PT RESTING COMFORTABLY NOW. AWAKENS EASILY.
[2018-05-20] VITALS (21 sets, daily range): BP systolic 96–150; BP diastolic 67–96
[2018-05-20 04:14] LABS: BASOPHILS 0.3 % (0-2); EOSINOPHILS 2.3 % (0-7); IMMATURE GRANULOCYTES 0.5 % (0-5); LYMPHOCYTES 13.5 % (15-50); MCH 35.8 pg (26.0-34.0); MCHC 34.6 g/dL (31.0-37.0); MONOCYTES 13.2 % (2-11); NEUTROPHILS 70.2 % (40-80); RDW 14.2 % (11.5-14.5); WBC 10.3 10x3/uL (4.8-10.8)
[2018-05-20 04:19] LABS: HEMATOCRIT 38.7 % (42.0-54.0); HEMOGLOBIN 13.4 g/dL (13.5-17.5); MCV 103.5 fL (80.0-100.0); PLATELET COUNT 316 10x3/uL (130-400); RBC 3.74 10x6/uL (4.20-6.10)
[2018-05-20 04:29] LABS: ALBUMIN 1.6 g/dL (3.4-5.0); ALKALINE PHOSPHATASE 119 U/L (46-116); BILIRUBIN - TOTAL 2.35 mg/dL (0.2-1.3); CALCIUM 7.3 mg/dL (8.5-10.1); CARBON DIOXIDE 28.1 mmol/L (21.0-32.0); CHLORIDE - SERUM 101 mmol/L (98-107); CREATININE - SERUM 0.7 mg/dL (0.6-1.3); GLUCOSE 94 mg/dL (74-106); POTASSIUM - SERUM 3.3 mmol/L (3.5-5.1); PROTEIN - SERUM 5.3 g/dL (6.4-8.2); SODIUM 136 mmol/L (136-145); eGFR NON AFRICAN AMERICAN > 90 mL/min (90-120)
[2018-05-20 04:34] LABS: ALT (SGPT) 268 U/L (10-68); CALC OSMOLALITY 269 mosm/kg (275-300); UREA NITROGEN 8 mg/dL (7-18)
[2018-05-20 04:54] LABS: INR 1.28 (0.85-1.17); PROTIME 15.5 SECONDS (11.6-15.0)
--- NOTE | 2018-05-20 07:00 | NUR ---
REC'D CARE OF PT. PLEASANTLY CONFUSED. REORIENTED TO TIME. DENIES NEEDS. REFUSED BREAKFAST TRAY. REQUESTED H2O AND OJ. OBLIGED.
--- NOTE | 2018-05-20 09:00 | NUR ---
RESTING WITH EYES CLOSED. RESPONSE TO VERBAL STIMULI. REMAINS LETHARGIC.
--- NOTE | 2018-05-20 10:00 | NUR ---
REPORT CALLED TO WANDA RODRIGUEZ RN.
--- NOTE | 2018-05-20 10:10 | NUR ---
TRANSPORTED TO ROOM 2311 VIA BED. TRANSFERED OVER TO ICU BED UPON ARRIVAL AND BROUGHT CVICU BED BACK TO ROOM CV04.
--- NOTE | 2018-05-20 10:22 | NUR ---
ARRIVED TO UNIT AT THIS TIME FROM CVICU. PT ABLE TO TRANSFER SELF FROM BED TO BED. ORIENTED X 4. BED ALARM ON. NO ACUTE DISTRESS NOTED. RECIEVED PT WITH ALL PERSONAL ITEMS. WILL CONTINUE PLAN OF CARE.
--- NOTE | 2018-05-20 10:33 | NUR ---
CALLED ANSWERING SERVICE FOR DR. GOETZ. DR. GONGORA IS COLLATOR. I HAD THEM TO PAGE HIM SO I CAN UPDATE ABOUT MOVINMG TO ROOM 7443.
--- NOTE | 2018-05-20 14:10 | NUR ---
REPORT TO RECIEVING NURSE, STATED ROOM IS NOT CLEAN YET. WAIITING TO TRANSFER PT FOR WHEN ROOM IS CLEAN. NO ACUTE DISTRESS NOTED. WILL CONTINUE PLAN OF CARE.
--- NOTE | 2018-05-20 14:15 | NUR ---
PER DR ORTEGA, ORDER CHLORASEPTIC SPRAY FOR PTS SORE THROAT, ALSO WHEN PT TRANSFERS MAKE SURE THEY ARE ON TELEMETRY.
--- NOTE | 2018-05-20 16:55 | NUR ---
PER DR GAGNON CANCEL TRANSFER. PT CURRENTLY ATTEMPTING TO EAT SUPPER WITH USE OF ACCESSORY MUSCLES, HEART RATE UP TO 127 SINUS TACH, TEMP 100.3. WILL CONTINUE PLAN OF CARE.
--- NOTE | 2018-05-20 18:10 | NUR ---
DR GONGORA CALLED AND NOTIFIED OF UPDATES; PT HEART RATE UP TO 127 SINUS TACH, TEMP 100.6, RESPIRATIONS UPPER 20S TO LOWER 30S, 99% ON ROOM AIR. ORDERS RECIEVED FOR UA C&S ALSO TYLENOL. ORDERS PLACED. WILL CONTINUE PLAN OF CARE.
--- NOTE | 2018-05-20 19:38 | NUR ---
ATTEMPTED TO START SECOND IV FOR PT TO RECIEVE ANTIBIOTICS AND OTHER ADDITIONAL MEDS, ATTEMPTED NEW IV X 2 TO LT AND RT FOREARMS, RECIEVED FLASH WHEN ATTEMPTING TO RESTART IV HOWEVER BOTH TIMES PTS VEINS BLEW. RECIEVING NURSE NOTIFED TO ALLOW A SECOND NURSE TO ATTEMPT PER HOSPITAL POLICY.
--- NOTE | 2018-05-20 19:40 | NUR ---
REPORT REC'D AND CARE ASSUMED, REC'D PT ON O2 @ 2LITERS VIA NC, LEFT UPPER ARM PIV WITH BANANA BAG @ 125CC/HR, 22 GAUGE IV ATTEMPTED TO LEFT FOREARM WITHOUT SUCCESS, PT IRRITATED WITH STAFF ATTEMPTING TO START 2ND PIV, WILL GIVE PT A BREAK AND TRY AGAIN SHORTLY, PT ALERT AND ORIENTED X 4, WASHBURN PATENT DRAINING EARL COLORED URINE, PPP, BED IN LOW POSITION, CALL LIGHT IN REACH.
--- NOTE | 2018-05-20 20:00 | NUR ---
NO VISITORS IN AT THIS TIME
[2018-05-20 20:04] LABS: APPEARANCE CLEAR (CLEAR); BILIRUBIN NEGATIVE (NEGATIVE); COLOR YELLOW (YELLOW); GLUCOSE NEGATIVE (NEGATIVE); KETONE NEGATIVE (NEGATIVE); NITRITE NEGATIVE (NEGATIVE); PROTEIN NEGATIVE (NEGATIVE); SPECIFIC GRAVITY 1.005 (1.005-1.020); UROBILINOGEN NORMAL (NORMAL)
[2018-05-20 20:05] LABS: BACTERIA FEW /hpf (NONE SEEN); RED CELLS - URINE >50 /hpf (0-5); WHITE CELLS - URINE 0-5 /hpf (0-5)
--- NOTE | 2018-05-20 20:40 | NUR ---
SUPERVISOR FORMING AND TEMPERING NOTIFIED OF NEED FOR ANTIBIOTIC, 20GAUGE ATTEMPTED TO LEFT FOREARM, FLASH NOTED BUT WOULD NOT ADVANCE, PT STATES " THEY USUALLY USE A BUTTERFLY", EXPLAINED TO PT THAT A BUTTERFLY COULD NOT BE USED DUE TO IT NEEDING TO BE LEFT IN, IV'S HAVE BEEN ATTEMPTED BY AM AND PM SHIFT, MANNIFOLD PLACED TO LEFT UPPER ARM PIV.
--- NOTE | 2018-05-20 22:20 | NUR ---
EVENING MEDS GIVEN, PT HAD NO DIFFICULTY TAKING MEDICATION, DENIES PAIN OR NEEDS AT THIS TIME.
--- NOTE | 2018-05-20 23:00 | NUR ---
REASSESSMENT COMPLETED, PT RESTING IN BED EYES CLOSED, VSS, NO DISTRESS NOTED, WILL CONT TO MONITOR
[2018-05-21] VITALS (24 sets, daily range): BP systolic 110–143; BP diastolic 73–99
--- NOTE | 2018-05-21 02:00 | NUR ---
NO CHANGES IN STATUS AT THIS TIME.
--- NOTE | 2018-05-21 03:30 | NUR ---
REASSESSMENT COMPLETED, PT AWAKE REQUESTING MILK, MILK PROVIDED, NO CHANGES FROM PREVIOUS ASSESSMENT, WILL CONTINUE TO MONITOR FOR CHANGES.
[2018-05-21 04:07] LABS: BASOPHILS 0.2 % (0-2); EOSINOPHILS 0.1 % (0-7); HEMATOCRIT 42.4 % (42.0-54.0); HEMOGLOBIN 14.4 g/dL (13.5-17.5); IMMATURE GRANULOCYTES 0.6 % (0-5); LYMPHOCYTES 6.2 % (15-50); MCH 35.4 pg (26.0-34.0); MCV 104.2 fL (80.0-100.0); MEAN PLATELET VOLUME 12.1 fL (7.4-10.4); MONOCYTES 3.9 % (2-11); PLATELET COUNT 289 10x3/uL (130-400); RBC 4.07 10x6/uL (4.20-6.10); RDW 14.4 % (11.5-14.5); WBC 9.9 10x3/uL (4.8-10.8)
--- NOTE | 2018-05-21 04:20 | NUR ---
LAB AT FOR AM LAB DRAW.
[2018-05-21 04:23] LABS: ALBUMIN 1.6 g/dL (3.4-5.0); ALKALINE PHOSPHATASE 121 U/L (46-116); ALT (SGPT) 190 U/L (10-68); BILIRUBIN - TOTAL 2.47 mg/dL (0.2-1.3); CALC OSMOLALITY 274 mosm/kg (275-300); CALCIUM 7.6 mg/dL (8.5-10.1); CARBON DIOXIDE 26.5 mmol/L (21.0-32.0); CHLORIDE - SERUM 103 mmol/L (98-107); CREATININE - SERUM 0.6 mg/dL (0.6-1.3); GLUCOSE 132 mg/dL (74-106); MAGNESIUM - SERUM 1.8 mg/dL (1.8-2.4); PHOSPHOROUS 2.7 mg/dL (2.5-4.9); PROTEIN - SERUM 5.8 g/dL (6.4-8.2); SODIUM 137 mmol/L (136-145); UREA NITROGEN 9 mg/dL (7-18); eGFR NON AFRICAN AMERICAN > 90 mL/min (90-120)
[2018-05-21 04:31] LABS: INR 1.32 (0.85-1.17); PROTIME 15.8 SECONDS (11.6-15.0)
--- NOTE | 2018-05-21 06:30 | NUR ---
AM MEDS GIVEN ORDERED, PT DENIES NEEDS, VSS, SR UP X 2, VISIBLE TO NURSES STATION, CALL LIGHT IN REACH.
--- NOTE | 2018-05-21 07:46 | NUR ---
LYING IN BED RESTING AT THIS TIME. NO ACUTE DISTRESS NOTED. RESPIRATIONS STEADY AND UNLABORED. AWAKENS EASILY WHEN SPOKEN TO. REPOSITIONS SELF IN BED FREQUENTLY. WILL CONTINUE PLAN OF CARE.
--- NOTE | 2018-05-21 08:53 | NUR ---
WILL ADMIN SCHEDULED VANC WHEN ZOSYN RUN IS COMPLETE.
--- NOTE | 2018-05-21 10:14 | NUR ---
LYING IN BED RESTING WITH EYES CLOSED. NO ACUTE DISTRESS NOTED. RESPIRATIONS STEADY AND UNLABORED. AWKENS EASILY WHEN SPOKEN TO. WILL CONTINUE PLAN OF CARE.
--- NOTE | 2018-05-21 11:38 | NUR ---
SPOKE WITH PTS NEPHEW AFTER CONFIRMING WITH PT WHO STATED IT IS OKAY TO GIVE HIM INFORMATION REGARDING PATIENT UPDATE. PT ALSO STATED TO GIVE HIS NEPHEW THE CALL IN CODE. EMERGENCY CONTACT CONFIRMED [facility] PTS NEPHEW WHO STATED PTS X IS THE BEST PERSON TO GET IN CONTACT WITH SINCE PT SISTER IS NOT READILY AVALIABLE AT THE PHONE. STATED PT HAS NO CHILDREN AND ONLY A SISTER. WILL CONTINUE PLAN OF CARE.
--- NOTE | 2018-05-21 12:12 | NUR ---
CONTINENT BOWEL MOVEMENT AT THIS TIME VIA BEDSIDE TOILET. BOWEL MOVEMENT WAS SOFT BROWN, LARGE. PT PROVIDED OWN BRENT CARE AND WASHBURN CARE. TRANSFERRED VIA STAND BY ASSIST. NO ACUTE DISTRESS NOTED. WILL CONTINUE PLAN OF CARE.
--- NOTE | 2018-05-21 14:44 | NUR ---
UP IN BED VISITING WITH FAMILY AT THIS TIME. NO ACUTE DISTRESS NOTED. WILL CONTINUE PLAN OF CARE.
--- NOTE | 2018-05-21 16:40 | NUR ---
NO ACUTE DISTRESS NOTED. NO CHANGE. PT UP IN BED VISITING [facility]. WILL CONTINUE PLAN OF CARE.
--- NOTE | 2018-05-21 18:41 | NUR ---
LYING IN BED RESTING WITH EYES CLOSED. NO ACUTE DISTRESS NOTED. RESPIRATIONS STEADY AND UNLABORED. DENIES ANY NEEDS. WILL CONTINUE PLAN OF CARE.
--- NOTE | 2018-05-21 19:14 | NUR ---
REPORT RECEIVED, CARE ASSUMED. INITIAL ASSESSMENT COMPLETED, SEE FLOWSHEET. PT IS REQUESTING PAIN MEDICATION, MEDICATION GIVEN. NO SIGNS OF ACUTE DISTRESS. WILL CONTINUE TO MONITOR.
--- NOTE | 2018-05-21 21:14 | NUR ---
PT LAYING IN BED AT THIS TIME. PT REQUESTED A SANDWHICH AND SOME MILK. PROVIDED PER REQUEST. NO FURTHER NEEDS VOICED. NO SIGNS OF ACUTE DISTRESS. WILL CONTINUE TO MONITOR.
--- NOTE | 2018-05-21 23:15 | NUR ---
REASSESSMENT COMPLETED, SEE FLOWSHEET. PT IS RESTING IN BED WITH EYES CLOSED. PT AWAKENS EASILY UPON ENTERING ROOM. NO NEEDS VOICED AT THIS TIME. NO SIGNS OF ACUTE DISTRESS. WILL CONTINUE TO MONITOR.
[2018-05-22] VITALS (24 sets, daily range): BP systolic 94–160; BP diastolic 46–125; Ht 185.4 cm; Wt 92.5 kg
--- NOTE | 2018-05-22 01:15 | NUR ---
PT HAD A LARGE LOOSE BM. PT RESTING IN BED AT THIS TIME WITH EYES CLOSED. NO SIGNS OF ACUTE CHANGES. NO NEEDS VOICED. WILL CONTINUE TO MONITOR.
--- NOTE | 2018-05-22 03:12 | NUR ---
REASSESSMENT COMPLETED, SEE FLOWSHEET. NO ACUTE CHANGES NOTED. NO SIGNS OF ACUTE DISTRESS. PT IS RESTING IN BED WITH EYES CLOSED AT THIS TIME. NO NEEDS VOICED. WILL CONTINUE TO MONITOR.
[2018-05-22 04:13] LABS: BASOPHILS 0.1 % (0-2); EOSINOPHILS 0 % (0-7); HEMATOCRIT 38.1 % (42.0-54.0); HEMOGLOBIN 12.9 g/dL (13.5-17.5); IMMATURE GRANULOCYTES 0.7 % (0-5); LYMPHOCYTES 3.7 % (15-50); MCH 35.1 pg (26.0-34.0); MCHC 33.9 g/dL (31.0-37.0); MCV 103.8 fL (80.0-100.0); MEAN PLATELET VOLUME 12.1 fL (7.4-10.4); MONOCYTES 5.1 % (2-11); NEUTROPHILS 90.4 % (40-80); PLATELET COUNT 339 10x3/uL (130-400); RBC 3.67 10x6/uL (4.20-6.10); RDW 14.7 % (11.5-14.5)
[2018-05-22 04:17] LABS: WBC 17.7 10x3/uL (4.8-10.8)
[2018-05-22 04:21] LABS: INR 1.18 (0.85-1.17); PROTIME 14.5 SECONDS (11.6-15.0)
[2018-05-22 04:39] LABS: ALBUMIN 1.7 g/dL (3.4-5.0); ALKALINE PHOSPHATASE 147 U/L (46-116); ALT (SGPT) 145 U/L (10-68); BILIRUBIN - TOTAL 0.98 mg/dL (0.2-1.3); CALC OSMOLALITY 275 mosm/kg (275-300); CALCIUM 7.5 mg/dL (8.5-10.1); CARBON DIOXIDE 26.4 mmol/L (21.0-32.0); CHLORIDE - SERUM 104 mmol/L (98-107); CREATININE - SERUM 0.7 mg/dL (0.6-1.3); GLUCOSE 137 mg/dL (74-106); PROTEIN - SERUM 5.7 g/dL (6.4-8.2); SODIUM 136 mmol/L (136-145); UREA NITROGEN 17 mg/dL (7-18); eGFR NON AFRICAN AMERICAN > 90 mL/min (90-120)
--- NOTE | 2018-05-22 05:12 | NUR ---
PT IS RESTING IN BED WITH EYES CLOSED. NO SIGNS OF ACUTE DISTRESS. NO NEEDS VOICED OR NOTED. WILL CONTINUE TO MONITOR.
--- NOTE | 2018-05-22 07:00 | NUR ---
REC'D REPORT AND RESUMED CARE, AAO, SHOWING SINUS TACH ON MONITOR, OTHER VSS, ASSESSMENT COMPLETED PER FLOWSHEET, C/O PAIN 910 IN BACK, TIMING TO REGIVE MEDS TO SOON, REPOSITIONED UP IN BED, CALL LIGHT IN REACH, NO OTHER NEEDS AT THIS TIME
--- NOTE | 2018-05-22 09:15 | NUR ---
MORNING MEDS GIVEN PER FLOWSHEET, TOLERATED WITHOUT DIFFICULTY, 2 MG MORPHINE FOR PAIN 12/26 GIVEN PER PRN ORDER
--- NOTE | 2018-05-22 09:40 | NUR ---
VANCOMYCIN TROUGH WAS LOW AT 5.5 WILL INCREASE THE INTERVAL TO 1 GRAM Q8H. CRCL >100
--- NOTE | 2018-05-22 09:42 | NUR ---
NUTRITION F/U PT REPORTS TOLERATING BREAKFAST BUT INTAKE POOR THIS AM. STATES HE DID FILL OUT MENU FOR PREFERENCES. RD FOLLOWING
--- NOTE | 2018-05-22 11:00 | NUR ---
RESTING WITH NO SIGN OF DISTRESS, VSS, NO ACUTE CHANGE FROM PREVIOUS ASSESSMENT
--- NOTE | 2018-05-22 11:15 | NUR ---
PICC LINE PLACE TO RIGHT UPPER ARM BY VASCULAR ACCESS NURSE, CXR ORDERED
--- NOTE | 2018-05-22 11:45 | NUR ---
LUNCH TRAY TO BEDSIDE, INDEPENDENT WITH SET UP AND EATING
--- NOTE | 2018-05-22 12:30 | NUR ---
ROOM MATE AT BEDSIDE, STATUS UPDATED BY PATIENT, NO NEEDS AT THIS TIME
--- NOTE | 2018-05-22 15:00 | NUR ---
RESTING WITH NO SIGNS OF DISTRESS, VSS, CALL LIGHT IN REACH, NO NEEDS AT THIS TIME
--- NOTE | 2018-05-22 17:15 | NUR ---
DR SANTOS AT BEDSIDE, CLIPPED TOE NAILS, PROCEDURE TOLERATED BY PATIENT
--- NOTE | 2018-05-22 19:02 | NUR ---
REPORT RECEIVED, CARE ASSUMED. PT IS SITTING UP IN BED WATCHING TV. REQUESTED PAIN MEDICATION AND SOMETHING TO SLEEP. PRN MEDICATIONS PROVIDED. NO SIGNS OF ACUTE DISTRESS. WILL CONTINUE TO MONITOR.
--- NOTE | 2018-05-22 21:02 | NUR ---
PT RESTING IN BED WATCHING TV AT THIS TIME. HEART RATE IS ELEVATED. WILL CONTINUE TO MONITOR CLOSELY.
--- NOTE | 2018-05-22 23:04 | NUR ---
REASSESSMENT COMPLETED, SEE FLOWSHEET. NO ACUTE CHANGES NOTED. PT'S HEART RATE IS ELEVATED STILL, SUSTAINING IN THE 140'S WILL NOTIFY CARDIO.
--- NOTE | 2018-05-22 23:45 | NUR ---
DR HDEZ PAGED REGARDING PT'S SUSTAINED ELEVATED HEART RATE. ORDERS RECEIVED. NO NEEDS NOTED AT THIS TIME. WILL CONTINUE TO MONITOR.
[2018-05-23] VITALS (19 sets, daily range): BP systolic 107–166; BP diastolic 82–128
--- NOTE | 2018-05-23 01:04 | NUR ---
PT RESTING IN BED WITH EYES CLOSED AT THIS TIME. NO ACUTE CHANGES NOTED AT THIS TIME. PT VOICES NO NEEDS. NO SIGNS OF ACUTE DISTRESS. WILL CONTINUE TO MONITOR.
--- NOTE | 2018-05-23 03:04 | NUR ---
REASSESSMENT COMPLETED, SEE FLOWSHEET. PT RESTING IN BED WITH EYES CLOSED. NO ACUTE CHANGES NOTED. NO SIGNS OF ACUTE DISTRESS. HEART RATE HAS LOWERED. WILL CONTINUE TO MONITOR CLOSELY.
--- NOTE | 2018-05-23 05:04 | NUR ---
PT RESTING IN BED WITH EYES CLOSED. NO SIGNS OF ACUTE CHANGES. VSS. NO SIGNS OF ACUTE DISTRESS. WILL CONTINUE TO MONITOR.
--- NOTE | 2018-05-23 07:30 | NUR ---
DR GOETZ HERE FOR EVAL, NEW ORDER GIVEN TO ORDER NH LEVEL, IF LESS THAN 40 CHANGE LACTULOSE TO 30ML BID, PLAN IS NOT TO CHANGE PAIN MEDS AT THIS TIME
--- NOTE | 2018-05-23 07:45 | NUR ---
CALLING OUT FOR DR GOETZ WHO HAS LEFT THE UNIT, WANTING HIM TO CHANGE HIS PAIN MED, DISCUSSED WITH PATIENT THAT DR GOETZ HAS ALREADY LEFT ORDERS NOT TO CHANGE AT THIS TIME, PATIENT NOT HAPPY AND NOW WANTS TO GO OUTSIDE AND SMOKE, LET HIM KNOW THAT HE WAS NOT ABLE TO LEAVE UNIT, COOPERATIVE AT THIS TIME
--- NOTE | 2018-05-23 08:32 | NUR ---
OOB TO BEDSIDE COMMODE WITH STAND BY ASSIST, DYSPNEA ON EXERTION, HR AND BP ELEVATED
--- NOTE | 2018-05-23 09:50 | NUR ---
MORNING MEDS GIVEN PER JUN FLOWSHEET, C/O PAIN IN BACK 12/26, AND AGITATED, MORPHINE 2MG AND ATIVAN 1MG IVP GIVEN PER PRN ORDER
--- NOTE | 2018-05-23 11:00 | NUR ---
OOB TO BESIDE COMMODE WITHOUT ASSIST, REMINDED TO USE CALL LIGHT FOR ASSIST AND TO KEEP ALL HIS IV LINES STRAIGHT, VERBALIZED UNDERSTANDING, BTB WITH ASSIST, TOLERATED TRANSFER WITHOUT DIFFICULTY, NO OTHER CHANGE FROM PREVIOUS ASSESSMENT
--- NOTE | 2018-05-23 15:00 | NUR ---
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
--- NOTE | 2018-05-23 16:52 | NUR ---
DINNER TRAY TO BEDSIDE, INDEPENDENT WITH SET UP AND EATING
--- NOTE | 2018-05-23 19:04 | NUR ---
REPORT RECEIVED, CARE ASSUMED. INITIAL ASSESSMENT COMPLETED, SEE FLOWSHEET. PT IS RESTING IN BED WITH EYES CLOSED AT THIS TIME. NO SIGNS OF ACUTE DISTRESS. WILL CONTINUE TO MONITOR.
--- NOTE | 2018-05-23 21:04 | NUR ---
PT RESTING IN BED WITH EYES CLOSED AT THIS TIME. PT ASKED IF HE NEEDED TO BE DOING SOMETHING OTHER THAN JUST LAYING THERE AND WAS REASSURED THAT RIGHT NOW HE JUST NEEDS TO REST AND FEEL BETTER. PT APPEARS TO BE ORIENTED, BUT DISPLAYS SOME SIGNS OF CONFUSION. WILL CONTINUE TO MONITOR.
--- NOTE | 2018-05-23 23:05 | NUR ---
REASSESSMENT COMPLETED, SEE FLOWSHEET. PT IS RESTING IN BED WITH EYES CLOSED AT THIS TIME. NO SIGNS OF ACUTE DISTRESS. WILL CONTINUE TO MONITOR.
[2018-05-24] VITALS (24 sets, daily range): BP systolic 119–166; BP diastolic 75–128
--- NOTE | 2018-05-24 01:05 | NUR ---
PT IS RESTING IN BED WITH EYES CLOSED AT THIS TIME. NO NEEDS VOICED. NO SIGNS OF ACUTE DISTRESS. WILL CONTINUE TO MONITOR.
--- NOTE | 2018-05-24 03:04 | NUR ---
REASSESSMENT COMPLETED, SEE FLOWSHEET. PT IS RESTING IN BED WITH EYES CLOSED. NO SIGNS OF ACUTE DISTRESS. WILL CONTINUE TO MONITOR.
[2018-05-24 04:48] LABS: BASOPHILS 0 % (0-2); EOSINOPHILS 0 % (0-7); HEMATOCRIT 36.2 % (42.0-54.0); HEMOGLOBIN 12.4 g/dL (13.5-17.5); IMMATURE GRANULOCYTES 0.4 % (0-5); LYMPHOCYTES 8.2 % (15-50); MCHC 34.3 g/dL (31.0-37.0); MCV 105.2 fL (80.0-100.0); MEAN PLATELET VOLUME 11.8 fL (7.4-10.4); MONOCYTES 5.4 % (2-11); PLATELET COUNT 290 10x3/uL (130-400); RBC 3.44 10x6/uL (4.20-6.10); RDW 14.9 % (11.5-14.5); WBC 11.9 10x3/uL (4.8-10.8)
--- NOTE | 2018-05-24 05:04 | NUR ---
PT RESTING IN BED WITH EYES CLOSED. NO SIGNS OF ACUTE DISTRESS. AM LABS REVIEWED, ELECTROLYTE PROTOCOL FOLLOWED. WILL CONTINUE TO MONITOR.
[2018-05-24 05:18] LABS: ALBUMIN 1.8 g/dL (3.4-5.0); ALKALINE PHOSPHATASE 159 U/L (46-116); ALT (SGPT) 186 U/L (10-68); BILIRUBIN - TOTAL 0.82 mg/dL (0.2-1.3); CALC OSMOLALITY 284 mosm/kg (275-300); CALCIUM 7.3 mg/dL (8.5-10.1); CARBON DIOXIDE 26.6 mmol/L (21.0-32.0); CHLORIDE - SERUM 106 mmol/L (98-107); CREATININE - SERUM 0.6 mg/dL (0.6-1.3); GLUCOSE 151 mg/dL (74-106); POTASSIUM - SERUM 4.1 mmol/L (3.5-5.1); PROTEIN - SERUM 5.1 g/dL (6.4-8.2); SODIUM 141 mmol/L (136-145); UREA NITROGEN 15 mg/dL (7-18); eGFR NON AFRICAN AMERICAN > 90 mL/min (90-120)
--- NOTE | 2018-05-24 07:00 | NUR ---
REC'D REPORT AND RESUMED CARE, AA, CONFUSED RE TIMING, ASSESSMENT COMPLETE PER FLOWSHEET, BP 166/128, OTHER VSS, CARDIZEM GTT IN USE AT 5 MG//HR, CALL LIGHT IN REACH, VOICES NO NEEDS AT THIS TIME
--- NOTE | 2018-05-24 07:30 | NUR ---
BREAKFAST TRAY TO BEDSIDE, INDEPENDENT WITH SET UP AND EATING
--- NOTE | 2018-05-24 07:45 | NUR ---
DR GOETZ AT BEDSIDE FOR EVAL, NEW ORDERS GIVEN
--- NOTE | 2018-05-24 08:45 | NUR ---
CALLED TO ROOM WOULD LIKE TO HAVE ATIVAN, NEW MED ORDERED PER DR GOETZ, HALDOL 1 MG IVP GIVEN
--- NOTE | 2018-05-24 09:59 | NUR ---
SLEEPING WIHT NO SIGNS OF DISTRESS, WILL CONTINUE WITH POC
--- NOTE | 2018-05-24 10:18 | NUR ---
NUTRITION F//U PT SLEEPING. NURSING REPORTS GOOD INTAKE BREAKFAST. IS NOT DRINKING GRAPE JUICE, WILL DC FROM DIET ORDER. RD FOLLOWING
--- NOTE | 2018-05-24 11:00 | NUR ---
RESTING WITH NO SIGNS OF DISTRESS, VSS, NO C/O PAIN, ASSESSMENT COMPLETE PER FLOWSHEET, NO NEEDS AT THIS TIME
--- NOTE | 2018-05-24 19:45 | NUR ---
REC'D PT RESTING IN BED WATCHING TV, AWAKE, ALERT, ORIENTED X 3 ON ROOM AIR, CM-ST @ 115, PT COMPLAINS OF BACK PAIN, MAEE, RATING PAIN "10" ON 0-10 PAIN SCALE, BS URINAL EMPTIED OF 350CC EARL COLORED URINE, PPP, GENERALIZED EDEMA,SR UP X 2, BED IN LOW POSITION, PT INFORMED TO CALL FOR ASSISTANCE BEFORE GETTING OUT OF BED, CALL LIGHT IN REACH.
--- NOTE | 2018-05-24 20:30 | NUR ---
EVENING MEDS GIVEN, 2MG MORPHINE GIVEN AND 1MG HALDOL GIVEN SLOW IVP FOR PAIN AND ANXIETY, PT COMPLAINS OF BEING COLD, THERMOSTAT ADJUSTED IN ROOM AND WARM BLANKET PROVIDED.
--- NOTE | 2018-05-24 23:15 | NUR ---
REASSESSMENT COMPLETED, PT FOUND STANDING AT BS, STATES " I WAS TRYING TO GET TO THE POT", ASSISTED PT TO BSC, BLOOD DROPS NOTED FROM PENIS, PT STATES "THAT JUST STARTED", CALL LIGHT IN REACH, INSTRUCTED TO CALL FOR ASSISTANCE BEFORE RETURNING TO BED, VERBALIZES UNDERSTANDING.
--- NOTE | 2018-05-24 23:45 | NUR ---
PT ASSISTED BACK TO BED, PARTIAL LINEN CHANGE PROVIDED, ROUTINE MEDS GIVEN ORDERED, TEENA CRACKERS AND MILK PROVIDED FOR SNACK
[2018-05-25] VITALS (22 sets, daily range): BP systolic 132–186; BP diastolic 93–144
--- NOTE | 2018-05-25 01:00 | NUR ---
NO CHANGES IN STATUS AT THIS TIME.
--- NOTE | 2018-05-25 02:00 | NUR ---
PT COMPLAINS OF BACK PAIN REQUESTING PAIN MEDICATION, 2MG MORPHINE AND 1MG HALDOL PROVIDED SLOW IVP FOR DISCOMFORT AND ANXIETY, BP ELEVATED WILL MONITOR FOR CHANGES.
--- NOTE | 2018-05-25 03:30 | NUR ---
PT RESTING ON LEFT SIDE EYES CLOSED, RESP EVEN AND UNLABORED, WILL CONT POC
--- NOTE | 2018-05-25 05:40 | NUR ---
AM LAB DRAWN FROM PICC LINE AND SENT TO LAB, PT AWAKE REQUESTING SOMETHING TO SNACK ON, APPLESAUCE AND CRACKERS PROVIDED, PT DENIES FURTHER NEEDS, CALL LIGHT IN REACH.
[2018-05-25 06:13] LABS: BASOPHILS 0 % (0-2); EOSINOPHILS 0 % (0-7); HEMATOCRIT 36.5 % (42.0-54.0); HEMOGLOBIN 12.3 g/dL (13.5-17.5); IMMATURE GRANULOCYTES 0.4 % (0-5); LYMPHOCYTES 6.5 % (15-50); MCH 35.2 pg (26.0-34.0); MCHC 33.7 g/dL (31.0-37.0); MCV 104.6 fL (80.0-100.0); MEAN PLATELET VOLUME 11.8 fL (7.4-10.4); MONOCYTES 5.4 % (2-11); NEUTROPHILS 87.7 % (40-80); PLATELET COUNT 282 10x3/uL (130-400); RBC 3.49 10x6/uL (4.20-6.10); RDW 14.8 % (11.5-14.5); WBC 13.6 10x3/uL (4.8-10.8)
[2018-05-25 06:34] LABS: ALBUMIN 1.8 g/dL (3.4-5.0); ALKALINE PHOSPHATASE 186 U/L (46-116); BILIRUBIN - TOTAL 0.72 mg/dL (0.2-1.3); CALC OSMOLALITY 282 mosm/kg (275-300); CALCIUM 7.2 mg/dL (8.5-10.1); CARBON DIOXIDE 29.2 mmol/L (21.0-32.0); CHLORIDE - SERUM 105 mmol/L (98-107); CREATININE - SERUM 0.6 mg/dL (0.6-1.3); GLUCOSE 146 mg/dL (74-106); POTASSIUM - SERUM 3.8 mmol/L (3.5-5.1); PROTEIN - SERUM 4.9 g/dL (6.4-8.2); SODIUM 140 mmol/L (136-145); UREA NITROGEN 16 mg/dL (7-18); eGFR NON AFRICAN AMERICAN > 90 mL/min (90-120)
[2018-05-25 06:36] LABS: ALT (SGPT) 271 U/L (10-68)
--- NOTE | 2018-05-25 08:00 | NUR ---
BREAKFAST TRAY PROVIDED. DENIES ANY ADDITIONAL NEEDS. CALL LIGHT IN REACH
--- NOTE | 2018-05-25 11:07 | NUR ---
CALLED AND SPOKE WITH DR HOBBS. PT HAS ORDER FOR IV CARDIZEM. NOT INFUSING. UNSURE WHEN LAST WAS INFUSING. DR GOETZ HAD ASKED ABOUT GETTING PT OFF OF GTT. DR HOBBS AWARE PT HAD BEEN TAKEN OFF GTT SOMETIME THE PREVIOUS DAY. REVIEWED PT ORAL MEDICATIONS OF SOTOLOL AND CARDURA. NEW ORDER FOR LOPRESSOR RECEIVED.
--- NOTE | 2018-05-25 12:02 | NUR ---
PT ASSISTED TO BEDSIDE COMMODE. BM NOTED. AMBULATES WITH NO DIFFICULTY.
--- NOTE | 2018-05-25 18:31 | NUR ---
PT HEART RATE ELEVATED TO 140'S. PT C/O "HEART BEATING OUT OF MY CHEST" DR HOBBS NOTIFIED. ONE TIME DOSE OF LOPRESSOR 50MG PO ORDERED
--- NOTE | 2018-05-25 19:00 | NUR ---
PT IN BED IN LOW FOWLERS POSITION. ALERT AND ORIENTED X4. RESPIRATIONS EVEN AND UNLABORED. VITAL SIGNS STABLE AND AFEBRILE. NO VISUAL CUES OF DISTRESS NOTED. DENIES ANY OTHER NEEDS AT THIS TIME. BED LOW, SIDE RAILS UP X2. CALL LIIGHT IN REACH. WILL CONTINUE TO MONITOR.
[2018-05-26] VITALS (18 sets, daily range): BP systolic 107–170; BP diastolic 72–128
--- NOTE | 2018-05-26 01:13 | NUR ---
SHIFT ASSESSMENT DONE ON 05/25/18 AT 1900. ORIGINALLY ENTERED WRONG DATE.
--- NOTE | 2018-05-26 01:15 | NUR ---
SHIFT ASSESSMENT FOR 05/25/18 1900 WAS ENTERED MISTAKENLY ENTERED FOR 05/24/18. SHOULD BE 05/25/18.
--- NOTE | 2018-05-26 07:33 | NUR ---
VITAL SIGNS FROM 0200 05/26/17 ARE FOR PATIENT IN RM 2305.
--- NOTE | 2018-05-26 09:32 | NUR ---
NUTRITION F/U PT CURRENTLY SLEEPING. NURSING REPORTS PT WITH GOOD INTAKE BREAKFAST. WILL CONTINUE TO PROVIDE DIET, MONITOR PO INTAKE. RD FOLLOWING
--- NOTE | 2018-05-26 15:52 | NUR ---
SPOKE WITH DR HOBBS. PT STABLE TO GO TO FLOOR. ALL OTHER PHYSICIANS AGREE
--- NOTE | 2018-05-26 17:29 | NUR ---
report called to receiving nurse. pt wanted own clothes on. got self dressed. no problems. has eaten dinner.
--- NOTE | 2018-05-26 17:52 | NUR ---
TRANSFER FROM ICU BY W/C. OREINTED TO ROOM. CALL LIGHT IN REACH. WILL CONT. PLAN OF CARE.
--- NOTE | 2018-05-26 22:12 | NUR ---
INITIAL ROUNDS COMPLETEDA T1910 HRS. NO DISTRESS NOTED. ASSESSMENT COMPLETED AT 1930 HRS. A-FLUTTER PER CM HR 102. PICC TO UPPER R ARM WITH BANANA BAG AT 125CC/HR AND PIPERACIL IVAB OVER 4 HRS. IV PATENT. LUNGS DIMINISHED IN BASES BILAT. EATON. ALERT AND ORIENTED TO PERSON, PLACE AND TIME. TRACE PEDAL EDEMA. PM MEDS GIVEN INCLUDING MORPHINE IV FOR C/O CHRONIC BACK PAIN. A-FLUTTER PER CM HR 102. WILL CONTINUE TO MONITOR. SR UP X2, CALL LIGHT WITHIN REACH.
[2018-05-27] VITALS (7 sets, daily range): BP systolic 113–168; BP diastolic 70–114
--- NOTE | 2018-05-27 00:04 | NUR ---
PT RESTING WITH EYES CLOSED. RESP EVEN AND REGULAR. SR UP X2, CALL LIGHT WITHIN REACH.
--- NOTE | 2018-05-27 02:22 | NUR ---
PT RESTING WITH EYES CLOSED. RESP EVEN AND REGULAR. SR UP X2, CALL LIGHT WITHIN REACH.
--- NOTE | 2018-05-27 04:11 | NUR ---
PT RESTING WITH EYES CLOSED. RESP EVEN AND REGULAR. SR UP X2, CALL LIGHT WITHIN REACH.
[2018-05-27 04:50] LABS: HEMATOCRIT 38.6 % (42.0-54.0); HEMOGLOBIN 12.7 g/dL (13.5-17.5); MCH 34.9 pg (26.0-34.0); MCHC 32.9 g/dL (31.0-37.0); MEAN PLATELET VOLUME 11.5 fL (7.4-10.4); PLATELET COUNT 322 10x3/uL (130-400); RBC 3.64 10x6/uL (4.20-6.10); RDW 14.7 % (11.5-14.5)
[2018-05-27 04:51] LABS: WBC 17.7 10x3/uL (4.8-10.8)
[2018-05-27 04:58] LABS: CALC OSMOLALITY 278 mosm/kg (275-300); CALCIUM 7.3 mg/dL (8.5-10.1); CARBON DIOXIDE 31.5 mmol/L (21.0-32.0); CHLORIDE - SERUM 104 mmol/L (98-107); GLUCOSE 112 mg/dL (74-106); POTASSIUM - SERUM 4.3 mmol/L (3.5-5.1); SODIUM 138 mmol/L (136-145); UREA NITROGEN 18 mg/dL (7-18)
[2018-05-27 05:00] LABS: CREATININE - SERUM 0.8 mg/dL (0.6-1.3); eGFR NON AFRICAN AMERICAN > 90 mL/min (90-120)
[2018-05-27 05:22] LABS: BASOPHILS 1 % (0-2); EOSINOPHILS 2 % (0-7); LYMPHOCYTES 4 % (15-50); MONOCYTES 3 % (2-11); NEUTROPHILS 85 % (40-80); PLATELET ESTIMATE NORMAL
--- NOTE | 2018-05-27 06:23 | NUR ---
VSS THROUGHOUT NIGHT. A-FLUTTER PER CM. PT STATED NORCO AND IV MORPHINE MAKES PAIN BEARABLE. NEEDS MET; WILL CONTINUE TO MONITOR.
--- NOTE | 2018-05-27 06:52 | NUR ---
PT HAS C/O SWELLING IN HIS GROIN. L SIDE OF MONS PUBIS SWOLLEN AND TENDER TO TOUCH. DENIES DIFFICULTY URINATING. WILL CONTINUE TO MONITOR.
--- NOTE | 2018-05-27 07:30 | NUR ---
RECEIVED PT IN BED AAOX4 RESP UNLABORED C/O RT GROIN PAIN GROIN HAS RAISED AREA APPEARS SOMEWHAT LIKE A HERNIATION. DR GOETZ CALLED
--- NOTE | 2018-05-27 23:05 | NUR ---
INITIAL ORUNDS COMPLETED AT 1910 HRS. PT HAD C/O LOWER ABD PAIN. ENCOURAGED PT TO USE SHELTER CASE MANAGER. ASSESSMENT COMPLETED AT 1950 HRS. VSS. A-FLUTTER PER CM HR 124. LUNGS DIMINISHED IN BASES BILAT. SWELLING TO R INGUINAL AREA TENDER TO TOUCH. 1+ EDEMA TO LOWER L LEG. TRACE EDEMA TO R LOWER LEG. PICC LINE TO UPPER R ARM WITH NS AT 10CC/HR AND DILAUDID SHELTER CASE MANAGER 0.2MG Q10 MINUTES WITH 4MG Q4HR LO. EXPLAINED USAGE OF SHELTER CASE MANAGER. EXPLAINED DILAUDID STRONGER THAN MORPHINE. SHELTER CASE MANAGER TO PURPLE PORT. BANANA BAQG TO RED PORT. PT TO CT AT 2200 HRS. CARDIAC MEDS GIVEN IMMEDIATELY PRIOR TO LEAVING. BACK FROM CT AT 2230 HRS. A-FLUTTER PER CM HR 148. PT CURRENTLY RESTING WATCHING TV. HR NOW IN 120;S. SR UP X2, CALL LIGHT WITHIN REACH.
--- NOTE | 2018-05-28 00:11 | NUR ---
PT RESTING WITH EYES CLOSED. RESP EVEN AND REGULAR. SRUP X2, CALL LIGHT WITHIN REACH. A-FLUTTER PER CM HR 98.
--- NOTE | 2018-05-28 02:41 | NUR ---
PT RESTING WITH EYES CLOSED. RESP EVEN AND REGULAR. SR UP X2, CALL LIGHT WITHIN REACH.
[2018-05-28 03:53] VITALS: BP 144/90
--- NOTE | 2018-05-28 04:49 | NUR ---
PT RESTING WITH EYES CLOSED. RESP EVEN AND REGULAR. SR UP X2, CALL LIGHT WITHIN REACH.
[2018-05-28 05:23] LABS: BASOPHILS 0.1 % (0-2); EOSINOPHILS 0.1 % (0-7); HEMATOCRIT 36.6 % (42.0-54.0); HEMOGLOBIN 11.9 g/dL (13.5-17.5); IMMATURE GRANULOCYTES 0.7 % (0-5); LYMPHOCYTES 4.7 % (15-50); MCH 34.6 pg (26.0-34.0); MCHC 32.5 g/dL (31.0-37.0); MCV 106.4 fL (80.0-100.0); MEAN PLATELET VOLUME 11.6 fL (7.4-10.4); MONOCYTES 10.5 % (2-11); NEUTROPHILS 83.9 % (40-80); PLATELET COUNT 307 10x3/uL (130-400); RBC 3.44 10x6/uL (4.20-6.10); RDW 14.6 % (11.5-14.5); WBC 15.4 10x3/uL (4.8-10.8)
[2018-05-28 05:44] LABS: CALC OSMOLALITY 281 mosm/kg (275-300); CALCIUM 7.7 mg/dL (8.5-10.1); CARBON DIOXIDE 31.5 mmol/L (21.0-32.0); CHLORIDE - SERUM 104 mmol/L (98-107); CREATININE - SERUM 0.8 mg/dL (0.6-1.3); GLUCOSE 143 mg/dL (74-106); POTASSIUM - SERUM 4.2 mmol/L (3.5-5.1); SODIUM 139 mmol/L (136-145); UREA NITROGEN 18 mg/dL (7-18); eGFR NON AFRICAN AMERICAN > 90 mL/min (90-120)
--- NOTE | 2018-05-28 06:04 | NUR ---
VSS. PT STATES DILAUDID NURSING UNIT MANAGER CONTROLLING PAIN. WILL CONTINUE TO MONITOR.
--- NOTE | 2018-05-28 07:30 | NUR ---
RECEIVED PT IN BED AAOX4 RESP UNLABORED DENIES ANY NEEDS OR DISCOMFORT AT THIS TIME
[2018-05-28 08:20] VITALS: BP 144/112
[2018-05-28 15:34] VITALS: BP 156/85
--- NOTE | 2018-05-28 20:36 | NUR ---
INITIAL ROUNDS AND ASSESSMENT COMPLETED. ALERT/ORIENTED. AMBULATING AROUND ROOM. RIGHT UPPER ARM PICC WITH BANANA BAG @ 125ML/HR, NS @ KVO, DILAUDID BRINE TANK OPERATOR AT 0.2/10/4MG. ON TELEMETRY, FLUTTER 148. REPORTS STILL HAS PAIN IN RIGHT GROIN, BUT ALSO HAS CHRONIC LOWER BACK PAIN. BLE EDEMA TO BOTH FEET/ANKLES. ENCOURAGED PT TO ELEVATE FEET. MONITOR AND CPOC. DR STORY ROUNDED ON PATIENT.
[2018-05-28 21:15] VITALS: BP 166/105
--- NOTE | 2018-05-28 21:37 | NUR ---
PT RESTING IN BED. ALL BEDTIME MEDS GIVEN. TELEMETRY 132 FLUTTER. MONITOR AND CPOC.
--- NOTE | 2018-05-29 00:45 | NUR ---
PT RESTING IN BED. IV BANANA BAG INFUSING. IV CATERING [employer]ION SERVICES MANAGER DILAUID IN USE. MONITOR AND CPOC.
[2018-05-29 01:40] VITALS: BP 132/99
--- NOTE | 2018-05-29 02:52 | NUR ---
PT RESTING IN BED WITH NO DISTRESS. RESPS EVEN/NONLABORED. CALL LIGHT IN REACH. SR UP X 2. MONITOR AND CPOC.
[2018-05-29 04:56] VITALS: BP 120/72
[2018-05-29 07:29] VITALS: BP 154/102
[2018-05-29] MEDS ORDERED: CARDURA2 MG PO (08:29)
[2018-05-29] MEDS ORDERED: METOPROLOL TART50 MG PO (08:29)
[2018-05-29] MEDS ORDERED: CHRONULAC30 ML PO (08:30)
[2018-05-29] MEDS ORDERED: MEDROL DOSE PACK4 MG PO (08:31)
--- NOTE | 2018-05-29 09:22 | MORECARE ---
CASE MANAGEMENT DISCHARGE SUMMARY PATIENT: CHRISTIAN MURILLO UNIT: [id number] ADM DATE: 05/16/18 AGE: 57 : 60 SEX: M ROOM/BED: D.2117 AUTHOR: PHYLLIS,DOC PHYSICIAN: REFERRING PHYSICIAN: CHIN GOETZ MD DATE OF SERVICE: 05/29/18 Discharge Plan Patient Name: CHRISTIAN MURILLO Facility: [facility]:[place] : 1960 Planned Disposition: Home Anticipated Discharge Date: 05/29/18 Discharge Date: Expected LOS: 13 Initial Reviewer: [email or web address] Initial Review Date: 05/16/2018 Generated: 05/29/18 10:21 am Comments DCP- Discharge Planning Updated by [email or web address]: Mira Adams on 05/17/18 3:[address] Patient Name: CHRISTIAN MURILLO Admission Status: ER Accout number: [id number] Admission Date: 05-16-2018 : 1960 Admission Diagnosis: Attending: CHIN GOETZ Current LOS: 1 Anticipated DC Date: Planned Disposition: Primary Insurance: MEDICAID [place] Discharge Planning Comments: CM met with patient at bedside. Patient states that he has a roommate [facility] [phone]. Patient states he plans on return to their home upon discharge. Patient states he has a nebulizer that he uses 4 times daily. Patient denies any discharge needs at this time. CM will continue to follow and assist with discharge planning / needs. Inspector Quality Assurance: Mira Adams DCPIA - Discharge Planning Initial Assessment Updated by [email or web address]: Mira Adams on 05/17/18 3:56 pm * Is the patient Alert and Oriented? Yes * How many steps to enter\exit or inside your home? * PCP ELSA * [facility] * Preadmission Environment Home with Family * ADLs Independent * Equipment Nebulizer * List name and contact numbers for known caregivers / representatives who currently or will assist patient after discharge: LENORA CASTILLO - ROOMMATE- [phone] * Verbal permission to speak to the caregivers and representatives has been obtained from the patient. N/A * Community resources currently utilized None * Additional services required to return to the preadmission environment? No * Can the patient safely return to the preadmission environment? Yes * Has this patient been hospitalized within the prior 30 days at any hospital? Yes Last DP export: 05/17/18 3:10 p Patient Name: CHRISTIAN MURILLO Page [id number] at 0922 All edits/amendments must be made on the electronic document DICTATION DATE: 05/29/18920 DIGITAL CARTOGRAPHIC TECHNICIAN: PILO 05/29/18920 RPT#: [id number] DC DATE: STATUS: ADM IN [facility] [address] [place] [address] END OF REPORT
--- NOTE | 2018-05-29 10:19 | NUR ---
PICC LINE DCD BY FITO Butt TELEMETRY DCD. DC PLANS GIVEN. UNDERSTANDING VOICED.
--- NOTE | 2018-05-29 10:40 | NUR ---
ESCORTED TO CAR BY W/C.
== END 2018-05-29 10:40 | disposition home or self-care (01) | DRG 308 ==
LOC: D.ER 09:54 → D.M2 12:32 → D.CVICU 12:32 → D.EDHOLD 12:32 → D.ICU 12:32 → D.CVICU 13:06 → D.ICU 05-20 10:30 → D.M2 05-26 17:39
PROVIDERS: Family Medicine; Internal Medicine Gastroenterology; Internal Medicine Nephrology; Surgery; ADMIT Family Medicine
PROC: 05HY33Z Insertion of Infusion Device into Upper Vein, Percutaneous Approach (ICD-10-PCS; principal; 2018-05-22)
PROC: 0HDRXZZ Extraction of Toe Nail, External Approach (ICD-10-PCS; 2018-05-22)
DX: I47.1 Supraventricular tachycardia (principal); J96.01 Acute respiratory failure with hypoxia; J18.1 Lobar pneumonia, unspecified organism; I42.6 Alcoholic cardiomyopathy; I85.10 Secondary esophageal varices without bleeding; D62 Acute posthemorrhagic anemia; K76.6 Portal hypertension; I50.22 Chronic systolic (congestive) heart failure; F17.203 Nicotine dependence unspecified, with withdrawal; N17.9 Acute kidney failure, unspecified; K92.1 Melena; J44.1 Chronic obstructive pulmonary disease with (acute) exacerbation; J44.0 Chronic obstructive pulmonary disease with (acute) lower respiratory infection; E87.1 Hypo-osmolality and hyponatremia; K74.60 Unspecified cirrhosis of liver; K72.90 Hepatic failure, unspecified without coma; I48.91 Unspecified atrial fibrillation; I48.92 Unspecified atrial flutter; B19.20 Unspecified viral hepatitis C without hepatic coma; K21.9 Gastro-esophageal reflux disease without esophagitis; K31.89 Other diseases of stomach and duodenum; I11.0 Hypertensive heart disease with heart failure; B35.1 Tinea unguium; F10.129 Alcohol abuse with intoxication, unspecified; F15.10 Other stimulant abuse, uncomplicated; F12.10 Cannabis abuse, uncomplicated; K40.90 Unilateral inguinal hernia, without obstruction or gangrene, not specified as recurrent

== ENCOUNTER 2018-07-23 13:30 | Inpatient (IN) | payer MEDICAID ==
[~2018-07-23] VITALS: Ht 185.4 cm; Wt 81.8 kg
[~2018-07-23 13:30] MED LIST changes: +CARDURA2 MG PO; +MEDROL DOSE PACK4 MG PO
[2018-07-23 13:58] LABS: BASOPHILS 0.9 % (0-2); HEMATOCRIT 47.5 % (42.0-54.0); HEMOGLOBIN 16.8 g/dL (13.5-17.5); IMMATURE GRANULOCYTES 0.3 % (0-5); LYMPHOCYTES 33.6 % (15-50); MCH 35.4 pg (26.0-34.0); MCHC 35.4 g/dL (31.0-37.0); MCV 100.2 fL (80.0-100.0); MEAN PLATELET VOLUME 11.9 fL (7.4-10.4); NEUTROPHILS 47.2 % (40-80); PLATELET COUNT 252 10x3/uL (130-400); RBC 4.74 10x6/uL (4.20-6.10); RDW 13.4 % (11.5-14.5); WBC 9.5 10x3/uL (4.8-10.8)
[2018-07-23 14:12] LABS: APTT 30.5 SECONDS (22.8-39.4); INR 1.1 (0.85-1.17); PROTIME 13.7 SECONDS (11.6-15.0)
[2018-07-23 14:16] LABS: ALBUMIN 3.1 g/dL (3.4-5.0); ALKALINE PHOSPHATASE 110 U/L (46-116); ALT (SGPT) 235 U/L (10-68); BILIRUBIN - TOTAL 0.82 mg/dL (0.2-1.3); CALC OSMOLALITY 278 mosm/kg (275-300); CALCIUM 8.5 mg/dL (8.5-10.1); CARBON DIOXIDE 26.6 mmol/L (21.0-32.0); CHLORIDE - SERUM 103 mmol/L (98-107); CREATININE - SERUM 0.8 mg/dL (0.6-1.3); GLUCOSE 131 mg/dL (74-106); POTASSIUM - SERUM 4.1 mmol/L (3.5-5.1); PROTEIN - SERUM 7.3 g/dL (6.4-8.2); SODIUM 140 mmol/L (136-145); UREA NITROGEN 8 mg/dL (7-18); eGFR NON AFRICAN AMERICAN > 90 mL/min (90-120)
[2018-07-23 14:28] LABS: CKMB 0.9 U/L (0.0-3.6); CREATINE KINASE 53 UL (21-232); MAGNESIUM - SERUM 1.6 mg/dL (1.8-2.4); TROPONIN-I 0.022 ng/mL (0.000-0.060)
[2018-07-23 15:16] VITALS: BP 125/99
--- NOTE | 2018-07-23 16:48 | NUR ---
PT RECIEVED FROM ER. TELEMERTY SHOWS FLUTTER AT 87. CARDIZEN DRIP AT 15. DENIES ANY NEEDS EXCEPT TO SAY THAT HE FEELS BAD FOR WHAT HE DID
--- NOTE | 2018-07-23 18:00 | NUR ---
PT LAYING QUIETLY WITH EYES CLOSED. TELEMERTY SHOWS FLUTTER 87. CONTINUES TO HAVE CARDIZEM DRIP AT 15 ML HR. UP AB MAUDE. WILL MONITOR
[2018-07-23 18:39] VITALS: BP 131/76; BMI 23.8
[2018-07-23] MEDS ORDERED: SYMBICORT 16010.2 GM PO (18:46)
--- NOTE | 2018-07-23 18:46 | NUR ---
ASSESSMENT COMPLETE AAOX4 RESP UNLABORED C/O BACK PAIN 09/25 SALINE LOCK INTACT TO LT HAND WITH OCCLUSIVE DRSG INTACT SITE FREE OF REDNESS OR EDEMA TELEMETRYB ATRIAL FLUTTER 110 WILL CONTINUE TO MONITOR
[2018-07-23] MEDS ORDERED: PROTONIX40 MG PO (18:47)
[2018-07-23] MEDS ORDERED: CARDURA2 MG PO (18:47)
[2018-07-23 20:38] VITALS: BP 112/80
[2018-07-24] VITALS (7 sets, daily range): BP systolic 106–158; BP diastolic 72–93; Ht 185.4 cm; Wt 81.8 kg
--- NOTE | 2018-07-24 08:57 | HP ---
PATIENT: CHRISTIAN MURILLO MEDICAL RECORD: [id number] ACCOUNT: [id number] LOCATION:[address] : 60 ADMISSION DATE: 07/23/18 PCP: SANDRA HUNTER HISTORY AND PHYSICAL EXAMINATION DATE OF ADMISSION: 07/23/2018 CHIEF COMPLAINT: Chest pain, fast heart rate. HISTORY: This is a 58-year-old white male followed by Evelyn Cowan, Nurse Practitioner[facility]. He presented today complaining of chest pain and shortness of breath for the last 5 days. He admitted that he "fell off the wagon" and has been having symptoms for the last 5 days. He has had a fast heart rate. He states he passed out today. In the Emergency Department, his heart rate was 260. He was in atrial flutter. This will be the sixth admission in [facility] since 12/14/2017. The patient was just discharged in the middle of May with similar problems. Discharge medication list from then lists several medications; however, on looking at the PBM from our medical records, it show that nothing has been filled in the pharmacies since June 16 and he gets one month supplies of his medications. In the ER, his heart rate was 260, was in Aflutter. He was given medication and it lowered his heart rate down to 130. His CBC was okay. Basic metabolic panel was fine. AST elevated at 253 and ALT elevated at 235. Troponin was 0.022. Magnesium a little low at 1.6. PAST MEDICAL AND SURGICAL HISTORY: Hypertension, atrial fibrillation, COPD/asthma, dermatomyositis, history of alcoholism, history of hepatitis C (reportedly awaiting appointment at [facility] cpo), and chronic pain from lumbar disc disease. PAST SURGICAL HISTORY: None. DRUG ALLERGIES: None. MEDICATIONS: Home medications that he is supposed to be on include Symbicort 160 twice a day, Sumerduck 10 t.i.d. p.r.n. pain, potassium 20 mEq once a day, DuoNeb via updrafts q. 4-6 hours p.r.n., sotalol 120 twice a day, diltiazem 60 mg twice a day, Carafate 1 gram a.c. and at bedtime, Protonix 40 mg twice a day, Cardura 2 mg twice a day, and lactulose 45 mL twice a day. Again, according to the retail pharmacy manager records we have, he has had nothing filled since June 16. He got diltiazem, then sotalol, then Symbicort, spironolactone, doxazosin, and metoprolol tartrate all filled on June 01. Hydrocodone 10 was filled #10 was filled on 04/13/2018 so he is basically not taking his medicines. FAMILY HISTORY: Father had hypertension, asthma, alcoholism, and colon cancer; and at age 50. His mother had hypertension, asthma, and COPD; and at age 50. Sibling with hypertension. SOCIAL HISTORY: . HABITS: Smokes daily and drinking daily with no reason to think that he is not. Denies illicit drug use. HISTORY AND PHYSICAL [id number] CHRISTIAN MURILLO REVIEW OF SYSTEMS: GENERAL: No major weight change. HEENT: No sinus or allergy problems. RESPIRATORY: He has COPD/asthma and continues to smoke. GASTROINTESTINAL: He has history of hepatitis C, reportedly waiting to get into [facility]. GENITOURINARY: No significant problems there. MUSCULOSKELETAL: Chronic back pain. NEUROLOGIC: No migraines or seizures. PSYCHIATRIC: Denies depression or melancholia. PHYSICAL EXAMINATION: VITAL SIGNS: Today, temperature 97.9, pulse 139, respirations 18, blood pressure 125/99, and O2 sat 99%. GENERAL: He is easily awakened. He does not appear in acute distress. He moans with complaint of pain in his back. HEENT: Unremarkable. NECK: Supple. HEART: Tachycardia. LUNGS: Fairly clear. ABDOMEN: Soft and nontender. EXTREMITIES: No edema. LABORATORY DATA: CBC with white count of 9500, hemoglobin 16.8, hematocrit 47.5, and MCV is 100. Basic metabolic panel; sodium 140, potassium 4.1, chloride 103, CO2 of 26.6, BUN 8, creatinine 0.8, glucose 131, calcium 8.5, and magnesium 1.6. AST 253 and ALT 235. Troponin 0.022. IMAGING DATA: Chest x-ray is done showing no acute cardiopulmonary process. ASSESSMENT: 1. Uncontrolled atrial flutter. 2. Hypomagnesemia. 3. Medical noncompliance. 4. Alcoholism. PLAN: We will admit and try to get him started on appropriate medications. Cardiology has been consulted. Other tests and procedures as warranted. TRANSINT:[id number] Voice Confirmation ID: [id number] DOCUMENT ID: [id number] MERLIN ORTEGA MD at 0857 CC: [id number] DICTATION DATE: 07/23/181840 NOVELTY MAKER: 07/23/182009 ADM IN [facility] [address] [id number]
--- NOTE | 2018-07-24 09:00 | NUR ---
RESPIRATORY MEDICINE PHYSICIAN NOTIFIED OF C/O N/V. NEW ORDERS GIVEN FOR ZOFRAN IVP. WILL MONITOR.
--- NOTE | 2018-07-25 00:44 | NUR ---
1929-RECEIVED REPORT, WILL ASSUME CARE OF PT, BED IS LOW, SRX1, CALL LIGHT IN REACH, WILL CONTINUE PLAN OF CARE 2014-COMPLAINS OF BACK PAIN.ALSO ASKING FOR ZOFRAN, GAVE ORDERED 2129-PT ASKING FOR A MILK AND SOMETHING TO EAT
--- NOTE | 2018-07-25 02:37 | NUR ---
PT COMPLAINS OF PAIN, ASKING FOR NORCO, GAVE ORDER
[2018-07-25 03:39] VITALS: BP 111/58
--- NOTE | 2018-07-25 05:27 | NUR ---
I have reviewed this patient and I concur with the Shift Assessment completed by the Licensed Practical Nurse today this shift.
--- NOTE | 2018-07-25 07:51 | NUR ---
PT IS SITTING UP ON BEDSIDE. MONITOR SHOWS A FLUTTER WITH RATE OF 88. CARDIZEM GTT RUNNING AT 15. CO PAIN WILL MEDICATE WITH PO PAIN MED.
[2018-07-25 08:54] VITALS: BP 113/86
[2018-07-25 11:33] VITALS: BP 101/66
--- NOTE | 2018-07-25 11:41 | NUR ---
INFORMED PATIENT THAT I DO NOT HAVE A WRITTEN ORDER TO D/C THE IV JORGE YET.
--- NOTE | 2018-07-25 13:30 | NUR ---
CALLED OFFICE TO SPEAK WITH DEJON MCDONOUGH APN R/T FLO PATEL. I SPOKE WITH LIZ IN THE OFFICE.
[2018-07-25] MEDS ORDERED: BETAPACE 80 MG80 MG PO (13:46)
[2018-07-25] MEDS ORDERED: CARDIZEM60 MG PO (13:46)
[2018-07-25] MEDS ORDERED: CARDURA2 MG PO (13:46)
[2018-07-25] MEDS ORDERED: SYMBICORT 16010.2 GM PO (13:47)
[2018-07-25] MEDS ORDERED: PROTONIX40 MG PO (13:47)
[2018-07-25] MEDS ORDERED: HYDROCODON-ACE1 EA10 PO (13:49)
--- NOTE | 2018-07-25 14:38 | NUR ---
PATIENT UP IN HALLWAY DOING LAP AROUND NURSE STATION FOR ABG'S TO BE DONE.
--- NOTE | 2018-07-25 15:13 | NUR ---
CALLED [facility] HI RN WITH DR. ORTEGA OFFICE TO ADVISE DR. ORTEGA DID NOT SIGN PRESCRIPTION FOR NORCO 10/325MG #90. AFTER DISCUSSION ON WHEN LAST PRESCRIPTION FILLED SHE STATED SHE WOULD HAVE TO RESEARCH AND CALL ME BACK. WHEN CALLED BACK BY [facility] SHE STATED PATIENT FILLED A SCRIPT FOR NORCO 10/325MG #90 ON 06/26/18 AND SHOULD STILL HAVE PILLS LEFT HE WAS IN [facility] FOR 2 DAYS AND ADVISED TO DISREGARD PRINTED SCRIPT AND HAVE PT CALL OFFICE ON TUESDAY SO THEY CAN VERIFY THAT HE PICKED UP HIS PRESCRIBED MEDICATIONS AND THEY WOULD PROVIDE HIM WITH A NORCO PRESCRIPTION
--- NOTE | 2018-07-25 15:46 | MORECARE ---
CASE MANAGEMENT DISCHARGE SUMMARY PATIENT: CHRISTIAN MURILLO UNIT: [id number] ADM DATE: 07/23/18 AGE: 58 : 60 SEX: M ROOM/BED: D.2120 AUTHOR: ALLISON FERGUSON PHYSICIAN: REFERRING PHYSICIAN: SANDRA HUNTER MD DATE OF SERVICE: 07/25/18 Discharge Plan Patient Name: CHRISTIAN MURILLO [facility] [facility] 1960 Planned Disposition: Home Anticipated Discharge Date: 07/25/18 Discharge Date: Expected LOS: 2 Initial Reviewer: [email or web address] Initial Review Date: 07/25/2018 Generated: 07/25/18 4:46 pm DCPIA - Discharge Planning Initial Assessment Updated by [email or web address]: Leander Garcia on 07/25/18 3:42 pm * Is the patient Alert and Oriented? Yes * How many steps to enter\exit or inside your home? NONE * PCP DR. HUNTER * Pharmacy [facility] * Preadmission Environment Home with Family * ADLs Independent * Equipment Nebulizer Oxygen * Other Equipment HOME AND PORTABLE OXYGEN [facility] * List name and contact numbers for known caregivers / representatives who currently or will assist patient after discharge: LENORA CASTILLO, FRIEND, * Verbal permission to speak to the caregivers and representatives has been obtained from the patient. Yes * Community resources currently utilized None * Please name any agencies selected above. NONE * Additional services required to return to the preadmission environment? No * Can the patient safely return to the preadmission environment? Yes * Has this patient been hospitalized within the prior 30 days at any hospital? No Patient Name: CHRISTIAN MURILLO Page [id number] at 1546 All edits/amendments must be made on the electronic document DICTATION DATE: 07/25/18 154 APICULTURIST: PILO 07/25/18 1545 RPT#: [id number] DC DATE: STATUS: ADM IN [facility] [address] [place] [address] END OF REPORT
--- NOTE | 2018-07-25 15:46 | NUR ---
VERBAL AND WRITTEN DISCHARGE NSTRCUTIONS GIVEN TO PATIENT. I STRESSED TO HIM TO FILL ALL HIS MEDS TOLD TO HIM BY DR ORTEGA. SALINE LOCK IV CATH REMOVED WITH CATH TIP INTACT. DISCHARGED HOME VIA WHEELCHAIR.
--- NOTE | 2018-07-25 15:58 | MORECARE ---
CASE MANAGEMENT DISCHARGE SUMMARY PATIENT: CHRISTIAN MURILLO UNIT: [id number] ADM DATE: 07/23/18 AGE: 58 : 60 SEX: M ROOM/BED: D.2120 AUTHOR: PHYLLIS,DOC PHYSICIAN: REFERRING PHYSICIAN: SANDRA HUNTER MD DATE OF SERVICE: 07/25/18 Discharge Plan Patient Name: CHRISTIAN MURILLO Facility: [facility]:[place] : 1960 Planned Disposition: Home Anticipated Discharge Date: 07/25/18 Discharge Date: 07/25/2018 Expected LOS: 2 Initial Reviewer: [email or web address] Initial Review Date: 07/25/2018 Generated: 07/25/18 4:57 pm Comments DCP- Discharge Planning Updated by [email or web address]: Leander Garcia on 07/25/18 2:[address] Patient Name: CHRISTIAN MURILLO Admission Status: ER Accout number: [id number] Admission Date: 07-23-2018 : 1960 Admission Diagnosis:CHEST PAIN, UNSPECIFIED Attending: SANDRA HUNTER Current LOS: 2 Anticipated DC Date: 07-25-2018 Planned Disposition: Home Primary Insurance: MEDICAID [place] Discharge Planning Comments: CM MET WITH PT IN ROOM TO DISCUSS DISCHARGE PLANNING AND NEEDS. PT REPORTS LIVING AT HOME INDEPENDENTLY WITH HIS FRIEND. PT HAS NEBULIZER AND HOME / PORTABLE OXYGEN FROM [facility]. PT HAS NO OUTSIDE SERVICES ASSISTING IN THE HOME. CM DISCUSSED AVAILABILITY OF HOME HEALTH, REHAB SERVICES AND MEDICAL EQUIPMENT. PT DENIES DISCHARGE NEEDS, REPORTS HIS ROOMMATE IS HERE AND WILL TAKE HIM HOME FOR DISCHARGE TODAY. CM SPOKE TO [facility] OF [facility] WHO INFORMED CM THAT THEY DELIVERED OXYGENT TO PT'S HOME ORDERED FROM PRIMARY CARE DOCTOR BUT DID NOT RECEIVE OXYGEN TESTING, ASKED FOR TESTING BEFORE PT DISCHARGES. CM SPOKE TO DR. HUNTER, RECEIVED ORDER. OXYGEN TESTING DONE, PT'S ABG PC02 RESULTED 70%, NOT QUALIFYING FOR OXYGEN. CM NOTIFIED [facility] AT [phone]. Customizer: Leander Garcia DCPIA - Discharge Planning Initial Assessment Updated by [email or web address]: Leander Garcia on 07/25/18 3:42 pm * Is the patient Alert and Oriented? Yes * How many steps to enter\exit or inside your home? NONE * PCP DR. HUNTER * Pharmacy [facility] * Preadmission Environment Home with Family * ADLs Independent * Equipment Nebulizer Oxygen * Other Equipment HOME AND PORTABLE OXYGEN [facility] * List name and contact numbers for known caregivers / representatives who currently or will assist patient after discharge: LENORA CASTILLO, FRIEND, * Verbal permission to speak to the caregivers and representatives has been obtained from the patient. Yes * Community resources currently utilized None * Please name any agencies selected above. NONE * Additional services required to return to the preadmission environment? No * Can the patient safely return to the preadmission environment? Yes * Has this patient been hospitalized within the prior 30 days at any hospital? No Last DP export: 07/25/18 2:46 pm Patient Name: CHRISTIAN MURILLO Page [phone] at 1558 All edits/amendments must be made on the electronic document DICTATION DATE: 07/25/181556 BUSINESS EDUCATION INSTRUCTOR: PILO 07/25/18 155 RPT#: [id number] DC DATE:07/25/18 STATUS: DIS IN [facility] [address] [place] [address] END OF REPORT
== END 2018-07-25 15:49 | disposition home or self-care (01) | DRG 310 ==
LOC: D.ER 13:30 → D.EDHOLD 14:57 → D.M2 14:57
PROVIDERS: Emergency Medicine; ADMIT Family Medicine; ATTEND Family Medicine
DX: I48.92 Unspecified atrial flutter (principal); I48.91 Unspecified atrial fibrillation; E83.42 Hypomagnesemia; Z91.128 Patient's intentional underdosing of medication regimen for other reason; F10.20 Alcohol dependence, uncomplicated; I10 Essential (primary) hypertension; J44.9 Chronic obstructive pulmonary disease, unspecified; M51.9 Unspecified thoracic, thoracolumbar and lumbosacral intervertebral disc disorder; G89.29 Other chronic pain; Z72.0 Tobacco use

== ENCOUNTER 2018-09-04 14:24 | Inpatient (IN) | payer MEDICAID ==
[~2018-09-04] VITALS: Ht 185.4 cm; Wt 74.1 kg
--- NOTE | ~2018-09-04 | DS ---
PATIENT:CHRISTIAN MURILLO :60 MEDICAL RECORD: [id number] DISCHARGE SUMMARY ADMISSION DATE: 09/04/18 DISCHARGE DATE: 09/06/18 DIAGNOSES: 1. Cardiomyopathy, nonischemic, presumed tachycardia mediated. 2. Noncompliance. 3. Atrial fibrillation with rapid ventricular response. 4. Alcohol abuse. BRIEF HISTORY AND HOSPITAL COURSE: A 58-year-old gentleman admitted with AFib RVR, volume overload, placed on his usual medications, responded nicely, converted to normal sinus rhythm. Not felt to be a NOAC candidate or Coumadin candidate at this point secondary to noncompliance. Lifestyle changes and compliance to medicines were reiterated with the patient although I am not convinced that this will not recur. Will see him back in the office in 3-4 weeks. Medications from admission are unchanged. TRANSINT:[id number] Voice Confirmation ID: [id number] DOCUMENT ID: [id number] WICHO NAJERA MD CC: [id number] DICTATION DATE: 09/06/18839 CHEESE SPRAYER: 09/07/18 0231 DIS IN 09/06/18 [facility] [address] [place] [address]
[~2018-09-04 14:24] MED LIST changes: +HYDROCODON-ACE1 EA10 PO; +SYMBICORT 16010.2 GM PO
[2018-09-04] MEDS ORDERED: LANOXIN125 MCG PO (15:35)
[2018-09-04 15:54] VITALS: BP 139/99; BMI 21.5
[2018-09-04 16:21] VITALS: BP 139/99
[2018-09-04 16:53] LABS: CALC OSMOLALITY 276 mosm/kg (275-300); CALCIUM 9.4 mg/dL (8.5-10.1); CARBON DIOXIDE 24.5 mmol/L (21.0-32.0); CHLORIDE - SERUM 101 mmol/L (98-107); CREATININE - SERUM 0.8 mg/dL (0.6-1.3); GLUCOSE 111 mg/dL (74-106); POTASSIUM - SERUM 3.4 mmol/L (3.5-5.1); SODIUM 138 mmol/L (136-145); UREA NITROGEN 12 mg/dL (7-18); eGFR NON AFRICAN AMERICAN > 90 mL/min (90-120)
[2018-09-04 17:31] LABS: BASOPHILS 0.8 % (0-2); EOSINOPHILS 2.3 % (0-7); HEMATOCRIT 48.8 % (42.0-54.0); HEMOGLOBIN 16.6 g/dL (13.5-17.5); IMMATURE GRANULOCYTES 0.3 % (0-5); LYMPHOCYTES 20.9 % (15-50); MCH 34.9 pg (26.0-34.0); MCV 102.7 fL (80.0-100.0); MEAN PLATELET VOLUME 12.5 fL (7.4-10.4); MONOCYTES 15.1 % (2-11); NEUTROPHILS 60.6 % (40-80); PLATELET COUNT 190 10x3/uL (130-400); RBC 4.75 10x6/uL (4.20-6.10); RDW 13.1 % (11.5-14.5); WBC 6.6 10x3/uL (4.8-10.8)
--- NOTE | 2018-09-04 19:04 | NUR ---
RECIEVED UP IN BED WITH EYES OPEN AND TV ON. ALERT AND ORIENTED X4. UP AD MAUDE TO B/R. IV TO LEFT FA WITH CARDIZEM INFUSING AT 5CC/HR. DSG TO SITE CDI. NO REDNESS OR SWELLING OBSERVED. TELEMETRY IN PLACE. DENIES ANY NEEDS AT THIS TIME. ASKED HOW OFTEN HE COULD HAVE HIS PAIN MEDICATION. NO OTHER NEEDS AT THIS TIME.
[2018-09-04 20:00] VITALS: BP 110/83
[2018-09-05] VITALS: BP 128/82
[2018-09-05 04:00] VITALS: BP 136/82
[2018-09-05 08:13] VITALS: BP 137/83
[2018-09-05 08:43] VITALS: Ht 185.4 cm; Wt 74.1 kg
--- NOTE | 2018-09-05 10:16 | NUR ---
TELEMETRY FLUTTER. IV PATENT. CALL LIGHT IN REACH. WILL MONITOR NEEDS.
[2018-09-05 11:36] VITALS: BP 134/58
[2018-09-05 15:30] VITALS: BP 125/79
--- NOTE | 2018-09-05 19:30 | NUR ---
NIGHTLY ROUNDS COMPLETED. INTRODUCED MYSELF TO PT PRIMARY RN FOR [facility] SHIFT. SHIFT ASSESSMENT COMPLETED. PT IS A&O SITTING UP IN BED RESTING QUIETLY. PT STATES HE HAD A GOOD DAY BUT IS HOPING TO BE DISCHARGED TOMORROW. PT RUNNING ATRIAL FLUTTER ON THE MONITER AT 58BPM. PT DENIES ANY CURRENT PAIN OR NEEDS. CL IN REACH, BED IN LOWEST, SIDE RAILS X2 WILL CTM.
[2018-09-05 20:00] VITALS: BP 106/64
[2018-09-06 00:09] VITALS: BP 123/67
--- NOTE | 2018-09-06 02:30 | NUR ---
PT RESTING QUIETLY IN BED. RR NONLABORED ON RA. NO S/S OF DISTRESS OR ANY CURRENT NEEDS. TELEMETRY READING 51BPM ATRIAL FLUTTER. WILL CTM.
[2018-09-06 04:00] VITALS: BP 123/66
--- NOTE | 2018-09-06 05:24 | NUR ---
PT UP AMBULATING IN SALES GETTING A SNACK FROM VENDING MACHINE. PT STATES HE SLEPT WELL AND IS FEELING GOOD OVERALL. PT DENIES ANY CURRENT PAIN OR NEEDS AT THIS TIME. WILL CTM.
[2018-09-06 08:48] VITALS: BP 122/77
--- NOTE | 2018-09-06 09:40 | NUR ---
IV AND TELEMETRY DCD. DC PLANS GIVEN. UNDERSTANDING VOICED.
--- NOTE | 2018-09-06 15:05 | MORECARE ---
CASE MANAGEMENT DISCHARGE SUMMARY PATIENT: CHRISTIAN MURILLO UNIT: [id number] ADM DATE: 09/04/18 AGE: 58 : 60 SEX: M ROOM/BED: D.2114 AUTHOR: PHYLLIS,DOC PHYSICIAN: REFERRING PHYSICIAN: WICHO NAJERA MD DATE OF SERVICE: 09/06/18 Discharge Plan Patient Name: CHRISTIAN MURILLO Facility: [facility]:[place] : 1960 Planned Disposition: Home Anticipated Discharge Date: 09/06/18 Discharge Date: 09/06/2018 Expected LOS: 2 Initial Reviewer: [email or web address] Initial Review Date: 09/04/2018 Generated: 09/06/18 4:05 pm Comments DCP- Discharge Planning Updated by [email or web address]: Leander Garcia on 09/06/18 2:[address] Patient Name: CHRISTIAN MURILLO Admission Status: Urgent Accout number: [id number] Admission Date: 09-04-2018 : 1960 Admission Diagnosis: Attending: WICHO NAJERA Current LOS: 2 Anticipated DC Date: 09-06-2018 Planned Disposition: Home Primary Insurance: MEDICAID [place] Discharge Planning Comments: CM MET WITH PT IN ROOM TO DISCUSS DISCHARGE PLANNING AND NEEDS. PT REPORTS LIVING AT HOME INDEPENDENTLY WITH A FRIEND. PT HAS HOME AND PORTABLE OXYGEN AND NEBULIZER FROM [facility]. PT HAS NO OUTSIDE SERVICES ASSISTING IN THE HOME. CM DISCUSSED AVAILABILITY OF HOME HEALTH, REHAB SERVICES AND MEDICAL EQUIPMENT. PT DENIES DISCHARGE NEEDS, REPORTS HE IS DRIVING HIMSELF HOME TODAY HE DROVE HERE SO HE WOULD HAVE A RIDE HOME. METEOROLOGY FACULTY MEMBER NURSE NOTIFIED. Checker Loader: Leander Garcia DCPIA - Discharge Planning Initial Assessment Updated by [email or web address]: Leander Garcia on 09/06/18 2:59 pm * Is the patient Alert and Oriented? Yes * How many steps to enter\exit or inside your home? NONE * PCP DR. HUNTER * Pharmacy [facility] ([place]) * Preadmission Environment Home with Family * ADLs Independent * Equipment Nebulizer Oxygen * Other Equipment HOME AND PORTABLE OXYGEN [facility] * List name and contact numbers for known caregivers / representatives who currently or will assist patient after discharge: LENORA NORMA CASTILLO, * Verbal permission to speak to the caregivers and representatives has been obtained from the patient. N/A * Community resources currently utilized None * Please name any agencies selected above. NONE * Additional services required to return to the preadmission environment? No * Can the patient safely return to the preadmission environment? Yes * Has this patient been hospitalized within the prior 30 days at any hospital? No Patient Name: CHRISTIAN MURILLO Page [phone] at 1505 All edits/amendments must be made on the electronic document DICTATION DATE: 09/06/18 1505 MANNEQUIN MOUNTER: PILO 09/06/18 1505 RPT#: [id number] DC DATE:09/06/18 STATUS: DIS IN [facility] [address] [place] [address] END OF REPORT
== END 2018-09-06 09:41 | disposition home or self-care (01) | DRG 310 ==
LOC: D.M2 14:24
PROVIDERS: ADMIT Internal Medicine Interventional Cardiology; ATTEND Internal Medicine Interventional Cardiology
DX: I48.92 Unspecified atrial flutter (principal); Z91.14 Patient's other noncompliance with medication regimen; F10.10 Alcohol abuse, uncomplicated; B19.20 Unspecified viral hepatitis C without hepatic coma; I10 Essential (primary) hypertension; Z72.0 Tobacco use; I48.0 Paroxysmal atrial fibrillation; I42.6 Alcoholic cardiomyopathy; J44.9 Chronic obstructive pulmonary disease, unspecified

== ENCOUNTER 2019-01-13 03:24 | Inpatient (IN) | payer MEDICARE ==
[2019-01-13] VITALS (11 sets, daily range): BP systolic 101–151; BP diastolic 71–115; Ht 185.4 cm; Wt 83.6 kg
[~2019-01-13] VITALS: Ht 185.4 cm; Wt 83.6 kg
--- NOTE | ~2019-01-13 | HEMODYNAMI ---
PATIENT:CHRISTIAN MURILLO MEDICAL RECORD: [id number] : 60 LOCATION:[address] ADMISSION DATE: 01/13/19 Generatedon:01/15/201911:32 Patient name: CHRISTIAN MURILLO Patient #: [id number] SSN: : 1960 Date of study: 01/15/2019 Page: Of Hemodynamic Procedure Report Patient Data Patient Demographics Procedure consent was obtained First Name: CHRISTIAN Gender: Male Last Name: CHIDI : 1960 [facility] Initial: CHUY Age: 58 year(s) Patient #: [id number] Race: Additional ID: [id number] Contact details Address: [address] [place] [address] State: [place] City: [place] Zip code: [address] Past Medical History Allergies: No allergy information Admission Admission Data Admission Date: 01/13/2019 Admission Time: 11:30 Room #: D.2119 Procedure Procedure Types Cath Procedure Diagnostic Procedure Cardioversion External Procedure Description Procedure Date Procedure Date: 01/15/2019 Procedure Start Time: 11:21 Procedure End Time: 11:30 Procedure Staff Name Function Chetan Zaldivar MD Performing Physician Pati Cuevas RT Monitor Olivia Hernández RT Monitor Lupillo Garcia RN Nurse Elbert Herman MD Additional personnel Procedure Data Cath Procedure Estimated blood loss: 0 ml Procedure Complications No complications Procedure Medications Medication Administration Route Dosage Oxygen etCO2 Nasal cannula 3 l/min Refer to Anesthesia Notes for Sedation Medications Hemodynamics Rest Heart Rate: 116 (bpm) Snapshots Pre Cath Intra NCS Post Cath Vital Signs Time Heart Resp SPO2 etCO2 NIBP (mmHg) Rhythm Pain Sedation Rate (ipm) (%) (mmHg) Status Level (bpm) 11:18:19 116 16 92 0 132/88(0) A-Flutter 0 (11) 10(A) , No pain 11:22:49 111 17 95 0 126/82(100) NSR 0 (11) 9(A) , No pain 11:26:57 102 17 94 1.5 139/89(119) NSR 0 (11) 10(A) , No pain 11:30:57 0 No Cuff NSR 0 (11) 10(A) , No pain Medications Time Medication Route Dose Verified Delivered Reason Notes Effective ness by by 11:19:43 Oxygen etCO2 3 Chetan Wesley used for Nasal l/min Kayley Garcia RN procedure cannula 11:19:46 Refer to Chetan Wesley Anesthesia Kayley Garcia RN Notes for Sedation Medications Procedure Log Time Note 11:04:03 Procedure Status Urgent Heart Cath (IP). 11:04:05 Lupillo Garcia RN sent for patient. Start room use. 11:04:12 Time tracking: Regular hours (M-F 7:00 - 5:00) 11:04:17 Plan of Care:Hemodynamics will remain stable., Cardiac rhythm will remain stable., Comfort level will be maintained., Respiratory function will remain adequate., Patient/ family verbilizes understanding of procedure., Procedure tolerated without complication., Recovers from procedure without complications.. 11:10:03 Elbert Herman MD present and monitoring patient for TIVA. 11:10:39 Patient arrived from Med II to CCL 1. Patient remains on bed/stretcher for procedure. 11:10:40 Signed procedure consent form obtained from patient. 11:10:41 Warm blankets applied, and lynne hugger turned on for patient comfort. 11:10:42 Correct patient and procedure confirmed by team. 11:10:42 ECG and BP/O2 sat monitors applied to patient. 11:11:35 Pre-procedure instructions explained to patient. 11:11:36 Pre-op teaching completed and patient verbalized understanding. 11:11:40 Family in patients room. 11:11:42 Patient NPO since Midnight. 11:11:49 Patient allergic to No allergy information 11:15:03 Is patient on blood thinner?Yes 11:15:04 PT IS ON ELIQUIS 11:15:06 Patient diabetic? No. 11:15:07 Vital chart was started 11:15:27 Rhythm: atrial fibrillation 11:15:28 Full Disclosure recording started 11:15:47 Previous problem with sedation/anesthesia? No ? 11:15:48 Snore? Yes 11:15:49 Sleep apnea? No 11:15:50 Deviated septum? No 11:15:51 Opens mouth fully? Yes 11:15:52 Sticks out tongue? Yes 11:15:55 Airway obstruction? Yes COPD 11:15:57 Dentures? No ? 11:16:09 IV patent on arrival in right antecubital with 0.9% NaCl at [facility]. 11:16:13 Lab results completed and on chart. 11:16:16 Alarms reviewed by RNabeel N. 11:16:17 Sharps counted by scrub and verified by R.N. 11:16:28 Quick Combo opened to sterile field. 11:17:14 Baseline sample Acquired. 11::24 --------ALL STOP TIME OUT------ 11::24 Final Timeout: patient, procedure, and site verified with staff and physician. All members of the team are in agreement. 11::32 Physical assessment completed. ASA score P 2 - A patient with mild systemic disease as per Chetan Zaldivar MD. 11:19:36 Sedation plan: TIVA Medication:Propofol 11:19:43 Oxygen 3 l/min etCO2 Nasal cannula was administered by Lupillo Garcia RN; used for procedure; Verbal order read back and verified. 11:19:46 Refer to Anesthesia Notes for Sedation Medications was administered by Lupillo Garcia RN; ; Verbal order read back and verified. 11:21:22 Procedure started. 11:22:00 ------Cardioversion------ 11:22:03 Quick combo pads placed on patients chest and back. 11:23:30 Defibrillator synced and charged to 275 Joules. 11:23:44 Shock delivered. 11:24:46 Patient cardioverted to sinus rhythm . 11:24:53 Procedure ended.(Physican Out) 11:27:51 Post-procedure physical assessment completed. ASA score P 2 - A patient with mild systemic disease as per Chetan Zaldivar MD. 11:27:56 Post procedure rhythm: sinus rhythm 11:27:58 Estimated blood loss: 0 ml 11:28:00 Post procedure instruction explained to patient.Patient verbalizes understanding. 11:28:01 Patient needs reinforcement of post procedure teaching. 11:28:25 Procedure and supply charges have been captured, reviewed, submitted and are correct. 11::32 Procedure Complication : No complications ::36 Vital chart was stopped ::36 See physician's report for complete and final results. 11:30:38 Report given to Med II. 11:30:40 Patient transfered to Med II with Bed. 11:30:42 Procedure ended. 11:30:42 Full Disclosure recording stopped 11:30:47 End room use (Document Last) 11:31:12 End room use (Document Last) 11:31:33 End room use (Document Last) Device Usage Item Manufacture Quantity Catalog Hospital Part Current Minimal Lot# / Name Number Charge Number Stock Stock Giovanii al# Code Isolation Network 1 [id number] Combo Signature Audit [place] Stage Time Signature Unsigned Intra-Procedure 01/15/2019 Pati Cuevas 11:31:12 AM RT(R) Intra-Procedure 01/15/2019 Lupillo Garcia RN 11:31:33 AM Intra-Procedure 01/15/2019 Chetan Zaldivar 11:32:20 AM [id number] [place] [address]
[~2019-01-13 03:24] MED LIST changes: +LANOXIN125 MCG PO
[2019-01-13 03:50] LABS: BASOPHILS 1.8 % (0-2); EOSINOPHILS 6.4 % (0-7); HEMATOCRIT 45.4 % (42.0-54.0); HEMOGLOBIN 15.9 g/dL (13.5-17.5); IMMATURE GRANULOCYTES 0.2 % (0-5); LYMPHOCYTES 37.9 % (15-50); MCH 37.1 pg (26.0-34.0); MCV 106.1 fL (80.0-100.0); MEAN PLATELET VOLUME 12.1 fL (7.4-10.4); MONOCYTES 9.3 % (2-11); NEUTROPHILS 44.4 % (40-80); PLATELET COUNT 222 10x3/uL (130-400); RBC 4.28 10x6/uL (4.20-6.10); RDW 15.8 % (11.5-14.5)
[2019-01-13 03:59] LABS: APTT 36.3 SECONDS (22.8-39.4); INR 1.23 (0.85-1.17)
[2019-01-13 04:02] LABS: ALBUMIN 2.8 g/dL (3.4-5.0); ALKALINE PHOSPHATASE 112 U/L (46-116); ALT (SGPT) 88 U/L (10-68); CALC OSMOLALITY 282 mosm/kg (275-300); CARBON DIOXIDE 28.6 mmol/L (21.0-32.0); CHLORIDE - SERUM 105 mmol/L (98-107); CREATININE - SERUM 0.6 mg/dL (0.6-1.3); GLUCOSE 100 mg/dL (74-106); POTASSIUM - SERUM 4.3 mmol/L (3.5-5.1); PROTEIN - SERUM 7.2 g/dL (6.4-8.2); SODIUM 143 mmol/L (136-145); UREA NITROGEN 6 mg/dL (7-18); eGFR NON AFRICAN AMERICAN > 90 mL/min (90-120)
[2019-01-13 04:13] LABS: CKMB 1.3 U/L (0.0-3.6); CREATINE KINASE 120 UL (21-232); MAGNESIUM - SERUM 1.4 mg/dL (1.8-2.4); TROPONIN-I < 0.017 ng/mL (0.000-0.060)
[2019-01-13 11:41] LABS: CREATINE KINASE 112 UL (21-232); THYROID STIMULATING HORMONE 3.41 uIU/mL (0.36-3.74); TROPONIN-I < 0.017 ng/mL (0.000-0.060)
--- NOTE | 2019-01-13 15:32 | MORECARE ---
CASE MANAGEMENT DISCHARGE SUMMARY PATIENT: CHRISTIAN MURILLO UNIT: [id number] ADM DATE: 01/13/19 AGE: 58 : 60 SEX: M ROOM/BED: D.2113 AUTHOR: PHYLLIS,DOC PHYSICIAN: REFERRING PHYSICIAN: SANDRA HUNTER MD DATE OF SERVICE: 01/13/19 Discharge Plan Patient Name: CHRISTIAN MURILLO Facility: [facility]:[place] : 1960 Planned Disposition: Home Anticipated Discharge Date: 01/15/19 Discharge Date: Expected LOS: 2 Initial Reviewer: [email or web address] Initial Review Date: 01/13/2019 Generated: 01/13/19 4:32 pm DCP- Discharge Planning Updated by [email or web address]: Pricilla Talavera on 01/13/19 2:[address] DC PLAN: Return home with a room mate. ANTICIPATED DC NEEDS: Unknown dc needs at this time. CM met with patient to complete initial dc planning assessment. CM educated patient on the CM role and verbal consent given by patient to complete assessment. CM verified patient's address, phone number, and emergency contact phone numbers. Patient lives at home with a room-mate. He reports he is independent in his care at home. At discharge patient plans to return home and feels this is a safe discharge. CM discussed availability of home health, rehab services, and medical equipment. Patient denied known discharge needs at this time. Patient reports he will transport himself home, as his car is in the parking lot here, at time of discharge. CM will continue to follow and will assist as needed with dc plans/needs. Pricilla Talavera RN, [facility] DCPIA - Discharge Planning Initial Assessment Updated by [email or web address]: Pricilla Talavera on 01/13/19 3:30 pm * Is the patient Alert and Oriented? Yes * How many steps to enter\exit or inside your home? none * PCP Dr. Hunter * Pharmacy [facility] * Preadmission Environment Home with Family * ADLs Independent * Equipment Nebulizer * List name and contact numbers for known caregivers / representatives who currently or will assist patient after discharge: [place] - ex - [phone] * Verbal permission to speak to the caregivers and representatives has been obtained from the patient. Yes * Community resources currently utilized None * Additional services required to return to the preadmission environment? No * Can the patient safely return to the preadmission environment? Yes * Has this patient been hospitalized within the prior 30 days at any hospital? No Patient Name: CHRISTIAN MURILLO Page [phone] at 1532 All edits/amendments must be made on the electronic document DICTATION DATE: 01/13/191531 FUR BUYER: PILO 01/13/191531 RPT#: [id number] DC DATE: STATUS: ADM IN [facility] [address] [place] [address] END OF REPORT
--- NOTE | 2019-01-13 21:25 | NUR ---
BEDTIME MEDS GIVEN. PT TEACHING ON PAIN MEDICATIONS/FREQUENCY. GIVEN NORCO TAB X 1 AT THIS TIME FOR CHRONIC BACK PAIN. CPOC.
[2019-01-14] VITALS: BP 99/65
[2019-01-14 04:00] VITALS: BP 103/61
--- NOTE | 2019-01-14 05:39 | NUR ---
RECIEVED PAIN MED EARLIER AND IS NOW RESTING. CPOC.
[2019-01-14 05:52] LABS: BASOPHILS 1.1 % (0-2); HEMATOCRIT 38.7 % (42.0-54.0); HEMOGLOBIN 13.1 g/dL (13.5-17.5); IMMATURE GRANULOCYTES 0.2 % (0-5); LYMPHOCYTES 27.8 % (15-50); MCHC 33.9 g/dL (31.0-37.0); MCV 106.3 fL (80.0-100.0); MEAN PLATELET VOLUME 12.9 fL (7.4-10.4); MONOCYTES 11.5 % (2-11); NEUTROPHILS 54.4 % (40-80); RBC 3.64 10x6/uL (4.20-6.10); RDW 15.3 % (11.5-14.5)
[2019-01-14 05:55] LABS: PLATELET COUNT 131 10x3/uL (130-400); WBC 6.2 10x3/uL (4.8-10.8)
[2019-01-14 06:12] LABS: CALC OSMOLALITY 272 mosm/kg (275-300); CALCIUM 7.7 mg/dL (8.5-10.1); CARBON DIOXIDE 27.8 mmol/L (21.0-32.0); CHLORIDE - SERUM 102 mmol/L (98-107); CREATININE - SERUM 0.7 mg/dL (0.6-1.3); DIGOXIN 0.22 ng/mL (0.90-2.00); GLUCOSE 80 mg/dL (74-106); MAGNESIUM - SERUM 1.3 mg/dL (1.8-2.4); SODIUM 138 mmol/L (136-145); UREA NITROGEN 8 mg/dL (7-18); eGFR NON AFRICAN AMERICAN > 90 mL/min (90-120)
[2019-01-14 08:37] VITALS: BP 106/70
--- NOTE | 2019-01-14 10:47 | NUR ---
TELEMETRY A-FLUTTER. CONSENTS SIGNED FOR CARDIOVERSION. WILL CONT. PLAN OF CARE.
[2019-01-14 12:41] VITALS: BP 114/54
[2019-01-14 15:13] VITALS: BP 116/84
[2019-01-14 20:00] VITALS: BP 138/89
--- NOTE | 2019-01-14 20:58 | NUR ---
PT RESTING IN BED WITH LOUD MOANS AND GROANS, SAYING HE HAS NEVER GOTTEN RELIEF FOR HIS BACK PAIN. ADMINISTERED IV MORPHINE/IV ZOFRAN AND OTHER SCHEDULED BEDTIME MEDS. PT BEGGING NURSE TO PLEASE HAVE NEXT DOSE GIVEN TO HIM RADHA. PT TEACHING ON MEDS BEING DUE EVERY 4 HOURS NEEDED AND HE WILL NEED TO DETERMINE HIS LEVEL OF DISCOMFORT AND IF HE NEEDS THE MED AND IT HAS BEEN ENOUGH TIME. NURSE WILL GLADLY ORDERED PAIN MED. DIMMED LIGHTS AND ENCOURAGED PT TO RELAX SINCE HE JUST RECIEVED PAIN MED. WITHIN 2 MINUTES OF NURSE LEAVING ROOM, PT OUT IN HALLWAY ASKING FOR A SANDWICH TRAY. FOOD PROVIDED.PT BACK TO ROOM.
[2019-01-15] VITALS (7 sets, daily range): BP systolic 120–160; BP diastolic 69–92
--- NOTE | 2019-01-15 04:30 | NUR ---
PT AWAKE, VERY FOCUSED ON HIS BACK PAIN. MEDICATED WITH MORPHINE 4MG SIVP + ZOFRAN 4MG SIVP FOR PAIN/NAUSEA. HE REMAINS NPO SINCE MIDNIGHT FOR PLANNED CARDIOVERSION TODAY. HIS RATE/RHYTHM HAS BEEN FLUTTER 100-130'S ALL NIGHT.
[2019-01-15 06:50] LABS: BASOPHILS 0.8 % (0-2); EOSINOPHILS 4.5 % (0-7); HEMATOCRIT 36.2 % (42.0-54.0); HEMOGLOBIN 12.1 g/dL (13.5-17.5); IMMATURE GRANULOCYTES 0.3 % (0-5); LYMPHOCYTES 21.3 % (15-50); MCH 35.8 pg (26.0-34.0); MCHC 33.4 g/dL (31.0-37.0); MCV 107.1 fL (80.0-100.0); MEAN PLATELET VOLUME 13.3 fL (7.4-10.4); MONOCYTES 13.5 % (2-11); NEUTROPHILS 59.6 % (40-80); PLATELET COUNT 120 10x3/uL (130-400); RBC 3.38 10x6/uL (4.20-6.10); RDW 15.4 % (11.5-14.5)
[2019-01-15 07:06] LABS: CALC OSMOLALITY 271 mosm/kg (275-300); CALCIUM 7.8 mg/dL (8.5-10.1); CHLORIDE - SERUM 101 mmol/L (98-107); GLUCOSE 87 mg/dL (74-106); POTASSIUM - SERUM 3.6 mmol/L (3.5-5.1); SODIUM 137 mmol/L (136-145); UREA NITROGEN 10 mg/dL (7-18)
[2019-01-15 07:08] LABS: CREATININE - SERUM 0.9 mg/dL (0.6-1.3); eGFR NON AFRICAN AMERICAN > 90 mL/min (90-120)
--- NOTE | 2019-01-15 10:21 | NUR ---
NORCO GIVEN FOR PAIN LEVEL OF 10/10. PT DENIES ANY OTHER NEEDS AT THIS TIME. CALL LIGHT IN REACH, NAD NOTED, WILL CONTINUE TO MONITOR.
--- NOTE | 2019-01-15 11:13 | NUR ---
PT TO LOG OPERATIONS COORDINATOR VIA BED, NAD NOTED.
--- NOTE | 2019-01-15 11:48 | NUR ---
RECEIVED PT BACK TO ROOM 2118, PT A/O X4, BP A LITTLE HIGH, PLACED PT ON FREQUENT VITAL SIGNS. PLACED PT ON FREQUENT VITAL SIGNS. DR. HOBBS AT BEDSIDE. MONITOR SHOWING ST 100. PROVIDED PT WITH EYE WATER. CALL LIGHT IN REACH, NAD NOTED, WILL CONTINUE TO MONITOR.
--- NOTE | 2019-01-15 11:55 | NUR ---
I CALLED [facility] AND SPOKE WITH DR GOETZ NURSE FOR DISCHARGE ORDERS. SHE IS GOING TO SPEAK TO HIM AND LET US KNOW. I ALSO TOLD HER THAT SHE NEEDED TO HAVE HIM GIVE ELIQUIS AND RYTHMOL.
--- NOTE | 2019-01-15 13:48 | NUR ---
DR GOETZ TO CALL WITH DISCHARGE ORDERS.
[2019-01-15] MEDS ORDERED: ELIQUIS5 MG PO (13:55)
[2019-01-15] MEDS ORDERED: PROPAFENONE HC150 MG PO (13:56)
--- NOTE | 2019-01-15 14:09 | NUR ---
PER PATIENT REQUEST HE WANTED HIS ELIQUIS AND ANDRES CALLED TO [facility].
--- NOTE | 2019-01-15 14:34 | CN ---
PATIENT NAME:CHRISTIAN GIBBONS MEDICAL RECORD: [id number] : 60 LOCATION:D.M2 D.2119 ADMIT DATE: 01/13/19 ACCOUNT: [id number] CONSULTING PHYSICIAN: JERE HOBBS MD REFERRING PHYSICIAN: SANDRA HUNTER MD DATE OF CONSULTATION: 01/14/2019 DIAGNOSES: 1. Shortness of breath, dyspnea on exertion. 2. Atrial fibrillation. 3. Chronic obstructive pulmonary disease. 4. Smoking history. 5. Hypertension. HISTORY OF PRESENT ILLNESS: Mr. Gibbons presents with palpitations. His palpitations started Tuesday. He is back in atrial fibrillation, last cardioversion was in April. Before that, he had a cardioversion in January. He is currently on sotalol, Cardizem, digoxin as well as Cardura for blood pressure. He has a history of cardiac catheterization in January of last year, which was normal. PHYSICAL EXAMINATION: CONSTITUTIONAL/GENERAL APPEARANCE: Well nourished, well developed, appears stated age. EYES: Lids and conjunctivae noninjected. No discharge. No pallor. ENT: Lips within normal limit. No cyanosis. No pallor. NECK: Carotid arteries, bilateral normal upstroke. No bruits. No thrills. No jugular venous pressure or distention. CERVICAL LYMPH NODES: Nontender. Nonenlarged. THYROID: Not enlarged. No nodules. CARDIOVASCULAR: Precordial exam, nondisplaced. No heaves or pericardial thrills. Rate and rhythm, regular. Heart sounds, normal S1, normal S2. No S3, no gallop, no rub. Systolic murmur, not heard. Diastolic murmur, not heard. RESPIRATORY: Respiratory effort, unlabored. Normal curvature. No thoracic deformity. No chest wall tenderness. Percussion, resonant. Auscultation, clear. No wheezes, no rales, no rhonchi. ABDOMEN: Soft, nondistended, nontender. No abdominal pain, no vomiting and normal appetite. MUSCULOSKELETAL: No joint tenderness, normal gait, normal tone. SKIN: Warm and dry. OVERALL IMPRESSION: Paroxysmal atrial fibrillation. At this time, we will start him on Eliquis. He is nauseated with the sotalol and he is noncompliant with the sotalol, I think this is part of the etiology of his recurrent atrial fibrillation. We will discontinue the sotalol, put him on propafenone. We will try DC cardioversion one more time and as well send him to an documentation writer for an atrial fibrillation ablation, which will be a long-term solution for his problem. Further care depends upon the cardioversion tomorrow. TRANSINT:[id number] Voice Confirmation ID: [id number] DOCUMENT ID: [id number] CONSULT REPORT [id number] CHRISITAN GIBBONS, JERE WOO at 1434 CC: [id number] DICTATION DATE: 01/14/1942 ART CONSERVATOR: 01/14/19 0959 ADM IN [facility] [address] [id number]
--- NOTE | 2019-01-15 14:34 | OP ---
PATIENT NAME: CHRISTIAN MURILLO MEDICAL RECORD: [id number] :60 LOCATION:D.M2 D.2119 ADMISSION DATE:01/13/19 SURGEON: JERE HOBBS MD DATE OF OPERATION: 01/15/2019 PROCEDURE: DC cardioversion. INDICATION: Atrial fibrillation. PROCEDURE IN DETAIL: IV conscious sedation was per anesthesia. He received 1 shock at 275 joules restoring sinus rhythm. TRANSINT:[id number] Voice Confirmation ID: [id number] DOCUMENT ID: [id number] JERE HOBBS MD at 1434 CC: [id number] DICTATION DATE: 01/15/19 1133 GAME PROGRAMER: 01/15/19 1253 [place] [address]
--- NOTE | 2019-01-15 15:01 | MORECARE ---
CASE MANAGEMENT DISCHARGE SUMMARY PATIENT: CHRISTIAN MURILLO UNIT: [id number] ADM DATE: 01/13/19 AGE: 58 : 60 SEX: M ROOM/BED: D.8394 AUTHOR: PHYLLIS,ALLISON PHYSICIAN: REFERRING PHYSICIAN: SANDRA HUNTER MD DATE OF SERVICE: 01/15/19 Discharge Plan Patient Name: CHRISTIAN MURILLO Facility: [facility]:[place] : 1960 Planned Disposition: Home Anticipated Discharge Date: 01/15/19 Discharge Date: Expected LOS: 2 Initial Reviewer: [email or web address] Initial Review Date: 01/13/2019 Generated: 01/15/19 4:01 pm Comments DCP- Discharge Planning Updated by [email or web address]: Leander Garcia on 01/15/19 2:[address] Patient Name: CHRISTIAN MURILLO Encounter No: [id number] : 1960 Primary Insurance: MEDICARE A & B Anticipated DC Date: 01-15-2019 Planned Disposition: Home DCP follow-up note: CM RECEIVED DISCHARGE ORDER, MET WITH PT IN ROOM TO DISCUSS DISCHARGE NEEDS AND PLANNING. CM DISCUSSED AVAILABILITY OF HOME HEALTH, REHAB SERVICES AND MEDICAL EQUIPMENT. PT DENIES DISCHARGE NEEDS. PT IS DRIVING SELF HOME FOR DISCHARGE TODAY. IMPORTANT MESSAGE FROM MEDICARE PROVIDED AND EXPLAINED. SEVERO Bettencourt DCP- Discharge Planning Updated by [email or web address]: Pricilla Talavera on 01/13/19 2:[address] DC PLAN: Return home with a room mate. ANTICIPATED DC NEEDS: Unknown dc needs at this time. CM met with patient to complete initial dc planning assessment. CM educated patient on the CM role and verbal consent given by patient to complete assessment. CM verified patient's address, phone number, and emergency contact phone numbers. Patient lives at home with a room-mate. He reports he is independent in his care at home. At discharge patient plans to return home and feels this is a safe discharge. CM discussed availability of home health, rehab services, and medical equipment. Patient denied known discharge needs at this time. Patient reports he will transport himself home, as his car is in the parking lot here, at time of discharge. CM will continue to follow and will assist as needed with dc plans/needs. Pricilla Talavera RN, [facility] DCPIA - Discharge Planning Initial Assessment Updated by [id number]: Pricilla Talavera on 01/13/19 3:30 pm * Is the patient Alert and Oriented? Yes * How many steps to enter\exit or inside your home? none * PCP Dr. Hunter * Pharmacy [facility] * Preadmission Environment Home with Family * ADLs Independent * Equipment Nebulizer * List name and contact numbers for known caregivers / representatives who currently or will assist patient after discharge: Ina [place] - ex - [phone] * Verbal permission to speak to the caregivers and representatives has been obtained from the patient. Yes * Community resources currently utilized None * Additional services required to return to the preadmission environment? No * Can the patient safely return to the preadmission environment? Yes * Has this patient been hospitalized within the prior 30 days at any hospital? No Coverage Notice Reviewer: [id number] Remedios Garcia Notice Issued Date-Time: 01/15/2019 14:25 Notice Type: IM Discharge Notice Notice Delivered To: Patient Relationship to Patient: Hyperbaric Tech Name: Delivery Method: HAND - Hand Delivered Shonna Days: Prior Verbal Notification: Recipient Understood Notice: Yes Recipient Signature: Yes Med Rec Note Co-signed by Attending: Coverage Notice Comment: Last DP export: 01/13/19 2:32 p Patient Name: CHRISTIAN MURILLO Page [phone] at 1501 All edits/amendments must be made on the electronic document DICTATION DATE: 01/15/19 1501 SUMMER INTERN: PILO 01/15/19 1501 RPT#: [id number] DC DATE: STATUS: ADM IN [facility] [address] [place] [address] END OF REPORT
--- NOTE | 2019-01-15 15:17 | NUR ---
PROVIDED VERBAL AND WRITTEN DISCHARGE TEACHING TO PT WHO VERBALIZED UNDERSTANDING REGARDING TEACHING. D/C RT AC IV AND LT HAND IV WITH CATHETER TIP INTACT. PT READY FOR WHEELCHAIR.
--- NOTE | 2019-01-15 15:20 | NUR ---
PT LEFT UNIT VIA WHEELCHAIR, WITH ALL BELONGINGS.
== END 2019-01-15 15:47 | disposition home or self-care (01) | DRG 310 ==
LOC: D.ER 03:24 → D.M2 11:30 → D.SDCHOLD 01-15 09:04 → D.M2 01-15 15:47
PROVIDERS: Emergency Medicine; Family Medicine; ADMIT Family Medicine; ATTEND Family Medicine
DX: I48.4 Atypical atrial flutter (principal); J44.9 Chronic obstructive pulmonary disease, unspecified; I10 Essential (primary) hypertension; B19.20 Unspecified viral hepatitis C without hepatic coma; E83.42 Hypomagnesemia; F17.210 Nicotine dependence, cigarettes, uncomplicated; I48.91 Unspecified atrial fibrillation

== ENCOUNTER 2019-01-22 00:43 | Emergency (ER) | payer MEDICARE ==
[~2019-01-22] VITALS: Ht 185.4 cm; Wt 85.9 kg
[~2019-01-22 00:43] MED LIST changes: +ELIQUIS5 MG PO; +PROPAFENONE HC150 MG PO
[2019-01-22 00:55] VITALS: Ht 185.4 cm; Wt 85.9 kg
[2019-01-22 01:34] LABS: BASOPHILS 1.4 % (0-2); HEMATOCRIT 38.6 % (42.0-54.0); HEMOGLOBIN 13.5 g/dL (13.5-17.5); IMMATURE GRANULOCYTES 0.4 % (0-5); LYMPHOCYTES 20.5 % (15-50); MCH 36.9 pg (26.0-34.0); MCV 105.5 fL (80.0-100.0); MEAN PLATELET VOLUME 11.6 fL (7.4-10.4); MONOCYTES 15.5 % (2-11); NEUTROPHILS 57.2 % (40-80); RBC 3.66 10x6/uL (4.20-6.10); RDW 15.2 % (11.5-14.5); WBC 8.1 10x3/uL (4.8-10.8)
[2019-01-22 01:41] LABS: PLATELET COUNT 208 10x3/uL (130-400)
[2019-01-22 01:47] LABS: APTT 33.4 SECONDS (22.8-39.4); INR 1.82 (0.85-1.17); PROTIME 20.5 SECONDS (11.6-15.0)
[2019-01-22 01:53] LABS: ALBUMIN 2.5 g/dL (3.4-5.0); ALKALINE PHOSPHATASE 99 U/L (46-116); ALT (SGPT) 40 U/L (10-68); BILIRUBIN - TOTAL 2.49 mg/dL (0.2-1.3); CALC OSMOLALITY 275 mosm/kg (275-300); CALCIUM 8.3 mg/dL (8.5-10.1); CARBON DIOXIDE 30.2 mmol/L (21.0-32.0); CHLORIDE - SERUM 102 mmol/L (98-107); CREATININE - SERUM 0.7 mg/dL (0.6-1.3); GLUCOSE 95 mg/dL (74-106); POTASSIUM - SERUM 3.5 mmol/L (3.5-5.1); PROTEIN - SERUM 6.8 g/dL (6.4-8.2); SODIUM 139 mmol/L (136-145); UREA NITROGEN 6 mg/dL (7-18); eGFR NON AFRICAN AMERICAN > 90 mL/min (90-120)
[2019-01-22 02:00] LABS: LIPASE 283 U/L (73-393); MAGNESIUM - SERUM 1.2 mg/dL (1.8-2.4); PRO BNP 65 pg/mL (0-125); THYROID STIMULATING HORMONE 5.09 uIU/mL (0.36-3.74); TROPONIN-I < 0.017 ng/mL (0.000-0.060)
[2019-01-22 02:04] LABS: D-DIMER-QUANTITATIVE 5.66 ug/mLFEU (0.20-0.54)
[2019-01-22 02:53] LABS: UDS - AMPHET POSITIVE QUAL (NEGATIVE); UDS - BARB NEGATIVE QUAL (NEGATIVE); UDS - BENZO POSITIVE QUAL (NEGATIVE); UDS - COCAINE NEGATIVE QUAL (NEGATIVE); UDS - OPIATE NEGATIVE QUAL (NEGATIVE); UDS - PCP NEGATIVE QUAL (NEGATIVE); UDS - THC POSITIVE QUAL (NEGATIVE)
[2019-01-22 03:05] LABS: APPEARANCE HAZY (CLEAR); BILIRUBIN NEGATIVE (NEGATIVE); COLOR AMBER (YELLOW); GLUCOSE NEGATIVE (NEGATIVE); KETONE NEGATIVE (NEGATIVE); NITRITE NEGATIVE (NEGATIVE); PROTEIN 1+ mg/dL (NEGATIVE)
[2019-01-22 03:07] LABS: BACTERIA MODERATE /hpf (NEGATIVE); EPITHELIAL CELLS 0-5 /hpf (0-5); MUCUS <1+ /lpf (NONE SEEN); RED CELLS - URINE 0-5 /hpf (0-5)
[2019-01-22] MEDS ORDERED: COLACE100 MG PO (04:32)
[2019-01-22] MEDS ORDERED: MIRALAX17 GM PO (04:32)
[2019-01-22 04:42] VITALS: BP 155/96
[2019-01-30 15:09] LABS: AEROBE ID Final report (())
== END 2019-01-22 04:42 | disposition home or self-care (01) ==
LOC: D.ER 00:43
PROVIDERS: Family Medicine
DX: F15.10 Other stimulant abuse, uncomplicated (principal); R00.0 Tachycardia, unspecified; B19.20 Unspecified viral hepatitis C without hepatic coma; K74.60 Unspecified cirrhosis of liver; R18.8 Other ascites; F17.210 Nicotine dependence, cigarettes, uncomplicated; J44.9 Chronic obstructive pulmonary disease, unspecified; I10 Essential (primary) hypertension; I48.91 Unspecified atrial fibrillation

== ENCOUNTER 2019-01-27 11:53 | Emergency (ER) | payer MEDICARE ==
[~2019-01-27] VITALS: Ht 185.4 cm; Wt 83.9 kg
[~2019-01-27 11:53] MED LIST changes: +COLACE100 MG PO; +MIRALAX17 GM PO
[2019-01-27 12:06] VITALS: Ht 185.4 cm; Wt 83.9 kg
[2019-01-27 14:06] LABS: BASOPHILS 0.6 % (0-2); EOSINOPHILS 2.7 % (0-7); HEMATOCRIT 38.5 % (42.0-54.0); HEMOGLOBIN 13.1 g/dL (13.5-17.5); IMMATURE GRANULOCYTES 0.3 % (0-5); LYMPHOCYTES 11.1 % (15-50); MCH 36.4 pg (26.0-34.0); MCV 106.9 fL (80.0-100.0); MEAN PLATELET VOLUME 11.9 fL (7.4-10.4); MONOCYTES 13.3 % (2-11); PLATELET COUNT 224 10x3/uL (130-400); RDW 15.1 % (11.5-14.5); WBC 10.1 10x3/uL (4.8-10.8)
[2019-01-27 14:27] LABS: ALBUMIN 2.7 g/dL (3.4-5.0); ALKALINE PHOSPHATASE 119 U/L (46-116); ALT (SGPT) 34 U/L (10-68); BILIRUBIN - TOTAL 1.85 mg/dL (0.2-1.3); CALC OSMOLALITY 272 mosm/kg (275-300); CALCIUM 8.7 mg/dL (8.5-10.1); CARBON DIOXIDE 26.3 mmol/L (21.0-32.0); CHLORIDE - SERUM 102 mmol/L (98-107); CREATININE - SERUM 0.5 mg/dL (0.6-1.3); GLUCOSE 91 mg/dL (74-106); POTASSIUM - SERUM 4.7 mmol/L (3.5-5.1); PROTEIN - SERUM 7.1 g/dL (6.4-8.2); SODIUM 137 mmol/L (136-145); UREA NITROGEN 11 mg/dL (7-18); eGFR NON AFRICAN AMERICAN > 90 mL/min (90-120)
[2019-01-27 15:30] LABS: APPEARANCE CLEAR (CLEAR); BILIRUBIN NEGATIVE (NEGATIVE); COLOR AMBER (YELLOW); GLUCOSE NEGATIVE (NEGATIVE); KETONE NEGATIVE (NEGATIVE); NITRITE NEGATIVE (NEGATIVE); PROTEIN 1+ mg/dL (NEGATIVE); SPECIFIC GRAVITY 1.015 (1.005-1.020)
[2019-01-27 15:31] LABS: BACTERIA FEW /hpf (NEGATIVE); EPITHELIAL CELLS 0-5 /hpf (0-5); RED CELLS - URINE OCC /hpf (0-5); WHITE CELLS - URINE 0-5 /hpf (NEGATIVE)
[2019-01-27] MEDS ORDERED: CHRONULAC30 ML PO (18:26)
[2019-01-27 21:05] VITALS: BP 170/113
== END 2019-01-27 21:05 | disposition home or self-care (01) ==
LOC: D.ER 11:53
PROVIDERS: Family Medicine
DX: K59.00 Constipation, unspecified (principal); I10 Essential (primary) hypertension; K76.9 Liver disease, unspecified

== ENCOUNTER 2019-03-19 11:24 | Inpatient (IN) | payer OTHER, MEDICAID ==
[~2019-03-19] VITALS: Ht 185.4 cm; Wt 72.7 kg
[2019-03-19 12:04] LABS: BASOPHILS 0.6 % (0-2); EOSINOPHILS 1.4 % (0-7); HEMATOCRIT 41.9 % (42.0-54.0); HEMOGLOBIN 14.2 g/dL (13.5-17.5); IMMATURE GRANULOCYTES 0.2 % (0-5); LYMPHOCYTES 16.7 % (15-50); MCH 36.5 pg (26.0-34.0); MCHC 33.9 g/dL (31.0-37.0); MCV 107.7 fL (80.0-100.0); MONOCYTES 17.6 % (2-11); NEUTROPHILS 63.5 % (40-80); RBC 3.89 10x6/uL (4.20-6.10); RDW 14.9 % (11.5-14.5); WBC 11.8 10x3/uL (4.8-10.8)
[2019-03-19 12:06] LABS: PLATELET COUNT 401 10x3/uL (130-400)
[2019-03-19 12:20] LABS: CALC OSMOLALITY 263 mosm/kg (275-300); CARBON DIOXIDE 22.9 mmol/L (21.0-32.0); CHLORIDE - SERUM 101 mmol/L (98-107); CREATININE - SERUM 0.7 mg/dL (0.6-1.3); GLUCOSE 88 mg/dL (74-106); POTASSIUM - SERUM 4.3 mmol/L (3.5-5.1); SODIUM 133 mmol/L (136-145); UREA NITROGEN 10 mg/dL (7-18); eGFR NON AFRICAN AMERICAN > 90 mL/min (90-120)
[2019-03-19 12:26] LABS: APTT 35.1 SECONDS (22.8-39.4); INR 1.43 (0.85-1.17); PROTIME 16.9 SECONDS (11.6-15.0)
[2019-03-19 12:43] LABS: ALBUMIN 2.3 g/dL (3.4-5.0); ALKALINE PHOSPHATASE 115 U/L (46-116); ALT (SGPT) 28 U/L (10-68); BILIRUBIN - TOTAL 2.95 mg/dL (0.2-1.3); CKMB 2.8 U/L (0.0-3.6); CREATINE KINASE 90 UL (21-232); DIGOXIN 0.33 ng/mL (0.90-2.00); PRO BNP 7871 pg/mL (0-125)
[2019-03-19 13:18] VITALS: BP 118/86
[2019-03-19 13:36] VITALS: BP 125/88
--- NOTE | 2019-03-19 15:26 | NUR ---
TRANSFER FROM ER BY W/C. ANGYINTED TO ROOM. CALL LIGHT IN REACH. WILL CONT. PLAN OF CARE.
[2019-03-19 15:54] VITALS: BP 130/100; BMI 21.1
[2019-03-19] MEDS ORDERED: CHRONULAC30 ML PO (16:02)
[2019-03-19 16:08] VITALS: Ht 185.4 cm; Wt 72.7 kg
--- NOTE | 2019-03-19 16:56 | NUR ---
BACK FROM EP[facility] WILLOW SPECIALIST. VS WNL. LEFT GROIN STABLE WITHOUT BLEEDING OR HEMATOMA NOTED. WILL MONITOR.
[2019-03-19 18:08] LABS: UDS - AMPHET POSITIVE QUAL (NEGATIVE); UDS - BARB NEGATIVE QUAL (NEGATIVE); UDS - BENZO NEGATIVE QUAL (NEGATIVE); UDS - COCAINE NEGATIVE QUAL (NEGATIVE); UDS - OPIATE POSITIVE QUAL (NEGATIVE); UDS - PCP NEGATIVE QUAL (NEGATIVE); UDS - THC NEGATIVE QUAL (NEGATIVE)
--- NOTE | 2019-03-19 19:30 | NUR ---
RECEIVED BEDSIDE REPORT. PATIENT IS ALERT AND ORIENTED, RESTING COMFORTABLY IN BED. RESPIRATIONS ARE EVEN AND UNLABORED. NO S/S OF DISTRESS. NO C/O PAIN. CALL LIGHT WITHIN REACH. WILL CPOC.
[2019-03-19 20:00] VITALS: BP 102/58
[2019-03-20] VITALS: BP 93/64
--- NOTE | 2019-03-20 01:00 | NUR ---
PATIENT BP 84/56 RIGHT ARM. BP 80/50 LEFT ARM. HR DROPPED FROM 123 TO LOW 60s. DECREASED CARDIZEM DRIP TO 5 ML/HR.
--- NOTE | 2019-03-20 03:06 | NUR ---
REASSESSED PATIENT PATIENT BP 98/62 RIGHT ARM. 90/58 LEFT ARM. HR REMAINS IN THE LOW 60s.
[2019-03-20 04:00] VITALS: BP 100/63
[2019-03-20 05:53] LABS: BASOPHILS 0.9 % (0-2); EOSINOPHILS 3.4 % (0-7); HEMATOCRIT 35.5 % (42.0-54.0); HEMOGLOBIN 11.7 g/dL (13.5-17.5); IMMATURE GRANULOCYTES 0.5 % (0-5); LYMPHOCYTES 23.1 % (15-50); MCH 35.5 pg (26.0-34.0); MCV 107.6 fL (80.0-100.0); MEAN PLATELET VOLUME 12.2 fL (7.4-10.4); MONOCYTES 14.1 % (2-11); PLATELET COUNT 360 10x3/uL (130-400); WBC 10.5 10x3/uL (4.8-10.8)
[2019-03-20 06:06] LABS: CALC OSMOLALITY 273 mosm/kg (275-300); CALCIUM 8.3 mg/dL (8.5-10.1); CARBON DIOXIDE 24.3 mmol/L (21.0-32.0); CHLORIDE - SERUM 104 mmol/L (98-107); CREATININE - SERUM 0.9 mg/dL (0.6-1.3); GLUCOSE 104 mg/dL (74-106); POTASSIUM - SERUM 4.4 mmol/L (3.5-5.1); SODIUM 136 mmol/L (136-145); UREA NITROGEN 18 mg/dL (7-18); eGFR NON AFRICAN AMERICAN > 90 mL/min (90-120)
[2019-03-20] MEDS ORDERED: METOPROLOL TART50 MG PO (07:44)
[2019-03-20] MEDS ORDERED: PROPAFENONE HC150 MG PO (07:46)
[2019-03-20 08:13] VITALS: BP 109/77
--- NOTE | 2019-03-20 09:15 | NUR ---
IV AND TELEMETRY DCD. DC PLANS GIVEN. UNDERSTANDING VOICED. WAITING FOR DELIVERY FROM [facility].
--- NOTE | 2019-03-20 10:44 | NUR ---
LEAVING HOSP WITH FRIEND.
--- NOTE | 2019-03-20 11:14 | MORECARE ---
CASE MANAGEMENT DISCHARGE SUMMARY PATIENT: CHRISTIAN MURILLO UNIT: [id number] ADM DATE: 03/19/19 AGE: 58 : 60 SEX: M ROOM/BED: D.2115 AUTHOR: PHYLLIS,DOC PHYSICIAN: REFERRING PHYSICIAN: CHIN GOETZ MD DATE OF SERVICE: 03/20/19 Discharge Plan Patient Name: CHRISTIAN MURILLO Facility: [facility]:[place] : 1960 Planned Disposition: Home Anticipated Discharge Date: 03/20/19 Discharge Date: 03/20/2019 Expected LOS: 1 Initial Reviewer: [email or web address] Initial Review Date: 03/20/2019 Generated: 03/20/19 12:13 pm Comments DCP- Discharge Planning Updated by [id number]: Leander Garcia on 03/20/19 10:[address] Patient Name: CHRISTIAN MURILLO Admission Status: Elective Accout number: [id number] Admission Date: 03-19-2019 : 1960 Admission Diagnosis: Attending: CHIN GOETZ Current LOS: 1 Anticipated DC Date: 03-20-2019 Planned Disposition: Home Primary Insurance: [employer] Discharge Planning Comments: CM MET WITH PT IN ROOM TO DISCUSS DISCHARGE PLANNING AND NEEDS. PT REPORTS LIVING AT HOME INDEPENDENTLY AND ALONE. PT HAS A NEBULIZER FROM [facility]. PT HAS NO OUTSIDE SERVICES ASSISTING IN THE HOME. CM DISCUSSED AVAILABILITY OF HOME HEALTH, REHAB SERVICES AND MEDICAL EQUIPMENT. PT DENIES DISCHARGE NEEDS, REPORTS A FRIEND WILL PICK HIM UP FOR DISCHARGE HOME. HOT DIPPER NURSE NOTIFIED. Popped Corn Oven Attendant: Leander Garcia DCPIA - Discharge Planning Initial Assessment Updated by [email or web address]: Leander Garcia on 03/20/19 11:08 am * Is the patient Alert and Oriented? Yes * How many steps to enter\exit or inside your home? NONE * PCP DR. HUNTER * Pharmacy [facility] * Preadmission Environment Home Alone * ADLs Independent * Equipment Nebulizer * Other Equipment [facility] - MEDICAL EQUIPMENT PROVIDER * List name and contact numbers for known caregivers / representatives who currently or will assist patient after discharge: HERO KNAPP, EX SPOUSE, ROSA MURILLO, BROTHER, * Verbal permission to speak to the caregivers and representatives has been obtained from the patient. N/A * Community resources currently utilized None * Please name any agencies selected above. NONE * Additional services required to return to the preadmission environment? No * Can the patient safely return to the preadmission environment? Yes * Has this patient been hospitalized within the prior 30 days at any hospital? No Patient Name: CHRISTIAN MURILLO Page [phone] at 1114 All edits/amendments must be made on the electronic document DICTATION DATE: 03/20/19 1113 RETAIL LEASING AGENT: PILO 03/20/19 1113 RPT#: [id number] DC DATE:03/20/19 STATUS: DIS IN [facility] [address] [place] [address] END OF REPORT
== END 2019-03-20 10:45 | disposition home or self-care (01) | DRG 394 ==
LOC: D.ER 11:24 → D.M2 13:50
PROVIDERS: Family Medicine; ADMIT Family Medicine; ATTEND Family Medicine
DX: K40.21 Bilateral inguinal hernia, without obstruction or gangrene, recurrent (principal); I48.92 Unspecified atrial flutter; J44.1 Chronic obstructive pulmonary disease with (acute) exacerbation; R79.89 Other specified abnormal findings of blood chemistry; I10 Essential (primary) hypertension; K74.60 Unspecified cirrhosis of liver; K72.90 Hepatic failure, unspecified without coma; F19.10 Other psychoactive substance abuse, uncomplicated

== ENCOUNTER 2019-04-23 04:29 | Inpatient (IN) | payer OTHER, MEDICAID ==
[2019-04-23] VITALS (7 sets, daily range): BP systolic 110–143; BP diastolic 49–98; Ht 185.4 cm; Wt 90.7 kg
[~2019-04-23] VITALS: Ht 185.4 cm; Wt 90.7 kg
[2019-04-23] MEDS ORDERED: XIFAXAN550 MG PO (04:49)
[2019-04-23] MEDS ORDERED: CARDIZEM60 MG PO (04:49)
[2019-04-23 05:44] LABS: EOSINOPHILS 0.5 % (0-7); HEMATOCRIT 38.6 % (42.0-54.0); HEMOGLOBIN 13.4 g/dL (13.5-17.5); IMMATURE GRANULOCYTES 0.3 % (0-5); LYMPHOCYTES 19.6 % (15-50); MCHC 34.7 g/dL (31.0-37.0); MCV 103.8 fL (80.0-100.0); MEAN PLATELET VOLUME 12.6 fL (7.4-10.4); MONOCYTES 13.3 % (2-11); NEUTROPHILS 65.3 % (40-80); PLATELET COUNT 319 10x3/uL (130-400); RBC 3.72 10x6/uL (4.20-6.10); RDW 16.5 % (11.5-14.5); WBC 9.4 10x3/uL (4.8-10.8)
--- NOTE | 2019-04-23 05:51 | NUR ---
PT ALERT AND ORIENTED SITTING UP IN BED EATING ICE CHIPS PT C/O CHRONIC LOWER BACK PAIN AT THIS TIME. INFORMED.
[2019-04-23 05:55] LABS: CALC OSMOLALITY 271 mosm/kg (275-300); CALCIUM 8.2 mg/dL (8.5-10.1); CARBON DIOXIDE 25.4 mmol/L (21.0-32.0); CHLORIDE - SERUM 100 mmol/L (98-107); CREATININE - SERUM 0.9 mg/dL (0.6-1.3); GLUCOSE 110 mg/dL (74-106); POTASSIUM - SERUM 4.7 mmol/L (3.5-5.1); SODIUM 136 mmol/L (136-145); UREA NITROGEN 9 mg/dL (7-18); eGFR NON AFRICAN AMERICAN > 90 mL/min (90-120)
[2019-04-23 05:57] LABS: APTT 35.4 SECONDS (22.8-39.4); INR 1.51 (0.85-1.17); PROTIME 17.6 SECONDS (11.6-15.0)
[2019-04-23 06:17] LABS: ALBUMIN 2.1 g/dL (3.4-5.0); ALKALINE PHOSPHATASE 107 U/L (46-116); ALT (SGPT) 51 U/L (10-68); BILIRUBIN - TOTAL 4.34 mg/dL (0.2-1.3); CKMB 3.1 U/L (0.0-3.6); CREATINE KINASE 97 UL (21-232); MAGNESIUM - SERUM 1.4 mg/dL (1.8-2.4); PROTEIN - SERUM 6.8 g/dL (6.4-8.2)
[2019-04-23 06:36] LABS: TROPONIN-I 0.068 ng/mL (0.000-0.060)
--- NOTE | 2019-04-23 07:28 | NUR ---
CALLED LAB TO LET THEM KNOW PT HAS BLOOD CX ORDERS.
[2019-04-23 08:03] LABS: UDS - AMPHET POSITIVE QUAL (NEGATIVE); UDS - BARB NEGATIVE QUAL (NEGATIVE); UDS - BENZO POSITIVE QUAL (NEGATIVE); UDS - COCAINE NEGATIVE QUAL (NEGATIVE); UDS - OPIATE POSITIVE QUAL (NEGATIVE); UDS - PCP NEGATIVE QUAL (NEGATIVE); UDS - THC NEGATIVE QUAL (NEGATIVE)
[2019-04-23] MEDS ORDERED: METOPROLOL TART50 MG PO (08:08)
[2019-04-23] MEDS ORDERED: LANOXIN125 MCG PO (08:09)
--- NOTE | 2019-04-23 08:30 | NUR ---
ADMITTED FROM ER. ALERT AND ORIENTED. TELEMERTY SHOWS ST 120. IV TO RIGHT WRIST. DENIES ANY NEEDS. 02 AT 2 L/M PER NC. WILL MONITOR
[2019-04-23 08:32] LABS: APPEARANCE HAZY (CLEAR); BILIRUBIN NEGATIVE (NEGATIVE); COLOR AMBER (YELLOW); GLUCOSE NEGATIVE (NEGATIVE); KETONE NEGATIVE (NEGATIVE); NITRITE NEGATIVE (NEGATIVE); PROTEIN TRACE mg/dL (NEGATIVE); SPECIFIC GRAVITY 1.015 (1.005-1.020)
[2019-04-23 08:34] LABS: BACTERIA FEW /hpf (NEGATIVE); EPITHELIAL CELLS 0-5 /hpf (0-5); HYALINE CAST OCC /lpf (NONE SEEN); MUCUS <1+ /lpf (NONE SEEN); RED CELLS - URINE NONE SEEN /hpf (0-5); WHITE CELLS - URINE RARE /hpf (NEGATIVE)
[2019-04-24 00:35] VITALS: BP 117/81
[2019-04-24 04:00] VITALS: BP 110/84
[2019-04-24 04:56] LABS: BASOPHILS 0.9 % (0-2); EOSINOPHILS 3.8 % (0-7); HEMATOCRIT 34.5 % (42.0-54.0); HEMOGLOBIN 12.5 g/dL (13.5-17.5); IMMATURE GRANULOCYTES 0.2 % (0-5); LYMPHOCYTES 15.4 % (15-50); MCH 36.9 pg (26.0-34.0); MCHC 36.2 g/dL (31.0-37.0); MEAN PLATELET VOLUME 12.5 fL (7.4-10.4); MONOCYTES 10.3 % (2-11); NEUTROPHILS 69.4 % (40-80); RBC 3.39 10x6/uL (4.20-6.10); RDW 16.1 % (11.5-14.5); WBC 8.5 10x3/uL (4.8-10.8)
[2019-04-24 05:03] LABS: MCV 101.8 fL (80.0-100.0); PLATELET COUNT 221 10x3/uL (130-400)
[2019-04-24 05:16] LABS: CALC OSMOLALITY 272 mosm/kg (275-300); CALCIUM 7.5 mg/dL (8.5-10.1); CARBON DIOXIDE 25.8 mmol/L (21.0-32.0); CHLORIDE - SERUM 103 mmol/L (98-107); CREATININE - SERUM 0.7 mg/dL (0.6-1.3); GLUCOSE 106 mg/dL (74-106); PHOSPHOROUS 2.9 mg/dL (2.5-4.9); POTASSIUM - SERUM 4.4 mmol/L (3.5-5.1); SODIUM 137 mmol/L (136-145); UREA NITROGEN 9 mg/dL (7-18); eGFR NON AFRICAN AMERICAN > 90 mL/min (90-120)
--- NOTE | 2019-04-24 07:24 | HP ---
PATIENT: CHRISTIAN MURILLO MEDICAL RECORD: [id number] ACCOUNT: [id number] LOCATION:[address] : 60 ADMISSION DATE: 04/23/19 PCP: MERLIN ORTEGA MD HISTORY AND PHYSICAL EXAMINATION REASON FOR ADMISSION: Chest pain and fast heart rate. HISTORY OF PRESENT ILLNESS: The patient is a 58-year-old male with history of polydrug abuse, asthma, and atrial flutter. He has been admitted multiple times for arrhythmias, follow up Dr. Vidales. He was last discharged 03/20/2019 after an episode of atrial flutter with 2:1 block. At that time, he had a right inguinal hernia, which is symptomatic; however, due to his history of alcoholic cirrhosis, Dr. Chang stated he had an 80% mortality with repair and recommended conservative management. At that time, his UDS was positive for opiates and amphetamines. He denied using these. He states he got some "bad mouth as opposed to good mouth about 3 days ago." His heart began to race and has done so through the weekend. He has had some dull chest pain and mild shortness of breath. For this reason, he presented to the Emergency Room this morning and ultimately his heart rate was 270. Dr. Borden attended the patient and converted him with adenosine, is right now in the 120s and in sinus tachycardia. He denies chest pain with control. PAST MEDICAL HISTORY: Atrial fibrillation flutter, alcoholic cirrhosis, right inguinal hernia, history of hepatitis C, COPD with asthmatic component, hypertension, and history of hepatic encephalopathy. FAMILY HISTORY: Cancer in the family, unknown type. SOCIAL HISTORY: He is still an everyday smoker despite his asthma, uses alcohol, meth and marijuana. He is not working currently. HOME MEDICATION: Elliott 7.5 one q.4 hours p.r.n. pain, Xifaxan 550 mg 1 tab b.i.d., Eliquis 5 mg p.o. b.i.d., Diltiazem 120 mg p.o. b.i.d., Rythmol 150 mg p.o. b.i.d., Symbicort 160/4.5 two puffs b.i.d. REVIEW OF SYSTEMS: CONSTITUTIONAL: Denies fever. Fatigue since increased heart rate. HEENT: No recent visual change, sinus congestion, or sore throat. RESPIRATORY: Shortness of breath with intermittent cough, nonproductive. CARDIOVASCULAR: Admits to palpitations, chest pain due to heart rate being elevated. GASTROINTESTINAL: No nausea or vomiting. GENITOURINARY: Nocturia once nightly, complains of right inguinal hernia discomfort. MUSCULOSKELETAL: No arthralgias. NEUROLOGIC: No history of stroke, TIA, vascular headaches, or seizures. PSYCHIATRIC: Denies depressed mood. PHYSICAL EXAMINATION: VITAL SIGNS: Heart rate initially was 270, now is 128, respirations were 20, temperature 97.5, blood pressure 89/74 initially, now 141/98 post-conversion, and sats 97%. HEENT: Eyes are clear. Heart unremarkable. NECK: Supple. CHEST: He has distant breath sounds with faint wheeze in the upper lobes HISTORY AND PHYSICAL [id number] MURILLO,CHRISTIAN VERA bilaterally. HEART: Tachycardic without murmur. ABDOMEN: Soft and nontender. He has an indirect right inguinal hernia that is reducible and nontender. EXTREMITIES: No CCE. SKIN: Shows multiple tattoos. No icterus. Fair turgor. LABORATORY DATA: CBC is normal. Chemistry is unremarkable. Magnesium is 1.4, which is low, glucose is 110. Troponin is elevated at 0.068. EKG shows SVT with a rate of 270. Chest x-ray shows right basilar atelectasis with emphysema changes. ASSESSMENT: 1. Supraventricular tachycardia with history of AFib flutter, probably exacerbated by amphetamine use. 2. Polydrug abuse. 3. Asthma. 4. Chronic obstructive pulmonary disease. 5. Right inguinal hernia. 6. Alcoholic cirrhosis. PLAN: The patient will be admitted to telemetry bed with cardiology consult. Further workup pending clinical course. TRANSINT:[id number] Voice Confirmation ID: [id number] DOCUMENT ID: [id number] LUIS GONGORA MD at 0724 CC: [id number] DICTATION DATE: 04/23/19 0759 SHEEP HERDER: 04/23/19 0855 ADM IN [id number] [place] [address]
--- NOTE | 2019-04-24 07:35 | NUR ---
ASSESSMENT DONE DENIES NEEDS
[2019-04-24 10:33] VITALS: BP 140/95
--- NOTE | 2019-04-24 11:22 | NUR ---
I have reviewed this patient and I concur with the Shift Assessment completed by the Licensed Practical Nurse today this shift.
[2019-04-24 15:12] VITALS: BP 147/110
[2019-04-24 20:00] VITALS: BP 138/94
[2019-04-25] VITALS: BP 106/62
[2019-04-25 00:30] VITALS: BP 102/59
--- NOTE | 2019-04-25 02:23 | NUR ---
RESTING WITH EYES CLOSED, RESPERATIONS EVEN, NO S/S DISTRESS NOTED.
--- NOTE | 2019-04-25 02:37 | NUR ---
I have reviewed this patient and I concur with the Shift Assessment completed by the Licensed Practical Nurse today this shift.
[2019-04-25 05:03] VITALS: BP 116/68
--- NOTE | 2019-04-25 07:36 | NUR ---
REPORT RECEIVED. WILL CONTINUE WITH POC. PT CURRENTLY LYING ON RIGHT SIDE RESTING WITH EYES CLOSED. RR EVEN AND UNLABORED ON 2L 02. BANANA BAG INFUSING @75ML/HR VIA R.WRIST PIV. NO S/S OF DISTRESS NOTED. PT DENIES ANY NEEDS. WILL CTM.
[2019-04-25 07:49] LABS: ALBUMIN 1.5 g/dL (3.4-5.0); ALKALINE PHOSPHATASE 85 U/L (46-116); ALT (SGPT) 27 U/L (10-68); BILIRUBIN - TOTAL 4.32 mg/dL (0.2-1.3); CALC OSMOLALITY 265 mosm/kg (275-300); CALCIUM 7.7 mg/dL (8.5-10.1); CARBON DIOXIDE 25.2 mmol/L (21.0-32.0); CHLORIDE - SERUM 102 mmol/L (98-107); CREATININE - SERUM 0.7 mg/dL (0.6-1.3); GLUCOSE 87 mg/dL (74-106); POTASSIUM - SERUM 3.9 mmol/L (3.5-5.1); PROTEIN - SERUM 5.3 g/dL (6.4-8.2); SODIUM 134 mmol/L (136-145); UREA NITROGEN 9 mg/dL (7-18); eGFR NON AFRICAN AMERICAN > 90 mL/min (90-120)
[2019-04-25 07:55] LABS: MAGNESIUM - SERUM 1.5 mg/dL (1.8-2.4)
[2019-04-25 08:00] VITALS: BP 113/69
--- NOTE | 2019-04-25 09:09 | EC ---
PATIENT:CHRISTIAN MURILLO DATE OF SERVICE: 04/23/19 SEX: M MEDICAL RECORD: [id number] DATE OF : 60 LOCATION:D.M2 D.212 AGE OF PATIENT: 58 ADMISSION DATE: 04/23/19 REFERRING PHYSICIAN: INTERPRETING PHYSICIAN: WICHO NAJERA MD ECHOCARDIOGRAM REPORT ECHO CHARGES 5 ECHO LIMITED Date: 04/24/19 CLINICAL DIAGNOSIS: ATRAIL FIB ECHOCARDIOGRAPHIC MEASUREMENTS (adult normal given) AC root (d.<3.7cm) cm LV Septum d (<1.2 cm> cm Valve Excursion cm LV Septum (systole) cm Left Atria (s.<4.0cm> 4.1 cm LVPW d(<1.2cm) cm RV (d.<2.3cm) 4.1 cm LVPW (sytole) cm LV diastole(<5.6CM) cm MV E-F(>70mm/sec) cm LV systole cm LVOT Diameter cm MV exc.(>10mm) cm Est.ejection fraction (50-75%) % DOPPLER: LVIT cm/sec A cm/sec E cm/sec LA cm/sec RVSP mmHg LVOT cm/sec AOP1/2T m/s Asc. Ao cm/sec RVOT cm/sec RA cm/sec PA cm/sec AV Gradient Peak mmHg AV Mean mmHg AV Area cm MV Gradient Peak mmHg MV Mean mmHg MV Area cm COMMENTS: Work Order Clerk: 2 KATELYNN ABDI Manager Packaging: 3 Dr. Davis TAPE# PACS Pericardial Effusion N DATE OF SERVICE: Adequate 2-D echo, Color-Flow and Spectral Doppler, and M-mode LVH is present. LV internal dimension appears normal. LV is globally hypo with EF reduced, estimated EF at 50%. Aortic valve is tricuspid with good valve excursion. Left atrium dilated at 4.1 cm. Mitral valve shows no prolapse. Mild MR. Right-sided chambers are grossly normal. Mild TR. TRANSINT:[id number] Voice Confirmation ID: [id number] DOCUMENT ID: [id number] ECHOCARDIOGRAM REPORT [id number] CHRISTIAN MURILLO WICHO NAJERA MD at 0909 CC: [id number] DICTATION DATE: 04/24/19 1602 INDUSTRIAL NURSE: 04/25/19 0227 ADM IN [facility] [address] [place] [address]
--- NOTE | 2019-04-25 09:09 | CN ---
PATIENT NAME:CHRISTIAN MURILLO MEDICAL RECORD: [id number] : 60 LOCATION:D.M2 D.2123 ADMIT DATE: 04/23/19 ACCOUNT: [id number] CONSULTING PHYSICIAN: WICHO NAJERA MD REFERRING PHYSICIAN: LUIS GONGORA MD DATE OF CONSULTATION: 04/24/2019 HISTORY OF PRESENT ILLNESS: A 58-year-old gentleman with history of polysubstance abuse, atrial flutter, also has a history of a right inguinal hernia. Unfortunately, given multiple comorbidities, not felt to be a candidate for surgery. He also has history of chronic obstructive pulmonary disease with reactive airway component. We are asked to see him concerning his cardiovascular status. PAST MEDICAL HISTORY: Includes; 1. History of hepatitis C. 2. Alcoholic cirrhosis. 3. Right inguinal hernia, high risk for repair. 4. Atrial arrhythmias. 5. Hypertension. SOCIAL HISTORY: Unemployed. Intermittently use of meth and alcohol. Smokes every day. MEDICATIONS: Include [place] 7.5 one p.o. every 4 hours p.r.n., Xifaxan 550 one p.o. b.i.d., Eliquis 5 p.o. b.i.d., diltiazem 120 p.o. b.i.d., Rythmol 150 p.o. b.i.d. REVIEW OF SYSTEMS: The patient reports easy bruising but reports no swollen glands. The patient reports no fever, no night sweats, no significant weight gain, no significant weight loss. No significant exercise tolerance. The patient reports no dry eyes, no irritation, no vision change. Patient reports no difficulty hearing and no ear pain. Patient reports no frequent nose bleeds or nose and sinus problems. Patient reports on arm pain on exertion. No shortness of breath while lying down. No history of heart murmur. Patient reports no cough, no wheezing or coughing up blood. Patient reports no abdominal pain, no vomiting. Normal appetite. No diarrhea and not vomiting blood. No nausea and no constipation. Patient reports no incontinence. No difficulty urinating. No hematuria. No increased frequency. Patient reports no muscle aches. No weakness, no arthralgias, no back pain. No swelling of the extremities. Patient reports no abnormal mole, no jaundice, no rashes. Reports no loss of consciousness. No weakness and no numbness. No seizures, dizziness, or headaches. The patient reports no depression, no sleep disturbance, feeling safe in a relationship and no alcohol abuse. Patient reports on fatigue. Reports no runny nose or sinus pressure. No itching, no hives, and no frequent sneezing. PHYSICAL EXAMINATION: GENERAL: Chronically ill-appearing, no acute distress. VITAL SIGNS: Blood pressure 110/84, pulse 129 and regular. HEENT: Normocephalic, atraumatic. NECK: No JVD or bruit. HEART: Tachycardic, regular, 2/6 systolic ejection murmur. LUNGS: Decreased air excursion with expiratory wheezes. ABDOMEN: Soft, nontender. CONSULT REPORT [id number] CHRISTIAN MURILLO EXTREMITIES: Pulses 2+ with no edema. DIAGNOSTIC DATA: EKG shows atrial flutter, 2:1 currently. He did have 1 episode of normal sinus rhythm. IMPRESSION: Paroxysmal atrial fib flutter. We will switch from propafenone to sotalol higher dose b.i.d., already anticoagulated. We would not cardiovert at this point since he has been in sinus during this admission. TRANSINT:[id number] Voice Confirmation ID: [id number] DOCUMENT ID: [id number] WICHO NAJERA MD at 0909 CC: [id number] DICTATION DATE: 04/24/19 0853 ROLL PICKER: 04/24/19 1020 [place] [address]
[2019-04-25 12:23] VITALS: BP 98/59
--- NOTE | 2019-04-25 14:59 | NUR ---
I have reviewed this patient and I concur with the Shift Assessment completed by the Licensed Practical Nurse today this shift.
[2019-04-25 16:30] VITALS: BP 109/76
--- NOTE | 2019-04-25 20:29 | NUR ---
IV TO RIGHT WIRST OUT, TIP INTACT. WILL ATTEMPT TO RESITE PIV.
--- NOTE | 2019-04-25 20:39 | NUR ---
ANDREA RASHID AT BED SIDE TO ATTEMPT IV.
[2019-04-26 06:08] LABS: CALCIUM 8.2 mg/dL (8.5-10.1); CARBON DIOXIDE 24.9 mmol/L (21.0-32.0); CHLORIDE - SERUM 104 mmol/L (98-107); GLUCOSE 87 mg/dL (74-106); MAGNESIUM - SERUM 1.8 mg/dL (1.8-2.4); POTASSIUM - SERUM 4.2 mmol/L (3.5-5.1); SODIUM 136 mmol/L (136-145)
[2019-04-26 06:11] LABS: CALC OSMOLALITY 270 mosm/kg (275-300); CREATININE - SERUM 0.9 mg/dL (0.6-1.3); UREA NITROGEN 12 mg/dL (7-18); eGFR NON AFRICAN AMERICAN > 90 mL/min (90-120)
--- NOTE | 2019-04-26 06:21 | NUR ---
I have reviewed this patient and I concur with the Shift Assessment completed by the Licensed Practical Nurse today this shift.
[2019-04-26 10:55] VITALS: BP 104/53
--- NOTE | 2019-04-26 13:16 | NUR ---
ASSESSMENT DONE. MARCELINA NEEDS
[2019-04-26 14:09] VITALS: BP 104/68
--- NOTE | 2019-04-26 14:55 | NUR ---
I have reviewed this patient and I concur with the Shift Assessment completed by the Licensed Practical Nurse today this shift.
[2019-04-26 17:24] VITALS: BP 119/66
[2019-04-26 20:30] VITALS: BP 122/80
--- NOTE | 2019-04-26 23:45 | NUR ---
PT UP TO BR, IV OUT, TIP INTACT. SANDWHICH TRAY GIVEN AT PT REQUEST. WINDOW/DISTRIBUTION CLERK AT BED SIDE, LINENS CHANGED.
[2019-04-27] VITALS: BP 108/70
[2019-04-27 04:30] VITALS: BP 106/70
--- NOTE | 2019-04-27 05:11 | NUR ---
I have reviewed this patient and I concur with the Shift Assessment completed by the Licensed Practical Nurse today this shift.
[2019-04-27 05:59] LABS: BASOPHILS 0.1 % (0-2); EOSINOPHILS 0 % (0-7); HEMATOCRIT 34.4 % (42.0-54.0); HEMOGLOBIN 12.1 g/dL (13.5-17.5); IMMATURE GRANULOCYTES 0.3 % (0-5); LYMPHOCYTES 3.6 % (15-50); MCH 36.2 pg (26.0-34.0); MCHC 35.2 g/dL (31.0-37.0); MEAN PLATELET VOLUME 12.9 fL (7.4-10.4); MONOCYTES 2.2 % (2-11); NEUTROPHILS 93.8 % (40-80); PLATELET COUNT 247 10x3/uL (130-400); RBC 3.34 10x6/uL (4.20-6.10); RDW 16.4 % (11.5-14.5); WBC 11.5 10x3/uL (4.8-10.8)
[2019-04-27 06:22] LABS: CALCIUM 8.1 mg/dL (8.5-10.1); CARBON DIOXIDE 24.3 mmol/L (21.0-32.0); CREATININE - SERUM 1.1 mg/dL (0.6-1.3); POTASSIUM - SERUM 4.3 mmol/L (3.5-5.1)
--- NOTE | 2019-04-27 08:05 | NUR ---
ASSESSMENT DONE. DENIES NEEDS
[2019-04-27 08:48] VITALS: BP 132/58
--- NOTE | 2019-04-27 09:22 | NUR ---
I have reviewed this patient and I concur with the Shift Assessment completed by the Licensed Practical Nurse today this shift.
[2019-04-27 12:26] VITALS: BP 124/74
[2019-04-27 16:02] VITALS: BP 104/52
--- NOTE | 2019-04-27 19:15 | NUR ---
RECEIVED REPORT, WILL ASSUME CARE OF PT, WALKING IN SALES, ASKING FOR SOMETHING TO EAT, PROVIDED A SANDWICH, WHEN REVIEWING LABS, VANC. TROUGH 29.1, SPOKE WITH PHARMACY, WAS TOLD TO GO AHEAD AND GIVE 0000 DOSE, THEY WILL RECHECK TROUGH IN AM, PT DENIES ANY NEEDS AT THIS TIME, WILL CONTINUE PLAN OF CARE
[2019-04-27 20:00] VITALS: BP 114/61
[2019-04-28] VITALS: BP 112/59
--- NOTE | 2019-04-28 00:26 | NUR ---
PT THINKS DOROTHY THAT BROUGHT HIM CLOTHES, THINKS THEY MAY HAVE PUT SOMETHINK IN HIS FOOD OR DRINK, ASKING IF WE CAN TEST FOR IT
[2019-04-28 04:00] VITALS: BP 119/65
--- NOTE | 2019-04-28 05:11 | NUR ---
I have reviewed this patient and I concur with the Shift Assessment completed by the Licensed Practical Nurse today this shift.
[2019-04-28 05:39] LABS: ANION GAP 13.3 mmol/L (8-16); CALCIUM 8.4 mg/dL (8.5-10.1); CARBON DIOXIDE 21.1 mmol/L (21.0-32.0); CREATININE - SERUM 1.3 mg/dL (0.6-1.3); MAGNESIUM - SERUM 1.6 mg/dL (1.8-2.4); POTASSIUM - SERUM 4.4 mmol/L (3.5-5.1)
--- NOTE | 2019-04-28 08:02 | NUR ---
alert AND ORIENTED. DRESSED AND WANTING TO GO HOME. DR LOU. 02 AT 2 L/M PER NC, REFUSES TO WEAR. REFUSES TO WEAR MONITOR OR IV FLUID.PT WAS IN SR WHEN PLACED ON MONITOR. WILL NOT STAY IN ROOM TO WAIT FOR THE DOCTOR.
[2019-04-28 10:12] VITALS: BP 114/81
--- NOTE | 2019-04-28 15:39 | NUR ---
PT DISCHARGED. IV DCD WITH TIP INTACT. INSTRUCTIONS GIVEN TO PT. TO PRIVATE CAR PER WHEELCHAIR.
--- NOTE | 2019-04-28 16:43 | NUR ---
I have reviewed this patient and I concur with the Shift Assessment completed by the Licensed Practical Nurse today this shift.
== END 2019-04-28 15:42 | disposition home or self-care (01) | DRG 308 ==
LOC: D.ER 04:29 → D.M2 06:43
PROVIDERS: Family Medicine; ADMIT Family Medicine; ATTEND Family Medicine
DX: I47.1 Supraventricular tachycardia (principal); J18.9 Pneumonia, unspecified organism; F17.213 Nicotine dependence, cigarettes, with withdrawal; F15.10 Other stimulant abuse, uncomplicated; K40.90 Unilateral inguinal hernia, without obstruction or gangrene, not specified as recurrent; K70.30 Alcoholic cirrhosis of liver without ascites; J43.9 Emphysema, unspecified; B19.20 Unspecified viral hepatitis C without hepatic coma; I48.92 Unspecified atrial flutter; I10 Essential (primary) hypertension; K72.90 Hepatic failure, unspecified without coma